=== PATIENT | male | born 1940 | race Caucasian/White ===

== ENCOUNTER 2017-01-20 13:04 | Inpatient (IN) | payer MEDICARE ==
[2017-01-20 13:07] VITALS: BMI 24.7
[2017-01-20] MEDS ORDERED: Albuterol-Ipratrop 3 mg / 0.5 (3 ml) UD IH STA (13:10)
--- NOTE | 2017-01-20 13:14 | ED PDOC ---
Arrival/HPI - General Chief Complaint: Shortness Of Breath Time Seen by Provider: 01/20/17 13:10 Historian: Patient, EMS EM Caveat: Respiratory Distress - Critical Care Critical Care Minutes: 30 minutes - History of Present Illness Time/Duration: Prior to Arrival Symptom Onset: Gradual Symptom Course: Worsening Severity Level: Severe Activities at Onset: Rest Associated Symptoms (Text): 01/20/17 13:12 History of severe COPD. Oxygen dependent on 2 L nasal cannula at home. Weak and fatigued for the last several days. Shortness of breath began in earnest today. No cough. No chest pain. No fever. Very poor historian secondary to respiratory distress. PMD is . Past Medical History - Cardiac Hx Hypertension: Yes - Pulmonary Hx Chronic Obstructive Pulmonary Disease (COPD): Yes Hx Emphysema: Yes (O2 dependent) - Psychiatric Hx Depression: No Hx Emotional Abuse: No Hx Physical Abuse: No Hx Substance Use: No - Surgical History Hx Inguinal Hernia Repair: Yes - Suicidal Assessment Feels Threatened In Home Enviroment: No Family/Social History - Physician Review Nursing Documentation Reviewed: Yes Family/Social History: Unknown Family HX Smoking Status: Former Smoker (Quit smoking 10 years ago) Hx Alcohol Use: No Hx Substance Use: No Allergies/Home Meds Allergies/Adverse Reactions: Allergies No Known Allergies Allergy (Verified 01/20/17 13:07) Home Medications: Home Meds Medication Instructions Recorded Confirmed Aspirin 81 mg PO DAILY 06/20/13 01/20/17 Tiotropium [Spiriva] 18 mcg IH DAILY 06/20/13 01/20/17 Albuterol HFA [Ventolin HFA 90 2 puff NEB Q4 PRN 01/20/17 01/20/17 mcg/actuation (8 g)] Ezetimibe/Simvastatin [Vytorin 1 tab PO DAILY 01/20/17 01/20/17 10-10 mg Tablet] Valsartan [Diovan] 40 mg PO DAILY 01/20/17 01/20/17 Review of Systems - Review of Systems Systems not reviewed;Unavailable: Respiratory Distress Physical Exam Vital Signs Temp Pulse Resp BP Pulse Ox 01/20/17 13:05 98.9 F 98 H 16 145/94 H 75 L Temperature: Afebrile Blood Pressure: Normal Pulse: Regular Respiratory Rate: Tachypneic Appearance: Positive for: Well-Appearing, Non-Toxic, Uncomfortable Pain Distress: None Mental Status: Positive for: other (Awake and alert) - Systems Exam Head: Present: Atraumatic, Normocephalic Pupils: Present: PERRL Extroacular Muscles: Present: EOMI Conjunctiva: Present: Normal Mouth: Present: Moist Mucous Membranes Neck: Present: Normal Range of Motion Respiratory/Chest: Present: Respiratory Distress, Accessory Muscle Use, Wheezes , Decreased Breath Sounds, Retracting, Rhonchi, Tachypneic. No: Rales, Tender to Palpation Cardiovascular: Present: Regular Rate and Rhythm, Normal S1, S2. No: Murmurs Abdomen: Present: Normal Bowel Sounds. No: Tenderness, Distention, Peritoneal Signs, Rebound, Guarding Upper Extremity: Present: Normal Inspection. No: Cyanosis, Edema Lower Extremity: Present: Normal Inspection, Edema (Trace bilateral lower extremity edema) Neurological: Present: GCS=15, CN II-XII Intact, Speech Normal Skin: Present: Warm, Dry, Normal Color. No: Rashes Medical Decision Making ED Course and Treatment: 01/20/17 14:08 EKG shows sinus tachycardia rate approximately 1:[address] or T-wave changes 01/20/17 14:09 ABG shows significant hypercarbia. Patient was begun on BiPAP. I had a long discussion with the patient's son over the telephone about the patient's CODE STATUS. This is the patient's only son. He reports that the patient does have a living will and he will be made a DNR. 01/20/17 14:38 Discussed in detail with , Kandi Mckeon Boghossian. - Lab Interpretations Lab Results: 01/20/17 13:24 01/20/17 13:24 Lab Results 01/20/17 13:47: Urine Color Dark yellow, Urine Appearance Slight-cloudy, Urine pH 5.5, Ur Specific [place] >= 1.030, Urine Protein 100 H, Urine Glucose (UA) Negative, Urine Ketones Negative, Urine Blood Trace-intact H, Urine Nitrate Negative, Urine Bilirubin Small H, Urine Urobilinogen 0.2, Ur Leukocyte Esterase Negative, Urine RBC Pending, Urine WBC Pending 01/20/17 13:24: Sodium 137, Potassium 4.1, Chloride 89 L, Carbon Dioxide 40 H, Anion Gap 12, BUN 25 H, Creatinine 1.3, Est GFR ( Amer) > 60, Est GFR ( Non-Af Amer) 54, Random Glucose 144 H, Calcium 8.6, Total Bilirubin 0.9, AST 27 , ALT 28, Alkaline Phosphatase 63, Lactate Dehydrogenase 483, Total Creatine Kinase 41, Troponin I 0.13 H*, NT-Pro-B Natriuret Pep 4260 H, Total Protein 7.3 , Albumin 4.3, Globulin 3.0, Albumin/Globulin Ratio 1.4 01/20/17 13:24: PT 12.3 H, INR 1.14 H, APTT 30.6 01/20/17 13:24: WBC 7.7, RBC 5.74, Hgb 17.1, Hct 55.2 H*, MCV 96.2, MCH 29.8, MCHC 31.0, RDW 13.1, Plt Count 214, MPV 10.8, Gran % 82.4 H, Lymph % (Auto) 11.4 L, [place] % (Auto) 6.1 H, Eos % (Auto) 0.0 L, Baso % (Auto) 0.1, Gran # 6.31 , Lymph # 0.9 L, [place] # 0.5, Eos # 0.0, Baso # 0.01 - RAD Interpretation Radiology Orders: 01/20/17 13:10 CHEST PORTABLE [RAD] Stat Chest one view shows a positive infiltrate Cage Loader: ED Physician - Medication Orders Current Medication Orders: Azithromycin (Zithromax 500mg In Ns) 500 mg in 250 mls @ 167 mls/hr IVPB STAT STA PRN Reason: Protocol Stop: 01/20/17 15:36 Discontinued Medications Albuterol/Ipratropium (Duoneb 3 Mg/0.5 Mg (3 Ml) Ud) 3 ml IH STAT STA Stop: 01/20/17 13:11 Last Admin: 01/20/17 13:41 Dose: 3 ml Ceftriaxone Sodium (Rocephin 1 Gram Ivpb) 1 gm in 100 mls @ 200 mls/hr IVPB STAT STA PRN Reason: Protocol Stop: 01/20/17 14:36 Last Admin: 01/20/17 14:49 Dose: 200 mls/hr Methylprednisolone (Solu-Medrol) 125 mg IVP STAT STA Stop: 01/20/17 13:11 Last Admin: 01/20/17 13:41 Dose: 125 mg Disposition/Present on Arrival - Present on Arrival Any Indicators Present on Arrival: No History of DVT/PE: No History of Uncontrolled Diabetes: No Urinary Catheter: No History of Decub. Ulcer: No History Surgical Site Infection Following: None - Disposition Have Diagnosis and Disposition been Completed?: Yes Diagnosis: Respiratory failure, Elevated troponin, Pneumonia, Hypercarbia Disposition: HOSPITALIZED Disposition Time: 14:37 Patient Plan: Admission, ICU Patient Problems: Current Active Problems Problem Status Onset Elevated troponin Acute Hypercarbia Acute Pneumonia Acute Respiratory failure Acute Condition: CRITICAL
[2017-01-20 13:28] LABS: BASO # 0.01 K/mm3 (0.0-2.0); BASO % 0.1 % (0.0-3.0); GRAN # 6.31 (1.4-6.5); GRAN % 82.4 % (50.0-68.0); HEMOGLOBIN 17.1 gm/dL (14.0-18.0); LYMPH # 0.9 (1.2-3.4); LYMPH % 11.4 % (22.0-35.0); MEAN CELL VOLUME 96.2 fL (80.0-105.0); MEAN CORPUSCULAR HEMOGLOBIN 29.8 pg (25.0-35.0); MEAN PLATELET VOLUME 10.8 fl (7.0-11.0); MONO # 0.5 (0.1-0.6); MONO % 6.1 % (1.0-6.0); PLATELET COUNT 214 10^3/uL (120.0-450.0); RBC 5.74 10^6/uL (3.5-6.1); RED CELL DISTRIBUTION WIDTH 13.1 % (11.5-14.5); WHITE BLOOD COUNT 7.7 10^3/ul (4.5-11.0)
[2017-01-20 13:37] LABS: ALB/GLOB RATIO 1.4 (1.1-1.8); ALBUMIN 4.3 g/dL (3.0-4.8); ALT/SGPT 28 U/L (7-56); AST/SGOT 27 U/L (15-59); BLOOD UREA NITROGEN 25 mg/dL (7-21); CALCIUM 8.6 mg/dL (8.4-10.5); GFR AFRICAN-AMERICAN > 60; GFR NON-AFRICAN AMERICAN 54
[2017-01-20 13:46] LABS: INR 1.14 (0.93-1.08); PARTIAL THROMBOPLASTIN TIME 30.6 Seconds (23.7-30.8); PROTHROMBIN TIME 12.3 Seconds (9.9-11.8)
[2017-01-20 13:49] LABS: B-TYPE NATRIURETIC PEPTIDE 4260 pg/mL (0-450)
[2017-01-20] MEDS ORDERED: Azithromycin 500MG/NS 250ml 500 MG/250 ML BAG IVPB STA (14:07)
[2017-01-20] MEDS ORDERED: cefTRIAXone 1 gm 1 GM/100 ML BAG IVPB STA (14:07)
[2017-01-20 14:27] LABS: TROPONIN I 0.13 ng/mL
[2017-01-20 14:29] LABS: PH,URINE 5.5 (4.7-8.0); URINE BILIRUBIN SMALL (NEGATIVE); URINE BLOOD TRACE-INTACT (NEGATIVE); URINE GLUCOSE (UA) NEGATIVE (NEGATIVE); URINE LEUKOCYTE ESTERASE NEGATIVE Leu/uL (NEGATIVE); URINE NITRATE NEGATIVE (NEGATIVE); URINE PROTEIN 100 mg/dL (<30 mg/dL); URINE UROBILINOGEN 0.2 E.U./dL (<1 E.U./dL)
[2017-01-20 14:34] LABS: URINE APPEARANCE SLIGHT-CLOUDY (CLEAR); URINE COLOR DARK YELLOW (YELLOW)
--- NOTE | 2017-01-20 14:40 | RAD ---
HISTORY: Shortness of breath. Portable study 13:41. COMPARISON: 03/05/2016. FINDINGS: LUNGS: No active pulmonary disease. PLEURA: No significant pleural effusion identified, no pneumothorax apparent. CARDIOVASCULAR: No radiographic findings to suggest acute or significant cardiovascular disease. OSSEOUS STRUCTURES: No significant abnormalities. VISUALIZED UPPER ABDOMEN: Normal. OTHER FINDINGS: None. IMPRESSION: No active disease. No significant interval change compared to the prior examination(s).
[2017-01-20 14:56] LABS: URINE AMORPHOUS SEDIMENT MODERATE; URINE BACTERIA FEW (NEG); URINE EPITHELIAL CELLS 0 - 2 /hpf (0-5); URINE WBC 0 - 2 /hpf (0-6)
[2017-01-20 15:10] LABS: ARTERIAL BLOOD GAS HEMOGLOBIN 16.6 g/dL (11.7-17.4)
[2017-01-20 15:11] LABS: ARTERIAL BLOOD GAS TCO2 46.8 mmol.L (22-28)
[2017-01-20 15:12] LABS: ARTERIAL BLOOD GAS FIO2 28 %
[2017-01-20 15:13] LABS: ARTERIAL BLOOD GAS HCO3 43.4 mmol/L (21-28); ARTERIAL BLOOD GAS PCO2 111 mm/Hg (35-45)
[2017-01-20] MEDS ORDERED: Albuterol-Ipratrop 3 mg / 0.5 (3 ml) UD IH PRN (15:16)
[2017-01-20] MEDS ORDERED: MethylPREDNISolone 40 mg Vial IVP SCH (15:30)
--- NOTE | 2017-01-20 15:36 | CP.PCM.CON ---
<Danay Cha - Last Filed: 01/20/17 16:30> History of Present Illness - History of Present Illness History of Present Illness: ICU Consult Note Reason for consult: Respiratory failure This is a 76Y M with PMH COPD, HTN who came to ED for SOB x 2 days. Patient was brought in by ambulance. As per ED physician, he has been SOB x 2 days with cough and colored mucus. Patient was lethargic upon interview. History and ROS difficult to obtain. Patient is arousable and denies having any pain. Of note, he has severe COPD and is on home O2 of 2 L. PMH: HTN, COPD PSH: Hernia repair Home meds: ASA, Spiriva, Ventolin, Valsartan, Vytorin All: NKDA SH: Former smoker FH: non-obtainable Review of Systems - Review of Systems Systems not reviewed;Unavailable: Respiratory Distress, Other (lethargic ) Past Patient History - Past Social History Smoking Status: Former Smoker (Quit smoking 10 years ago) Home Situation {Lives}: With Family - CARDIAC Hx Hypertension: Yes - PULMONARY Hx Chronic Obstructive Pulmonary Disease (COPD): Yes Hx Emphysema: Yes (O2 dependent) - PSYCHIATRIC Hx Depression: No Hx Emotional Abuse: No Hx Physical Abuse: No Hx Substance Use: No Meds Allergies/Adverse Reactions: Allergies Allergy/AdvReac Type Severity Reaction Status Date / Time No Known Allergies Allergy Verified 01/20/17 13:07 - Medications Medications: Current Medications Albuterol/Ipratropium (Duoneb 3 Mg/0.5 Mg (3 Ml) Ud) 3 ml IH [id number] RICH Albuterol/Ipratropium (Duoneb 3 Mg/0.5 Mg (3 Ml) Ud) 3 ml IH Q2H PRN PRN Reason: Shortness of Breath Aspirin (Aspirin Supp) 300 mg RC DAILY RICH Azithromycin (Zithromax 500mg In Ns) 500 mg in 250 mls @ 167 mls/hr IVPB STAT STA PRN Reason: Protocol Stop: 01/20/17 15:36 Last Admin: 01/20/17 15:27 Dose: 167 mls/hr Levofloxacin/Dextrose (Levaquin 750mg) 750 mg in 150 mls @ 100 mls/hr IVPB DAILY RICH Sodium Chloride (Sodium Chloride 0.9%) 1,000 mls @ 100 mls/hr IV .Q10H RICH Piperacillin Sod/Tazobactam Sod (Zosyn 3.375 In Ns 100ml) 100 mls @ 200 mls/hr IVPB Q6 RICH PRN Reason: Protocol Stop: 01/21/17 00:29 Linezolid (Zyvox 600mg/300ml D5w) 600 mg in 300 mls @ 200 mls/hr IVPB Q12 RICH PRN Reason: Protocol Stop: 01/20/17 23:29 Metoprolol Tartrate (Lopressor) 5 mg IVP Q6H RICH Pantoprazole Sodium (Protonix Inj) 40 mg IVP DAILY [facility] Physical Exam - Constitutional Additional comments: Lethargic - Head Exam Head Exam: ATRAUMATIC, NORMAL INSPECTION, NORMOCEPHALIC - Eye Exam Eye Exam: Normal appearance, PERRL Pupil Exam: NORMAL ACCOMODATION, PERRL - ENT Exam ENT Exam: Mucous Membranes Moist - Respiratory Exam Respiratory Exam: Decreased Breath Sounds, Respiratory Distress. absent: Rales , Rhonchi, Wheezes - Cardiovascular Exam Cardiovascular Exam: Tachycardia, REGULAR RHYTHM, +S1, +S2. absent: Gallop, Rubs, Systolic Murmur - GI/Abdominal Exam GI & Abdominal Exam: Normal Bowel Sounds, Soft. absent: Firm, Guarding, Rebound , Tenderness - Extremities Exam Extremities exam: Positive for: normal inspection. Negative for: calf tenderness, pedal edema - Neurological Exam Neurological exam: CN II-XII Intact - Skin Skin Exam: Dry, Intact, Normal Color, Warm Results - Vital Signs Recent Vital Signs: Last Vital Signs Temp 98.9 F 01/20/17 13:05 Pulse 98 H 01/20/17 13:05 Resp 16 01/20/17 13:05 BP 145/94 H 01/20/17 13:05 Pulse Ox 75 L 01/20/17 13:05 - Labs Result Diagrams: 01/20/17 13:24 01/20/17 13:24 Assessment & Plan - Assessment and Plan (Free Text) Assessment: This is a 76Y M with PMH HTN, severe COPD on home O2 admitted for severe community acquired pneumonia, respiratory failure and elevated troponin. Plan: Neuro: Lethargic- AMS can be secondary to pneumonia Neuro check Aspiration precaution CV: Troponin elevated- will trend EKG did not show tachycardia with ST-T wave changes Cardio consulted- spoke with Dr. Hastings who [facility] who reports no cath plan for this time- continue to monitor and SC Heparin ASA, Beta-felicity BNP elevated. Echo ordered Maintain MAP >65 Resp: On Bipap- Pt DNI Hypercapneic respiratory failure Maintain spO2>90% Severe CAP on CXR Will obtain chest CT Serial ABG Duoneb Solumedrol 40q8h GI: NPO at this time Nephro: Will monitor electrolytes and will replace as needed Monitor I&O Maintain euvolemia Heme: Hgb stable- no overt signs Will continue to monitor ID: Severe CAP afebrile, no leukocytosis Lactate 0.9, PCT pending Septic work up pending, including urine legionella and streptococcus ID consulted On Zosyn, Zyvox, and Levaquin Maintain normothermia Endo: Maintain euglycemia GI ppx: Protonix DVT ppx: Heparin SC Case seen, discussed and reviewed with attending Sina Cha PGY2 - Date & Time Date: 01/20/17 Time: 17:12 <Antwon Mckeon - Last Filed: 01/21/17 08:00> Meds - Medications Medications: Current Medications Albuterol/Ipratropium (Duoneb 3 Mg/0.5 Mg (3 Ml) Ud) 3 ml IH [id number] [facility] Last Admin: 01/21/17 07:18 Dose: 3 ml Albuterol/Ipratropium (Duoneb 3 Mg/0.5 Mg (3 Ml) Ud) 3 ml IH Q2H PRN PRN Reason: Shortness of Breath Aspirin (Aspirin Supp) 300 mg RC DAILY [facility] Levofloxacin/Dextrose (Levaquin 750mg) 750 mg in 150 mls @ 100 mls/hr IVPB DAILY [facility] Last Admin: 01/20/17 18:12 Dose: 100 mls/hr Sodium Chloride (Sodium Chloride 0.9%) 1,000 mls @ 100 mls/hr IV .Q10H [facility] Last Admin: 01/21/17 01:30 Dose: 100 mls/hr Methylprednisolone (Solu-Medrol) 40 mg IVP Q8H [facility] Last Admin: 01/21/17 05:50 Dose: 40 mg Metoprolol Tartrate (Lopressor) 5 mg IVP Q6H [facility] Last Admin: 01/21/17 03:48 Dose: 5 mg Pantoprazole Sodium (Protonix Inj) 40 mg IVP DAILY RICH Results - Vital Signs Recent Vital Signs: Last Vital Signs Temp 98.2 F 01/21/17 04:00 Pulse 83 01/21/17 06:00 Resp 18 01/21/17 06:00 BP 124/74 01/21/17 06:00 Pulse Ox 87 L 01/21/17 06:00 - Labs Result Diagrams: 01/21/17 07:00 01/21/17 07:00 Labs: Laboratory Results - last 24 hr 01/20/17 01/21/17 01/21/17 16:15 02:05 05:30 WBC RBC Hgb Hct MCV MCH MCHC RDW Plt Count MPV Gran % Lymph % (Auto) [place] % (Auto) Eos % (Auto) Baso % (Auto) Gran # Lymph # [place] # Eos # Baso # pCO2 116 H* 96 H* pO2 102.0 H 135.0 H HCO3 41.3 H* 38.4 H ABG pH 7.16 L* 7.21 L ABG Total CO2 44.9 H 41.3 H ABG O2 Saturation 98.1 H 99.4 H ABG O2 Content ABG Base Excess 6.8 H 6.8 H ABG Hemoglobin ABG Carboxyhemoglobin POC ABG HHb (Measured) ABG Methemoglobin ABG O2 Capacity ABG Potassium 4.1 3.7 Hgb O2 Saturation Sodium 138.0 137.0 Chloride 94.0 L 99.0 Glucose 178 H 135 H Lactate 0.9 1.3 FiO2 50.0 28.0 Inspiratory BiPAP 14 Potassium Carbon Dioxide Anion Gap BUN Creatinine Est GFR ( Amer) Est GFR (Non-Af Amer) Random Glucose Calcium Total Bilirubin AST ALT Alkaline Phosphatase Troponin I 0.11 Total Protein Albumin Globulin Albumin/Globulin Ratio Arterial Blood Potassium 4.1 3.7 01/21/17 01/21/17 01/21/17 06:29 07:00 07:00 WBC 5.8 D RBC 5.40 Hgb 15.9 Hct 51.8 MCV 95.9 MCH 29.4 MCHC 30.7 L RDW 12.9 Plt Count 163 MPV 10.4 Gran % 89.6 H Lymph % (Auto) 6.9 L [place] % (Auto) 3.5 Eos % (Auto) 0.0 L Baso % (Auto) 0.0 Gran # 5.17 Lymph # 0.4 L [place] # 0.2 Eos # 0.0 Baso # 0.00 pCO2 78 H* pO2 60.0 L HCO3 35.8 H ABG pH 7.27 L ABG Total CO2 38.2 H ABG O2 Saturation 92.5 L ABG O2 Content 19.4 ABG Base Excess 5.6 H ABG Hemoglobin 15.5 ABG Carboxyhemoglobin 2.9 H POC ABG HHb (Measured) 7.2 H ABG Methemoglobin 0.9 ABG O2 Capacity 21.0 ABG Potassium Hgb O2 Saturation 89.0 L Sodium 137 Chloride 95 L Glucose Lactate FiO2 28.0 Inspiratory BiPAP Potassium 3.9 Carbon Dioxide 33 Anion Gap 13 BUN 21 Creatinine 1.1 Est GFR ( Amer) > 60 Est GFR (Non-Af Amer) > 60 Random Glucose 140 H Calcium 7.8 L Total Bilirubin 0.6 AST 22 ALT 27 Alkaline Phosphatase 48 Troponin I Total Protein 6.2 Albumin 3.6 Globulin 2.6 Albumin/Globulin Ratio 1.4 Arterial Blood Potassium Attending/Attestation - Attestation I have personally seen and examined this patient.: Yes I have fully participated in the care of the patient.: Yes I have reviewed all pertinent clinical information: Yes Notes (Text): 01/21/17 07:56 76 yo male with CAP and COPD exacerbation now in hypoxemic and hypercapnic respiratory failure, sepsis, NIKKI septic cardiomyopathy. DNR/DNI Plan: 1. BPAP 2. Abx, blood, urine sputum culture, urine for strep and leg ags, pct 3. echo, trend troponin, cardio consult, aspirin, bb 4. icu overnight 5. dvt/gi prophylaxis ccm time 40 min
[2017-01-20 16:26] LABS: ARTERIAL BLOOD GAS HCO3 41.3 mmol/L (21-28); ARTERIAL BLOOD GAS O2 SAT 98.1 % (95-98); ARTERIAL BLOOD GAS PCO2 116 mm/Hg (35-45); ARTERIAL BLOOD GAS TCO2 44.9 mmol.L (22-28)
[2017-01-20 16:27] LABS: ARTERIAL BLOOD GAS PH 7.16 (7.35-7.45)
[2017-01-20] MEDS: Sodium Chloride 0.9% 1,000 ML IV SCH (16:35)
[2017-01-20] MEDS: Metoprolol 1 mg/ml Inj IVP SCH ×2 (16:36→21:34)
--- NOTE | 2017-01-20 17:28 | CT ---
PROCEDURE: CT Chest without contrast HISTORY: pneumonia discordance with CXR COMPARISON: January 20, 2017. Single-view chest TECHNIQUE: Contiguous axial images were obtained through the chest without intravenous contrast enhancement. Sagittal and coronal reconstructions were performed. Radiation dose (DLP): 425.22 mGy-cm. This CT exam was performed using one or more of the following dose reduction techniques: Automated exposure control, adjustment of the mA and/or kV according to patient size, and/or use of iterative reconstruction technique. FINDINGS: LUNGS: Small infiltrate or atelectasis basilar segment right lower lobe. No additional pulmonary infiltrates, nodules or suspicious masses. MEDIASTINUM: Unremarkable thoracic aorta. No aneurysm. No radiographic findings to suggest acute or significant cardiovascular disease. Dilated main pulmonary artery 3.7 cm consistent with pulmonary arterial hypertension. No lymphadenopathy. PLEURA: No pleural fluid. No pneumothorax. BONES: No acute fractures. Multiple healed posterior lateral right rib fractures. UPPER ABDOMEN: Nonspecific enlargement left adrenal gland. Irregular contour to the liver may represent cirrhosis, hepatocellular disease. The liver is incompletely visualized. OTHER FINDINGS: None. IMPRESSION: Subsegmental atelectasis/ infiltrates basilar segment right lower lobe. Otherwise no active pulmonary disease. Additional benign and/or incidental findings described above. Dense
[2017-01-20] MEDS: levoFLOXacin 750 mg in D5W 750 MG/150 ML BAG IVPB SCH (18:12)
[2017-01-20] MEDS: Piperacillin/Tazobact 3.375 gm 100 ML IVPB SCH (18:13)
[2017-01-20] MEDS: Albuterol-Ipratrop 3 mg / 0.5 (3 ml) UD IH SCH (20:00)
--- NOTE | 2017-01-20 20:17 | CARD ---
APPROVED REPORT EKG Measurement Heart [id number] <Conclusion> Poor data quality, interpretation may be adversely affected Sinus tachycardia with occasional premature ventricular complexes Possible Left atrial enlargement RSR' or QR pattern in V1 suggests right ventricular conduction delay Nonspecific T wave abnormality Abnormal ECG
[2017-01-20] MEDS ORDERED: Linezolid 600 mg in D5W 300 ml 600 MG/300 ML BAG IVPB SCH (22:00)
[2017-01-21] MEDS: Piperacillin/Tazobact 3.375 gm 100 ML IVPB SCH
[2017-01-21] MEDS: Albuterol-Ipratrop 3 mg / 0.5 (3 ml) UD IH SCH ×4 (01:12→19:34)
[2017-01-21] MEDS: Sodium Chloride 0.9% 1,000 ML IV SCH ×2 (01:30→12:27)
[2017-01-21] MEDS: Metoprolol 1 mg/ml Inj IVP SCH (03:48)
[2017-01-21 05:44] LABS: ARTERIAL BLOOD GAS HCO3 38.4 mmol/L (21-28); ARTERIAL BLOOD GAS O2 SAT 99.4 % (95-98); ARTERIAL BLOOD GAS PH 7.21 (7.35-7.45); ARTERIAL BLOOD GAS TCO2 41.3 mmol.L (22-28)
[2017-01-21] MEDS: MethylPREDNISolone 40 mg Vial IVP SCH ×3 (05:50→21:16)
[2017-01-21 06:33] LABS: ARTERIAL BLOOD GAS HCO3 35.8 mmol/L (21-28); ARTERIAL BLOOD GAS HEMOGLOBIN 15.5 g/dL (11.7-17.4); ARTERIAL BLOOD GAS O2 CONTENT 19.4 ML/dl (15-23); ARTERIAL BLOOD GAS O2 SAT 92.5 % (95-98); ARTERIAL BLOOD GAS PH 7.27 (7.35-7.45); ARTERIAL BLOOD GAS TCO2 38.2 mmol.L (22-28)
[2017-01-21 07:14] LABS: GRAN # 5.17 (1.4-6.5); GRAN % 89.6 % (50.0-68.0); HEMOGLOBIN 15.9 gm/dL (14.0-18.0); LYMPH # 0.4 (1.2-3.4); LYMPH % 6.9 % (22.0-35.0); MEAN CELL VOLUME 95.9 fL (80.0-105.0); MEAN CORPUSCULAR HEMOGLOBIN 29.4 pg (25.0-35.0); MEAN CORPUSCULAR HGB CONC 30.7 g/dl (31.0-37.0); MEAN PLATELET VOLUME 10.4 fl (7.0-11.0); MONO # 0.2 (0.1-0.6); MONO % 3.5 % (1.0-6.0); PLATELET COUNT 163 10^3/uL (120.0-450.0); RED CELL DISTRIBUTION WIDTH 12.9 % (11.5-14.5); WHITE BLOOD COUNT 5.8 10^3/ul (4.5-11.0)
[2017-01-21 07:30] LABS: ALB/GLOB RATIO 1.4 (1.1-1.8); ALBUMIN 3.6 g/dL (3.0-4.8); ALT/SGPT 27 U/L (7-56); AST/SGOT 22 U/L (15-59); BLOOD UREA NITROGEN 21 mg/dL (7-21); CALCIUM 7.8 mg/dL (8.4-10.5); GFR AFRICAN-AMERICAN > 60; GFR NON-AFRICAN AMERICAN > 60
[2017-01-21 07:46] LABS: ARTERIAL BLOOD GAS PCO2 96 mm/Hg (35-45)
[2017-01-21 07:48] LABS: ARTERIAL BLOOD GAS PCO2 78 mm/Hg (35-45)
[2017-01-21] MEDS: levoFLOXacin 750 mg in D5W 750 MG/150 ML BAG IVPB SCH (09:21)
--- NOTE | 2017-01-21 09:40 | CP.PCM.CON ---
History of Present Illness - History of Present Illness History of Present Illness: SOB NOW RESOLVED AWAKE ALERT DOING BETTER COMFORTABLE Review of Systems - Constitutional Constitutional: Weakness - Respiratory Respiratory: Dyspnea Past Patient History - Past Medical History & Family History Past Medical History?: Yes - Past Social History Smoking Status: Former Smoker (Quit smoking 10 years ago) Home Situation {Lives}: With Family - CARDIAC Hx Hypertension: Yes - PULMONARY Hx Chronic Obstructive Pulmonary Disease (COPD): Yes Hx Emphysema: Yes (O2 dependent) - MUSCULOSKELETAL/RHEUMATOLOGICAL Hx Falls: No - PSYCHIATRIC Hx Depression: No Hx Emotional Abuse: No Hx Physical Abuse: No Hx Substance Use: No Meds Allergies/Adverse Reactions: Allergies Allergy/AdvReac Type Severity Reaction Status Date / Time No Known Allergies Allergy Verified 01/20/17 13:07 - Medications Medications: Current Medications Albuterol/Ipratropium (Duoneb 3 Mg/0.5 Mg (3 Ml) Ud) 3 ml IH [id number] [facility] Last Admin: 01/21/17 07:18 Dose: 3 ml Albuterol/Ipratropium (Duoneb 3 Mg/0.5 Mg (3 Ml) Ud) 3 ml IH Q2H PRN PRN Reason: Shortness of Breath Aspirin (Aspirin Supp) 300 mg RC DAILY [facility] Doxycycline Hyclate (Doryx) 100 mg PO Q12 RICH PRN Reason: Protocol Stop: 01/30/17 10:01 Levofloxacin/Dextrose (Levaquin 750mg) 750 mg in 150 mls @ 100 mls/hr IVPB DAILY [facility] Last Admin: 01/20/17 18:12 Dose: 100 mls/hr Sodium Chloride (Sodium Chloride 0.9%) 1,000 mls @ 100 mls/hr IV .Q10H [facility] Last Admin: 01/21/17 01:30 Dose: 100 mls/hr Methylprednisolone (Solu-Medrol) 40 mg IVP Q8H [facility] Last Admin: 01/21/17 05:50 Dose: 40 mg Metoprolol Tartrate (Lopressor) 5 mg IVP Q6H [facility] Last Admin: 01/21/17 03:48 Dose: 5 mg Pantoprazole Sodium (Protonix Inj) 40 mg IVP DAILY [facility] Physical Exam - Constitutional Appears: Well - Head Exam Head Exam: ATRAUMATIC, NORMAL INSPECTION, NORMOCEPHALIC - Eye Exam Eye Exam: EOMI, Normal appearance, PERRL Pupil Exam: NORMAL ACCOMODATION, PERRL - ENT Exam ENT Exam: Mucous Membranes Moist, Normal Exam - Neck Exam Neck exam: Positive for: Normal Inspection - Respiratory Exam Respiratory Exam: Clear to Auscultation Bilateral, NORMAL BREATHING PATTERN - Cardiovascular Exam Cardiovascular Exam: REGULAR RHYTHM - GI/Abdominal Exam GI & Abdominal Exam: Normal Bowel Sounds, Soft. absent: Tenderness - Rectal Exam Rectal Exam: NORMAL INSPECTION - Exam Exam: Circumcision, NORMAL INSPECTION External exam: NORMAL EXTERNAL EXAM Speculum exam: NORMAL SPECULUM EXAM Bimanual exam: NORMAL BIMANUAL EXAM - Extremities Exam Extremities exam: Positive for: normal inspection - Back Exam Back exam: NORMAL INSPECTION - Neurological Exam Neurological exam: Alert, CN II-XII Intact, Normal Gait, Oriented x3, Reflexes Normal - Psychiatric Exam Psychiatric exam: Normal Affect, Normal Mood - Skin Skin Exam: Dry, Intact, Normal Color, Warm Results - Vital Signs Recent Vital Signs: Last Vital Signs Temp 97.2 F L 01/21/17 08:00 Pulse 88 01/21/17 08:20 Resp 43 H 01/21/17 08:10 BP 133/96 H 01/21/17 08:01 Pulse Ox 94 L 01/21/17 08:20 - Labs Result Diagrams: 01/21/17 07:00 01/21/17 07:00 Labs: Laboratory Results - last 24 hr 01/20/17 01/21/17 01/21/17 16:15 02:05 05:30 WBC RBC Hgb Hct MCV MCH MCHC RDW Plt Count MPV Gran % Lymph % (Auto) [place] % (Auto) Eos % (Auto) Baso % (Auto) Gran # Lymph # [place] # Eos # Baso # pCO2 116 H* 96 H* pO2 102.0 H 135.0 H HCO3 41.3 H* 38.4 H ABG pH 7.16 L* 7.21 L ABG Total CO2 44.9 H 41.3 H ABG O2 Saturation 98.1 H 99.4 H ABG O2 Content ABG Base Excess 6.8 H 6.8 H ABG Hemoglobin ABG Carboxyhemoglobin POC ABG HHb (Measured) ABG Methemoglobin ABG O2 Capacity ABG Potassium 4.1 3.7 Hgb O2 Saturation Sodium 138.0 137.0 Chloride 94.0 L 99.0 Glucose 178 H 135 H Lactate 0.9 1.3 FiO2 50.0 28.0 Inspiratory BiPAP 14 Potassium Carbon Dioxide Anion Gap BUN Creatinine Est GFR ( Amer) Est GFR (Non-Af Amer) Random Glucose Calcium Total Bilirubin AST ALT Alkaline Phosphatase Troponin I 0.11 Total Protein Albumin Globulin Albumin/Globulin Ratio Arterial Blood Potassium 4.1 3.7 01/21/17 01/21/17 01/21/17 06:29 07:00 07:00 WBC 5.8 D RBC 5.40 Hgb 15.9 Hct 51.8 MCV 95.9 MCH 29.4 MCHC 30.7 L RDW 12.9 Plt Count 163 MPV 10.4 Gran % 89.6 H Lymph % (Auto) 6.9 L [place] % (Auto) 3.5 Eos % (Auto) 0.0 L Baso % (Auto) 0.0 Gran # 5.17 Lymph # 0.4 L [place] # 0.2 Eos # 0.0 Baso # 0.00 pCO2 78 H* pO2 60.0 L HCO3 35.8 H ABG pH 7.27 L ABG Total CO2 38.2 H ABG O2 Saturation 92.5 L ABG O2 Content 19.4 ABG Base Excess 5.6 H ABG Hemoglobin 15.5 ABG Carboxyhemoglobin 2.9 H POC ABG HHb (Measured) 7.2 H ABG Methemoglobin 0.9 ABG O2 Capacity 21.0 ABG Potassium Hgb O2 Saturation 89.0 L Sodium 137 Chloride 95 L Glucose Lactate FiO2 28.0 Inspiratory BiPAP Potassium 3.9 Carbon Dioxide 33 Anion Gap 13 BUN 21 Creatinine 1.1 Est GFR ( Amer) > 60 Est GFR (Non-Af Amer) > 60 Random Glucose 140 H Calcium 7.8 L Total Bilirubin 0.6 AST 22 ALT 27 Alkaline Phosphatase 48 Troponin I Total Protein 6.2 Albumin 3.6 Globulin 2.6 Albumin/Globulin Ratio 1.4 Arterial Blood Potassium Assessment & Plan (1) Congestive heart failure (CHF) Status: Acute (2) Elevated troponin Status: Acute (3) Hypercarbia Status: Acute (4) Elevated brain natriuretic peptide (BNP) level Status: Acute - Assessment and Plan (Free Text) Plan: ROCE /DOX CH BERGMAN CULTURS NORMAL PROCAL CK ECHO - Date & Time Date: 01/21/17 Time: 08:00
--- NOTE | 2017-01-21 11:20 | CP.PCM.PN ---
Subjective - Date & Time of Evaluation Date of Evaluation: 01/21/17 Time of Evaluation: 11:16 - Subjective Subjective: Pt with no CP/SOB/N/V. Eating ok. Wants to go home. Objective - Vital Signs/Intake and Output Vital Signs (last 24 hours): Temp Pulse Resp BP Pulse Ox 97.2 F L 88 43 H 133/96 H 94 L 01/21/17 08:00 01/21/17 08:20 01/21/17 08:10 01/21/17 08:01 01/21/17 08:20 Intake and Output: 01/21/17 01/21/17 06:59 18:59 Intake Total 1600 Output Total 400 Balance 1200 - Medications Medications: Current Medications Albuterol/Ipratropium (Duoneb 3 Mg/0.5 Mg (3 Ml) Ud) 3 ml IH [id number] [facility] Last Admin: 01/21/17 07:18 Dose: 3 ml Albuterol/Ipratropium (Duoneb 3 Mg/0.5 Mg (3 Ml) Ud) 3 ml IH Q2H PRN PRN Reason: Shortness of Breath Aspirin (Aspirin Chewable) 81 mg PO DAILY [facility] Last Admin: 01/21/17 11:09 Dose: 81 mg Doxycycline Hyclate (Doryx) 100 mg PO Q12 [facility] PRN Reason: Protocol Stop: 01/30/17 10:01 Last Admin: 01/21/17 10:30 Dose: 100 mg Levofloxacin/Dextrose (Levaquin 750mg) 750 mg in 150 mls @ 100 mls/hr IVPB DAILY [facility] Last Admin: 01/21/17 09:21 Dose: 100 mls/hr Sodium Chloride (Sodium Chloride 0.9%) 1,000 mls @ 100 mls/hr IV .Q10H [facility] Last Admin: 01/21/17 01:30 Dose: 100 mls/hr Methylprednisolone (Solu-Medrol) 40 mg IVP Q8H [facility] Last Admin: 01/21/17 05:50 Dose: 40 mg Metoprolol Tartrate (Lopressor) 5 mg IVP Q6H [facility] Last Admin: 01/21/17 03:48 Dose: 5 mg Pantoprazole Sodium (Protonix Inj) 40 mg IVP DAILY [facility] Last Admin: 01/21/17 09:21 Dose: 40 mg - Labs Labs: 01/21/17 07:00 01/21/17 07:00 PT 12.3 Seconds (9.9-11.8) H 01/20/17 13:24 INR 1.14 (0.93-1.08) H 01/20/17 13:24 APTT 30.6 Seconds (23.7-30.8) 01/20/17 13:24 - Eye Exam Eye Exam: EOMI, Normal appearance, PERRL Pupil Exam: NORMAL ACCOMODATION, PERRL - ENT Exam ENT Exam: Mucous Membranes Moist, Normal Exam - Cardiovascular Exam Cardiovascular Exam: REGULAR RHYTHM, RRR, +S1, +S2. absent: Murmur - Extremities Exam Extremities Exam: Full ROM - Neurological Exam Neurological Exam: Alert, Awake, CN II-XII Intact, Oriented x3 - Psychiatric Exam Psychiatric exam: Normal Affect, Normal Mood - Skin Skin Exam: Intact, Normal Color Assessment and Plan - Assessment and Plan (Free Text) Assessment: Community Acquired Pneumonia COPD HTN Plan: ICU. Improving PCO2. Spoke to Dr Ortega. Duo Rx. IV Steroids. On IV Abx. Will transfer. Not ready to go home. Eating well no pain.
--- NOTE | 2017-01-21 14:01 | CP.PCM.CON ---
History of Present Illness - History of Present Illness History of Present Illness: 76 y/o [place] male h/o COPD on nasal home O2 presented with respiratory distress No prior Cardiac history of NC Review of Systems - Review of Systems Systems not reviewed;Unavailable: Acuity of Condition - EENT Eyes: absent: As Per HPI, Blind Spots, Blurred Vision, Change in Vision, Decreased Night Vision, Diplopia, Discharge, Dry Eye, Exophthalmos, Floaters, Irritation, Itchy Eyes, Loss of Peripheral Vision, Pain, Photophobia, Requires Corrective Lenses, Sees Flashes, Spots in Vision, Tunnel Vision, Other Visual Disturbances, Loss of Vision, Other Nose/Mouth/Throat: absent: As Per HPI, Epistaxis, Nasal Congestion, Nasal Discharge, Nasal Obstruction, Nasal Trauma, Nose Pain, Post Nasal Drip, Sinus Pain, Sinus Pressure, Bleeding Gums, Change in Voice, Dental Pain, Dry Mouth, Dysphagia, Halitosis, Hoarsness, Lip Swelling, Mouth Lesions, Mouth Pain, Odynophagia, Sore Throat, Throat Swelling, Tongue Swelling, Facial Pain, Neck Pain, Neck Mass, Other - Cardiovascular Cardiovascular: Dyspnea on Exertion - Respiratory Respiratory: Wheezing - Gastrointestinal Gastrointestinal: absent: As Per HPI, Abdominal Pain, Belching, Bloating, Change in Bowel Habits, Change in Stool Character, Coffee Ground Emesis, Constipation, Cramping, Diarrhea, Dyspepsia, Dysphagia, Early Satiety, Excessive Flatus, Fecal Incontinence, Heartburn, Hematemesis, Hematochezia, Loose Stools, Melena, Nausea, Odynophagia, Temesmus, Vomiting, Other Past Patient History - Past Medical History & Family History Past Medical History?: Yes - Past Social History Smoking Status: Former Smoker (Quit smoking 10 years ago) Home Situation {Lives}: With Family - CARDIAC Hx Hypertension: Yes - PULMONARY Hx Chronic Obstructive Pulmonary Disease (COPD): Yes Hx Emphysema: Yes (O2 dependent) - MUSCULOSKELETAL/RHEUMATOLOGICAL Hx Falls: No - PSYCHIATRIC Hx Depression: No Hx Emotional Abuse: No Hx Physical Abuse: No Hx Substance Use: No Meds Allergies/Adverse Reactions: Allergies Allergy/AdvReac Type Severity Reaction Status Date / Time No Known Allergies Allergy Verified 01/20/17 13:07 - Medications Medications: Current Medications Albuterol/Ipratropium (Duoneb 3 Mg/0.5 Mg (3 Ml) Ud) 3 ml IH [id number] [facility] Last Admin: 01/21/17 13:51 Dose: 3 ml Albuterol/Ipratropium (Duoneb 3 Mg/0.5 Mg (3 Ml) Ud) 3 ml IH Q2H PRN PRN Reason: Shortness of Breath Aspirin (Aspirin Chewable) 81 mg PO DAILY [facility] Last Admin: 01/21/17 11:09 Dose: 81 mg Doxycycline Hyclate (Doryx) 100 mg PO Q12 [facility] PRN Reason: Protocol Stop: 01/30/17 10:01 Last Admin: 01/21/17 10:30 Dose: 100 mg Levofloxacin/Dextrose (Levaquin 750mg) 750 mg in 150 mls @ 100 mls/hr IVPB DAILY [facility] Last Admin: 01/21/17 09:21 Dose: 100 mls/hr Sodium Chloride (Sodium Chloride 0.9%) 1,000 mls @ 100 mls/hr IV .Q10H [facility] Last Admin: 01/21/17 12:27 Dose: 100 mls/hr Methylprednisolone (Solu-Medrol) 40 mg IVP Q8H [facility] Last Admin: 01/21/17 05:50 Dose: 40 mg Metoprolol Tartrate (Lopressor) 25 mg PO BID [facility] Last Admin: 01/21/17 11:39 Dose: 25 mg Pantoprazole Sodium (Protonix Inj) 40 mg IVP DAILY [facility] Last Admin: 01/21/17 09:21 Dose: 40 mg Physical Exam - Head Exam Head Exam: ATRAUMATIC, NORMAL INSPECTION, NORMOCEPHALIC - Eye Exam Eye Exam: Normal appearance - Neck Exam Neck exam: Positive for: Normal Inspection - Respiratory Exam Respiratory Exam: Rhonchi, Wheezes - Cardiovascular Exam Cardiovascular Exam: REGULAR RHYTHM - Rectal Exam Rectal Exam: NORMAL INSPECTION - Extremities Exam Extremities exam: Positive for: pedal edema Results - Vital Signs Recent Vital Signs: Last Vital Signs Temp 97.4 F L 01/21/17 12:00 Pulse 74 01/21/17 13:50 Resp 24 01/21/17 13:50 BP 128/75 01/21/17 13:00 Pulse Ox 97 01/21/17 13:50 - Labs Result Diagrams: 01/21/17 07:00 01/21/17 07:00 Labs: Laboratory Results - last 24 hr 01/20/17 01/21/17 01/21/17 16:15 02:05 05:30 WBC RBC Hgb Hct MCV MCH MCHC RDW Plt Count MPV Gran % Lymph % (Auto) [place] % (Auto) Eos % (Auto) Baso % (Auto) Gran # Lymph # [place] # Eos # Baso # pCO2 116 H* 96 H* pO2 102.0 H 135.0 H HCO3 41.3 H* 38.4 H ABG pH 7.16 L* 7.21 L ABG Total CO2 44.9 H 41.3 H ABG O2 Saturation 98.1 H 99.4 H ABG O2 Content ABG Base Excess 6.8 H 6.8 H ABG Hemoglobin ABG Carboxyhemoglobin POC ABG HHb (Measured) ABG Methemoglobin ABG O2 Capacity ABG Potassium 4.1 3.7 Hgb O2 Saturation Sodium 138.0 137.0 Chloride 94.0 L 99.0 Glucose 178 H 135 H Lactate 0.9 1.3 FiO2 50.0 28.0 Inspiratory BiPAP 14 Potassium Carbon Dioxide Anion Gap BUN Creatinine Est GFR ( Amer) Est GFR (Non-Af Amer) Random Glucose Calcium Total Bilirubin AST ALT Alkaline Phosphatase Troponin I 0.11 Total Protein Albumin Globulin Albumin/Globulin Ratio Arterial Blood Potassium 4.1 3.7 01/21/17 01/21/17 01/21/17 06:29 07:00 07:00 WBC 5.8 D RBC 5.40 Hgb 15.9 Hct 51.8 MCV 95.9 MCH 29.4 MCHC 30.7 L RDW 12.9 Plt Count 163 MPV 10.4 Gran % 89.6 H Lymph % (Auto) 6.9 L [place] % (Auto) 3.5 Eos % (Auto) 0.0 L Baso % (Auto) 0.0 Gran # 5.17 Lymph # 0.4 L [place] # 0.2 Eos # 0.0 Baso # 0.00 pCO2 78 H* pO2 60.0 L HCO3 35.8 H ABG pH 7.27 L ABG Total CO2 38.2 H ABG O2 Saturation 92.5 L ABG O2 Content 19.4 ABG Base Excess 5.6 H ABG Hemoglobin 15.5 ABG Carboxyhemoglobin 2.9 H POC ABG HHb (Measured) 7.2 H ABG Methemoglobin 0.9 ABG O2 Capacity 21.0 ABG Potassium Hgb O2 Saturation 89.0 L Sodium 137 Chloride 95 L Glucose Lactate FiO2 28.0 Inspiratory BiPAP Potassium 3.9 Carbon Dioxide 33 Anion Gap 13 BUN 21 Creatinine 1.1 Est GFR ( Amer) > 60 Est GFR (Non-Af Amer) > 60 Random Glucose 140 H Calcium 7.8 L Total Bilirubin 0.6 AST 22 ALT 27 Alkaline Phosphatase 48 Troponin I Total Protein 6.2 Albumin 3.6 Globulin 2.6 Albumin/Globulin Ratio 1.4 Arterial Blood Potassium - EKG Data EKG comments: sinus tachy 114 BPM Assessment & Plan - Assessment and Plan (Free Text) Assessment: Exacerbation of COPD Borderline troponin elevation HTN Plan: Cont. Albuterol/Ipratropium (Duoneb 3 Mg/0.5 Mg (3 Ml) Ud) 3 ml IH [id number] [facility] Last Admin: 01/21/17 13:51 Dose: 3 ml Albuterol/Ipratropium (Duoneb 3 Mg/0.5 Mg (3 Ml) Ud) 3 ml IH Q2H PRN PRN Reason: Shortness of Breath Aspirin (Aspirin Chewable) 81 mg PO DAILY [facility] Last Admin: 01/21/17 11:09 Dose: 81 mg Doxycycline Hyclate (Doryx) 100 mg PO Q12 [facility] PRN Reason: Protocol Stop: 01/30/17 10:01 Last Admin: 01/21/17 10:30 Dose: 100 mg Levofloxacin/Dextrose (Levaquin 750mg) 750 mg in 150 mls @ 100 mls/hr IVPB DAILY [facility] Last Admin: 01/21/17 09:21 Dose: 100 mls/hr Sodium Chloride (Sodium Chloride 0.9%) 1,000 mls @ 100 mls/hr IV .Q10H [facility] Last Admin: 01/21/17 12:27 Dose: 100 mls/hr Methylprednisolone (Solu-Medrol) 40 mg IVP Q8H [facility] Last Admin: 01/21/17 05:50 Dose: 40 mg Metoprolol Tartrate (Lopressor) 25 mg PO BID [facility] Last Admin: 01/21/17 11:39 Dose: 25 mg Pantoprazole Sodium (Protonix Inj) 40 mg IVP DAILY [facility] Last Admin: 01/21/17 09:21 Dose: 40 mg OK with tele transfer Cath is not justified I will review ECho
--- NOTE | 2017-01-21 14:58 | CP.PCM.PN ---
<OMAIRA CLEMENTEJA - Last Filed: 01/21/17 15:32> Subjective - Date & Time of Evaluation Date of Evaluation: 01/21/17 Time of Evaluation: 14:55 - Subjective Subjective: PGY1 ICU Progress Note: Patient seen and examined at bedside. Pt refused bipap at night, and was switched to 2L NC, tolerating well. Denies SOB, cough, fever, chills, n/v, chest pain, diarrhea. Objective - Vital Signs/Intake and Output Vital Signs (last 24 hours): Temp Pulse Resp BP Pulse Ox 97.4 F L 74 27 H 113/68 98 01/21/17 12:00 01/21/17 14:10 01/21/17 14:10 01/21/17 14:00 01/21/17 14:10 Intake and Output: 01/21/17 01/21/17 06:59 18:59 Intake Total 1600 Output Total 400 Balance 1200 - Medications Medications: Current Medications Albuterol/Ipratropium (Duoneb 3 Mg/0.5 Mg (3 Ml) Ud) 3 ml IH [id number] [facility] Last Admin: 01/21/17 13:51 Dose: 3 ml Albuterol/Ipratropium (Duoneb 3 Mg/0.5 Mg (3 Ml) Ud) 3 ml IH Q2H PRN PRN Reason: Shortness of Breath Aspirin (Aspirin Chewable) 81 mg PO DAILY [facility] Last Admin: 01/21/17 11:09 Dose: 81 mg Doxycycline Hyclate (Doryx) 100 mg PO Q12 [facility] PRN Reason: Protocol Stop: 01/30/17 10:01 Last Admin: 01/21/17 10:30 Dose: 100 mg Levofloxacin/Dextrose (Levaquin 750mg) 750 mg in 150 mls @ 100 mls/hr IVPB DAILY [facility] Last Admin: 01/21/17 09:21 Dose: 100 mls/hr Sodium Chloride (Sodium Chloride 0.9%) 1,000 mls @ 100 mls/hr IV .Q10H [facility] Last Admin: 01/21/17 12:27 Dose: 100 mls/hr Methylprednisolone (Solu-Medrol) 40 mg IVP Q8H [facility] Last Admin: 01/21/17 14:04 Dose: 40 mg Metoprolol Tartrate (Lopressor) 25 mg PO BID [facility] Last Admin: 01/21/17 11:39 Dose: 25 mg Pantoprazole Sodium (Protonix Inj) 40 mg IVP DAILY [facility] Last Admin: 01/21/17 09:21 Dose: 40 mg - Labs Labs: 01/21/17 07:00 01/21/17 07:00 PT 12.3 Seconds (9.9-11.8) H 01/20/17 13:24 INR 1.14 (0.93-1.08) H 01/20/17 13:24 APTT 30.6 Seconds (23.7-30.8) 01/20/17 13:24 - Constitutional Appears: Well - Head Exam Head Exam: ATRAUMATIC, NORMOCEPHALIC - Eye Exam Eye Exam: EOMI, Normal appearance, PERRL - ENT Exam ENT Exam: Mucous Membranes Moist, Normal Exam - Neck Exam Neck Exam: absent: Lymphadenopathy - Respiratory Exam Additional comments: Few crackles ausculatated on RLQ - Cardiovascular Exam Cardiovascular Exam: REGULAR RHYTHM, +S1, +S2. absent: Gallop, Rubs, Murmur - GI/Abdominal Exam GI & Abdominal Exam: Soft, Normal Bowel Sounds. absent: Tenderness, Rebound - Extremities Exam Extremities Exam: absent: Calf Tenderness, Pedal Edema - Neurological Exam Neurological Exam: Alert, Awake, Oriented x3 - Psychiatric Exam Psychiatric exam: Normal Mood - Skin Skin Exam: Dry, Intact, Normal Color, Warm Assessment and Plan - Assessment and Plan (Free Text) Assessment: 76 yo M with PMH severe COPD (on home O2), admitted for severe CAP and hypoxemic and hypercapneic respiratory failure. Troponins mildly elevated (0.13 , 0.11), will not perform cath as per Cardio. Will continue abx regimen Doxycycline and Levaquin, and Solumedrol. Plan: Neuro: A&Ox3 today Initially, Lethargic on admission. Neuro check Aspiration precaution CV: Troponins mildly elevated 0.13, 0.11 Pt seen by Cardiology. Do not recommend cath currently, will f/u echo. Previous EKG did not show tachycardia with ST-T wave changes ASA, Beta-felicity switched to PO BNP elevated. Echo ordered. Will follow. Maintain MAP >65 Resp: on 2L NC, bipap at night prn Hypercapneic respiratory failure Maintain spO2>90% Severe CAP on CXR Chest CT shows RLL basilar infiltrate, no abscesses seen. Tellyb Solumedrol 40q8h GI: Advanced to heart healthy diet today Nephro: Will monitor electrolytes and will replace as needed Monitor I&O Maintain euvolemia Heme: Hgb stable- no overt signs Will continue to monitor ID: Severe CAP afebrile, no leukocytosis Lactate 0.9, PCT <0.05 UA neg, Blood cultures (2/) neg x24h, urine legionella Ag neg ID consulted C/w Levaquin and Doxycycline Maintain normothermia Endo: Maintain euglycemia GI ppx: Protonix DVT ppx: SCDs Case seen, discussed and reviewed with attending Jb Clemente PGY1 <Antwon Mckeon - Last Filed: 01/21/17 17:15> Objective - Vital Signs/Intake and Output Vital Signs (last 24 hours): Temp Pulse Resp BP Pulse Ox 97.7 F 76 20 129/77 92 L 01/21/17 16:00 01/21/17 16:00 01/21/17 16:00 01/21/17 16:00 01/21/17 16:00 Intake and Output: 01/21/17 01/21/17 06:59 18:59 Intake Total 1600 Output Total 400 Balance 1200 - Medications Medications: Current Medications Albuterol/Ipratropium (Duoneb 3 Mg/0.5 Mg (3 Ml) Ud) 3 ml IH [id number] [facility] Last Admin: 01/21/17 13:51 Dose: 3 ml Albuterol/Ipratropium (Duoneb 3 Mg/0.5 Mg (3 Ml) Ud) 3 ml IH Q2H PRN PRN Reason: Shortness of Breath Aspirin (Aspirin Chewable) 81 mg PO DAILY [facility] Last Admin: 01/21/17 11:09 Dose: 81 mg Doxycycline Hyclate (Doryx) 100 mg PO Q12 [facility] PRN Reason: Protocol Stop: 01/30/17 10:01 Last Admin: 01/21/17 10:30 Dose: 100 mg Levofloxacin/Dextrose (Levaquin 750mg) 750 mg in 150 mls @ 100 mls/hr IVPB DAILY [facility] Last Admin: 01/21/17 09:21 Dose: 100 mls/hr Sodium Chloride (Sodium Chloride 0.9%) 1,000 mls @ 100 mls/hr IV .Q10H [facility] Last Admin: 01/21/17 12:27 Dose: 100 mls/hr Methylprednisolone (Solu-Medrol) 40 mg IVP Q8H [facility] Last Admin: 01/21/17 14:04 Dose: 40 mg Metoprolol Tartrate (Lopressor) 25 mg PO BID [facility] Last Admin: 01/21/17 11:39 Dose: 25 mg Pantoprazole Sodium (Protonix Inj) 40 mg IVP DAILY [facility] Last Admin: 01/21/17 09:21 Dose: 40 mg - Labs Labs: 01/21/17 07:00 01/21/17 07:00 PT 12.3 Seconds (9.9-11.8) H 01/20/17 13:24 INR 1.14 (0.93-1.08) H 01/20/17 13:24 APTT 30.6 Seconds (23.7-30.8) 01/20/17 13:24 Attending/Attestation - Attestation I have personally seen and examined this patient.: Yes I have fully participated in the care of the patient.: Yes I have reviewed all pertinent clinical information, including history, physical exam and plan: Yes Notes (Text): 01/21/17 17:13 76 yo male admitted with CAP and copd exacerbation resulted in hypercapnic respiratory failure, now resolved. Off of BPAP, cont abx, steroids taper and bronchodilators. dvt/gi prophylaxis ccm time 40 min
[2017-01-21 16:19] VITALS: RESP 20
--- NOTE | 2017-01-21 16:32 | CARD ---
APPROVED REPORT EXAM: Two-dimensional and M-mode echocardiogram with Doppler and color Doppler. INDICATION ELEVATED TROPONIN 2D DIMENSIONS Left Atrium (2D)3.3 (1.6-4.0cm)IVSd1.1 (0.7-1.1cm) LVDd3.5 (3.9-5.9cm)PWd1.2 (0.7-1.1cm) LVDs2.5 (2.5-4.0cm)FS (%) 28.7 % LVEF (%)56.2 (>50%) M-Mode DIMENSIONS Aortic Root3.30 (2.2-3.7cm)Aortic Cusp Exc.2.00 (1.5-2.0cm) Aortic Valve AoV Peak Xvcwrgor775.0cm/Ru Peak GR.6mmHg Mitral Valve MV E Aaruqckw12.7cm/sMV A Sclahsmk129.0cm/sE/A ratio0.6 TDI Lateral E' Peak V9.85cm/sMedial E' Peak V5.65cm/sE/Lateral E'6.3 E/Medial E'10.9 Pulmonary Valve PV Peak Xzmpjuxg35.8cm/sPV Peak Grad.1mmHg Tricuspid Valve TR Peak Fanqlqpd661yr/sRAP [id number] Peak Gr.48mmHg [id number] LEFT VENTRICLE The left ventricle is normal size. There is borderline to mild concentric left ventricular hypertrophy. The left ventricular function is normal. The left ventricular ejection fraction is within the normal range. There is a flattened septum Transmitral Doppler flow pattern is Grade I-abnormal relaxation pattern. RIGHT VENTRICLE The right ventricle is mildly dilated. There is normal right ventricular wall thickness. RV Systolic function is mildly reduced. ATRIA The left atrium size is normal. The right atrium size is normal. AORTIC VALVE The aortic valve is mildly thickened. No aortic regurgitation is present. MITRAL VALVE The mitral valve is mildly thickened. TRICUSPID VALVE There is moderate to severe pulmonary hypertension. GREAT VESSELS The aortic root is normal in size. The IVC is normal in size and collapses >50% with inspiration. PERICARDIAL EFFUSION There is a small loculated anterior pericardial effusion. <Conclusion> The left ventricle is normal size. There is borderline to mild concentric left ventricular hypertrophy. The left ventricular function is normal. The left ventricular ejection fraction is within the normal range. There is a flattened septum Transmitral Doppler flow pattern is Grade I-abnormal relaxation pattern. The right ventricle is mildly dilated. RV Systolic function is mildly reduced. There is moderate to severe pulmonary hypertension.
[2017-01-22] MEDS: Albuterol-Ipratrop 3 mg / 0.5 (3 ml) UD IH SCH ×4 (01:00→20:01)
[2017-01-22] MEDS: MethylPREDNISolone 40 mg Vial IVP SCH ×3 (05:21→21:15)
[2017-01-22 09:57] LABS: HEMOGLOBIN 16.1 gm/dL (14.0-18.0); MEAN CELL VOLUME 96.3 fL (80.0-105.0); MEAN CORPUSCULAR HEMOGLOBIN 29.5 pg (25.0-35.0); MEAN CORPUSCULAR HGB CONC 30.7 g/dl (31.0-37.0); MEAN PLATELET VOLUME 11.1 fl (7.0-11.0); PLATELET COUNT 164 10^3/uL (120.0-450.0); RBC 5.45 10^6/uL (3.5-6.1); RED CELL DISTRIBUTION WIDTH 13.1 % (11.5-14.5); WHITE BLOOD COUNT 10.8 10^3/ul (4.5-11.0)
[2017-01-22] MEDS: levoFLOXacin 750 mg in D5W 750 MG/150 ML BAG IVPB SCH (10:05)
[2017-01-22 10:57] LABS: LYMPHOCYTE 3 % (22.0-35.0); MONOCYTE 2 % (1.0-6.0); NEUTROPHIL 95 % (50.0-70.0)
[2017-01-22 11:07] LABS: ALB/GLOB RATIO 1.5 (1.1-1.8); ALT/SGPT 24 U/L (7-56); AST/SGOT 27 U/L (15-59); BLOOD UREA NITROGEN 21 mg/dL (7-21); CALCIUM 8.1 mg/dL (8.4-10.5); GFR AFRICAN-AMERICAN > 60; GFR NON-AFRICAN AMERICAN > 60
--- NOTE | 2017-01-22 11:19 | RAD ---
HISTORY: follow up COMPARISON: 01/20/2017 FINDINGS: LUNGS: No active pulmonary disease. PLEURA: Small right pleural effusion. No left pleural effusion. No pneumothorax. CARDIOVASCULAR: Normal. OSSEOUS STRUCTURES: No significant abnormalities. VISUALIZED UPPER ABDOMEN: Normal. OTHER FINDINGS: None. IMPRESSION: Small right pleural effusion. No acute infiltrate.
--- NOTE | 2017-01-22 11:49 | CP.PCM.PN ---
Subjective - Date & Time of Evaluation Date of Evaluation: 01/22/17 Time of Evaluation: 09:00 - Subjective Subjective: DOING WELL Objective - Vital Signs/Intake and Output Vital Signs (last 24 hours): Temp Pulse Resp BP Pulse Ox 98.3 F 85 20 115/62 94 L 01/22/17 08:20 01/22/17 10:04 01/22/17 08:20 01/22/17 10:04 01/22/17 08:20 Intake and Output: 01/22/17 01/22/17 06:59 18:59 Intake Total 840 180 Output Total 200 Balance 840 -20 - Medications Medications: Current Medications Albuterol/Ipratropium (Duoneb 3 Mg/0.5 Mg (3 Ml) Ud) 3 ml IH [id number] [facility] Last Admin: 01/22/17 07:23 Dose: 3 ml Albuterol/Ipratropium (Duoneb 3 Mg/0.5 Mg (3 Ml) Ud) 3 ml IH Q2H PRN PRN Reason: Shortness of Breath Aspirin (Aspirin Chewable) 81 mg PO DAILY [facility] Last Admin: 01/22/17 10:03 Dose: 81 mg Methylprednisolone (Solu-Medrol) 40 mg IVP Q12 [facility] Last Admin: 01/22/17 10:04 Dose: 40 mg Metoprolol Tartrate (Lopressor) 25 mg PO BID [facility] Last Admin: 01/22/17 10:04 Dose: 25 mg Pantoprazole Sodium (Protonix Inj) 40 mg IVP DAILY [facility] Last Admin: 01/22/17 10:04 Dose: 40 mg - Labs Labs: 01/22/17 09:54 01/22/17 09:54 PT 12.3 Seconds (9.9-11.8) H 01/20/17 13:24 INR 1.14 (0.93-1.08) H 01/20/17 13:24 APTT 30.6 Seconds (23.7-30.8) 01/20/17 13:24 - Constitutional Appears: Well - Head Exam Head Exam: ATRAUMATIC, NORMAL INSPECTION, NORMOCEPHALIC - Eye Exam Eye Exam: EOMI, Normal appearance, PERRL Pupil Exam: NORMAL ACCOMODATION, PERRL - ENT Exam ENT Exam: Mucous Membranes Moist, Normal Exam - Neck Exam Neck Exam: Full ROM, Normal Inspection. absent: Lymphadenopathy - Respiratory Exam Respiratory Exam: Clear to Ausculation Bilateral, NORMAL BREATHING PATTERN - Cardiovascular Exam Cardiovascular Exam: REGULAR RHYTHM, +S1, +S2. absent: Murmur - GI/Abdominal Exam GI & Abdominal Exam: Soft, Normal Bowel Sounds. absent: Tenderness - Rectal Exam Rectal Exam: NORMAL INSPECTION - Exam Exam: Circumcision, NORMAL INSPECTION External exam: NORMAL EXTERNAL EXAM Speculum exam: NORMAL SPECULUM EXAM Bimanual exam: NORMAL BIMANUAL EXAM - Extremities Exam Extremities Exam: Full ROM, Normal Capillary Refill, Normal Inspection. absent : Joint Swelling, Pedal Edema - Back Exam Back Exam: NORMAL INSPECTION - Neurological Exam Neurological Exam: Alert, Awake, CN II-XII Intact, Normal Gait, Oriented x3 - Psychiatric Exam Psychiatric exam: Normal Affect, Normal Mood - Skin Skin Exam: Dry, Intact, Normal Color, Warm Assessment and Plan (1) Congestive heart failure (CHF) Status: Acute (2) Elevated troponin Status: Acute (3) Hypercarbia Status: Acute (4) Elevated brain natriuretic peptide (BNP) level Status: Acute - Assessment and Plan (Free Text) Plan: D/C ABX NO EVIDENCE OF PNA
--- NOTE | 2017-01-22 13:00 | CP.PCM.PN ---
Subjective - Date & Time of Evaluation Date of Evaluation: 01/22/17 Time of Evaluation: 12:53 - Subjective Subjective: sob improved no c/p Echo. normal EF Moderate to sever Pulmonary HTN Objective - Vital Signs/Intake and Output Vital Signs (last 24 hours): Temp Pulse Resp BP Pulse Ox 98.3 F 85 20 115/62 94 L 01/22/17 08:20 01/22/17 10:04 01/22/17 08:20 01/22/17 10:04 01/22/17 08:20 Intake and Output: 01/22/17 01/22/17 06:59 18:59 Intake Total 840 180 Output Total 200 Balance 840 -20 - Medications Medications: Current Medications Albuterol/Ipratropium (Duoneb 3 Mg/0.5 Mg (3 Ml) Ud) 3 ml IH [id number] [facility] Last Admin: 01/22/17 07:23 Dose: 3 ml Albuterol/Ipratropium (Duoneb 3 Mg/0.5 Mg (3 Ml) Ud) 3 ml IH Q2H PRN PRN Reason: Shortness of Breath Aspirin (Aspirin Chewable) 81 mg PO DAILY [facility] Last Admin: 01/22/17 10:03 Dose: 81 mg Methylprednisolone (Solu-Medrol) 40 mg IVP Q12 [facility] Last Admin: 01/22/17 10:04 Dose: 40 mg Metoprolol Tartrate (Lopressor) 25 mg PO BID [facility] Last Admin: 01/22/17 10:04 Dose: 25 mg Pantoprazole Sodium (Protonix Inj) 40 mg IVP DAILY [facility] Last Admin: 01/22/17 10:04 Dose: 40 mg - Labs Labs: 01/22/17 09:54 01/22/17 09:54 PT 12.3 Seconds (9.9-11.8) H 01/20/17 13:24 INR 1.14 (0.93-1.08) H 01/20/17 13:24 APTT 30.6 Seconds (23.7-30.8) 01/20/17 13:24 - Constitutional Appears: Non-toxic - Head Exam Head Exam: NORMAL INSPECTION - Eye Exam Eye Exam: Normal appearance - Neck Exam Neck Exam: Normal Inspection - Respiratory Exam Respiratory Exam: Rhonchi - Cardiovascular Exam Cardiovascular Exam: REGULAR RHYTHM - Extremities Exam Extremities Exam: Normal Inspection Assessment and Plan - Assessment and Plan (Free Text) Assessment: COPD Pulmonary HTN Borderline troponin Plan: cont. Albuterol/Ipratropium (Duoneb 3 Mg/0.5 Mg (3 Ml) Ud) 3 ml IH [id number] [facility] Last Admin: 01/22/17 07:23 Dose: 3 ml Albuterol/Ipratropium (Duoneb 3 Mg/0.5 Mg (3 Ml) Ud) 3 ml IH Q2H PRN PRN Reason: Shortness of Breath Aspirin (Aspirin Chewable) 81 mg PO DAILY [facility] Last Admin: 01/22/17 10:03 Dose: 81 mg Methylprednisolone (Solu-Medrol) 40 mg IVP Q12 [facility] Last Admin: 01/22/17 10:04 Dose: 40 mg Metoprolol Tartrate (Lopressor) 25 mg PO BID [facility] Last Admin: 01/22/17 10:04 Dose: 25 mg Pantoprazole Sodium (Protonix Inj) 40 mg IVP DAILY [facility] Last Admin: 01/22/17 10:04 Dose: 40 mg not a candidate for beta blockers
[2017-01-23] MEDS: Albuterol-Ipratrop 3 mg / 0.5 (3 ml) UD IH SCH ×3 (01:00→13:37)
[2017-01-23] MEDS ORDERED: Pantoprazole 40 mg EC Tab PO SCH (06:45)
[2017-01-23 07:49] VITALS: BP 122/68; TEMP 98
[2017-01-23] MEDS ORDERED: Budesonide 0.5 mg/2 ml Inhal Susp UD IH SCH (08:00)
[2017-01-23 08:50] LABS: GRAN # 10.06 (1.4-6.5); GRAN % 94.4 % (50.0-68.0); HEMOGLOBIN 15.3 gm/dL (14.0-18.0); LYMPH # 0.3 (1.2-3.4); LYMPH % 2.6 % (22.0-35.0); MEAN CELL VOLUME 95.2 fL (80.0-105.0); MEAN CORPUSCULAR HEMOGLOBIN 29.1 pg (25.0-35.0); MEAN CORPUSCULAR HGB CONC 30.5 g/dl (31.0-37.0); MEAN PLATELET VOLUME 10.8 fl (7.0-11.0); MONO # 0.3 (0.1-0.6); PLATELET COUNT 170 10^3/uL (120.0-450.0); RBC 5.26 10^6/uL (3.5-6.1); RED CELL DISTRIBUTION WIDTH 13.2 % (11.5-14.5); WHITE BLOOD COUNT 10.7 10^3/ul (4.5-11.0)
[2017-01-23 08:58] LABS: ALB/GLOB RATIO 1.4 (1.1-1.8); ALBUMIN 3.6 g/dL (3.0-4.8); ALT/SGPT 27 U/L (7-56); AST/SGOT 24 U/L (15-59); BLOOD UREA NITROGEN 19 mg/dL (7-21); CALCIUM 8.3 mg/dL (8.4-10.5); GFR AFRICAN-AMERICAN > 60; GFR NON-AFRICAN AMERICAN > 60
[2017-01-23] MEDS: MethylPREDNISolone 40 mg Vial IVP SCH (10:25)
[2017-01-23 10:27] VITALS: PULSE 88
--- NOTE | 2017-01-23 10:48 | PQF RESP ---
This form is a permanent part of the medical record Dr. Calvillo, Patient with hx severe COPD admitted with worsening SOB. CXR negative, CT chest with RLL infiltrate. Labs show no wbc, elevated BNP, no fever. [employer] notes pneumonia, ID notes CHF with no evidence of pneumonia, Cardiology notes COPD exacerbation. Please clarify, if possible, if any, all, none were responsible for admission or ruled out. Clarification of your documentation is requested to better reflect the severity of illness and intensity of treatment of your patient. Indicators present [] Use of Home Oxygen [x] Respiratory rate > 28 or <8/min (Labored respirations) [x] PCO2 > 50 mm Hg or (Hypercapnia) (somnolence) [x] PaO2 < 60 mm Hg or Hypoxemia (confusion) [] ABG blood gas pH < 7.35 [] SpO2 < 90% sat on Room Air [] Cyanosis [] Unable to Speak in Full Sentences [x] Use of Accessory Muscles / Tripoding [] Wheezing [] Other: [] Location in the medical record that reflects the above clinical findings: [] Treatment Provided: [] PHYSICIAN'S RESPONSE Based on your medical judgment of the clinical indicators outlined above, are you treating this patient for a known or suspected: [] Acute Respiratory Failure (hypoxia or hypercapnia) [] Chronic Respiratory Failure (hypoxia or hypercapnia) []x Acute on Chronic Respiratory Failure (hypoxia or hypercapnia) [] Hypoxemia please specify ACUTE, CHRONIC or ACUTE on CHRONIC [] Other []_ [] If unable to determine, please check the box, sign and date. Present On Admission (POA) Indicator: [x] Present at the time of admission [] Not present at the time of admission [] Clinically Undetermined In responding to this query, please exercise your independent professional judgment. The fact that a question is asked does not imply that any particular answer is desired or expected. Thank you for your clarification on this documentation. If you have any questions please call:[ ] * Thank you, [x ]Mary Flores [facility] #[id number] card tender Chronic Respiratory Failure Description: Respiratory failure is a syndrome in which the respiratory system fails in one or both of its gas exchange functions: oxygenation and carbon dioxide elimination. In theory, respiratory failure is defined as a Pa02 value of <60 mm/Hg or a PaC02 of >50 mm/Hg. However, these values may be affected by renal compensation. Respiratory failure may be acute or chronic. While acute respiratory failure is characterized by life-threatening derangement in arterial blood gases and acid-base balance, the manifestations of chronic respiratory failure are less dramatic and may not be as readily apparent. Classifications: Respiratory failure may be classified as hypoxemic (usually characterized by Pa02 of <60 mm/Hg) or hypercapnic (usually characterized by PaC02 >50 mm/Hg) and either may be acute or chronic. Chronic hypercapnic respiratory failure develops over time and allows for renal compensation and an increase in bicarbonate concentration; therefore the pH is usually only slightly decreased. The distinction between acute and chronic hypoxemic respiratory failure cannot readily be made on the basis of ABGs; the clinical markers of chronic hypoxemia, such as polythycemia or cor pulmonale suggest a long standing disorder (chronic hypoxemic respiratory failure). Clinical Indicators: dyspnea at rest or "chronic" dyspnea, concomitant conditions such as polycythemia or cor pulmonale, requirement for continuous oxygen support, forced expiratory volume in one second (FEV1) of 49 or less, pursed lip breathing, "barrel" chest, hyperinflation by CXR, muscle wasting, malnutrition/obesity, poor exercise capacity, peripheral edema, description as a "blue bloater" (usually associated with chronic, obstructive bronchitis) or "pink puffer" (usually associated with emphysema) Risks: Chronic Hypoxemic Respiratory Failure - COPD, pulmonary fibrosis, asthma , pulmonary arterial hypertension, granulomatous lung diseases, congenital heart disease, bronchiectasis, kyphoscoliosis, obesity; Chronic Hypercapnic Respiratory Failure - COPD, severe asthma, myasthenia gravis, polyneuropathy, polio, head and cervical spine injuries, obesity hypoventilation syndrome. Treatment: supplemental oxygen, bronchodilators, corticosteroids, adequate nutrition, lung transplant References: Am. J. Respir. Crit. Care Med. "Global Strategy for the Diagnosis, Management and Prevention of COPD: GOLD Exectuive Summary," Cresencio Bello Anzueto - 2007; Proceedings of the [place] [employer] "Mechanisms and Measurements of Dyspnea in COPD," Justin - 2006; WebMD; Respiratory Failure, Alek Pitts MD - 01/2006; Zeke's Principles of Internal Medicine, 17th edition. Acute Respiratory Failure Acute Respiratory Failure indicators include: ~Respirations >28 ~Air hunger ~Use of accessory muscles of respiration ~Inability to speak in full sentences Cyanosis ~Pulse ox <90% RA or <95% on O2 pH <7.35 or >7.45 ~pO2 < 60 mm Hg (or 10mm below COPD patient's baseline) ~pCO2 >50mm Hg (or 10mm above COPD patient's baseline) "Respiratory failure may be assigned as a principal diagnosis when it is the condition established after study to be chiefly responsible for occasioning admission to the hospital. The fact that the respiratory failure was managed without intubation and mechanical ventilation does not preclude its use." [facility], 3rd Qtr., 1988, p. 7 MTDD
--- NOTE | 2017-01-23 11:16 | CP.PCM.PN ---
Subjective - Date & Time of Evaluation Date of Evaluation: 01/23/17 Time of Evaluation: 10:25 - Subjective Subjective: Patient is feeling better, no fevers overnight, breathing better. Objective - Vital Signs/Intake and Output Vital Signs (last 24 hours): Temp Pulse Resp BP Pulse Ox 98 F 94 H 20 122/68 97 01/23/17 07:30 01/23/17 07:30 01/23/17 07:30 01/23/17 07:30 01/23/17 07:30 Intake and Output: 01/23/17 01/23/17 06:59 18:59 Intake Total 440 Output Total 500 Balance -60 - Medications Medications: Current Medications Albuterol/Ipratropium (Duoneb 3 Mg/0.5 Mg (3 Ml) Ud) 3 ml IH [id number] [facility] Last Admin: 01/23/17 08:03 Dose: 3 ml Albuterol/Ipratropium (Duoneb 3 Mg/0.5 Mg (3 Ml) Ud) 3 ml IH Q2H PRN PRN Reason: Shortness of Breath Aspirin (Aspirin Chewable) 81 mg PO DAILY [facility] Last Admin: 01/22/17 10:03 Dose: 81 mg Budesonide (Pulmicort Respules) 0.5 mg IH [id number] [facility] Last Admin: 01/23/17 08:03 Dose: 0.5 mg Doxycycline Hyclate (Doryx) 100 mg PO Q12 [facility] PRN Reason: Protocol Stop: 01/28/17 10:01 Methylprednisolone (Solu-Medrol) 40 mg IVP Q12 [facility] Last Admin: 01/22/17 21:15 Dose: 40 mg Metoprolol Tartrate (Lopressor) 25 mg PO BID [facility] Last Admin: 01/22/17 17:03 Dose: 25 mg Pantoprazole Sodium (Protonix Ec Tab) 40 mg PO 0600 [facility] Last Admin: 01/23/17 07:37 Dose: 40 mg - Labs Labs: 01/23/17 08:00 01/23/17 08:00 PT 12.3 Seconds (9.9-11.8) H 01/20/17 13:24 INR 1.14 (0.93-1.08) H 01/20/17 13:24 APTT 30.6 Seconds (23.7-30.8) 01/20/17 13:24 - Constitutional Appears: Non-toxic, No Acute Distress - Head Exam Head Exam: NORMAL INSPECTION - Neck Exam Neck Exam: absent: Lymphadenopathy, Meningismus - Respiratory Exam Respiratory Exam: Decreased Breath Sounds - Cardiovascular Exam Cardiovascular Exam: +S1, +S2 - GI/Abdominal Exam GI & Abdominal Exam: Soft. absent: Tenderness Assessment and Plan - Assessment and Plan (Free Text) Plan: Assessment probable right lower lobe atypical community-acquired pneumonia, clinically improving HTN COPD Plan cultures have been negative, PCT <0.05 - as discussed with Dr. Chau, will continue patient on Doxycycline to complete a 5 day course
[2017-01-23 11:59] VITALS: O2SAT 91
--- NOTE | 2017-01-23 16:46 | CP.PCM.CON ---
History of Present Illness - History of Present Illness History of Present Illness: Palliative services consulted by Dr Barbara Calvillo Reason: advance care planning 76 year old [place] male who presented with increasing shortness of breath and productive cough for past few days. Chest CT showed basilar infiltrates in RLL. Echocardiogram normal LV, EF within normal limits, right ventricle mildly dilated, RV function reduced, moderate to severe pulmonary hypertension. Troponins borderline. PMHx: COPD, O2 dependent, HTN, s/p hernia repair. Social History: Former smoker, denies alcohol or drug misuse. , lived s with his son. Family History: Non contributory. Advance Care Planning: The patient states that he has an Advance Directive at home.He is DNR/DNI. His son Buck Shepherd is his health care surrogate. Review of Systems: As per HPI, all other systems reviewed and are negative. Past Patient History - Past Medical History & Family History Past Medical History?: Yes - Past Social History Smoking Status: Former Smoker (Quit smoking 10 years ago) Home Situation {Lives}: With Family - CARDIAC Hx Hypertension: Yes - PULMONARY Hx Chronic Obstructive Pulmonary Disease (COPD): Yes - MUSCULOSKELETAL/RHEUMATOLOGICAL Hx Falls: No - PSYCHIATRIC Hx Depression: No Hx Emotional Abuse: No Hx Physical Abuse: No Hx Substance Use: No Meds Home Medications: Home Medication List Medication Instructions Recorded Confirmed Type Albuterol/Ipratropium [Duoneb 3 3 ml IH Q2H PRN 01/23/17 Rx mg/0.5 mg (3 ml) UD] Albuterol/Ipratropium [Duoneb 3 3 ml IH [id number] 01/23/17 Rx mg/0.5 mg (3 ml) UD] Aspirin [Aspirin Chewable] 81 mg PO DAILY 01/23/17 Rx Budesonide [Pulmicort Respules] 0.5 mg IH [id number] 01/23/17 Rx Doxycycline Hyclate [Doryx] 100 mg PO Q12 cap 01/23/17 Rx Metoprolol Tartrate [Lopressor] 25 mg PO BID tab 01/23/17 Rx Pantoprazole [Protonix EC Tab] 40 mg PO 0600 ect 01/23/17 Rx methylPREDNISolone [Solu-Medrol] 40 mg IVP Q12 #4 ml 01/23/17 Rx Allergies/Adverse Reactions: Allergies Allergy/AdvReac Type Severity Reaction Status Date / Time No Known Allergies Allergy Verified 01/20/17 13:07 Physical Exam - Constitutional Appears: No Acute Distress, Chronically Ill - Head Exam Head Exam: NORMOCEPHALIC - Eye Exam Eye Exam: Normal appearance, PERRL - ENT Exam ENT Exam: Mucous Membranes Moist, Normal Oropharynx - Neck Exam Neck exam: Positive for: Normal Inspection - Respiratory Exam Respiratory Exam: Decreased Breath Sounds, NORMAL BREATHING PATTERN Additional comments: dyspnea on exertion - Cardiovascular Exam Cardiovascular Exam: REGULAR RHYTHM, +S1 - GI/Abdominal Exam GI & Abdominal Exam: Normal Bowel Sounds, Soft Additional comments: no tenderness or guarding - Extremities Exam Extremities exam: Positive for: full ROM, pedal pulses present - Back Exam Back exam: NORMAL INSPECTION - Neurological Exam Neurological exam: Alert, Oriented x3 - Skin Skin Exam: Dry - Additional Findings Additional findings: Palliative performance scale rating 50% Results - Vital Signs Recent Vital Signs: Last Vital Signs Temp 98 F 01/23/17 07:30 Pulse 88 01/23/17 10:24 Resp 20 01/23/17 07:30 BP 122/68 01/23/17 10:24 Pulse Ox 91 L 01/23/17 11:59 - Labs Result Diagrams: 01/23/17 08:00 01/23/17 08:00 Labs: Laboratory Results - last 24 hr 01/23/17 01/23/17 08:00 08:00 WBC 10.7 RBC 5.26 Hgb 15.3 Hct 50.1 MCV 95.2 MCH 29.1 MCHC 30.5 L RDW 13.2 Plt Count 170 MPV 10.8 Gran % 94.4 H Lymph % (Auto) 2.6 L [place] % (Auto) 3.0 Eos % (Auto) 0.0 L Baso % (Auto) 0.0 Gran # 10.06 H Lymph # 0.3 L [place] # 0.3 Eos # 0.0 Baso # 0.00 Sodium 137 Potassium 4.3 Chloride 94 L Carbon Dioxide 35 H Anion Gap 12 BUN 19 Creatinine 1.0 Est GFR ( Amer) > 60 Est GFR (Non-Af Amer) > 60 Random Glucose 172 H Calcium 8.3 L Total Bilirubin 0.4 AST 24 ALT 27 Alkaline Phosphatase 43 Total Protein 6.1 Albumin 3.6 Globulin 2.6 Albumin/Globulin Ratio 1.4 Assessment & Plan - Assessment and Plan (Free Text) Assessment: 76 year old male admitted with community acquired pneumonia, dyspnea on exertion , elevated troponin, normal EF, moderate/severe pulmonary hypertension The patient is alert and oriented. He states that he sees Dr Anguiano regularly for f/u of COPD. He was fairly independent and needed no assistance with ADL's until this admission. He is anxious to go home. The patient affirms that he is DNR/DNI. He states that he has an Advanced Directive at home and that his son knows his wishes. Explained the purpose of POLST. Questions answered. Patient states he will discuss POLST with his son. Time spent in goals of care discussion and advance care planning, 20 minutes Plan: Will assist with advance care planning
[2017-01-25 02:36] LABS: SOURCE SERUM
== END 2017-01-23 16:26 | DRG 190 ==
LOC: ED 13:04 → ERH 14:50 → CCU 17:44 → 5RNO 01-21 14:42
PROVIDERS: ADMIT Internal Medicine; ATTEND Internal Medicine
DX: J44.1 Chronic obstructive pulmonary disease with (acute) exacerbation (principal); J18.8 Other pneumonia, unspecified organism; J80 Acute respiratory distress syndrome; I50.9 Heart failure, unspecified; I10 Essential (primary) hypertension

== ENCOUNTER 2017-01-23 16:31 | Inpatient (IN) | payer OTHER, MEDICARE ==
[2017-01-23] MEDS ORDERED: Albuterol-Ipratrop 3 mg / 0.5 (3 ml) UD IH PRN (16:47)
[2017-01-23] MEDS: MethylPREDNISolone 40 mg Vial IVP SCH (18:41)
[2017-01-23] MEDS: Albuterol-Ipratrop 3 mg / 0.5 (3 ml) UD IH SCH (21:12)
[2017-01-23] MEDS: Budesonide 0.5 mg/2 ml Inhal Susp UD IH SCH (21:12)
[2017-01-23 23:23] VITALS: BMI 27.6
[2017-01-24] MEDS: Albuterol-Ipratrop 3 mg / 0.5 (3 ml) UD IH SCH ×4 (01:20→19:58)
[2017-01-24] MEDS: Pantoprazole 40 mg EC Tab PO SCH (05:28)
[2017-01-24] MEDS: MethylPREDNISolone 40 mg Vial IVP SCH ×2 (05:29→21:09)
[2017-01-24 07:15] LABS: GRAN # 6.86 (1.4-6.5); GRAN % 90.2 % (50.0-68.0); HEMOGLOBIN 14.8 gm/dL (14.0-18.0); LYMPH # 0.2 (1.2-3.4); MEAN CELL VOLUME 94.3 fL (80.0-105.0); MEAN CORPUSCULAR HEMOGLOBIN 28.8 pg (25.0-35.0); MEAN CORPUSCULAR HGB CONC 30.6 g/dl (31.0-37.0); MEAN PLATELET VOLUME 10.1 fl (7.0-11.0); MONO # 0.5 (0.1-0.6); MONO % 6.8 % (1.0-6.0); PLATELET COUNT 145 10^3/uL (120.0-450.0); RBC 5.13 10^6/uL (3.5-6.1); RED CELL DISTRIBUTION WIDTH 13.2 % (11.5-14.5); WHITE BLOOD COUNT 7.6 10^3/ul (4.5-11.0)
[2017-01-24] MEDS: Budesonide 0.5 mg/2 ml Inhal Susp UD IH SCH ×2 (07:17→19:58)
[2017-01-24 08:22] LABS: ALB/GLOB RATIO 1.5 (1.1-1.8); ALBUMIN 3.7 g/dL (3.0-4.8); ALT/SGPT 34 U/L (7-56); AST/SGOT 23 U/L (15-59); BLOOD UREA NITROGEN 24 mg/dL (7-21); CALCIUM 8.7 mg/dL (8.4-10.5); GFR AFRICAN-AMERICAN > 60; GFR NON-AFRICAN AMERICAN > 60
--- NOTE | 2017-01-24 10:44 | CP.PCM.CON ---
History of Present Illness - History of Present Illness History of Present Illness: 76 year old male with PMH of COPD, HTN was initially admitted in [facility] [place] because of shortness of breath and cough. He was found to have probable right lower lobe pneumonia and COPD excerbation and has since been improving on treatment. He is now transferred to [facility] for continued medical therapy and physical rehabilitation. Infectious Diseases consult is requested to continue his antibiotic therapy. Currently the patient is anxious to go home. He denies fever or chills, no nausea or vomiting, no chest pain, no SOB at rest, improved cough, no abdominal pain, no diarrhea, no dysuria, no sore throat, no dysphagia. Review of Systems - Review of Systems All systems: reviewed and no additional remarkable complaints except (as per HPI ) Past Patient History - Past Medical History & Family History Past Medical History?: Yes - Past Social History Smoking Status: Former Smoker (Quit smoking 10 years ago) - CARDIAC Hx Hypertension: Yes - PULMONARY Hx Chronic Obstructive Pulmonary Disease (COPD): Yes - MUSCULOSKELETAL/RHEUMATOLOGICAL Hx Falls: No - PSYCHIATRIC Hx Depression: No Hx Emotional Abuse: No Hx Physical Abuse: No Hx Substance Use: No Meds Allergies/Adverse Reactions: Allergies Allergy/AdvReac Type Severity Reaction Status Date / Time No Known Allergies Allergy Verified 01/20/17 13:07 - Medications Medications: Current Medications Albuterol/Ipratropium (Duoneb 3 Mg/0.5 Mg (3 Ml) Ud) 3 ml IH Q2H PRN; Protocol PRN Reason: Shortness of Breath Albuterol/Ipratropium (Duoneb 3 Mg/0.5 Mg (3 Ml) Ud) 3 ml IH [id number] [facility] PRN Reason: Protocol Aspirin (Aspirin Chewable) 81 mg PO 0800 [facility] PRN Reason: Protocol Budesonide (Pulmicort Respules) 0.5 mg IH [id number] [facility] PRN Reason: Protocol Doxycycline Hyclate (Doryx) 100 mg PO Q12 [facility] PRN Reason: Protocol Methylprednisolone (Solu-Medrol) 40 mg IVP 0600,1800 [facility] PRN Reason: Protocol Metoprolol Tartrate (Lopressor) 25 mg PO 0800,1800 [facility] PRN Reason: Protocol Pantoprazole Sodium (Protonix Ec Tab) 40 mg PO 0600 [facility] Physical Exam - Constitutional Appears: Non-toxic, No Acute Distress - Head Exam Head Exam: NORMAL INSPECTION - ENT Exam ENT Exam: Mucous Membranes Moist - Neck Exam Neck exam: Negative for: Lymphadenopathy, Meningismus - Respiratory Exam Respiratory Exam: Decreased Breath Sounds - Cardiovascular Exam Cardiovascular Exam: +S1, +S2 - GI/Abdominal Exam GI & Abdominal Exam: Soft. absent: Tenderness Results - Labs Result Diagrams: 01/24/17 06:20 01/24/17 08:00 Assessment & Plan - Assessment and Plan (Free Text) Plan: Assessment probable right lower lobe atypical community-acquired pneumonia, clinically improving HTN COPD Plan cultures have been negative, PCT <0.05 - as discussed with Dr. Chau, will continue patient on Doxycycline to complete a 5 day course (day 2 today) will continue to monitor clinically while the patient is in the hospital
[2017-01-25] MEDS: Albuterol-Ipratrop 3 mg / 0.5 (3 ml) UD IH SCH ×4 (01:46→19:59)
[2017-01-25] MEDS: MethylPREDNISolone 40 mg Vial IVP SCH ×3 (05:42→21:35)
[2017-01-25] MEDS: Pantoprazole 40 mg EC Tab PO SCH (05:42)
[2017-01-25] MEDS: Budesonide 0.5 mg/2 ml Inhal Susp UD IH SCH ×2 (07:21→19:59)
[2017-01-26] MEDS: Albuterol-Ipratrop 3 mg / 0.5 (3 ml) UD IH SCH ×3 (01:09→13:28)
[2017-01-26] MEDS: Pantoprazole 40 mg EC Tab PO SCH (05:36)
[2017-01-26] MEDS: Budesonide 0.5 mg/2 ml Inhal Susp UD IH SCH (07:20)
[2017-01-26] MEDS: MethylPREDNISolone 40 mg Vial IVP SCH ×2 (09:59→21:31)
--- NOTE | 2017-01-26 10:51 | CP.PCM.PN ---
Subjective - Date & Time of Evaluation Date of Evaluation: 01/26/17 Time of Evaluation: 10:35 - Subjective Subjective: Comfortable, afebrile, no fevers. Objective - Vital Signs/Intake and Output Vital Signs (last 24 hours): Temp Pulse Resp BP Pulse Ox 97.1 F L 98 H 20 97/47 L 96 01/24/17 16:00 01/24/17 22:07 01/24/17 16:00 01/24/17 17:13 01/24/17 10:00 - Medications Medications: Current Medications Albuterol/Ipratropium (Duoneb 3 Mg/0.5 Mg (3 Ml) Ud) 3 ml IH Q2H PRN; Protocol PRN Reason: Shortness of Breath Albuterol/Ipratropium (Duoneb 3 Mg/0.5 Mg (3 Ml) Ud) 3 ml IH [id number] [facility] PRN Reason: Protocol Last Admin: 01/25/17 07:21 Dose: 3 ml Aspirin (Aspirin Chewable) 81 mg PO 0800 [facility] PRN Reason: Protocol Last Admin: 01/24/17 08:15 Dose: 81 mg Budesonide (Pulmicort Respules) 0.5 mg IH [id number] [facility] PRN Reason: Protocol Last Admin: 01/25/17 07:21 Dose: 0.5 mg Doxycycline Hyclate (Doryx) 100 mg PO Q12 [facility] PRN Reason: Protocol Last Admin: 01/24/17 21:09 Dose: 100 mg Methylprednisolone (Solu-Medrol) 40 mg IVP 0600,1800 [facility] PRN Reason: Protocol Last Admin: 01/25/17 05:42 Dose: 40 mg Metoprolol Tartrate (Lopressor) 25 mg PO 0800,1800 [facility] PRN Reason: Protocol Last Admin: 01/24/17 17:13 Dose: Not Given Pantoprazole Sodium (Protonix Ec Tab) 40 mg PO 0600 [facility] Last Admin: 01/25/17 05:42 Dose: 40 mg - Labs Labs: 01/24/17 06:20 01/24/17 08:00 - Constitutional Appears: Non-toxic, No Acute Distress - Head Exam Head Exam: NORMAL INSPECTION - Neck Exam Neck Exam: absent: Meningismus - Respiratory Exam Respiratory Exam: Decreased Breath Sounds - Cardiovascular Exam Cardiovascular Exam: +S1, +S2 - GI/Abdominal Exam GI & Abdominal Exam: Soft. absent: Tenderness Assessment and Plan - Assessment and Plan (Free Text) Plan: Assessment probable right lower lobe atypical community-acquired pneumonia, clinically improving HTN COPD Plan cultures have been negative, PCT <0.05 - as discussed with Dr. Chau, will continue patient on Doxycycline to complete a 5 day course (day 4 today) will continue to monitor clinically while the patient is in the hospital
--- NOTE | 2017-01-26 12:50 | CP.PCM.CON ---
History of Present Illness - History of Present Illness History of Present Illness: 76 y/o [place] male h/o COPD on nasal home O2, recently admitted for SOB, pneumonia and borderline Trop. elevation Conservative cardiac approach was followed as per patient request , transferred to TCU Echo revealed normal EF Moderate to sever Pulmonary HTN with mildly depressed RV systolic Function Past Patient History - Past Medical History & Family History Past Medical History?: Yes - Past Social History Smoking Status: Former Smoker (Quit smoking 10 years ago) - CARDIAC Hx Hypertension: Yes - PULMONARY Hx Chronic Obstructive Pulmonary Disease (COPD): Yes - MUSCULOSKELETAL/RHEUMATOLOGICAL Hx Falls: No - GENITOURINARY/GYNECOLOGICAL Hx Reproductive Disorders: No - PSYCHIATRIC Hx Depression: No Hx Emotional Abuse: No Hx Physical Abuse: No Hx Substance Use: No Meds Allergies/Adverse Reactions: Allergies Allergy/AdvReac Type Severity Reaction Status Date / Time No Known Allergies Allergy Verified 01/20/17 13:07 - Medications Medications: Current Medications Albuterol/Ipratropium (Duoneb 3 Mg/0.5 Mg (3 Ml) Ud) 3 ml IH Q2H PRN; Protocol PRN Reason: Shortness of Breath Last Admin: 01/25/17 23:28 Dose: 3 ml Albuterol/Ipratropium (Duoneb 3 Mg/0.5 Mg (3 Ml) Ud) 3 ml IH [id number] [facility] PRN Reason: Protocol Last Admin: 01/26/17 07:20 Dose: 3 ml Aspirin (Aspirin Chewable) 81 mg PO 0800 [facility] PRN Reason: Protocol Last Admin: 01/26/17 08:05 Dose: 81 mg Budesonide (Pulmicort Respules) 0.5 mg IH [id number] [facility] PRN Reason: Protocol Last Admin: 01/26/17 07:20 Dose: 0.5 mg Doxycycline Hyclate (Doryx) 100 mg PO Q12 [facility] PRN Reason: Protocol Last Admin: 01/26/17 09:59 Dose: 100 mg Losartan Potassium (Cozaar) 100 mg PO DAILY [facility] Last Admin: 01/26/17 09:58 Dose: 100 mg Methylprednisolone (Solu-Medrol) 30 mg IVP Q12 [facility] Last Admin: 01/26/17 09:59 Dose: 30 mg Metoprolol Tartrate (Lopressor) 25 mg PO 0800,1800 [facility] PRN Reason: Protocol Last Admin: 01/26/17 08:05 Dose: 25 mg Pantoprazole Sodium (Protonix Ec Tab) 40 mg PO 0600 [facility] Last Admin: 01/26/17 05:36 Dose: 40 mg Physical Exam - Head Exam Head Exam: NORMOCEPHALIC - Eye Exam Eye Exam: Normal appearance - ENT Exam ENT Exam: Normal Exam - Neck Exam Neck exam: Positive for: Normal Inspection - Respiratory Exam Respiratory Exam: Prolonged Expiratory Phase - Cardiovascular Exam Cardiovascular Exam: REGULAR RHYTHM - Extremities Exam Extremities exam: Positive for: pedal edema Results - Vital Signs Recent Vital Signs: Last Vital Signs Temp 97.9 F 01/26/17 06:00 Pulse 91 H 01/26/17 08:05 Resp 20 01/26/17 06:00 BP 138/76 01/26/17 08:05 Pulse Ox 97 01/26/17 06:00 - Labs Result Diagrams: 01/24/17 06:20 01/24/17 08:00 Assessment & Plan - Assessment and Plan (Free Text) Assessment: COPD on nasal home O2, pneumonia Recent borderline Trop. elevation Moderate to sever Pulmonary HTN with mildly depressed RV systolic Function Systemic HTN Plan: Cont Albuterol/Ipratropium (Duoneb 3 Mg/0.5 Mg (3 Ml) Ud) 3 ml IH Q2H PRN; Protocol PRN Reason: Shortness of Breath Last Admin: 01/25/17 23:28 Dose: 3 ml Albuterol/Ipratropium (Duoneb 3 Mg/0.5 Mg (3 Ml) Ud) 3 ml IH [id number] [facility] PRN Reason: Protocol Last Admin: 01/26/17 07:20 Dose: 3 ml Aspirin (Aspirin Chewable) 81 mg PO 0800 [facility] PRN Reason: Protocol Last Admin: 01/26/17 08:05 Dose: 81 mg Budesonide (Pulmicort Respules) 0.5 mg IH [id number] [facility] PRN Reason: Protocol Last Admin: 01/26/17 07:20 Dose: 0.5 mg Doxycycline Hyclate (Doryx) 100 mg PO Q12 [facility] PRN Reason: Protocol Last Admin: 01/26/17 09:59 Dose: 100 mg Losartan Potassium (Cozaar) 100 mg PO DAILY [facility] Last Admin: 01/26/17 09:58 Dose: 100 mg Methylprednisolone (Solu-Medrol) 30 mg IVP Q12 [facility] Last Admin: 01/26/17 09:59 Dose: 30 mg Metoprolol Tartrate (Lopressor) 25 mg PO 0800,1800 [facility] PRN Reason: Protocol Last Admin: 01/26/17 08:05 Dose: 25 mg Pantoprazole Sodium (Protonix Ec Tab) 40 mg PO 0600 [facility] Last Admin: 01/26/17 05:36 Dose: 40 mg start Lasix 40 mg PO daily
[2017-01-26] MEDS: Furosemide 40 mg/5 mL Oral Soln UD PO SCH (14:38)
[2017-01-27] MEDS: Albuterol-Ipratrop 3 mg / 0.5 (3 ml) UD IH SCH ×5 (02:34→20:51)
[2017-01-27] MEDS: Pantoprazole 40 mg EC Tab PO SCH (05:37)
[2017-01-27] MEDS: Budesonide 0.5 mg/2 ml Inhal Susp UD IH SCH ×3 (07:31→20:51)
[2017-01-27] MEDS: Furosemide 40 mg/5 mL Oral Soln UD PO SCH (10:10)
[2017-01-27] MEDS: MethylPREDNISolone 40 mg Vial IVP SCH ×2 (10:11→21:12)
--- NOTE | 2017-01-27 13:49 | CP.PCM.PN ---
Subjective - Date & Time of Evaluation Date of Evaluation: 01/27/17 Time of Evaluation: 13:46 - Subjective Subjective: Mild SOB ,no C/P Objective - Vital Signs/Intake and Output Vital Signs (last 24 hours): Temp Pulse Resp BP Pulse Ox 98.3 F 95 H 16 146/79 91 L 01/27/17 06:00 01/27/17 08:01 01/27/17 06:00 01/27/17 10:10 01/27/17 06:00 Intake and Output: 01/27/17 01/27/17 06:59 18:59 Intake Total 520 Balance 520 - Medications Medications: Current Medications Albuterol/Ipratropium (Duoneb 3 Mg/0.5 Mg (3 Ml) Ud) 3 ml IH Q2H PRN; Protocol PRN Reason: Shortness of Breath Last Admin: 01/25/17 23:28 Dose: 3 ml Albuterol/Ipratropium (Duoneb 3 Mg/0.5 Mg (3 Ml) Ud) 3 ml IH [id number] RICH PRN Reason: Protocol Last Admin: 01/27/17 13:37 Dose: 3 ml Aspirin (Aspirin Chewable) 81 mg PO 0800 RICH PRN Reason: Protocol Last Admin: 01/27/17 08:01 Dose: 81 mg Budesonide (Pulmicort Respules) 0.5 mg IH [id number] RICH PRN Reason: Protocol Last Admin: 01/27/17 07:31 Dose: 0.5 mg Doxycycline Hyclate (Doryx) 100 mg PO Q12 RICH PRN Reason: Protocol Last Admin: 01/27/17 10:10 Dose: 100 mg Furosemide (Lasix) 40 mg PO DAILY RICH Last Admin: 01/27/17 10:10 Dose: 40 mg Losartan Potassium (Cozaar) 100 mg PO DAILY RICH Last Admin: 01/27/17 10:10 Dose: 100 mg Methylprednisolone (Solu-Medrol) 30 mg IVP Q12 RICH Last Admin: 01/27/17 10:11 Dose: 30 mg Metoprolol Tartrate (Lopressor) 25 mg PO 0800,1800 RICH PRN Reason: Protocol Last Admin: 01/27/17 08:01 Dose: 25 mg Pantoprazole Sodium (Protonix Ec Tab) 40 mg PO 0600 RICH Last Admin: 01/27/17 05:37 Dose: 40 mg - Labs Labs: 01/24/17 06:20 01/24/17 08:00 - Head Exam Head Exam: NORMAL INSPECTION - Eye Exam Eye Exam: Normal appearance - Neck Exam Neck Exam: Normal Inspection - Respiratory Exam Respiratory Exam: Rhonchi - Cardiovascular Exam Cardiovascular Exam: REGULAR RHYTHM - GI/Abdominal Exam GI & Abdominal Exam: Soft - Extremities Exam Extremities Exam: Pedal Edema Assessment and Plan - Assessment and Plan (Free Text) Assessment: Rt. Sided hear Failure COPD on nasal home O2, pneumonia Recent borderline Trop. elevation Moderate to sever Pulmonary HTN with mildly depressed RV systolic Function Systemic HTN Plan: Cont Albuterol/Ipratropium Aspirin (Aspirin Chewable) 81 mg PO 0800 RICH Budesonide (Pulmicort Respules) 0.5 mg IH [id number] RICH PRN Reason: Protocol Last Admin: 01/27/17 07:31 Dose: 0.5 mg Doxycycline Hyclate (Doryx) 100 mg PO Q12 RICH Furosemide (Lasix) 40 mg PO DAILY RICH Losartan Potassium (Cozaar) 100 mg PO DAILY R[facility] Methylprednisolone (Solu-Medrol) 30 mg IVP Q12 RICH Metoprolol Tartrate (Lopressor) 25 mg PO 0800,1800 RICH
[2017-01-28] MEDS: Albuterol-Ipratrop 3 mg / 0.5 (3 ml) UD IH SCH ×4 (01:45→20:40)
[2017-01-28] MEDS: Pantoprazole 40 mg EC Tab PO SCH (05:45)
[2017-01-28] MEDS: Budesonide 0.5 mg/2 ml Inhal Susp UD IH SCH ×2 (07:52→20:40)
[2017-01-28] MEDS: MethylPREDNISolone 40 mg Vial IVP SCH ×2 (10:15→21:48)
[2017-01-28] MEDS: Furosemide 40 mg/5 mL Oral Soln UD PO SCH (10:18)
[2017-01-28 11:14] LABS: ARTERIAL BLOOD GAS HEMOGLOBIN 16.2 g/dL (11.7-17.4); ARTERIAL BLOOD GAS O2 CONTENT 21.2 ML/dl (15-23); ARTERIAL BLOOD GAS O2 SAT 96.4 % (95-98); ARTERIAL BLOOD GAS TCO2 49.4 mmol.L (22-28)
[2017-01-28 11:17] LABS: ARTERIAL BLOOD GAS HCO3 47.1 mmol/L (21-28); ARTERIAL BLOOD GAS PCO2 76 mm/Hg (35-45)
--- NOTE | 2017-01-28 14:02 | CP.PCM.PN ---
Subjective - Date & Time of Evaluation Date of Evaluation: 01/28/17 Time of Evaluation: 14:00 - Subjective Subjective: no C/P Objective - Vital Signs/Intake and Output Vital Signs (last 24 hours): Temp Pulse Resp BP Pulse Ox 98.2 F 83 18 137/75 98 01/28/17 05:28 01/28/17 08:29 01/28/17 05:28 01/28/17 10:18 01/28/17 05:28 Intake and Output: 01/28/17 01/28/17 06:59 18:59 Intake Total 520 Balance 520 - Medications Medications: Current Medications Albuterol/Ipratropium (Duoneb 3 Mg/0.5 Mg (3 Ml) Ud) 3 ml IH Q2H PRN; Protocol PRN Reason: Shortness of Breath Last Admin: 01/25/17 23:28 Dose: 3 ml Albuterol/Ipratropium (Duoneb 3 Mg/0.5 Mg (3 Ml) Ud) 3 ml IH [id number] RICH PRN Reason: Protocol Last Admin: 01/28/17 13:27 Dose: 3 ml Aspirin (Aspirin Chewable) 81 mg PO 0800 RICH PRN Reason: Protocol Last Admin: 01/28/17 08:29 Dose: 81 mg Budesonide (Pulmicort Respules) 0.5 mg IH [id number] RICH PRN Reason: Protocol Last Admin: 01/28/17 07:52 Dose: 0.5 mg Furosemide (Lasix) 40 mg PO DAILY [facility] Last Admin: 01/28/17 10:18 Dose: 40 mg Losartan Potassium (Cozaar) 100 mg PO DAILY RICH Last Admin: 01/28/17 10:13 Dose: 100 mg Methylprednisolone (Solu-Medrol) 30 mg IVP Q12 RICH Last Admin: 01/28/17 10:15 Dose: 30 mg Metoprolol Tartrate (Lopressor) 25 mg PO 0800,1800 RICH PRN Reason: Protocol Last Admin: 01/28/17 08:29 Dose: 25 mg Pantoprazole Sodium (Protonix Ec Tab) 40 mg PO 0600 RICH Last Admin: 01/28/17 05:45 Dose: 40 mg - Labs Labs: 01/24/17 06:20 01/24/17 08:00 - Constitutional Appears: Well - Head Exam Head Exam: NORMAL INSPECTION - Eye Exam Eye Exam: Normal appearance - Respiratory Exam Respiratory Exam: Rhonchi - Cardiovascular Exam Cardiovascular Exam: REGULAR RHYTHM - Extremities Exam Extremities Exam: Pedal Edema Assessment and Plan - Assessment and Plan (Free Text) Assessment: Rt. Sided hear Failure COPD on nasal home O2, pneumonia Recent borderline Trop. elevation Moderate to sever Pulmonary HTN with mildly depressed RV systolic Function Systemic HTN Plan: Cont Albuterol/Ipratropium Aspirin (Aspirin Chewable) 81 mg PO 0800 RICH Budesonide 0.5 mg IH [id number] RICH Doxycycline 100 mg PO Q12 RICH Furosemide (Lasix) 40 mg PO DAILY RICH Losartan Potassium (Cozaar) 100 mg PO DAILY RICH Methylprednisolone (Solu-Medrol) 30 mg IVP Q12 RICH Metoprolol Tartrate (Lopressor) 25 mg PO 0800,1800 RICH
[2017-01-29] MEDS: Albuterol-Ipratrop 3 mg / 0.5 (3 ml) UD IH SCH ×4 (03:05→19:18)
[2017-01-29] MEDS: Budesonide 0.5 mg/2 ml Inhal Susp UD IH SCH ×2 (07:26→19:19)
[2017-01-29] MEDS: Pantoprazole 40 mg EC Tab PO SCH (07:37)
[2017-01-29] MEDS ORDERED: MethylPREDNISolone 40 mg Vial IVP SCH (10:00)
[2017-01-29] MEDS: Furosemide 40 mg/5 mL Oral Soln UD PO SCH (10:50)
--- NOTE | 2017-01-29 13:57 | CP.PCM.PN ---
Subjective - Date & Time of Evaluation Date of Evaluation: 01/29/17 Time of Evaluation: 10:00 - Subjective Subjective: SOB improved Left leg swelling Objective - Vital Signs/Intake and Output Vital Signs (last 24 hours): Temp Pulse Resp BP Pulse Ox 97.9 F 88 12 110/69 97 01/29/17 10:00 01/29/17 10:00 01/29/17 10:00 01/29/17 10:50 01/29/17 10:00 Intake and Output: 01/29/17 01/29/17 06:59 18:59 Intake Total 520 Balance 520 - Medications Medications: Current Medications Albuterol/Ipratropium (Duoneb 3 Mg/0.5 Mg (3 Ml) Ud) 3 ml IH Q2H PRN; Protocol PRN Reason: Shortness of Breath Last Admin: 01/25/17 23:28 Dose: 3 ml Albuterol/Ipratropium (Duoneb 3 Mg/0.5 Mg (3 Ml) Ud) 3 ml IH [id number] RICH PRN Reason: Protocol Last Admin: 01/29/17 13:04 Dose: 3 ml Aspirin (Aspirin Chewable) 81 mg PO 0800 RICH PRN Reason: Protocol Last Admin: 01/29/17 07:50 Dose: 81 mg Budesonide (Pulmicort Respules) 0.5 mg IH [id number] RICH PRN Reason: Protocol Last Admin: 01/29/17 07:26 Dose: 0.5 mg Furosemide (Lasix) 40 mg PO DAILY RICH Last Admin: 01/29/17 10:50 Dose: 40 mg Losartan Potassium (Cozaar) 100 mg PO DAILY RICH Last Admin: 01/29/17 10:42 Dose: 100 mg Methylprednisolone (Solu-Medrol) 20 mg IVP Q12 RICH Last Admin: 01/29/17 10:44 Dose: 20 mg Metoprolol Tartrate (Lopressor) 25 mg PO 0800,1800 RICH PRN Reason: Protocol Last Admin: 01/29/17 07:50 Dose: 25 mg Pantoprazole Sodium (Protonix Ec Tab) 40 mg PO 0600 RICH Last Admin: 01/29/17 07:37 Dose: 40 mg - Labs Labs: 01/24/17 06:20 01/24/17 08:00 - Head Exam Head Exam: NORMOCEPHALIC - Eye Exam Eye Exam: Normal appearance - Neck Exam Neck Exam: Normal Inspection - Respiratory Exam Respiratory Exam: Rhonchi - Cardiovascular Exam Cardiovascular Exam: REGULAR RHYTHM - Extremities Exam Extremities Exam: Pedal Edema Assessment and Plan - Assessment and Plan (Free Text) Assessment: Rt. Sided hear Failure COPD on nasal home O2, pneumonia Recent borderline Trop. elevation Moderate to sever Pulmonary HTN with mildly depressed RV systolic Function Systemic HTN Plan: Cont Albuterol/Ipratropium Aspirin (Aspirin Chewable) 81 mg PO 0800 RICH Budesonide 0.5 mg IH [id number] RICH Doxycycline 100 mg PO Q12 RICH Furosemide (Lasix) 40 mg PO DAILY RICH Losartan Potassium (Cozaar) 100 mg PO DAILY RICH Methylprednisolone (Solu-Medrol) 30 mg IVP Q12 RICH Metoprolol Tartrate (Lopressor) 25 mg PO 0800,1800 RICH venous Doppler of lT. LE
[2017-01-29] MEDS: MethylPREDNISolone 40 mg Vial IVP SCH (17:23)
--- NOTE | 2017-01-29 19:18 | US ---
PROCEDURE: Left lower extremity venous US HISTORY: Leg pain and swelling. Evaluate for DVT. PHYSICIAN(S): Ryan Almaguer MD. TECHNIQUE: Duplex sonography and color-flow Doppler with graded compression were used to evaluate the deep venous system of the left lower extremity. FINDINGS: The visualized deep venous system of the left lower extremity is sonographically normal and compressible. Normal wave forms and augmentation are seen. There is no sonographic evidence for deep venous thrombosis in the visualized segments of the left lower extremity. IMPRESSION: 1. No sonographic evidence for deep venous thrombosis in the visualized segments of the left lower extremity.
[2017-01-29 22:34] LABS: ARTERIAL BLOOD GAS HCO3 49.6 mmol/L (21-28); ARTERIAL BLOOD GAS HEMOGLOBIN 15.3 g/dL (11.7-17.4); ARTERIAL BLOOD GAS O2 CAPACITY 20.8 mL/dl (16-24); ARTERIAL BLOOD GAS O2 CONTENT 20.4 ML/dl (15-23); ARTERIAL BLOOD GAS O2 SAT 98.2 % (95-98); ARTERIAL BLOOD GAS TCO2 52.1 mmol.L (22-28)
[2017-01-29 22:42] LABS: ARTERIAL BLOOD GAS PCO2 80 mm/Hg (35-45)
[2017-01-30] MEDS: Albuterol-Ipratrop 3 mg / 0.5 (3 ml) UD IH SCH ×4 (01:27→20:13)
[2017-01-30] MEDS: Pantoprazole 40 mg EC Tab PO SCH (05:33)
[2017-01-30] MEDS: MethylPREDNISolone 40 mg Vial IVP SCH ×2 (05:34→17:27)
[2017-01-30] MEDS: Budesonide 0.5 mg/2 ml Inhal Susp UD IH SCH ×2 (07:21→20:14)
[2017-01-30] MEDS: Furosemide 40 mg/5 mL Oral Soln UD PO SCH (09:42)
[2017-01-30] MEDS ORDERED: Magnesium Hydroxide Susp 30 ml UD PO ONE (11:29)
--- NOTE | 2017-01-30 11:29 | CP.PCM.PN ---
Subjective - Date & Time of Evaluation Date of Evaluation: 01/30/17 Time of Evaluation: 11:25 - Subjective Subjective: Comfortable on nasal O2 C/o constipation Objective - Vital Signs/Intake and Output Vital Signs (last 24 hours): Temp Pulse Resp BP Pulse Ox 97.1 F L 71 15 132/79 98 01/29/17 16:43 01/30/17 07:49 01/29/17 16:43 01/30/17 09:42 01/29/17 16:43 - Medications Medications: Current Medications Albuterol/Ipratropium (Duoneb 3 Mg/0.5 Mg (3 Ml) Ud) 3 ml IH Q2H PRN; Protocol PRN Reason: Shortness of Breath Last Admin: 01/25/17 23:28 Dose: 3 ml Albuterol/Ipratropium (Duoneb 3 Mg/0.5 Mg (3 Ml) Ud) 3 ml IH [id number] RICH PRN Reason: Protocol Last Admin: 01/30/17 07:21 Dose: 3 ml Aspirin (Aspirin Chewable) 81 mg PO 0800 RICH PRN Reason: Protocol Last Admin: 01/30/17 07:49 Dose: 81 mg Budesonide (Pulmicort Respules) 0.5 mg IH [id number] RICH PRN Reason: Protocol Last Admin: 01/30/17 07:21 Dose: 0.5 mg Furosemide (Lasix) 40 mg PO DAILY [facility] Last Admin: 01/30/17 09:42 Dose: 40 mg Losartan Potassium (Cozaar) 100 mg PO DAILY RICH Last Admin: 01/30/17 09:42 Dose: 100 mg Methylprednisolone (Solu-Medrol) 20 mg IVP 0600,1800 RICH PRN Reason: Protocol Last Admin: 01/30/17 05:34 Dose: 20 mg Metoprolol Tartrate (Lopressor) 25 mg PO 0800,1800 RICH PRN Reason: Protocol Last Admin: 01/30/17 07:49 Dose: 25 mg Pantoprazole Sodium (Protonix Ec Tab) 40 mg PO 0600 [facility] Last Admin: 01/30/17 05:33 Dose: 40 mg - Labs Labs: 01/24/17 06:20 01/24/17 08:00 - Constitutional Appears: Well - Head Exam Head Exam: NORMAL INSPECTION - Eye Exam Eye Exam: Normal appearance - Neck Exam Neck Exam: Normal Inspection - Respiratory Exam Respiratory Exam: Rhonchi - Cardiovascular Exam Cardiovascular Exam: REGULAR RHYTHM - Extremities Exam Extremities Exam: Pedal Edema Assessment and Plan - Assessment and Plan (Free Text) Assessment: COPD Borderline Troponin elevation Rt. Heart Failure Constipation Plan: Cont Albuterol/Ipratropium Aspirin (Aspirin Chewable) 81 mg PO 0800 RICH Budesonide 0.5 mg IH [id number] RICH Doxycycline 100 mg PO Q12 [facility] Furosemide (Lasix) 40 mg PO DAILY [facility] Losartan Potassium (Cozaar) 100 mg PO DAILY [facility] Methylprednisolone (Solu-Medrol) 30 mg IVP Q12 [facility] Metoprolol Tartrate (Lopressor) 25 mg PO 0800,1800 [facility] venous Doppler revealed no DVT MOM 30 cc po now
[2017-01-30 16:15] VITALS: RESP 70; TEMP 97.7; O2SAT 95
[2017-01-31] MEDS: Albuterol-Ipratrop 3 mg / 0.5 (3 ml) UD IH SCH ×3 (01:08→13:22)
[2017-01-31] MEDS: Pantoprazole 40 mg EC Tab PO SCH (05:31)
[2017-01-31] MEDS: MethylPREDNISolone 40 mg Vial IVP SCH (05:32)
[2017-01-31] MEDS: Budesonide 0.5 mg/2 ml Inhal Susp UD IH SCH (07:18)
[2017-01-31 08:11] VITALS: BP 113/60; PULSE 65
[2017-01-31] MEDS: Furosemide 40 mg/5 mL Oral Soln UD PO SCH (09:47)
--- NOTE | 2017-01-31 13:47 | CP.PCM.PN ---
Subjective - Date & Time of Evaluation Date of Evaluation: 01/31/17 Time of Evaluation: 10:00 - Subjective Subjective: SOB improved as well as leg Edema Objective - Vital Signs/Intake and Output Vital Signs (last 24 hours): Temp Pulse Resp BP Pulse Ox 97.7 F 65 70 H 113/60 95 01/30/17 16:00 01/31/17 08:09 01/30/17 16:00 01/31/17 09:47 01/30/17 16:00 Intake and Output: 01/31/17 01/31/17 06:59 18:59 Intake Total 680 Balance 680 - Medications Medications: Current Medications Albuterol/Ipratropium (Duoneb 3 Mg/0.5 Mg (3 Ml) Ud) 3 ml IH Q2H PRN; Protocol PRN Reason: Shortness of Breath Last Admin: 01/25/17 23:28 Dose: 3 ml Albuterol/Ipratropium (Duoneb 3 Mg/0.5 Mg (3 Ml) Ud) 3 ml IH [id number] RICH PRN Reason: Protocol Last Admin: 01/31/17 13:22 Dose: 3 ml Aspirin (Aspirin Chewable) 81 mg PO 0800 RICH PRN Reason: Protocol Last Admin: 01/31/17 08:09 Dose: 81 mg Budesonide (Pulmicort Respules) 0.5 mg IH [id number] RICH PRN Reason: Protocol Last Admin: 01/31/17 07:18 Dose: 0.5 mg Furosemide (Lasix) 40 mg PO DAILY [facility] Last Admin: 01/31/17 09:47 Dose: 40 mg Losartan Potassium (Cozaar) 100 mg PO DAILY [facility] Last Admin: 01/31/17 09:43 Dose: 100 mg Methylprednisolone (Solu-Medrol) 20 mg IVP 0600,1800 RICH PRN Reason: Protocol Last Admin: 01/31/17 05:32 Dose: 20 mg Metoprolol Tartrate (Lopressor) 25 mg PO 0800,1800 RICH PRN Reason: Protocol Last Admin: 01/31/17 08:09 Dose: 25 mg Pantoprazole Sodium (Protonix Ec Tab) 40 mg PO 0600 [facility] Last Admin: 01/31/17 05:31 Dose: 40 mg - Labs Labs: 01/24/17 06:20 01/24/17 08:00 - Head Exam Head Exam: NORMOCEPHALIC - Eye Exam Eye Exam: Normal appearance - ENT Exam ENT Exam: Normal Exam - Neck Exam Neck Exam: Normal Inspection - Respiratory Exam Respiratory Exam: Rhonchi - Cardiovascular Exam Cardiovascular Exam: REGULAR RHYTHM - Extremities Exam Extremities Exam: Normal Inspection - Back Exam Back Exam: NORMAL INSPECTION Assessment and Plan - Assessment and Plan (Free Text) Assessment: COPD Borderline Troponin elevation Rt. Heart Failure Constipation, improved Plan: OK with discharge on Albuterol/Ipratropium Aspirin (Aspirin Chewable) 81 mg PO 0800 RICH Budesonide 0.5 mg IH [id number] RICH Doxycycline 100 mg PO Q12 RICH Furosemide (Lasix) 40 mg PO DAILY [facility] Losartan Potassium (Cozaar) 100 mg PO DAILY [facility] Methylprednisolone (Solu-Medrol) 30 mg IVP Q12 RICH Metoprolol Tartrate (Lopressor) 25 mg PO 0800,1800 RICH
--- NOTE | 2017-02-01 09:15 | PN ---
DATE: 01/31/2017 SUBJECTIVE: Patient was seen earlier in room #319. No fevers and chills. PHYSICAL EXAMINATION: VITAL SIGNS: Temperature is 98, blood pressure is 113/60, respiratory rate of 18. HEENT: Unremarkable. NECK: Supple. CARDIOPULMONARY: Normal S1, S2. LUNGS: Decreased breath sounds. ABDOMEN: Soft, nontender. LABORATORY DATA: Reveals the patient's white count is 7.6 and hemoglobin of 14. Chemistries are noted and patient had an ultrasound of the extremities on 01/29/2017 *------* noted. ASSESSMENT AND PLAN: A 76-year-old male with *------* right lower lobe atypical community-acquired pneumonia, hypertensive chronic obstructive pulmonary disease and day #5 of doxycycline and patient is much improved. Review of the orders reveals the patient is off of antibiotics. No evidence of any antibiotics on orders and on Solu-Medrol. We will follow with you. Patient is at risk for developing of nosocomial infection. Teo Rodriguez MD
--- NOTE | 2017-02-01 14:13 | PN ---
The patient is preparing for discharge today. He will continue on his medications as an outpatient for severe COPD including inhaled bronchodilator, inhaled corticosteroid and anticholinergic medication. He should be discharged on oral Medrol at the appropriate dose to be tapered as an outpatient. Please note that the patient was admitted through the hospital with severe hypoxemia and hypercapnia. He was treated vigorously with medications. He is still having some difficulty with his breathing, but it has been deemed by his primary medical doctor that he be discharged today from the TCU. It has not been decided to send him to custodial care. He will be discharged to home with little in the way of medical management, but home care will be obtained for him. The patient has a history of severe COPD but never had CO2 retention and hypoxemia to the level that he has now. He also once had witnessed apnea consistent with a diagnosis of obstructive sleep apnea. This has not yet been proven because polysomnography cannot be done during hospitalization stays. We are left in a quandary of what to do care for his apneic periods. He cannot have CPAP and it has been suggested by social work and [facility] that the patient be started on a Trilogy respirator at home for a combination of severe respiratory insufficiency, status post respiratory failure and observed apneic episodes consistent with obstructive sleep apnea. At first the patient did not want to use home ventilator machine, but now agrees to do so. I am not certain that this is the adjunct faculty for medical terminology cure for his problem. I think he will suffice on BiPAP at home. Unfortunately, Medicare will not pay for BiPAP at this time without having a polysomnogram. At this period of time at the point of discharge, we will order Trilogy ventilator for him for a short period of time until he is able to have a polysomnogram. Once the polysomnogram is completed and sleep apnea is documented, we will attempt to change from the Trilogy back to BiPAP for the patient's safety and treatment. I have discussed these problems with the patient, nursing medical team, social insurance analyst and rehab and they have directed the [facility] to provide equipment to the patient as required. He would require treatment with low dose supplemental oxygen as well. PHYSICAL EXAMINATION: GENERAL: The patient is comfortable today, in no acute distress. He remains somewhat tachypneic, but this may be due to anxiety. He does feel comfortable and is anxious to be discharged. VITAL SIGNS: Stable. HEENT: Within not normal limits NECK: Supple. CARDIAC: S1, S2. No murmur, no gallops, no rubs. CHEST: Decreased breath sounds throughout. Global hyperaeration. No rales, wheezes or rhonchi noted at this time. GI: Soft. Bowel sounds normoactive. : Within normal limits. EXTREMITIES: Reveal no clubbing, cyanosis or edema. NEUROLOGIC: Reveals no focal findings. CLINICAL IMPRESSION: 1. Status post respiratory failure. 2. Severe emphysema. 3. Severe bronchial asthma. 4. Obstructive sleep apnea with witnessed apnea. PLAN: 1. Continue all medications as described above. 2. We will order Trilogy ventilator as a temporizing method. 3. We will obtain a polysomnogram [facility] as an outpatient. 4. Our hope is to change to BiPAP following and intensify his medical therapy for COPD. Please note that the patient's status is severe. He is on the precipitous of major deterioration. The custodial prognosis is poor. This guarded condition is known to the patient, but needs to be discussed with the family who is not available at this time. I have asked the patient to have his son call so that I can discuss the severe status of his case and we will be happy to continue to follow him closely as an outpatient. Thank you for your help in this matter. SONG
--- NOTE | 2017-02-01 20:02 | DS ---
HISTORY: The patient is 76-year-old seen and examined anxious to go home, still has shortness of breath, especially when he ambulates. No fever, no chills, no nausea, vomiting, eating and tolerating. PHYSICAL EXAMINATION: VITAL SIGNS: He is afebrile. Pulse 65, respirations 20, blood pressure 113/60. LUNGS: Bilateral diffusely decreased breath sounds. CARDIOVASCULAR: Heart S1 and S2 audible. ABDOMEN: Soft, nontender, no rebound, *------* no hepatosplenomegaly. NEUROLOGICAL: The patient is awake, alert and intractable. LABORATORY DATA: There is no other lab available today. ASSESSMENT AND PLAN: 1. Chronic obstructive pulmonary disease exacerbation. 2. Community acquired pneumonia 3. Terminal chronic obstructive pulmonary disease. 4. Asthmatic bronchitis. 5. Hypertension. PLAN: The patient is being discharged home with doxycycline 100 mg twice a day for 5 more days, *------* steroids. We will resume his medications including valsartan, Spiriva, Protonix, metoprolol, Vytorin, and we will follow up with Dr. Brown who will make arrangements for sleep study and get his CPAP approved to be used as outpatient.
== END 2017-01-31 15:26 | disposition home or self-care (01) | DRG 190 ==
LOC: TRCU 16:31
PROVIDERS: ADMIT Internal Medicine; ATTEND Internal Medicine
PROC: F07Z9FZ Gait Training/Functional Ambulation Treatment using Assistive, Adaptive, Supportive or Protective Equipment (ICD-10-PCS; principal; 2017-01-24)
PROC: F07M6ZZ Therapeutic Exercise Treatment of Musculoskeletal System - Whole Body (ICD-10-PCS; 2017-01-24)
PROC: F08Z2ZZ Grooming/Personal Hygiene Treatment (ICD-10-PCS; 2017-01-26)
PROC: F08Z1ZZ Dressing Techniques Treatment (ICD-10-PCS; 2017-01-26)
DX: J44.1 Chronic obstructive pulmonary disease with (acute) exacerbation (principal); J18.9 Pneumonia, unspecified organism; J96.90 Respiratory failure, unspecified, unspecified whether with hypoxia or hypercapnia; I11.0 Hypertensive heart disease with heart failure; I27.2 Other secondary pulmonary hypertension; I50.9 Heart failure, unspecified; Z99.81 Dependence on supplemental oxygen; J98.11 Atelectasis; J98.01 Acute bronchospasm; J44.0 Chronic obstructive pulmonary disease with (acute) lower respiratory infection; K59.00 Constipation, unspecified; Z87.891 Personal history of nicotine dependence; R53.81 Other malaise

== ENCOUNTER 2018-05-16 14:52 | Inpatient (IN) | payer MEDICARE ==
[2018-05-16] MEDS ORDERED: Magnesium Sulfate 2 GM in Sodium Chloride 0.9% 100 ML IVPB ONE (14:57)
--- NOTE | 2018-05-16 15:01 | ED PDOC ---
Arrival/HPI - General Time Seen by Provider: 05/16/18 14:53 Historian: Patient - Critical Care Critical Care Minutes: 60 minutes - History of Present Illness Narrative History of Present Illness (Text): 05/16/18 14:54 A 77 year old male, whose past medical history includes COPD, is brought into the emergency department in respiratory distress. Patient was seen immediately upon arrival. History obtained by EMS and patient's son. Patient's son states that patient was not feeling well since yesterday. He notes that he found the patient at home today short of breath. As per EMS, they found the patient blue, with agonal breathing. They placed the patient on oxygen in the field and the patient's skin color improved. Oxy sat in the field at 70-75% on oxygen. Patient was placed on BiPap on arrival to the emergency department. HPI/ROS limited due to respiratory distress. PMD: Dr. Calvillo Time/Duration: Prior to Arrival Symptom Onset: Sudden Symptom Course: Unchanged Activities at Onset: Rest, Light Context: Home Past Medical History - Provider Review Nursing Documentation Reviewed: Yes - Cardiac Hx Hypertension: Yes - Pulmonary Hx Chronic Obstructive Pulmonary Disease (COPD): Yes - Musculoskeletal/Rheumatological Hx Falls: No - Genitourinary/Gynecological Hx Reproductive Disorders: No - Psychiatric Hx Depression: No Hx Emotional Abuse: No Hx Physical Abuse: No Hx Substance Use: No - Surgical History Hx Inguinal Hernia Repair: Yes - Suicidal Assessment Feels Threatened In Home Enviroment: No Family/Social History - Physician Review Nursing Documentation Reviewed: Yes Family/Social History: No Known Family HX Smoking Status: Former Smoker (Quit smoking 10 years ago) Hx Alcohol Use: No Hx Substance Use: No Allergies/Home Meds Allergies/Adverse Reactions: Allergies No Known Allergies Allergy (Verified 05/16/18 14:59) Home Medications: Home Meds Medication Instructions Recorded Confirmed Tiotropium [Spiriva] 18 mcg IH DAILY 06/20/13 05/16/18 Albuterol HFA [Ventolin HFA 90 2 puff NEB Q4 PRN 01/20/17 05/16/18 mcg/actuation (8 g)] Ezetimibe/Simvastatin [Vytorin 1 tab PO DAILY 01/20/17 05/16/18 10-10 mg Tablet] Valsartan [Diovan] 40 mg PO DAILY 01/20/17 05/16/18 Review of Systems - Physician Review All systems were reviewed & negative as marked: Yes - Review of Systems Systems not reviewed;Unavailable: Respiratory Distress Respiratory: SOB Physical Exam Vital Signs Reviewed: Yes Temperature: Hypothermic Blood Pressure: Hypertensive Pulse: Tachycardic Respiratory Rate: Normal Appearance: Positive for: Well-Appearing, Non-Toxic, Comfortable Pain Distress: None Mental Status: Positive for: Alert and Oriented X 3 (Alert awake to person) - Systems Exam Head: Present: Atraumatic, Normocephalic Pupils: Present: PERRL Extroacular Muscles: Present: EOMI Conjunctiva: Present: Normal Mouth: Present: Moist Mucous Membranes Neck: Present: Normal Range of Motion Respiratory/Chest: Present: Respiratory Distress, Accessory Muscle Use, Decreased Breath Sounds, Retracting, Rhonchi (Bilaterally.) Cardiovascular: Present: Regular Rate and Rhythm, Normal S1, S2. No: Murmurs Abdomen: No: Tenderness, Distention, Peritoneal Signs Back: Present: Normal Inspection Upper Extremity: Present: Normal Inspection. No: Cyanosis, Edema Lower Extremity: Present: Normal Inspection. No: Edema (Negative lower extre mity edema.) Neurological: Present: GCS=15, CN II-XII Intact, Speech Normal Skin: Present: Warm, Dry, Normal Color. No: Rashes Psychiatric: Present: Alert, Oriented x 3 (Oriented to person), Normal Insight, Normal Concentration Medical Decision Making ED Course and Treatment: 05/16/18 15:02 Impression: A 77 year old male is brought into the emergency department for respiratory distress due to COPD r/o PNA r/o Influenza Plan: -- EKG -- Chest X-ray -- Labs -- Blood/ Urine Culture -- Urinalysis -- Duoneb, SOLU- Medrol, and Magnesium Sulfate IV -- Reassess and disposition Prior Visits: Notes and results from previous visits were reviewed. Progress Notes: 05/16/18 15:26:Code sepsis called due to suspicion of infection, hypothermia, increased hr and rr and elevated LA. EKG: Ordered, reviewed, and independently interpreted the EKG. Rate : 111 BPM Rhythm : Sinus Tachycardia Interpretation : Incomplete RBBB. ST depression in the lateral leads. Chest X-ray Dictator : Ryan Mcdonnell MD Report Date : 05/16/2018 15:33:25 IMPRESSION: No active disease. 05/16/18 16:28 ABG reviewed. Patient's FIO2 increased 50% and respiratory rate increased to 16. Cased discussed with Dr. Bradley who accepted case to the ICU. He agreed since patient is tolerating BiPAP well and improving that we will leave him on BiPAP now and reevaluate his gas. Case was also discussed with Dr. Calvillo who is aware patient is in the emergency room and will admit patient to her service. She states patient is a severe COPD. - Critical Care Critical Care Minutes: 60 minutes - Lab Interpretations I have reviewed the lab results: Yes - EKG Interpretation Interpreted by ED Physician: Yes Type: 12 lead EKG - Scribe Statement The provider has reviewed the documentation as recorded by the Scribe Kassandra Cade Provider Scribe Attestation: All medical record entries made by the Scribe were at my direction and personally dictated by me. I have reviewed the chart and agree that the record accurately reflects my personal performance of the history, physical exam, medi dagoberto decision making, and the department course for this patient. I have also personally directed, reviewed, and agree with the discharge instructions and disposition. Disposition/Present on Arrival - Present on Arrival Any Indicators Present on Arrival: No History of DVT/PE: No History of Uncontrolled Diabetes: No Urinary Catheter: No History Surgical Site Infection Following: None - Disposition Have Diagnosis and Disposition been Completed?: Yes Diagnosis: Respiratory failure, Hypercapnic respiratory failure, COPD exacerbation, Sepsis Disposition: HOSPITALIZED Disposition Time: 16:20 Patient Plan: Admission Patient Problems: Current Active Problems Problem Status Onset COPD exacerbation Acute Hypercapnic respiratory failure Acute Respiratory failure Acute Sepsis Acute Condition: CRITICAL Discharge Instructions (ExitCare): Sepsis (ED)
[2018-05-16 15:17] LABS: VENOUS BLOOD GAS BASE EXCESS 2.9 mmol/L (0.0-2.0); VENOUS BLOOD GAS PO2 73 mm/Hg (30-55)
[2018-05-16 15:21] LABS: VENOUS BLOOD PH 7.04 (7.32-7.43)
[2018-05-16 15:22] LABS: BASO # 0.02 K/mm3 (0.0-2.0); BASO % 0.1 % (0.0-3.0); GRAN # 13.85 (1.4-6.5); GRAN % 84.3 % (50.0-68.0); HEMOGLOBIN 17.4 g/dL (14.0-18.0); LYMPH # 0.9 (1.2-3.4); LYMPH % 5.2 % (22.0-35.0); MEAN CELL VOLUME 104.5 fl (80.0-105.0); MEAN CORPUSCULAR HEMOGLOBIN 31.4 pg (25.0-35.0); MEAN CORPUSCULAR HGB CONC 30.1 g/dl (31.0-37.0); MEAN PLATELET VOLUME 10.9 fl (7.0-11.0); MONO # 1.7 (0.1-0.6); MONO % 10.4 % (1.0-6.0); RBC 5.54 10^6/uL (3.5-6.1); RED CELL DISTRIBUTION WIDTH 13.9 % (11.5-14.5); WHITE BLOOD COUNT 16.4 10^3/uL (4.5-11.0)
[2018-05-16] MEDS ORDERED: Piperacill/Tazo 4.5gm in NS 4.5 GM/100 ML BAG IVPB STA (15:24)
[2018-05-16 15:32] LABS: INR 0.85; PARTIAL THROMBOPLASTIN TIME 36.4 Seconds (25.1-36.5)
[2018-05-16 15:33] LABS: PROTHROMBIN TIME 9.7 SECONDS (9.4-12.5)
[2018-05-16 15:34] LABS: BLOOD UREA NITROGEN 24 mg/dL (7-21); GFR NON-AFRICAN AMERICAN > 60
--- NOTE | 2018-05-16 15:36 | RAD ---
Date of service: 05/16/2018 HISTORY: sob / copd COMPARISON: 05/24/2017 FINDINGS: LUNGS: No active pulmonary disease. PLEURA: No significant pleural effusion identified, no pneumothorax apparent. CARDIOVASCULAR: No aortic atherosclerotic calcification present. Normal cardiac size. No pulmonary vascular congestion. OSSEOUS STRUCTURES: Multiple old healed right rib fractures. VISUALIZED UPPER ABDOMEN: Normal. OTHER FINDINGS: None. IMPRESSION: No active disease.
[2018-05-16 15:38] LABS: URINE BILIRUBIN NEGATIVE (NEGATIVE); URINE BLOOD MODERATE (NEGATIVE); URINE GLUCOSE (UA) 100 mg/dL (NEGATIVE); URINE LEUKOCYTE ESTERASE NEGATIVE Leu/uL (NEGATIVE); URINE PROTEIN 100 mg/dL (<30 mg/dL); URINE UROBILINOGEN 0.2 E.U./dL (<1 E.U./dL)
[2018-05-16 15:39] LABS: URINE APPEARANCE CLEAR (CLEAR); URINE COLOR YELLOW (YELLOW)
[2018-05-16 15:42] LABS: B-TYPE NATRIURETIC PEPTIDE 6230 pg/mL (0-450)
[2018-05-16] MEDS: Albuterol-Ipratrop 3 mg / 0.5 (3 ml) UD IH SCH ×4 (15:44→20:17)
[2018-05-16 15:52] LABS: URINE AMORPHOUS SEDIMENT TRACE; URINE BACTERIA NEG (NEG); URINE WBC 0 - 2 /hpf (0-6)
[2018-05-16 15:58] LABS: ARTERIAL BLOOD GAS HCO3 38.8 mmol/L (21-28); ARTERIAL BLOOD GAS HEMOGLOBIN 16.1 g/dL (11.7-17.4); ARTERIAL BLOOD GAS O2 CAPACITY 21.8 mL/dl (16-24); ARTERIAL BLOOD GAS O2 CONTENT 20.2 ML/dl (15-23); ARTERIAL BLOOD GAS O2 SAT 92.5 % (95-98); ARTERIAL BLOOD GAS PCO2 125 mm/Hg (35-45); ARTERIAL BLOOD GAS TCO2 42.6 mmol.L (22-28)
[2018-05-16 16:08] LABS: CK MB% 2.8 % (2.5-3.0); CK-MB 17.8 ng/mL (0.0-3.6); TROPONIN I 0.21 ng/mL
[2018-05-16 18:51] LABS: VENOUS BLOOD GAS BASE EXCESS 8.7 mmol/L (0.0-2.0); VENOUS BLOOD GAS PO2 68 mm/Hg (30-55)
[2018-05-16 18:55] LABS: VENOUS BLOOD PH 7.14 (7.32-7.43)
--- NOTE | 2018-05-16 18:56 | CP.PCM.CON ---
Addendum entered and electronically signed by Cherry Faulkner DO 05/16/18 19:35: ADDENDUM TO RESIDENT NOTE GI On BiPAP IV protonix for GI ppx NIKKI complete fluid bolus monitor for signs/symptoms of bleedings Heme Elevated on heparin drip Leukocytosis on empiric antibiotics steroids for COPD exacerbation H/H stable coags/platelets stable ID influenza negative Chest xray: no obvious infiltrates Empiric rocephin/azithromycin DVT/GI: Hep/protonix Disposition: Pt is full code. Monitor in MICU Original Note: <Cherry Faulkner - Last Filed: 05/16/18 18:57> History of Present Illness - History of Present Illness History of Present Illness: CRITICAL CARE CONSULT NOTE FOR DR. FAROOQ Faulkner PGY-1 77 y/o M with PMHx of COPD on home O2, extensive smoking history presents to [facility] after being brought in by his son for being lethargic, confused and with a persistent dry cough. Pt had went to his PMD's office yesterday, Dr. Calvillo for a persistent cough. He was given antibiotics and cough medications. This morning, pt was increasingly lethargic and weak according to his son. He is normally independent and lives by himself at home. He has home O2 that he uses inconsistently. He was recently admitted at [facility] for similar symptoms of shortness of breath. He uses CPAP at home at bedtime. ROS was unattainable as pt was lethargic and confused on already on BiPAP. Son present at bedside provided majority of history PMHx: COPD All: NKDA PSH: Abdominal surgery 10 years ago SH: 2 pack/day x 10 yrs ago FH: Son: 5 vessel dz. Father: COPD Meds: Spiriva 2x/day, doesnt recall other nebulizer name PMD: Dr. Calvillo Review of Systems - Review of Systems Review of Systems: unable to attain Past Patient History - Infectious Disease Hx of Infectious Diseases: None - Past Medical History & Family History Past Medical History?: Yes - Past Social History Smoking Status: Former Smoker (Quit smoking 10 years ago) - CARDIAC Hx Hypertension: Yes - PULMONARY Hx Chronic Obstructive Pulmonary Disease (COPD): Yes - MUSCULOSKELETAL/RHEUMATOLOGICAL Hx Falls: No - GENITOURINARY/GYNECOLOGICAL Hx Reproductive Disorders: No - PSYCHIATRIC Hx Depression: No Hx Emotional Abuse: No Hx Physical Abuse: No Hx Substance Use: No - SURGICAL HISTORY Hx Surgeries: Yes Other/Comment: abd surgery 11 yrs ago - ANESTHESIA Hx Anesthesia: Yes Hx Anesthesia Reactions: No Hx Malignant Hyperthermia: No Meds Allergies/Adverse Reactions: Allergies Allergy/AdvReac Type Severity Reaction Status Date / Time No Known Allergies Allergy Verified 05/16/18 14:59 - Medications Medications: Current Medications Albuterol/Ipratropium (Duoneb 3 Mg/0.5 Mg (3 Ml) Ud) 3 ml IH [id number] RICH Ceftriaxone Sodium (Rocephin 1 Gram Ivpb) 1 gm in 100 mls @ 100 mls/hr IVPB DAILY RICH; Protocol Azithromycin 250 mg/ Sodium (Chloride) 250 mls @ 167 mls/hr IVPB DAILY RICH; Protocol Heparin Sodium/Sodium Chloride (Heparin 19857 Units/250ml 1/2 Normal Saline) 25,000 units in 250 mls @ 8.165 mls/hr IV .Q24H RICH; Protocol Methylprednisolone (Solu-Medrol) 40 mg IVP DAILY RICH Physical Exam - Constitutional Appears: Confused, Chronically Ill - Head Exam Head Exam: ATRAUMATIC, NORMOCEPHALIC - Eye Exam Eye Exam: Normal appearance, PERRL - ENT Exam ENT Exam: Normal Exam - Neck Exam Neck exam: Positive for: Normal Inspection. Negative for: Meningismus - Respiratory Exam Respiratory Exam: Decreased Breath Sounds Additional comments: On BiPAP 18/5/50%/16 - Cardiovascular Exam Cardiovascular Exam: Tachycardia, +S1, +S2 - GI/Abdominal Exam GI & Abdominal Exam: Soft. absent: Rigid, Tenderness - Extremities Exam Extremities exam: Positive for: normal inspection. Negative for: calf tenderness, joint swelling - Back Exam Back exam: NORMAL INSPECTION - Neurological Exam Additional comments: lethargic, arousable to sternal rub - Skin Skin Exam: Dry, Intact, Warm Results - Vital Signs Recent Vital Signs: Last Vital Signs Temp 98.2 F 05/16/18 17:52 Pulse 104 H 05/16/18 17:52 Resp 20 05/16/18 17:52 BP 140/73 05/16/18 17:52 Pulse Ox 100 05/16/18 17:52 - Labs Result Diagrams: 05/16/18 15:14 05/16/18 15:14 Labs: Laboratory Results - last 24 hr 05/16/18 05/16/18 05/16/18 14:55 15:13 15:14 WBC 16.4 H D RBC 5.54 Hgb 17.4 Hct 57.9 H* MCV 104.5 MCH 31.4 MCHC 30.1 L RDW 13.9 Plt Count 166 MPV 10.9 Gran % 84.3 H Lymph % (Auto) 5.2 L Perry % (Auto) 10.4 H Eos % (Auto) 0.0 L Baso % (Auto) 0.1 Gran # 13.85 H Lymph # (Auto) 0.9 L Perry # (Auto) 1.7 H Eos # (Auto) 0.0 Baso # (Auto) 0.02 PT INR APTT pCO2 pO2 73 H HCO3 ABG pH ABG Total CO2 ABG O2 Saturation ABG O2 Content ABG Base Excess ABG Hemoglobin ABG Carboxyhemoglobin POC ABG HHb (Measured) ABG Methemoglobin ABG O2 Capacity VBG pH 7.04 L* VBG pCO2 141.0 H* VBG HCO3 38.1 H VBG Total CO2 42.4 H VBG O2 Sat (Calc) 94.1 H VBG Base Excess 2.9 H VBG Potassium 4.5 Hgb O2 Saturation Sodium 143.0 Chloride 97.0 L Glucose 139 H Lactate 3.8 H FiO2 21.0 Potassium Carbon Dioxide Anion Gap BUN Creatinine Est GFR ( Amer) Est GFR (Non-Af Amer) Random Glucose Calcium Magnesium Lactate Dehydrogenase Total Creatine Kinase CK-MB (CK-2) CK-MB (CK-2) % Troponin I NT-Pro-B Natriuret Pep Venous Blood Potassium 4.5 Urine Color Yellow Urine Appearance Clear Urine pH 6.0 Ur Specific Melrose >= 1.030 Urine Protein 100 H Urine Glucose (UA) 100 H Urine Ketones Trace H Urine Blood Moderate H Urine Nitrate Negative Urine Bilirubin Negative Urine Urobilinogen 0.2 Ur Leukocyte Esterase Negative Urine RBC 1 - 3 Urine WBC 0 - 2 Ur Epithelial Cells None Amorphous Sediment Trace Urine Bacteria Neg Influenza Typ A,B (EIA) 05/16/18 05/16/18 05/16/18 15:14 15:14 15:50 WBC RBC Hgb Hct MCV MCH MCHC RDW Plt Count MPV Gran % Lymph % (Auto) Perry % (Auto) Eos % (Auto) Baso % (Auto) Gran # Lymph # (Auto) Perry # (Auto) Eos # (Auto) Baso # (Auto) PT 9.7 INR 0.85 APTT 36.4 pCO2 125 H* pO2 62.0 L HCO3 38.8 H ABG pH 7.10 L* ABG Total CO2 42.6 H ABG O2 Saturation 92.5 L ABG O2 Content 20.2 ABG Base Excess 3.7 H ABG Hemoglobin 16.1 ABG Carboxyhemoglobin 2.6 H POC ABG HHb (Measured) 7.2 H ABG Methemoglobin 0.8 ABG O2 Capacity 21.8 VBG pH VBG pCO2 VBG HCO3 VBG Total CO2 VBG O2 Sat (Calc) VBG Base Excess VBG Potassium Hgb O2 Saturation 89.4 L Sodium 143 Chloride 95 L Glucose Lactate FiO2 40.0 Potassium 4.5 Carbon Dioxide 37 H Anion Gap 15 BUN 24 H Creatinine 1.0 Est GFR ( Amer) > 60 Est GFR (Non-Af Amer) > 60 Random Glucose 144 H Calcium 9.0 Magnesium 2.3 H Lactate Dehydrogenase 749 H Total Creatine Kinase 627 H CK-MB (CK-2) 17.8 H CK-MB (CK-2) % 2.8 Troponin I 0.21 H* D NT-Pro-B Natriuret Pep 6230 H Venous Blood Potassium Urine Color Urine Appearance Urine pH Ur Specific Melrose Urine Protein Urine Glucose (UA) Urine Ketones Urine Blood Urine Nitrate Urine Bilirubin Urine Urobilinogen Ur Leukocyte Esterase Urine RBC Urine WBC Ur Epithelial Cells Amorphous Sediment Urine Bacteria Influenza Typ A,B (EIA) 05/16/18 05/16/18 16:20 18:47 WBC RBC Hgb Hct MCV MCH MCHC RDW Plt Count MPV Gran % Lymph % (Auto) Perry % (Auto) Eos % (Auto) Baso % (Auto) Gran # Lymph # (Auto) Perry # (Auto) Eos # (Auto) Baso # (Auto) PT INR APTT pCO2 pO2 68 H HCO3 ABG pH ABG Total CO2 ABG O2 Saturation ABG O2 Content ABG Base Excess ABG Hemoglobin ABG Carboxyhemoglobin POC ABG HHb (Measured) ABG Methemoglobin ABG O2 Capacity VBG pH 7.14 L* VBG pCO2 125.0 H* VBG HCO3 42.6 H VBG Total CO2 46.4 H VBG O2 Sat (Calc) 95.0 H VBG Base Excess 8.7 H VBG Potassium 4.7 Hgb O2 Saturation Sodium 142.0 Chloride 96.0 L Glucose 153 H Lactate 1.8 FiO2 21.0 Potassium Carbon Dioxide Anion Gap BUN Creatinine Est GFR ( Amer) Est GFR (Non-Af Amer) Random Glucose Calcium Magnesium Lactate Dehydrogenase Total Creatine Kinase CK-MB (CK-2) CK-MB (CK-2) % Troponin I NT-Pro-B Natriuret Pep Venous Blood Potassium 4.7 Urine Color Urine Appearance Urine pH Ur Specific Melrose Urine Protein Urine Glucose (UA) Urine Ketones Urine Blood Urine Nitrate Urine Bilirubin Urine Urobilinogen Ur Leukocyte Esterase Urine RBC Urine WBC Ur Epithelial Cells Amorphous Sediment Urine Bacteria Influenza Typ A,B (EIA) Negative for flu a/b Assessment & Plan - Assessment and Plan (Free Text) Assessment: 77 y/o M with PMHx of COPD on home O2, extensive smoking history presented to [facility] with his son who brought him in after he had noticed increased confusion, lethargy and cough. He had been suffering from a recent upper respiratory infection and had visited his PMD. This am, pt was increasingly lethargic and confused which prompted his son to bring him to the ER. In the ER, he was found to be in hypercapnic respiratory acidosis. He was started on BiPAP at 18/5/50%/16. Plan: Neuro: COPD exacerbation Lethargic, Confused Arousable with sternal rub Likely secondary to CO2 narcosis Monitor neuro status Cardiovascular: Tachycardic Hypertensive NSTEMI Elevated troponin Elevated BNP Start heparin drip Trend EKG Trend troponins Repeat Echo in am Pulmonary: COPD Exacerbation Currently on BiPAP 18/5/50%/16 Repeat ABG w/shock panel while on BiPAP Further management per ABG results Duoneb Q6H RICH Solu-medrol 40mg IVP daily Start empiric rocephin Start empiric azithromycin f/u procalcitonin f/u blood culture GI: <Kaylee Rousseau - Last Filed: 05/16/18 19:34> Meds - Medications Medications: Current Medications Albuterol/Ipratropium (Duoneb 3 Mg/0.5 Mg (3 Ml) Ud) 3 ml IH [id number] RICH Ceftriaxone Sodium (Rocephin 1 Gram Ivpb) 1 gm in 100 mls @ 100 mls/hr IVPB DAILY RICH; Protocol Azithromycin 250 mg/ Sodium (Chloride) 250 mls @ 167 mls/hr IVPB DAILY RICH; Protocol Heparin Sodium/Sodium Chloride (Heparin 85975 Units/250ml 1/2 Normal Saline) 25,000 units in 250 mls @ 8.165 mls/hr IV .Q24H RICH; Protocol Sodium Chloride (Sodium Chloride 0.9%) 1,000 mls @ 999 mls/hr IV .Q1H1M STA Stop: 05/16/18 20:25 Methylprednisolone (Solu-Medrol) 40 mg IVP DAILY RICH Pantoprazole Sodium (Protonix Inj) 40 mg IVP DAILY RICH Results - Vital Signs Recent Vital Signs: Last Vital Signs Temp 98.2 F 05/16/18 17:52 Pulse 104 H 05/16/18 17:52 Resp 20 05/16/18 17:52 BP 140/73 05/16/18 17:52 Pulse Ox 100 05/16/18 17:52 - Labs Result Diagrams: 05/16/18 15:14 05/16/18 15:14 Labs: Laboratory Results - last 24 hr 05/16/18 05/16/18 05/16/18 14:55 15:13 15:14 WBC 16.4 H D RBC 5.54 Hgb 17.4 Hct 57.9 H* MCV 104.5 MCH 31.4 MCHC 30.1 L RDW 13.9 Plt Count 166 MPV 10.9 Gran % 84.3 H Lymph % (Auto) 5.2 L Perry % (Auto) 10.4 H Eos % (Auto) 0.0 L Baso % (Auto) 0.1 Gran # 13.85 H Lymph # (Auto) 0.9 L Perry # (Auto) 1.7 H Eos # (Auto) 0.0 Baso # (Auto) 0.02 PT INR APTT pCO2 pO2 73 H HCO3 ABG pH ABG Total CO2 ABG O2 Saturation ABG O2 Content ABG Base Excess ABG Hemoglobin ABG Carboxyhemoglobin POC ABG HHb (Measured) ABG Methemoglobin ABG O2 Capacity VBG pH 7.04 L* VBG pCO2 141.0 H* VBG HCO3 38.1 H VBG Total CO2 42.4 H VBG O2 Sat (Calc) 94.1 H VBG Base Excess 2.9 H VBG Potassium 4.5 Hgb O2 Saturation Sodium 143.0 Chloride 97.0 L Glucose 139 H Lactate 3.8 H FiO2 21.0 Potassium Carbon Dioxide Anion Gap BUN Creatinine Est GFR ( Amer) Est GFR (Non-Af Amer) Random Glucose Calcium Magnesium Lactate Dehydrogenase Total Creatine Kinase CK-MB (CK-2) CK-MB (CK-2) % Troponin I NT-Pro-B Natriuret Pep Venous Blood Potassium 4.5 Urine Color Yellow Urine Appearance Clear Urine pH 6.0 Ur Specific Melrose >= 1.030 Urine Protein 100 H Urine Glucose (UA) 100 H Urine Ketones Trace H Urine Blood Moderate H Urine Nitrate Negative Urine Bilirubin Negative Urine Urobilinogen 0.2 Ur Leukocyte Esterase Negative Urine RBC 1 - 3 Urine WBC 0 - 2 Ur Epithelial Cells None Amorphous Sediment Trace Urine Bacteria Neg Influenza Typ A,B (EIA) 05/16/18 05/16/18 05/16/18 15:14 15:14 15:50 WBC RBC Hgb Hct MCV MCH MCHC RDW Plt Count MPV Gran % Lymph % (Auto) Perry % (Auto) Eos % (Auto) Baso % (Auto) Gran # Lymph # (Auto) Perry # (Auto) Eos # (Auto) Baso # (Auto) PT 9.7 INR 0.85 APTT 36.4 pCO2 125 H* pO2 62.0 L HCO3 38.8 H ABG pH 7.10 L* ABG Total CO2 42.6 H ABG O2 Saturation 92.5 L ABG O2 Content 20.2 ABG Base Excess 3.7 H ABG Hemoglobin 16.1 ABG Carboxyhemoglobin 2.6 H POC ABG HHb (Measured) 7.2 H ABG Methemoglobin 0.8 ABG O2 Capacity 21.8 VBG pH VBG pCO2 VBG HCO3 VBG Total CO2 VBG O2 Sat (Calc) VBG Base Excess VBG Potassium Hgb O2 Saturation 89.4 L Sodium 143 Chloride 95 L Glucose Lactate FiO2 40.0 Potassium 4.5 Carbon Dioxide 37 H Anion Gap 15 BUN 24 H Creatinine 1.0 Est GFR ( Amer) > 60 Est GFR (Non-Af Amer) > 60 Random Glucose 144 H Calcium 9.0 Magnesium 2.3 H Lactate Dehydrogenase 749 H Total Creatine Kinase 627 H CK-MB (CK-2) 17.8 H CK-MB (CK-2) % 2.8 Troponin I 0.21 H* D NT-Pro-B Natriuret Pep 6230 H Venous Blood Potassium Urine Color Urine Appearance Urine pH Ur Specific Melrose Urine Protein Urine Glucose (UA) Urine Ketones Urine Blood Urine Nitrate Urine Bilirubin Urine Urobilinogen Ur Leukocyte Esterase Urine RBC Urine WBC Ur Epithelial Cells Amorphous Sediment Urine Bacteria Influenza Typ A,B (EIA) 05/16/18 05/16/18 16:20 18:47 WBC RBC Hgb Hct MCV MCH MCHC RDW Plt Count MPV Gran % Lymph % (Auto) Perry % (Auto) Eos % (Auto) Baso % (Auto) Gran # Lymph # (Auto) Perry # (Auto) Eos # (Auto) Baso # (Auto) PT INR APTT pCO2 pO2 68 H HCO3 ABG pH ABG Total CO2 ABG O2 Saturation ABG O2 Content ABG Base Excess ABG Hemoglobin ABG Carboxyhemoglobin POC ABG HHb (Measured) ABG Methemoglobin ABG O2 Capacity VBG pH 7.14 L* VBG pCO2 125.0 H* VBG HCO3 42.6 H VBG Total CO2 46.4 H VBG O2 Sat (Calc) 95.0 H VBG Base Excess 8.7 H VBG Potassium 4.7 Hgb O2 Saturation Sodium 142.0 Chloride 96.0 L Glucose 153 H Lactate 1.8 FiO2 21.0 Potassium Carbon Dioxide Anion Gap BUN Creatinine Est GFR ( Amer) Est GFR (Non-Af Amer) Random Glucose Calcium Magnesium Lactate Dehydrogenase Total Creatine Kinase CK-MB (CK-2) CK-MB (CK-2) % Troponin I NT-Pro-B Natriuret Pep Venous Blood Potassium 4.7 Urine Color Urine Appearance Urine pH Ur Specific Melrose Urine Protein Urine Glucose (UA) Urine Ketones Urine Blood Urine Nitrate Urine Bilirubin Urine Urobilinogen Ur Leukocyte Esterase Urine RBC Urine WBC Ur Epithelial Cells Amorphous Sediment Urine Bacteria Influenza Typ A,B (EIA) Negative for flu a/b Addendum Addendum: 05/16/18 19:27 MICU attending addendum: Patient seen and examined in ED with resident; agree with note a/p above with the following add/exceptions 77M with extensive smoking hx, quit 11 years ago, COPD on home 02 admitted after having URI symptoms x 1 day and being lethargic. Found be in HCRF. I suspect his baseline PC02 is around 70-80 given his elevated HCO3 and previous ABGs After being placed on bipap, he is much more awake, arousable and alert Will tx with steroids, duonebs and bipap doubt PNA and influ A/B are neg CXR does not show PNA will empirically cover with roceph/azithro and wait for procal Prior EMR documents indicate he was DNR DNI in the past however his son is at bedside insisting that if patient's causes is reversible with vent then it is ok to intubate. This is reasonable as we would blow off his CO2 and help him ventiliate with a short-intubation however will cont Bipap for now as he is improving repeat ABG 8pm, night team will follow and adjust Bipap as needed Elevated TNI - no CP, no signs of ischemia, maybe from demand however will trend TNI and start heparin consult cardio 2D echo Hemodynamically stable, HR in high 90's and appears dry in case of sepsis will give 1L of fluid for now and re-assess Rest of care as above Kaylee Rousseau MD [employer] [facility] Time 30mins
[2018-05-16] MEDS ORDERED: Heparin25000 units/250ml 1/2NS 25,000 UNITS/250 ML BAG IV SCH (19:00)
[2018-05-16] MEDS ORDERED: Sodium Chloride 0.9% 1,000 ML IV STA (19:25)
--- NOTE | 2018-05-16 20:27 | PCM.SEPTIC ---
Sepsis Progress Note - Reassessment Type Reassessment Type: Non-invasive reassessment - Non Invasive Reassessment Were the most recent vital sign reviewed: Yes Vital Sign (Latest): Temp Pulse Resp BP Pulse Ox 98.2 F 100 H 18 140/73 100 05/16/18 18:40 05/16/18 18:40 05/16/18 18:40 05/16/18 17:52 05/16/18 18:40 Cardiovascular: Yes: Regular Rate, Rhythm, Tachycardia Respiratory: Yes: Normal Breath Sounds. No: Accessory Muscle Use, Respiratory Distress Capillary Refill: Normal (Less than 2 sec) Pulses: Normal Radial Skin: Normal Color, Warm
[2018-05-16 20:53] LABS: ARTERIAL BLOOD GAS PCO2 112 mm/Hg (35-45); ARTERIAL BLOOD GAS TCO2 42.4 mmol.L (22-28)
[2018-05-16 21:06] LABS: ARTERIAL BLOOD GAS PH 7.15 (7.35-7.45)
[2018-05-16] MEDS: cefTRIAXone 1 gm 1 GM/100 ML BAG IVPB SCH (21:40)
[2018-05-16] MEDS: Azithromycin 250 MG in Sodium Chloride 0.9% 250 ML IVPB SCH (21:41)
[2018-05-16] MEDS ORDERED: MethylPREDNISolone 40 mg Vial IV SCH (22:30)
[2018-05-16] MEDS ORDERED: Heparin 25,000units in 1/2NS 250 ML BAG IV SCH (22:45)
[2018-05-16] MEDS: MethylPREDNISolone 40 mg Vial IV SCH (22:49)
[2018-05-16 23:30] VITALS: BMI 21.6
[2018-05-16] MEDS ORDERED: Pneumococcal 23-Valent Vaccine IM ONE (23:30)
[2018-05-16] MEDS ORDERED: Influenza Vaccine 60 mcg/0.5 mL SYR (4YR UP) IM ONE (23:30)
[2018-05-17 01:11] LABS: ARTERIAL BLOOD GAS HCO3 38.6 mmol/L (21-28); ARTERIAL BLOOD GAS O2 SAT 98.6 % (95-98); ARTERIAL BLOOD GAS PCO2 116 mm/Hg (35-45); ARTERIAL BLOOD GAS TCO2 42.2 mmol.L (22-28)
[2018-05-17] MEDS: Albuterol-Ipratrop 3 mg / 0.5 (3 ml) UD IH SCH ×4 (01:47→22:14)
[2018-05-17 01:57] LABS: ARTERIAL BLOOD GAS PH 7.13 (7.35-7.45)
[2018-05-17 03:31] LABS: ARTERIAL BLOOD GAS HCO3 37.3 mmol/L (21-28); ARTERIAL BLOOD GAS O2 CAPACITY 20.3 mL/dl (16-24); ARTERIAL BLOOD GAS O2 CONTENT 19.5 ML/dl (15-23); ARTERIAL BLOOD GAS PCO2 100 mm/Hg (35-45); ARTERIAL BLOOD GAS TCO2 40.4 mmol.L (22-28)
[2018-05-17 04:31] LABS: ALB/GLOB RATIO 1.4 (1.1-1.8); ALBUMIN 3.8 g/dL (3.0-4.8); ALT/SGPT 42 U/L (7-56); AST/SGOT 50 U/L (17-59); BLOOD UREA NITROGEN 29 mg/dL (7-21); CALCIUM 8.5 mg/dL (8.4-10.5); GFR NON-AFRICAN AMERICAN > 60
[2018-05-17 04:57] LABS: BASO # 0.01 K/mm3 (0.0-2.0); BASO % 0.1 % (0.0-3.0); GRAN # 12.11 (1.4-6.5); GRAN % 95.8 % (50.0-68.0); HEMOGLOBIN 15.3 g/dL (14.0-18.0); LYMPH # 0.3 (1.2-3.4); LYMPH % 2.7 % (22.0-35.0); MEAN CELL VOLUME 104.4 fl (80.0-105.0); MEAN CORPUSCULAR HEMOGLOBIN 30.5 pg (25.0-35.0); MEAN CORPUSCULAR HGB CONC 29.2 g/dl (31.0-37.0); MEAN PLATELET VOLUME 10.5 fl (7.0-11.0); MONO # 0.2 (0.1-0.6); MONO % 1.4 % (1.0-6.0); PLATELET COUNT 127 10^3/uL (120.0-450.0); RBC 5.02 10^6/uL (3.5-6.1); WHITE BLOOD COUNT 12.6 10^3/uL (4.5-11.0)
[2018-05-17 05:05] LABS: TROPONIN I 0.13 ng/mL
[2018-05-17 05:06] LABS: ARTERIAL BLOOD GAS PH 7.18 (7.35-7.45)
[2018-05-17 06:44] LABS: ARTERIAL BLOOD GAS HCO3 38.1 mmol/L (21-28); ARTERIAL BLOOD GAS HEMOGLOBIN 14.5 g/dL (11.7-17.4); ARTERIAL BLOOD GAS O2 CAPACITY 19.8 mL/dl (16-24); ARTERIAL BLOOD GAS O2 CONTENT 19.6 ML/dl (15-23); ARTERIAL BLOOD GAS PCO2 89 mm/Hg (35-45); ARTERIAL BLOOD GAS PH 7.24 (7.35-7.45); ARTERIAL BLOOD GAS TCO2 40.8 mmol.L (22-28)
[2018-05-17 06:48] LABS: BAND 9 % (0-2); LYMPHOCYTE 4 % (22.0-35.0); MONOCYTE 0 % (1.0-6.0); NEUTROPHIL 87 % (50.0-70.0); PLATELET ESTIMATE NORMAL (NORMAL)
--- NOTE | 2018-05-17 08:09 | HP ---
DATE OF EXAM: 05/16/2018 HISTORY OF PRESENT ILLNESS: The patient is 77 years old, known to me from office practice. He was seen earlier this week with cough, congestion, and shortness of breath. He was given Ceftin 500 twice a day and he was given tapering dose of steroid and antitussives and he was advised to follow up in a week. According to family when they were calling, he did not respond so son went to check on him. He found him minimally responsive and short of breath and cyanotic, so he called ambulance and he was brought to emergency room and was placed on BiPAP. His mental status improved significantly and his color improved. There is no history of fever or chills; however, he was having upper respiratory system as outpatient. No history of nausea or vomiting. No hemoptysis. No hematemesis. According to ER notes when EMS arrival upon initial evaluation, his pulse ox was 70-75%. PAST MEDICAL HISTORY: Significant for: 1. Hypertension. 2. COPD. 3. Hyperlipidemia. ALLERGIES: HE IS NOT ALLERGIC TO ANY MEDICATIONS. MEDICATIONS AT HOME: He is on aspirin 81 daily. He is on nebulizer treatment. He is on prednisone 10 mg daily. He is on Pulmicort, Protonix, Vytorin, valsartan, Spiriva, Ambien, and Celebrex as needed. SOCIAL HISTORY: He is single. His almost ten years ago from gastric cancer. He used to be a heavy smoker, but quit since his first hospitalization in 2010. PHYSICAL EXAMINATION: GENERAL: He was found to be awake and alert, able to communicate. VITAL SIGNS: He is afebrile, pulse 100, respirations 20 and blood pressure 140/73. LUNGS: Bilateral decreased breath sounds. HEART: S1 and S2, audible. ABDOMEN: Soft, obese, and nontender. No rebound. No guarding. NEUROLOGICAL: The patient is awake and alert, able to communicate. LABORATORY EXAM: WBC 16.4, hemoglobin 17.4, hematocrit 57.9 and platelets 166. Chemistry: Sodium 143, potassium 4.5, chloride 95, CO2 of 37, BUN 24, creatinine 1.0, and blood sugar of 144. LFTs are within normal limits. LDH is 749. CPK 627. Troponin 0.21. Urine shows moderate blood. Flu test is negative. X-ray chest, no active disease. ASSESSMENT: 1. Respiratory insufficiency. 2. Advanced chronic obstructive pulmonary disease. 3. Hypertension. 4. Hyperlipidemia. PLAN: Currently, the patient is in ICU. He is on nebulizer treatment. He is on heparin and Protonix. He is being given Lasix and IV steroids. He was given dose of Rocephin and Zithromax. Dr. Schneider has been consulted. We will follow up patient in a.m. Peter Calvillo MD
[2018-05-17] MEDS: cefTRIAXone 1 gm 1 GM/100 ML BAG IVPB SCH (09:07)
[2018-05-17] MEDS: Azithromycin 250 MG in Sodium Chloride 0.9% 250 ML IVPB SCH (09:08)
[2018-05-17] MEDS: MethylPREDNISolone 40 mg Vial IV SCH ×2 (09:08→22:30)
[2018-05-17] MEDS ORDERED: MethylPREDNISolone 40 mg Vial IVP SCH (10:00)
--- NOTE | 2018-05-17 10:11 | RAD ---
Date of service: 05/17/2018 HISTORY: dyspnea COMPARISON: 05/16/2018 FINDINGS: LUNGS: The lungs are hyperinflated and there is peribronchial thickening with chronic changes in both lungs. No focal consolidation. PLEURA: No pleural effusions or pneumothorax. CARDIOVASCULAR: The heart is normal in size. No aortic atherosclerotic calcifications present. OSSEOUS STRUCTURES: Within normal limits for the patient's age. VISUALIZED UPPER ABDOMEN: Normal. OTHER FINDINGS: None. IMPRESSION: No active pulmonary disease. COPD.
--- NOTE | 2018-05-17 10:14 | CARD ---
APPROVED REPORT Date of service: 05/16/2018 EKG Measurement Heart [id number] SD 170P70 [id number] <Conclusion> Sinus tachycardia Biatrial enlargement Incomplete right bundle branch block Nonspecific ST abnormality No change
--- NOTE | 2018-05-17 10:33 | CARD ---
APPROVED REPORT Date of service: 05/16/2018 EKG Measurement Heart [id number] [place] 134P83 [id number] <Conclusion> Sinus tachycardia RSR' or QR pattern in V1 suggests right ventricular conduction delay NSSTW changes, new
--- NOTE | 2018-05-17 10:55 | CARD ---
APPROVED REPORT Date of service: 05/17/2018 EKG Measurement Heart [id number] [place] 128P85 [id number] <Conclusion> Normal sinus rhythm Bi phasic T waves V 1 - 4
[2018-05-17] MEDS: Enoxaparin 60 mg Syringe SC SCH (12:09)
--- NOTE | 2018-05-17 12:13 | PN ---
DATE: 05/17/2018 SUBJECTIVE: The patient is on BiPap. He is awake, but slightly confused secondary to hypercapnia, O2 saturation is stable, BiPap is 20/8 with respiratory rate of 20 and FIO2 of 40%. The patient has no complaints of pain or congestion. No coughing. Does have some wheezing. PHYSICAL EXAMINATION: VITAL SIGNS: Note that his temperature is 98.4, pulse is 103, respirations are 28 and his BP is 150/94. SKIN: Warm and dry. HEAD: Atraumatic, normocephalic. Eyes reactive to light. Ear, nose and throat seemed to be within normal limits. NECK: Supple. No JVD. No thyroid enlargement. No lymph nodes. HEART: Has regular rate and rhythm. Normal S1, S2, but tachycardic. LUNGS: Reveal mild wheeze and rhonchi bilaterally. ABDOMEN: Soft. Decreased bowel sounds. GENITALIA AND RECTAL: Deferred. MUSCULOSKELETAL: No joint deformities. EXTREMITIES: Reveal trace lower extremity edema. NEUROLOGIC: He seemed to be grossly intact. LABORATORY DATA: As far as his laboratories, his white count is 12.6, hemoglobin is 15.3, hematocrit 52.4 with platelets of 127,000. Arterial blood gas reveals a pH of 7.24, pCO2 of 89 and pO2 of 94. The patient's sodium is 143, potassium 4.6, chloride 100, CO2 of 36 with a BUN of 29, creatinine of 1.1 and glucose of 177. As far as chest x-ray reveals lungs that are hyperinflated. There are peribronchial thickening and chronic changes in both lungs. IMPRESSION: This patient has severe chronic obstructive pulmonary disease with exacerbation, hypercapnia, hypoxia and altered mental status. He has history of hypertension as well as hyperlipidemia. As far as our plan, we will continue with BiPap and monitor his O2 saturations closely. The patient is getting oxygen support as well. He is getting DuoNeb as bronchodilator. He is on Flomax and the patient is getting heparin. He is getting Protonix, Rocephin as well as Solu-Medrol and Zithromax. We will continue to treat aggressively along with the other consultants and the primary care doctor. Nathan Shay MD
--- NOTE | 2018-05-17 14:16 | CT ---
Date of service: 05/17/2018 PROCEDURE: CT HEAD WITHOUT CONTRAST. HISTORY: questionable fall at home COMPARISON: None available. TECHNIQUE: Axial computed tomography images were obtained through the head/brain without intravenous contrast. Radiation dose: Total exam DLP = 939.81 mGy-cm. This CT exam was performed using one or more of the following dose reduction techniques: Automated exposure control, adjustment of the mA and/or kV according to patient size, and/or use of iterative reconstruction technique. FINDINGS: HEMORRHAGE: No intracranial hemorrhage. BRAIN: Wills-white matter differentiation is preserved. There is no mass, mass effect or abnormal extra-axial fluid collection. There is no territorial infarction. The midline sagittal structures are normal. VENTRICLES: The ventricles are normal in size, shape and configuration. CALVARIUM: There is no calvarial fracture or extracranial soft tissue swelling. PARANASAL SINUSES: There is a retention cyst/polyp in the right maxillary sinus. The remaining included paranasal sinuses are clear MASTOID AIR CELLS: Predominantly clear. OTHER FINDINGS: None. IMPRESSION: No acute intracranial abnormality.
--- NOTE | 2018-05-17 15:34 | CON ---
DATE: 05/17/2018 HISTORY OF PRESENT ILLNESS: The patient is a 77-year-old male who presents with dyspnea and altered mental status. The patient was started on BiPap with improvement of his pulse oximetry and improvement of his mental status. PAST MEDICAL HISTORY: The patient's past medical history is notable for COPD with documented pulmonary hypertension. He has a long history of smoking, which was stopped 10 years ago. He denies previous cardiac history. His cardiac risk factors include a strong family history for CAD, history of hypertension. His echocardiogram shows documented pulmonary hypertension. At home, he is able to ambulate but is unable to climb a flight of stairs due to shortness of breath. He denies angina now. SOCIAL HISTORY: He is a former smoker. REVIEW OF SYSTEMS: A 14-point review of systems was reviewed in detail. No additional symptoms as above. PHYSICAL EXAMINATION: VITAL SIGNS: Blood pressure is 123/70; the heart rate is 110, sinus tachycardia. NECK: Negative JVD. LUNGS: Decreased breath sounds bilaterally. HEART: Reveals S1, S2. EXTREMITIES: Without edema. NEUROLOGICAL: The patient is awake. He is able to answer questions and there is no confusion. Some of his answers are confused due to misinterpretation of the language. DIAGNOSTICS AND LABORATORIES: Include an EKG that shows normal sinus rhythm with no acute changes. BUN and creatinine are unremarkable. His troponins peaked at 0.21 and is down to 0.13. The glucose is 177. His hemoglobin is 15 with a white count of 12.6. IMPRESSION: 1. Exacerbation of chronic obstructive pulmonary disease. 2. Jkrhurcl-xh-pofabe pulmonary hypertension. 3. Altered mental status secondary to hypoxemia. 4. Flq-LQ-ufgaxkdsd myocardial infarction. 5. High probability for coronary artery disease. 6. Hypertension. 7. No evidence for sepsis. Given these findings, we will start the patient on aspirin, Plavix, subcutaneous Lovenox. I have discussed with the patient as well as his son. The patient is scheduled for cardiac catheterization on Saturday. Ryan Schneider MD
--- NOTE | 2018-05-17 16:02 | PN ---
DATE: 05/17/2018 SUBJECTIVE: The patient is 77 years old, seen and examined. He has BiPAP on. He is saturating well on that. As soon as it is taken off, he starts desaturating. He is awake and alert, somewhat confused and agitated. I will give order of 0.5 of Ativan to calm him down. PHYSICAL EXAMINATION: VITAL SIGNS: Otherwise, on vital signs, he is afebrile, pulse 119, respirations 23, blood pressure 145/81. LUNGS: Bilateral fair airflow. No rhonchi or crackle. HEART: S1 and S2 audible. ABDOMEN: Soft. Nontender. No rebound. No guarding. NEUROLOGICAL: He is awake and alert, able to communicate. LABORATORY EXAM: WBC 12.6, hemoglobin 15, hematocrit 52, platelet of 127. PT T is 74.5. Chemistry: Sodium 143, potassium 4.6, chloride 100, CO2 of 36, BUN 29, creatinine 1.1, blood sugar of 177. His first troponin was 0.21. It came down to 0.19 and this morning is 0.13. Urinalysis is unremarkable. Flu test is negative. ASSESSMENT: 1. Chronic obstructive pulmonary exacerbation. 2. Demand ischemia with dgm-WB-ovodzpiri myocardial infarction. 3. Hypertension. 4. History of chronic obstructive pulmonary disease. 5. History of heavy smoking in the remote past. PLAN: The patient is currently on IV steroid. He is on aspirin. Continue nebulizer treatment. He is on Flomax. He is on Lovenox 60 mg every 12. He will be given Plavix 300 mg loading dose and then 75 daily. He is currently on Rocephin, IV steroids and Zithromax. Cath probably is scheduled for Saturday once his respiratory status is stable over the weekend. Peter Calvillo MD
[2018-05-17] MEDS ORDERED: Dexmedetomidine 400mcg/100mL 400 MCG/100 ML BOTTLE IV PRN (16:36)
[2018-05-17] MEDS: Dexmedetomidine 400mcg/100mL 400 MCG/100 ML BOTTLE IV PRN (16:52)
[2018-05-18] MEDS: Enoxaparin 60 mg Syringe SC SCH ×2 (01:00→13:20)
[2018-05-18] MEDS: Albuterol-Ipratrop 3 mg / 0.5 (3 ml) UD IH SCH ×4 (02:46→19:43)
[2018-05-18] MEDS: Dexmedetomidine 400mcg/100mL 400 MCG/100 ML BOTTLE IV PRN ×2 (04:04→14:00)
[2018-05-18 06:44] LABS: BASO # 0.01 K/mm3 (0.0-2.0); BASO % 0.1 % (0.0-3.0); GRAN # 11.02 (1.4-6.5); GRAN % 93.9 % (50.0-68.0); HEMOGLOBIN 14.2 g/dL (14.0-18.0); LYMPH # 0.3 (1.2-3.4); LYMPH % 2.9 % (22.0-35.0); MEAN CELL VOLUME 100.6 fl (80.0-105.0); MEAN CORPUSCULAR HEMOGLOBIN 29.8 pg (25.0-35.0); MEAN CORPUSCULAR HGB CONC 29.6 g/dl (31.0-37.0); MEAN PLATELET VOLUME 10.8 fl (7.0-11.0); MONO # 0.4 (0.1-0.6); MONO % 3.1 % (1.0-6.0); RBC 4.76 10^6/uL (3.5-6.1); RED CELL DISTRIBUTION WIDTH 13.8 % (11.5-14.5); WHITE BLOOD COUNT 11.7 10^3/uL (4.5-11.0)
[2018-05-18 06:59] LABS: ALB/GLOB RATIO 1.4 (1.1-1.8); ALBUMIN 3.4 g/dL (3.0-4.8); ALT/SGPT 46 U/L (7-56); AST/SGOT 35 U/L (17-59); BLOOD UREA NITROGEN 42 mg/dL (7-21); CALCIUM 8.8 mg/dL (8.4-10.5); GFR NON-AFRICAN AMERICAN 59
[2018-05-18] MEDS: MethylPREDNISolone 40 mg Vial IV SCH ×2 (10:56→22:30)
[2018-05-18] MEDS: Azithromycin 250 MG in Sodium Chloride 0.9% 250 ML IVPB SCH (10:57)
[2018-05-18] MEDS: cefTRIAXone 1 gm 1 GM/100 ML BAG IVPB SCH (10:57)
--- NOTE | 2018-05-18 11:03 | PN ---
DATE: 05/18/2018 SUBJECTIVE: The patient has no complaints of any chest pain. No shortness of breath. No headaches or dizziness. PHYSICAL EXAMINATION: VITAL SIGNS: Temperature is 97.5, pulse of 60, blood pressure is 139/66, respiration is 14. GENERAL: The patient is lying in bed, flat, comfortable. HEENT: No oral lesion. Anicteric sclerae. Moist mucosa. NECK: No JVD, adenopathy, or thyromegaly. CARDIOVASCULAR: S1 and S2, regular. No murmurs, rubs, or gallops. LUNGS: Clear to auscultation bilaterally. No wheeze, rales, or rhonchi. ABDOMEN: Bowel sounds are positive, soft, nontender and nondistended. EXTREMITIES: No cyanosis, clubbing or edema. LABORATORY DATA: White count of 11.7, hemoglobin 14.2, creatinine is 1.2. ASSESSMENT: 1. Acute chronic obstructive pulmonary disease. 2. Vru-FL-jaogapoqt myocardial infarction. 3. Hypertension. 4. Smoking. 5. Respiratory failure secondary to chronic obstructive pulmonary disease. PLAN: The patient is currently intubated. The patient is on nebulizer treatment. He is on Flomax for BPH. He is on Lovenox for anticoagulation. The patient is on Plavix. He is going to be on steroids for his COPD. The patient is on Rocephin for antibiotics. He is on azithromycin. The patient does have pulmonary hypertension. The patient being followed by Pulmonary and Cardiology. Cj Muoñz MD
--- NOTE | 2018-05-18 11:20 | CARD ---
APPROVED REPORT Date of service: 05/17/2018 EXAM: Two-dimensional and M-mode echocardiogram with Doppler and color Doppler. INDICATION NSTEMI 2D DIMENSIONS Left Atrium (2D)2.8 (1.6-4.0cm)IVSd1.1 (0.7-1.1cm) LVDd3.8 (3.9-5.9cm)PWd1.2 (0.7-1.1cm) LVDs2.3 (2.5-4.0cm)FS (%) 38.4 % LVEF (%)69.5 (>50%) M-Mode DIMENSIONS Aortic Root3.50 (2.2-3.7cm)Aortic Cusp Exc.3.00 (1.5-2.0cm) Aortic Valve AoV Peak Aulpxjkz445.0cm/Ru Peak GR.6mmHg Mitral Valve MV E Oxqsgsxg86.2cm/sMV A Brulxgtg828.0cm/sE/A ratio0.5 TDI Lateral E' Peak V7.70cm/sMedial E' Peak V5.17cm/sE/Lateral E'7.7 E/Medial E'11.5 Tricuspid Valve TR Peak Dvzayltg740ph/sRAP BMQNQCEX92neKxRA Peak Gr.15mmHg FIJI28xvPg LEFT VENTRICLE The left ventricular function is normal. The left ventricular ejection fraction is within the normal range. RIGHT VENTRICLE The right ventricle apex is not well visualized. ATRIA The left atrium size is normal. The right atrium size is normal. AORTIC VALVE The aortic valve is thickened but opens well. MITRAL VALVE The mitral valve is thickened but opens well. TRICUSPID VALVE The tricuspid valve leaflets are thickened , but open well. There is trace to mild tricuspid regurgitation. There is no pulmonary hypertension. PULMONIC VALVE The pulmonic valve is not well visualized. PERICARDIAL EFFUSION There is no pericardial effusion. <Conclusion> Limited study due to pt habitus Good LV function Mild TR No pulmonary hypertension
--- NOTE | 2018-05-18 11:59 | PN ---
DATE: 05/18/2018 CARDIOLOGY FOLLOWUP SUBJECTIVE: The patient's pulse oximetry is stable while the patient is on BiPAP. PHYSICAL EXAMINATION: VITAL SIGNS: Blood pressure is 139/66, the heart rate is in the 70s. NECK: Negative JVD. LUNGS: Without rales. HEART: Reveals S1, S2. EXTREMITIES: Without edema. LABORATORY DATA: Hemoglobin is 14.2. Chemistries: BUN and creatinine are 42 and 1.2. The troponin is decreasing to 0.13. IMPRESSION: 1. Exacerbation of chronic obstructive pulmonary disease. 2. Bum-PS-dqbihcqbk myocardial infarction. 3. Altered mental status secondary to hypoxemia. 4. Good left ventricular function overall. PLAN: Given these findings, we will discontinue his Lovenox today. The patient is on aspirin and Plavix. The patient is scheduled for clinical laboratory science professor in the morning. Ryan Schneider MD
[2018-05-19] MEDS: Dexmedetomidine 400mcg/100mL 400 MCG/100 ML BOTTLE IV PRN ×2 (00:20→06:37)
[2018-05-19] MEDS: Enoxaparin 60 mg Syringe SC SCH (00:22)
[2018-05-19] MEDS: Albuterol-Ipratrop 3 mg / 0.5 (3 ml) UD IH SCH ×4 (02:38→23:03)
[2018-05-19 07:19] LABS: GRAN # 11.21 (1.4-6.5); GRAN % 94.8 % (50.0-68.0); HEMOGLOBIN 13.8 g/dL (14.0-18.0); LYMPH # 0.5 (1.2-3.4); LYMPH % 4.1 % (22.0-35.0); MEAN CELL VOLUME 98.3 fl (80.0-105.0); MEAN CORPUSCULAR HEMOGLOBIN 29.6 pg (25.0-35.0); MEAN CORPUSCULAR HGB CONC 30.1 g/dl (31.0-37.0); MEAN PLATELET VOLUME 11.1 fl (7.0-11.0); MONO # 0.1 (0.1-0.6); MONO % 1.1 % (1.0-6.0); RBC 4.66 10^6/uL (3.5-6.1); RED CELL DISTRIBUTION WIDTH 13.7 % (11.5-14.5); WHITE BLOOD COUNT 11.8 10^3/uL (4.5-11.0)
[2018-05-19 08:10] LABS: ARTERIAL BLOOD GAS HEMOGLOBIN 12.9 g/dL (11.7-17.4); ARTERIAL BLOOD GAS O2 CAPACITY 17.8 mL/dl (16-24); ARTERIAL BLOOD GAS O2 CONTENT 17.5 ML/dl (15-23); ARTERIAL BLOOD GAS O2 SAT 98.5 % (95-98); ARTERIAL BLOOD GAS PCO2 69 mm/Hg (35-45); ARTERIAL BLOOD GAS PH 7.39 (7.35-7.45); ARTERIAL BLOOD GAS TCO2 43.9 mmol.L (22-28)
--- NOTE | 2018-05-19 08:11 | PN ---
DATE: 05/18/2018 HEEL BUFFER NOTE SUBJECTIVE: The patient is on the BiPAP, resting comfortably, tolerating well. O2 saturations are stable. The patient has no significant cough or congestion. No fever, chills. No nausea or vomiting and no diarrhea. PHYSICAL EXAMINATION: VITAL SIGNS: Physical exam note that his temperature is 97.5, pulse is 60, respirations are 22 and BP is 139/66. HEENT: Head is atraumatic, normocephalic. Eyes: Reactive to light. Ears, nose and throat seemed to be within normal limits. NECK: Supple. No JVD. No thyroid enlargement. No lymph nodes. HEART: Has regular rate and rhythm. Normal S1, S2. LUNGS: Reveal mild rhonchi bilaterally with decreased breath sounds at the bases. ABDOMEN: Soft. Decreased bowel sounds. GENITALIA AND RECTAL: Deferred. MUSCULOSKELETAL: No joint deformities. EXTREMITIES: Reveal positive lower extremity edema. NEUROLOGICAL: He seemed to be grossly intact. LABORATORY DATA: As far as his laboratories are concerned, his white count is 11.7, hemoglobin is 14.2, hematocrit 47.9 with platelets of 120,000. The patient's sodium is 143, potassium 4.1, chloride 95, CO2 of 40 with a BUN of 42, creatinine of 1.2 and a glucose of 165. IMPRESSION: As far as my impression, this patient has severe chronic obstructive pulmonary disease with exacerbation, as hypercapnia, hypoxia and altered mental status. The patient has history of hypertension, hyperlipidemia. PLAN: As far as our plan, we will continue with BiPAP and O2 and monitoring closely. The patient is on DuoNeb for bronchodilatation, Flomax as well as subcu heparin. He is on Protonix, Rocephin, Solu-Medrol and Zithromax. We will continue to treat aggressively along with the other consultants and the primary care doctor. Nathan Shay MD
[2018-05-19 08:27] LABS: BLOOD UREA NITROGEN 42 mg/dL (7-21); CALCIUM 8.7 mg/dL (8.4-10.5); GFR NON-AFRICAN AMERICAN > 60
[2018-05-19 08:28] LABS: ALB/GLOB RATIO 1.2 (1.1-1.8); ALBUMIN 3.2 g/dL (3.0-4.8); ALT/SGPT 35 U/L (7-56); AST/SGOT 38 U/L (17-59)
[2018-05-19 08:59] LABS: ARTERIAL BLOOD GAS HCO3 41.8 mmol/L (21-28)
[2018-05-19] MEDS: MethylPREDNISolone 40 mg Vial IV SCH ×2 (09:44→21:36)
[2018-05-19] MEDS: cefTRIAXone 1 gm 1 GM/100 ML BAG IVPB SCH (09:45)
[2018-05-19] MEDS: Azithromycin 250 MG in Sodium Chloride 0.9% 250 ML IVPB SCH (10:18)
--- NOTE | 2018-05-19 10:33 | CP.CCUPN ---
<Cherry Faulkner - Last Filed: 05/19/18 11:15> CCU Subjective - Physician Review Subjective (Free Text): CRITICAL CARE PROGRESS NOTE FOR DR. LAKISHA Falukner PGY-1 Pt seen and examined at bedside this am. Pts mental status has improved. He has a bruise/hematoma over his R clavicle that he reports appeared when he fell while playing at home a few days. He has no acute complaints this am. He was switched off of BiPAP to 4L NC. His 12 point ROS is negative. CCU Objective - Vital Signs / Intake & Output Vital Signs (Last 4 hours): Vital Signs Pulse Resp BP Pulse Ox 05/19/18 09:52 95 H 05/19/18 09:44 114 H 124/69 05/19/18 09:40 114 H 25 H 91 L 05/19/18 09:30 127 H 28 H 89 L 05/19/18 09:20 113 H 25 H 96 05/19/18 09:10 107 H 20 99 05/19/18 09:00 100 H 17 124/69 100 05/19/18 08:50 119 H 29 H 92 L 05/19/18 08:40 112 H 24 98 05/19/18 08:30 115 H 28 H 95 05/19/18 08:20 119 H 27 H 94 L 05/19/18 08:18 123 H 28 H 161/99 H 89 L 05/19/18 08:10 105 H 19 95 05/19/18 08:00 107 H 27 H 137/110 H 95 05/19/18 07:50 111 H 29 H 99 05/19/18 07:40 93 H 24 99 05/19/18 07:30 93 H 27 H 96 05/19/18 07:20 88 21 96 05/19/18 07:10 93 H 28 H 95 05/19/18 07:00 98 H 23 188/97 H 95 05/19/18 06:50 78 22 96 05/19/18 06:40 96 H 29 H 96 Intake and Output (Last 8hrs): Intake & Output 05/18/18 05/19/18 05/19/18 22:59 06:59 14:59 Intake Total 10 190 Balance 10 190 Intake: IV 10 190 - Physical Exam Head: Positive for: Atraumatic, Normocephalic Pupils: Positive for: PERRL Extroacular Muscles: Positive for: EOMI Conjunctiva: Positive for: Normal Mouth: Positive for: Moist Mucous Membranes Neck: Positive for: Normal Range of Motion Respiratory/Chest: Positive for: Respiratory Distress, Accessory Muscle Use, Decreased Breath Sounds, Retracting, Rhonchi (Bilaterally.), Other (12cm x 12cm ecchymoses & hematoma noted over R clavicle. No tenderness to palpation) Cardiovascular: Positive for: Regular Rate and Rhythm, Normal S1, S2. Negative for: Murmurs Abdomen: Negative for: Tenderness, Distention, Peritoneal Signs Back: Positive for: Normal Inspection Upper Extremity: Positive for: Normal Inspection. Negative for: Cyanosis, Edema Lower Extremity: Positive for: Normal Inspection. Negative for: Edema (Negative lower extremity edema.) Neurological: Positive for: GCS=15, CN II-XII Intact, Speech Normal Skin: Positive for: Warm, Dry, Normal Color. Negative for: Rashes Psychiatric: Positive for: Alert, Oriented x 3 (Oriented to person), Normal Insight, Normal Concentration - Medications Active Medications: Active Medications Generic Name Dose Route Start Last Admin Trade Name Freq PRN Reason Stop Dose Admin Albuterol/Ipratropium 3 ml 05/16/18 20:00 05/19/18 07:32 Duoneb 3 Mg/0.5 Mg (3 Ml) Ud IH 3 ml [id number] RICH Administration Aspirin 81 mg 05/18/18 10:00 05/19/18 09:44 Aspirin Chewable PO 81 mg DAILY RICH Administration Clopidogrel Bisulfate 75 mg 05/18/18 10:00 05/19/18 09:44 Plavix PO 75 mg DAILY RICH Administration Ceftriaxone Sodium 1 gm in 100 mls @ 100 mls/hr 05/16/18 19:00 05/19/18 09:45 Rocephin 1 Gram Ivpb IVPB 100 mls/hr DAILY RICH Administration Protocol Azithromycin 250 mg/ Sodium 250 mls @ 167 mls/hr 05/16/18 19:00 05/19/18 10:18 Chloride IVPB 167 mls/hr DAILY RICH Administration Protocol Methylprednisolone 20 mg 05/19/18 10:12 Solu-Medrol IV Q12 RICH Metoprolol Tartrate 25 mg 05/19/18 10:00 05/19/18 09:44 Lopressor PO 25 mg BID RICH Administration Tamsulosin HCl 0.4 mg 05/17/18 11:00 05/19/18 09:44 Flomax PO 0.4 mg DAILY RICH Administration - Patient Studies Lab Studies: Microbiology Studies 05/16/18 14:55 Blood Culture - Preliminary Blood-Venous NO GROWTH AFTER 48 HOURS 05/16/18 14:55 Blood Culture - Preliminary Blood-Venous NO GROWTH AFTER 48 HOURS 05/16/18 20:55 MRSA Culture (Admit) - Final Nose MRSA NOT DETECTED Lab Studies 05/19/18 05/19/18 05/19/18 Range/Units 08:05 05:40 05:40 WBC 11.8 H (4.5-11.0) 10^3/uL RBC 4.66 (3.5-6.1) 10^6/uL Hgb 13.8 L (14.0-18.0) g/dL Hct 45.8 (42.0-52.0) % MCV 98.3 (80.0-105.0) fl MCH 29.6 (25.0-35.0) pg MCHC 30.1 L (31.0-37.0) g/dl RDW 13.7 (11.5-14.5) % Plt Count 131 (120.0-450.0) 10^3/uL MPV 11.1 H (7.0-11.0) fl Gran % 94.8 H (50.0-68.0) % Lymph % (Auto) 4.1 L (22.0-35.0) % Moore % (Auto) 1.1 (1.0-6.0) % Eos % (Auto) 0.0 L (1.5-5.0) % Baso % (Auto) 0.0 (0.0-3.0) % Gran # 11.21 H (1.4-6.5) Lymph # (Auto) 0.5 L (1.2-3.4) Moore # (Auto) 0.1 (0.1-0.6) Eos # (Auto) 0.0 (0.0-0.7) Baso # (Auto) 0.00 (0.0-2.0) K/mm3 pCO2 69 H (35-45) mm/Hg pO2 92.0 (80-100) mm/Hg HCO3 41.8 H* (21-28) mmol/L ABG pH 7.39 (7.35-7.45) ABG Total CO2 43.9 H (22-28) mmol.L ABG O2 Saturation 98.5 H (95-98) % ABG O2 Content 17.5 (15-23) ML/dl ABG Base Excess 13.7 H (-2.0-3.0) mmol/L ABG Hemoglobin 12.9 (11.7-17.4) g/dL ABG Carboxyhemoglobin 1.6 H (0.5-1.5) % POC ABG HHb (Measured) 1.5 (0-5) % ABG Methemoglobin 1.0 (0.0-3.0) % ABG O2 Capacity 17.8 (16-24) mL/dl Hgb O2 Saturation 95.9 (95.0-98.0) % FiO2 40.0 % Sodium 142 (132-148) mmol/L Potassium 4.0 (3.6-5.0) mmol/L Chloride 95 L (98-107) mmol/L Carbon Dioxide 41 H (21-33) mmol/L Anion Gap 10 (10-20) BUN 42 H (7-21) mg/dL Creatinine 0.9 (0.8-1.5) mg/dl Est GFR ( Amer) > 60 Est GFR (Non-Af Amer) > 60 Random Glucose 143 H (70-110) mg/dL Calcium 8.7 (8.4-10.5) mg/dL Phosphorus 2.5 (2.5-4.5) mg/dL Magnesium 2.4 H (1.7-2.2) mg/dL Total Bilirubin 0.4 (0.2-1.3) mg/dL AST 38 (17-59) U/L ALT 35 (7-56) U/L Alkaline Phosphatase 54 (38-126) U/L Total Protein 5.8 (5.8-8.3) g/dL Albumin 3.2 (3.0-4.8) g/dL Globulin 2.6 gm/dL Albumin/Globulin Ratio 1.2 (1.1-1.8) Laboratory Results - last 24 hr 05/19/18 05/19/18 05/19/18 05:40 05:40 08:05 WBC 11.8 H RBC 4.66 Hgb 13.8 L Hct 45.8 MCV 98.3 MCH 29.6 MCHC 30.1 L RDW 13.7 Plt Count 131 MPV 11.1 H Gran % 94.8 H Lymph % (Auto) 4.1 L Moore % (Auto) 1.1 Eos % (Auto) 0.0 L Baso % (Auto) 0.0 Gran # 11.21 H Lymph # (Auto) 0.5 L Moore # (Auto) 0.1 Eos # (Auto) 0.0 Baso # (Auto) 0.00 pCO2 69 H pO2 92.0 HCO3 41.8 H* ABG pH 7.39 ABG Total CO2 43.9 H ABG O2 Saturation 98.5 H ABG O2 Content 17.5 ABG Base Excess 13.7 H ABG Hemoglobin 12.9 ABG Carboxyhemoglobin 1.6 H POC ABG HHb (Measured) 1.5 ABG Methemoglobin 1.0 ABG O2 Capacity 17.8 Hgb O2 Saturation 95.9 FiO2 40.0 Sodium 142 Potassium 4.0 Chloride 95 L Carbon Dioxide 41 H Anion Gap 10 BUN 42 H Creatinine 0.9 Est GFR ( Amer) > 60 Est GFR (Non-Af Amer) > 60 Random Glucose 143 H Calcium 8.7 Phosphorus 2.5 Magnesium 2.4 H Total Bilirubin 0.4 AST 38 ALT 35 Alkaline Phosphatase 54 Total Protein 5.8 Albumin 3.2 Globulin 2.6 Albumin/Globulin Ratio 1.2 Review of Systems - Review of Systems Review of Systems: per HPI Assessment/Plan - Assessment and Plan (Free Text) Assessment: 77 y/o M with PMHx of COPD and extensive smoking history [place] [facility] [place] with lethargy and AMS. He was found in the ED to be in hypercapnic respiratory failure. He was started on BiPAP and admitted to ICU. He was being treated for COPD exacerbation. He was also found to have elevated troponins and procalcitonin. He was started on heparin drip, as well as empiric antibiotics. He has shown improvement in mental status and respiratory status after completing BiPAP. He is currently on 4L NC, saturating well, with no SOB or discomfort. Pt was evaluated by cardiology, and is scheduled for cardiac cath this am. Plan: Neuro: AxOx3 No FND Prevous AMS significantly improved from admission, likely secondary to CO2 narcosis ABG shows improvement of chronic respiratory acidosis Monitor neuro status Cardiovascular: Tachycardic Hypertensive Continue metoprolol 25 po bid Elevated troponin Pt to undergo cardiac cath today NPO D/c heparin drip Continue ASA, plavix, eliquis Elevated BNP 6230 Echo: LVEF wnl Pulmonary: COPD Exacerbation Currently off of BiPAP, on 4L NC Mental status improved after BiPAP ABG shows improvement in pH & CO2: 7.39/69/92 Duoneb Q6H RICH Taper down solu-medrol to 20mg q12 IVP Elevated procalcitonin Continue empiric rocephin Continue empiric azithromycin GI: NPO for cardiac cath today : NIKKI Continue flomax monitor for signs/symptoms of bleedings Heme: Elevated troponin asa/plavix Leukocytosis on empiric antibiotics steroids for COPD exacerbation H/H stable Ptt elevated, was previously on hep drip Platelets stable ID: influenza negative Chest xray: no obvious infiltrates Leukocytosis. Elevated procalcitonin Empiric rocephin/azithromycin DVT/GI: plavix Disposition: Pt is full code. Monitor in MICU <Nixon Alcaraz - Last Filed: 05/19/18 11:53> CCU Objective - Vital Signs / Intake & Output Vital Signs (Last 4 hours): Vital Signs Pulse Resp BP Pulse Ox 05/19/18 09:52 95 H 05/19/18 09:44 114 H 124/69 05/19/18 09:40 114 H 25 H 91 L 05/19/18 09:30 127 H 28 H 89 L 05/19/18 09:20 113 H 25 H 96 05/19/18 09:10 107 H 20 99 05/19/18 09:00 100 H 17 124/69 100 05/19/18 08:50 119 H 29 H 92 L 05/19/18 08:40 112 H 24 98 05/19/18 08:30 115 H 28 H 95 05/19/18 08:20 119 H 27 H 94 L 05/19/18 08:18 123 H 28 H 161/99 H 89 L 05/19/18 08:10 105 H 19 95 05/19/18 08:00 107 H 27 H 137/110 H 95 05/19/18 07:50 111 H 29 H 99 Intake and Output (Last 8hrs): Intake & Output 05/18/18 05/19/18 05/19/18 22:59 06:59 14:59 Intake Total 10 190 Balance 10 190 Intake: IV 10 190 - Medications Active Medications: Active Medications Generic Name Dose Route Start Last Admin Trade Name Liane PRN Reason Stop Dose Admin Albuterol/Ipratropium 3 ml 05/16/18 20:00 05/19/18 07:32 Duoneb 3 Mg/0.5 Mg (3 Ml) Ud IH 3 ml [id number] RICH Administration Aspirin 81 mg 05/18/18 10:00 05/19/18 09:44 Aspirin Chewable PO 81 mg DAILY RICH Administration Clopidogrel Bisulfate 75 mg 05/18/18 10:00 05/19/18 09:44 Plavix PO 75 mg DAILY RICH Administration Ceftriaxone Sodium 1 gm in 100 mls @ 100 mls/hr 05/16/18 19:00 05/19/18 09:45 Rocephin 1 Gram Ivpb IVPB 100 mls/hr DAILY RICH Administration Protocol Azithromycin 250 mg/ Sodium 250 mls @ 167 mls/hr 05/16/18 19:00 05/19/18 10:18 Chloride IVPB 167 mls/hr DAILY RICH Administration Protocol Methylprednisolone 20 mg 05/19/18 10:12 Solu-Medrol IV Q12 RICH Metoprolol Tartrate 25 mg 05/19/18 10:00 05/19/18 09:44 Lopressor PO 25 mg BID RICH Administration Tamsulosin HCl 0.4 mg 05/17/18 11:00 05/19/18 09:44 Flomax PO 0.4 mg DAILY RICH Administration - Patient Studies Lab Studies: Microbiology Studies 05/16/18 14:55 Blood Culture - Preliminary Blood-Venous NO GROWTH AFTER 48 HOURS 05/16/18 14:55 Blood Culture - Preliminary Blood-Venous NO GROWTH AFTER 48 HOURS 05/16/18 20:55 MRSA Culture (Admit) - Final Nose MRSA NOT DETECTED Lab Studies 05/19/18 05/19/18 05/19/18 Range/Units 08:05 05:40 05:40 WBC 11.8 H (4.5-11.0) 10^3/uL RBC 4.66 (3.5-6.1) 10^6/uL Hgb 13.8 L (14.0-18.0) g/dL Hct 45.8 (42.0-52.0) % MCV 98.3 (80.0-105.0) fl MCH 29.6 (25.0-35.0) pg MCHC 30.1 L (31.0-37.0) g/dl RDW 13.7 (11.5-14.5) % Plt Count 131 (120.0-450.0) 10^3/uL MPV 11.1 H (7.0-11.0) fl Gran % 94.8 H (50.0-68.0) % Lymph % (Auto) 4.1 L (22.0-35.0) % Moore % (Auto) 1.1 (1.0-6.0) % Eos % (Auto) 0.0 L (1.5-5.0) % Baso % (Auto) 0.0 (0.0-3.0) % Gran # 11.21 H (1.4-6.5) Lymph # (Auto) 0.5 L (1.2-3.4) Moore # (Auto) 0.1 (0.1-0.6) Eos # (Auto) 0.0 (0.0-0.7) Baso # (Auto) 0.00 (0.0-2.0) K/mm3 pCO2 69 H (35-45) mm/Hg pO2 92.0 (80-100) mm/Hg HCO3 41.8 H* (21-28) mmol/L ABG pH 7.39 (7.35-7.45) ABG Total CO2 43.9 H (22-28) mmol.L ABG O2 Saturation 98.5 H (95-98) % ABG O2 Content 17.5 (15-23) ML/dl ABG Base Excess 13.7 H (-2.0-3.0) mmol/L ABG Hemoglobin 12.9 (11.7-17.4) g/dL ABG Carboxyhemoglobin 1.6 H (0.5-1.5) % POC ABG HHb (Measured) 1.5 (0-5) % ABG Methemoglobin 1.0 (0.0-3.0) % ABG O2 Capacity 17.8 (16-24) mL/dl Hgb O2 Saturation 95.9 (95.0-98.0) % FiO2 40.0 % Sodium 142 (132-148) mmol/L Potassium 4.0 (3.6-5.0) mmol/L Chloride 95 L (98-107) mmol/L Carbon Dioxide 41 H (21-33) mmol/L Anion Gap 10 (10-20) BUN 42 H (7-21) mg/dL Creatinine 0.9 (0.8-1.5) mg/dl Est GFR ( Amer) > 60 Est GFR (Non-Af Amer) > 60 Random Glucose 143 H (70-110) mg/dL Calcium 8.7 (8.4-10.5) mg/dL Phosphorus 2.5 (2.5-4.5) mg/dL Magnesium 2.4 H (1.7-2.2) mg/dL Total Bilirubin 0.4 (0.2-1.3) mg/dL AST 38 (17-59) U/L ALT 35 (7-56) U/L Alkaline Phosphatase 54 (38-126) U/L Total Protein 5.8 (5.8-8.3) g/dL Albumin 3.2 (3.0-4.8) g/dL Globulin 2.6 gm/dL Albumin/Globulin Ratio 1.2 (1.1-1.8) Laboratory Results - last 24 hr 05/19/18 05/19/18 05/19/18 05:40 05:40 08:05 WBC 11.8 H RBC 4.66 Hgb 13.8 L Hct 45.8 MCV 98.3 MCH 29.6 MCHC 30.1 L RDW 13.7 Plt Count 131 MPV 11.1 H Gran % 94.8 H Lymph % (Auto) 4.1 L Moore % (Auto) 1.1 Eos % (Auto) 0.0 L Baso % (Auto) 0.0 Gran # 11.21 H Lymph # (Auto) 0.5 L Moore # (Auto) 0.1 Eos # (Auto) 0.0 Baso # (Auto) 0.00 pCO2 69 H pO2 92.0 HCO3 41.8 H* ABG pH 7.39 ABG Total CO2 43.9 H ABG O2 Saturation 98.5 H ABG O2 Content 17.5 ABG Base Excess 13.7 H ABG Hemoglobin 12.9 ABG Carboxyhemoglobin 1.6 H POC ABG HHb (Measured) 1.5 ABG Methemoglobin 1.0 ABG O2 Capacity 17.8 Hgb O2 Saturation 95.9 FiO2 40.0 Sodium 142 Potassium 4.0 Chloride 95 L Carbon Dioxide 41 H Anion Gap 10 BUN 42 H Creatinine 0.9 Est GFR ( Amer) > 60 Est GFR (Non-Af Amer) > 60 Random Glucose 143 H Calcium 8.7 Phosphorus 2.5 Magnesium 2.4 H Total Bilirubin 0.4 AST 38 ALT 35 Alkaline Phosphatase 54 Total Protein 5.8 Albumin 3.2 Globulin 2.6 Albumin/Globulin Ratio 1.2 Assessment/Plan - Assessment and Plan (Free Text) Plan: Patient seen and examined on rounds with resident, agree with note with following additions/exceptions: Patient is 77yo male with PMHx smoking, COPD, CAD, presented with hypercapnic respiratory failure, requiring BIPAP, and CAP. Patient taken off BIPAP this morning, ABG with chronic resp acidosis/metabolic alkalosis, with normalization of pH. Currently afebrile, BP stable, comfortable in NAD, doing well, awake, alert, awaiting cardiac cath CAD CAP Hypercapnic resp failure COPD exacerbation Recommend: - supp o2 as needed, goal sat 90%, duonebs PRN, IS, Solumedrol 20mg IV BID - Rocephin, Azithro - follow up cultures, Urine Legionella, Strep, Procal - BP control - ASA, Plavix, Statin - resume home dose of BB, Lopressor 25mg BID - Follow up cardiac cath - GI ppx - DVT ppx - FS control - NPO for cath - Monitor in MICU Critical care time 35 minutes
--- NOTE | 2018-05-19 11:34 | RAD ---
Date of service: 05/19/2018 PROCEDURE: Radiographs of the right clavicle. HISTORY: r/o clavicular fracture COMPARISON: None. FINDINGS: RIGHT CLAVICLE: No fracture or focal lesion. JOINTS: Right acromioclavicular and glenohumeral joints are grossly unremarkable. SOFT TISSUES: Grossly unremarkable. OTHER FINDINGS: None. IMPRESSION: Normal radiographs of the right clavicle.
[2018-05-19 11:52] LABS: INR 0.91; PARTIAL THROMBOPLASTIN TIME 36.2 Seconds (25.1-36.5); PROTHROMBIN TIME 10.4 SECONDS (9.4-12.5)
[2018-05-19] MEDS ORDERED: Lidocaine 2% Inj (20ml) ONE (12:53)
[2018-05-19] MEDS ORDERED: Iodixanol 320 mg/ml 150 ml Bottle IV ONE (12:59)
[2018-05-19] MEDS ORDERED: Midazolam 2 MG/2 ML VIAL ONE (13:25)
[2018-05-19] MEDS ORDERED: Naloxone 0.4 mg/ml Inj (Adult) ONE (13:34)
--- NOTE | 2018-05-19 20:00 | CARDCATH ---
PROCEDURE DATE: 05/19/2018 HISTORY The patient is a 77-year-old male who came in with respiratory failure with elevated troponins consistent with a non-STEMI. Because of this, cardiac catheterization was recommended. PROCEDURES: Left heart catheterization with coronary angiography and left ventriculogram with supra-aortic valvular injection. The right femoral artery was cannulated with 6-Nepali sheath. There were no complications. I performed moderate sedation, which included the presence of an independent trained observer that assisted in monitoring the patient's consciousness and physiologic status. After fentanyl and Versed, my intraservice time was 15 minutes. Findings on catheterization reveals a left ventricle that contracted normally. Estimated ejection fraction is 70%. His coronary anatomy revealed a right dominant circulation. The RCA revealed diffuse intimal irregularities without critical lesions. The left main artery was unremarkable. The LAD and diagonal vessels revealed intimal irregularities without critical lesions. The circumflex artery and obtuse marginal branches revealed intimal irregularities without critical lesions. Supraaortic valvular injection revealed no aortic insufficiency. Angio-Seal was used to close the femoral artery site. The patient tolerated the procedure well. In summary, the procedure revealed diffuse coronary atherosclerosis without critical lesions. Normal LV function. Given these findings, his coronary anatomy does not explain his elevated troponins. We will need to rule out pulmonary embolism, which we will obtain with the CT scan in the morning. Given these findings, we will discontinue his Plavix as well as beta-blockers. The patient will continue IV hydration. In the morning, we will obtain a CT scan of the chest to rule out a PE. Ryan Schneider MD
--- NOTE | 2018-05-19 21:51 | PN ---
DATE: 05/19/2018 SUBJECTIVE: Patient is 77 years old, seen and examined, lying in bed, has mild shortness of breath, but lot much better than before. PHYSICAL EXAMINATION: VITAL SIGNS: He is afebrile, pulse 98, respirations 24, blood pressure 137/75. LUNGS: Bilateral fair airflow. Few soft crackles posteriorly. HEART: S1, S2 audible. ABDOMEN: Soft, nontender. No rebound. No guarding. NEUROLOGIC: He is awake, alert, oriented, communicative. LABORATORY DATA: WBC 11.8, hemoglobin 13.8, hematocrit 45.8, platelets of 131, PT 10.4, INR 0.91. Chemistry: Sodium 142, potassium 4, chloride 95, CO2 of 41, BUN 42, creatinine 0.9, blood sugar of 143. ASSESSMENT: 1. Chronic obstructive pulmonary disease exacerbation. 2. Non-ST elevation myocardial infarction. 3. Hypertension. 4. Status post cardiac catheterization, result is not available. PLAN: We will continue patient on IV steroid, nebulizer treatment. Continue him on Flomax. We will taper down his steroid. Currently, he is on Zithromax. Followup x-ray seems to be unremarkable, done on 05/17/2018. Patient remains stable. He will be transferred to telemetry in a.m. Peter Calvillo MD
[2018-05-19] MEDS ORDERED: Enoxaparin 60 mg Syringe SC ONE (22:00)
[2018-05-20] MEDS: Albuterol-Ipratrop 3 mg / 0.5 (3 ml) UD IH SCH ×4 (01:21→20:13)
[2018-05-20 06:51] LABS: GRAN # 11.35 (1.4-6.5); GRAN % 92.6 % (50.0-68.0); HEMOGLOBIN 13.1 g/dL (14.0-18.0); LYMPH # 0.7 (1.2-3.4); LYMPH % 5.9 % (22.0-35.0); MEAN CELL VOLUME 98.2 fl (80.0-105.0); MEAN CORPUSCULAR HGB CONC 30.6 g/dl (31.0-37.0); MEAN PLATELET VOLUME 10.8 fl (7.0-11.0); MONO # 0.2 (0.1-0.6); MONO % 1.5 % (1.0-6.0); PLATELET COUNT 148 10^3/uL (120.0-450.0); RBC 4.36 10^6/uL (3.5-6.1); RED CELL DISTRIBUTION WIDTH 13.9 % (11.5-14.5); WHITE BLOOD COUNT 12.3 10^3/uL (4.5-11.0)
[2018-05-20 07:06] LABS: ALBUMIN 3.4 g/dL (3.0-4.8); BLOOD UREA NITROGEN 33 mg/dL (7-21); CALCIUM 8.7 mg/dL (8.4-10.5); GFR NON-AFRICAN AMERICAN > 60
[2018-05-20 07:07] LABS: ALB/GLOB RATIO 1.3 (1.1-1.8); ALT/SGPT 35 U/L (7-56); AST/SGOT 35 U/L (17-59)
[2018-05-20 08:06] LABS: LYMPHOCYTE 5 % (22.0-35.0); MONOCYTE 2 % (1.0-6.0); MYELOCYTE 2 %; NEUTROPHIL 91 % (50.0-70.0)
[2018-05-20 08:07] LABS: ANISOCYTOSIS SLIGHT; PLATELET ESTIMATE NORMAL (NORMAL)
--- NOTE | 2018-05-20 08:08 | PN ---
DATE: 05/20/2018 CARDIOLOGY FOLLOWUP SUBJECTIVE: The patient is without chest pain, without shortness of breath. The patient is on nasal O2. PHYSICAL EXAMINATION: VITAL SIGNS: Blood pressure is 159/88, heart rate is sinus tachycardia at 100-110. NECK: Negative JVD. LUNGS: Decreased breath sounds with bilateral rhonchi. HEART: Reveals S1 and S2. EXTREMITIES: Without edema. The right groin site is stable. LABORATORY DATA: Hemoglobin is 13.1. Chemistries: BUN and creatinine are 33 and 0.8. IMPRESSION: 1. Status post respiratory failure. 2. [id number] myocardial infarction. 3. Nonobstructive coronary artery disease. 4. Normal left ventricular function. 5. Dyspnea, which is better. 6. Exacerbation of chronic obstructive pulmonary disease. PLAN: Given these findings, we will obtain a CT scan to rule out a pulmonary embolism as the cause of his elevated troponins. It is likely his troponins were due to marked hypoxemia secondary to his lung disease. However, given his elevated troponins, we will obtain a CT scan. Ryan Schneider MD
[2018-05-20] MEDS ORDERED: Iohexol 350 MG/100 ML VIAL ONE (09:07)
[2018-05-20] MEDS: MethylPREDNISolone 40 mg Vial IV SCH ×2 (09:13→22:42)
[2018-05-20] MEDS: Azithromycin 250 MG in Sodium Chloride 0.9% 250 ML IVPB SCH (09:41)
[2018-05-20] MEDS: cefTRIAXone 1 gm 1 GM/100 ML BAG IVPB SCH (09:41)
--- NOTE | 2018-05-20 11:12 | CT ---
Date of service: 05/20/2018 PROCEDURE: CT Chest with contrast (Pulmonary Angiogram) HISTORY: r/o PE COMPARISON: CT 01/20/2017 TECHNIQUE: Axial computed tomography images were obtained of the chest in the pulmonary arterial phase of enhancement. Coronal and sagittal reformatted images were created and reviewed. Intravenous contrast dose: 100 cc of Omni 350 Radiation dose: Total exam DLP = 291.11 mGy-cm. This CT exam was performed using one or more of the following dose reduction techniques: Automated exposure control, adjustment of the mA and/or kV according to patient size, and/or use of iterative reconstruction technique. FINDINGS: PULMONARY ARTERIES: Unremarkable. No pulmonary embolism. AORTA: No acute findings. No thoracic aortic aneurysm. Aortic calcification. LUNGS: Small infiltrate at the right lung base posteriorly. This is similar in appearance to the previous study. Emphysematous changes in the upper lobes PLEURAL SPACES: Unremarkable. No effusion or pneumothorax. HEART: Unremarkable. No cardiomegaly. No significant pericardial effusion. LYMPH NODES: No lymphadenopathy. BONES, CHEST WALL: Unremarkable. No fracture or destructive lesion OTHER FINDINGS: Unremarkable. IMPRESSION: No evidence of pulmonary embolus.
--- NOTE | 2018-05-21 00:10 | PN ---
DATE: 05/20/2018 SUBJECTIVE: The patient is 77 years old, seen and examined, sitting in chair, has shortness of breath even at rest. PHYSICAL EXAMINATION: VITAL SIGNS: He is afebrile, pulse 134, respirations 22, blood pressure 129/58. LUNGS: Bilateral fair airflow. No rhonchi or crackle. Few expiratory rhonchi; however, overall diffuse breath sound secondary to COPD. HEART: S1 and S2 audible. Tachycardic. ABDOMEN: Soft. Nontender. No rebound. No guarding. NEUROLOGICAL: The patient is awake, alert, oriented, able to communicate. EXTREMITIES: Bilateral leg, no edema. LABORATORY EXAM: WBC is 12.3, hemoglobin 13, hematocrit 42, platelet 148. Chemistry: Sodium 144, potassium 3.9, chloride 97, CO2 of 41, BUN 33, creatinine 0.8, blood sugar of 148. Blood culture, urine cultures were negative. Had cardiac cath done that is unremarkable. CT scan of the chest was done with no evidence of pulmonary embolism. ASSESSMENT: 1. Chronic obstructive pulmonary disease exacerbation. 2. Probably demand ischemia. 3. Hypertension. 4. Hyperlipidemia. 5. Terminal chronic obstructive pulmonary disease. PLAN: So at this point, we will keep the patient on Zithromax, steroid, Rocephin. He is on metoprolol. I will request for TCU evaluation for taper down his steroid exertion since he is short of breath at rest and is tachycardic. Need to watch out closely prior to discharge, so he is a best candidate to go to TCU. Once he is accepted, we will transfer him to TCU in the a.m. Peter Calvillo MD
[2018-05-21] MEDS: Albuterol-Ipratrop 3 mg / 0.5 (3 ml) UD IH SCH ×2 (02:31→07:46)
[2018-05-21 07:13] LABS: GRAN # 9.37 (1.4-6.5); GRAN % 91.2 % (50.0-68.0); LYMPH # 0.5 (1.2-3.4); LYMPH % 5.1 % (22.0-35.0); MEAN CELL VOLUME 99.2 fl (80.0-105.0); MEAN CORPUSCULAR HEMOGLOBIN 29.8 pg (25.0-35.0); MEAN PLATELET VOLUME 10.5 fl (7.0-11.0); MONO # 0.4 (0.1-0.6); MONO % 3.7 % (1.0-6.0); RBC 3.63 10^6/uL (3.5-6.1); WHITE BLOOD COUNT 10.3 10^3/uL (4.5-11.0)
[2018-05-21 07:18] LABS: HEMOGLOBIN 10.8 g/dL (14.0-18.0)
[2018-05-21 07:30] LABS: ALB/GLOB RATIO 1.3 (1.1-1.8); ALT/SGPT 35 U/L (7-56); AST/SGOT 29 U/L (17-59); BLOOD UREA NITROGEN 29 mg/dL (7-21); CALCIUM 8.6 mg/dL (8.4-10.5); GFR NON-AFRICAN AMERICAN > 60
[2018-05-21] MEDS: Cefpodoxime (Vantin) 200 mg Tab PO SCH ×2 (09:51→21:18)
[2018-05-21] MEDS: Azithromycin 250 MG in Sodium Chloride 0.9% 250 ML IVPB SCH (09:52)
[2018-05-21] MEDS: MethylPREDNISolone 40 mg Vial IV SCH ×2 (09:52→21:18)
[2018-05-21] MEDS: diltiaZEM 120 mg/24 Hours CD Cap PO SCH (13:12)
[2018-05-21] MEDS: Levalbuterol 0.63 MG/3 ML Inhal Soln UD IH SCH ×2 (14:10→19:29)
--- NOTE | 2018-05-21 15:28 | PN ---
DATE: 05/21/2018 CARDIOLOGY FOLLOWUP SUBJECTIVE: The patient is in a chair. His pulse oximetry on nasal O2 is 100%. PHYSICAL EXAMINATION: VITAL SIGNS: Blood pressure 112/71, heart rates in the 90s. NECK: Negative JVD. LUNGS: Without rales. HEART: S1 and S2. EXTREMITIES: Without edema. LABORATORY DATA: Hemoglobin is 10.8. Chemistries: BUN and creatinine is 29 and 0.9. IMPRESSION: 1. Respiratory failure. 2. Altered mental status secondary to respiratory failure. 3. Elevated troponins without critical coronary artery disease, which can be explained by his periods of hypoxemia at home. 4. No evidence for pulmonary embolism on CT scan. PLAN: Given these findings, the patient is doing well. We will give him a trial on room air. Measure his pulse oximetry. Ryan Schneider MD
--- NOTE | 2018-05-21 18:52 | PN ---
DATE: 05/21/2018 SUBJECTIVE: The patient is 77 years old male seen and examined sitting in chair. He is still tachycardic, short of breath even at rest. Desaturates on walking. PHYSICAL EXAMINATION VITAL SIGNS: He is afebrile, pulse 116, respirations 20, and blood pressure 142/73. LUNGS: Bilateral diffuse decreased breath sounds. HEART: S1 and S2 audible. Regular rate and rhythm. Tachycardic. ABDOMEN: Soft. Nontender. No rebound. No guarding. NEUROLOGICAL: He is awake, alert, oriented, and communicative. LABORATORY EXAMINATION: WBC 10.3, hemoglobin 10.8, hematocrit 36, and platelet of 137. Chemistry: Sodium 142, potassium 4.8, chloride 96, CO2 of 44, BUN 29, creatinine 0.9, and blood sugar of 139. ASSESSMENT AND PLAN: 1. Status post chronic obstructive pulmonary disease exacerbation. 2. Demand ischemia. 3. Sinus tachycardia. 4. Hypertension. PLAN: We will continue him on losartan. I will discontinue beta felicity and start him on Cardizem. Awaiting to be transferred to remote telemetry and will be ambulated and he is a good candidate for TCU. We will also discontinue DuoNeb and he has been started on Xopenex. Peter Calvillo MD
[2018-05-22] MEDS: Levalbuterol 0.63 MG/3 ML Inhal Soln UD IH SCH ×3 (02:30→21:01)
[2018-05-22] MEDS: diltiaZEM 120 mg/24 Hours CD Cap PO SCH (09:34)
[2018-05-22] MEDS: Cefpodoxime (Vantin) 200 mg Tab PO SCH (09:34)
[2018-05-22] MEDS: MethylPREDNISolone 40 mg Vial IV SCH ×2 (09:35→21:19)
[2018-05-22] MEDS: Azithromycin 250 MG in Sodium Chloride 0.9% 250 ML IVPB SCH (09:57)
--- NOTE | 2018-05-22 11:05 | PN ---
DATE: 05/22/2018 CARDIOLOGY FOLLOWUP SUBJECTIVE: The patient is awake, alert without dyspnea. PHYSICAL EXAMINATION: VITAL SIGNS: Blood pressure is 100 systolic, heart rates in the 90s. NECK: Negative JVD. LUNGS: Without rales. HEART: Reveals S1, S2. EXTREMITIES: Without edema. LABORATORY DATA: Hemoglobin is 10.8. Chemistries, BUN and creatinine are 29 and 0.9. IMPRESSION: 1. Improvement of his chronic obstructive pulmonary disease. 2. Resolution of hypoxemia with a normal pulse oximetry on room air. 3. Chronic obstructive pulmonary disease. 4. Nonobstructive coronary artery disease. Given these findings, we will discontinue his nasal O2 and increase physical therapy. The patient would benefit from going to the TCU. Ryan Schneider MD
--- NOTE | 2018-05-22 23:06 | PN ---
DATE: 05/22/2018 SUBJECTIVE: The patient is a 77-year-old male, seen and examined, doing well. Still has shortness of breath. He was just sleepy this morning because of Ambien. PHYSICAL EXAMINATION: VITAL SIGNS: He is afebrile, pulse 79, respirations 20, and blood pressure 114/59. LUNGS: Bilateral fair airflow. No rhonchi or crackle. HEART: S1 and S2 audible. ABDOMEN: Soft and nontender. No rebound. No guarding. NEUROLOGIC: He is sleepy, but arousable. ASSESSMENT: 1. Status post chronic obstructive pulmonary disease exacerbation. 2. Exertional dyspnea. 3. Demand ischemia with positive troponin, but negative cardiac catheterization. 4. Exertional desaturation with advanced chronic obstructive pulmonary disease. 5. Hypertension. PLAN: I will cut down his zolpidem. I will continue him on aspirin. I will continue him on Cardizem CD. He is on losartan, Flomax, and cut down his steroids. If he remains stable overnight, he will be transferred to [facility] tomorrow. Peter Calvillo MD
--- NOTE | 2018-05-23 02:29 | PCM.RRT ---
<HoffmanNate - Last Filed: 05/23/18 02:25> TIGHT BARREL INSPECTOR Nurse Assessment - Situation Date: 05/23/18 Time TIGHT BARREL INSPECTOR was called: 01:39 TIGHT BARREL INSPECTOR Responder Arrival Time: 01:40 TIGHT BARREL INSPECTOR Location:: [address] [place] [address] Room Number: 571-01 TIGHT BARREL INSPECTOR Reason for Call: Bradycardia, Respiratory Distress, O2 Saturation below 90%, Not Responding to Urgent Treatment, Change in Mental Status, Looks Sicker TIGHT BARREL INSPECTOR Called By: Other Disciplines - IV IV Inserted during TIGHT BARREL INSPECTOR?: No - Respiratory Oxygen Delivery Method: BiPAP @%, Intubated Received Nebulizer Treatments:: No Was the Patient Ventilated with Bag/Mask 100% O2?: Yes Secretions Suctioned?: Yes Was the Patient Intubated?: Yes (size #8/ lip #22) - Ventilator Settings Ventilator Respiratory Rate Settin Ventilator Tidal Volume Settin Fraction of Inspired Oxygen (FIO2): 40 - Diagnostic Test Ordered EKG: No Chest X-Ray: No CT Scan: No - Stat Labs Ordered TIGHT BARREL INSPECTOR Stat Labs Ordered: CBC, BMP, TROPONIN, ABG CPR started during TIGHT BARREL INSPECTOR?: No - Vital Signs Vital Sign: Rapid Response Vital Sign Blood Pressure 110/89 Pulse Rate 121 Respiratory Rate 10 Oxygen Saturation 20 - Finger Stick Blood Glucose Finger Stick Blood Glucose: 218 - Time TIGHT BARREL INSPECTOR Ended Time TIGHT BARREL INSPECTOR Ended: 02:12 - Vital Signs at end of TIGHT BARREL INSPECTOR Vital Signs at end of TIGHT BARREL INSPECTOR: Rapid Response End Vital Sign O2 Sat by Pulse Oximetry 100 - Recommendations 5) TIGHT BARREL INSPECTOR Level of Care Recommendations: Transfer to ICU Notifications: Attending Physician - Neurological Status (Select all that apply): Responsive, Follows Commands, Lethargic - Respiratory Oxygen Delivery Method: BiPAP @%, Intubated - Constitutional Appears: In Acute Distress, Other (Lethargic/ Resp Distress) - Head Head Exam: ATRAUMATIC, NORMAL INSPECTION, NORMOCEPHALIC - Respiratory Exam Respiratory Exam: Clear to Ausculation Bilateral, Respiratory Distress. absent: Rhonchi, Wheezes - Cardiovascular Exam Cardiovascular Exam: RRR, +S1, +S2 - GI/Abdominal Exam GI & Abdominal Exam: Soft, Normal Bowel Sounds. absent: Tenderness - Extremities Exam Additional comments: 2+ DP/TP BL Plan - Assessment of Findings&Treatment Plan TIGHT BARREL INSPECTOR was called for patient having respiratory distress Earlier in the night patient showed signs of mild respiratory distress however he was compensated well w/ bipap and no other issues were reported until code. Earlier in night patient received Ambien PO At time of TIGHT BARREL INSPECTOR, patient was found to be satting mid/low 50s; Having respiratory distress; lethargic/somnolent Cords visualized and patient was intubated w/ #8 ET tube; no sedation utilized. 22 at the lower lip Breath sounds auscultated; CO2 capnography changes seen NG tube placed ICU Night Doctor notified; Assessed by ICU team. Patient transferred to ICU for respiratory failure ICU Team will call family. Pending Labs: CXR ABG CMP Troponin <Juliana Wooten - Last Filed: 05/23/18 04:38> TIGHT BARREL INSPECTOR Nurse Assessment - Vital Signs Vital Sign: Rapid Response Vital Sign Blood Pressure 110/89 Pulse Rate 121 Respiratory Rate 10 Oxygen Saturation 20 - Vital Signs at end of TIGHT BARREL INSPECTOR Vital Signs at end of TIGHT BARREL INSPECTOR: Rapid Response End Vital Sign O2 Sat by Pulse Oximetry 100 Attending/Attestation - Attestation I have personally seen and examined this patient.: Yes I have fully participated in the care of the patient.: Yes I have reviewed all pertinent clinical information, including history, physical exam and plan: Yes Notes (Text): 05/23/18 04:35 CCT spent 30 minutes. ETT inserted.Position checked with direct visualization,Co2 detector,auscultation,CXR. ABG was drawn from left femoral artery. A 18 G angiocath was inserted in left external jugular vein.
[2018-05-23] MEDS: Propofol 10 mg/ml 1,000 MG/100 ML VIAL IV PRN (02:30)
[2018-05-23] MEDS: Albuterol-Ipratrop 3 mg / 0.5 (3 ml) UD IH SCH ×5 (02:33→20:11)
[2018-05-23 02:55] LABS: GRAN # 9.16 (1.4-6.5); GRAN % 96.8 % (50.0-68.0); HEMOGLOBIN 9.9 g/dL (14.0-18.0); LYMPH # 0.2 (1.2-3.4); LYMPH % 2.1 % (22.0-35.0); MEAN CELL VOLUME 102.1 fl (80.0-105.0); MEAN CORPUSCULAR HEMOGLOBIN 30.4 pg (25.0-35.0); MEAN CORPUSCULAR HGB CONC 29.7 g/dl (31.0-37.0); MEAN PLATELET VOLUME 10.7 fl (7.0-11.0); MONO # 0.1 (0.1-0.6); MONO % 1.1 % (1.0-6.0); RBC 3.26 10^6/uL (3.5-6.1); RED CELL DISTRIBUTION WIDTH 13.5 % (11.5-14.5); WHITE BLOOD COUNT 9.5 10^3/uL (4.5-11.0)
[2018-05-23 03:14] LABS: TROPONIN I 0.02 ng/mL
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
[2018-05-23] MEDS ORDERED: Sod Polystyrene Sulf 15 gm/60 ml Susp PR ONE (03:28)
[2018-05-23] MEDS ORDERED: Dextrose 50% SYRINGE Inj (50 ml) IVP STA (03:28)
[2018-05-23 03:29] LABS: ALB/GLOB RATIO 1.3 (1.1-1.8); ALT/SGPT 59 U/L (7-56); AST/SGOT 72 U/L (17-59); BLOOD UREA NITROGEN 34 mg/dL (7-21); CALCIUM 8.2 mg/dL (8.4-10.5); GFR NON-AFRICAN AMERICAN > 60
[2018-05-23] MEDS ORDERED: Insulin Regular 1 UNITS/0.01 ML ML SC ONE (03:30)
[2018-05-23 03:37] LABS: ARTERIAL BLOOD GAS HCO3 45.5 mmol/L (21-28); ARTERIAL BLOOD GAS HEMOGLOBIN 9.6 g/dL (11.7-17.4); ARTERIAL BLOOD GAS O2 CAPACITY 13.2 mL/dl (16-24); ARTERIAL BLOOD GAS O2 CONTENT 13.1 ML/dl (15-23); ARTERIAL BLOOD GAS O2 SAT 99.3 % (95-98); ARTERIAL BLOOD GAS PCO2 67 mm/Hg (35-45); ARTERIAL BLOOD GAS PH 7.44 (7.35-7.45); ARTERIAL BLOOD GAS TCO2 47.6 mmol.L (22-28)
[2018-05-23] MEDS: Levalbuterol 0.63 MG/3 ML Inhal Soln UD IH SCH ×2 (05:22→07:27)
[2018-05-23] MEDS ORDERED: Sodium Chloride 0.9% 1,000 ML IV STA (06:54)
[2018-05-23 07:35] LABS: GRAN # 13.32 (1.4-6.5); GRAN % 90.3 % (50.0-68.0); LYMPH # 1.3 (1.2-3.4); LYMPH % 8.5 % (22.0-35.0); MEAN CELL VOLUME 101.5 fl (80.0-105.0); MEAN CORPUSCULAR HEMOGLOBIN 29.9 pg (25.0-35.0); MEAN CORPUSCULAR HGB CONC 29.4 g/dl (31.0-37.0); MEAN PLATELET VOLUME 10.6 fl (7.0-11.0); MONO # 0.2 (0.1-0.6); MONO % 1.2 % (1.0-6.0); PLATELET COUNT 172 10^3/uL (120.0-450.0); RBC 3.35 10^6/uL (3.5-6.1); RED CELL DISTRIBUTION WIDTH 13.5 % (11.5-14.5); WHITE BLOOD COUNT 14.8 10^3/uL (4.5-11.0)
[2018-05-23 08:08] LABS: BLOOD UREA NITROGEN 42 mg/dL (7-21); CALCIUM 9.2 mg/dL (8.4-10.5); GFR NON-AFRICAN AMERICAN 59
[2018-05-23 08:33] LABS: MONOCYTE 6 % (1.0-6.0); NEUTROPHIL 94 % (50.0-70.0)
[2018-05-23 08:34] LABS: PLATELET ESTIMATE NORMAL (NORMAL)
[2018-05-23 08:35] LABS: ARTERIAL BLOOD GAS HCO3 42.8 mmol/L (21-28); ARTERIAL BLOOD GAS HEMOGLOBIN 8.7 g/dL (11.7-17.4); ARTERIAL BLOOD GAS O2 CONTENT 11.9 ML/dl (15-23); ARTERIAL BLOOD GAS O2 SAT 98.8 % (95-98); ARTERIAL BLOOD GAS PCO2 50 mm/Hg (35-45); ARTERIAL BLOOD GAS PH 7.54 (7.35-7.45); ARTERIAL BLOOD GAS TCO2 44.3 mmol.L (22-28)
--- NOTE | 2018-05-23 09:07 | RAD ---
Date of service: 05/23/2018 HISTORY: decreased pulse ox COMPARISON: 05/17/2018 FINDINGS: LUNGS: No active pulmonary disease. PLEURA: No significant pleural effusion identified, no pneumothorax apparent. CARDIOVASCULAR: Minimal aortic calcification Normal cardiac size. No pulmonary vascular congestion. OSSEOUS STRUCTURES: No significant abnormalities. VISUALIZED UPPER ABDOMEN: Normal. OTHER FINDINGS: Endotracheal tube in satisfactory position IMPRESSION: The nasogastric tube is in sub optimal position in the distal esophagus. Endotracheal tube in satisfactory position
[2018-05-23] MEDS ORDERED: Sodium Chloride 0.9% 1,000 ML IV SCH (09:15)
[2018-05-23] MEDS: diltiaZEM 120 mg/24 Hours CD Cap PO SCH (10:40)
[2018-05-23] MEDS: MethylPREDNISolone 40 mg Vial IV SCH (10:41)
[2018-05-23] MEDS: MethylPREDNISolone 40 mg Vial IVP SCH ×2 (12:14→22:25)
--- NOTE | 2018-05-23 16:05 | PN ---
DATE: 05/23/[address] Ryan Schneider. SUBJECTIVE: The patient required intubation and mechanical ventilation yesterday. No reports of hypotension. PHYSICAL EXAMINATION: VITAL SIGNS: Blood pressure 104/62, heart rate 76, temperature 99.3, respirations 40. HEENT: Normocephalic. CHEST: Normal breath sounds. HEART: S1 and S2 regular. EXTREMITIES: No edema. LABORATORY DATA: Chest x-ray revealed over expanded lungs and vertical heart. Official report, endotracheal tube in satisfactory position, nasogastric tube is in suboptimal position in the distal esophagus. Chest CT angio performed 3 days ago and was negative for pulmonary embolism. ASSESSMENT: 1. Coronary artery disease with evidence of diffuse coronary atherosclerosis without critical lesion and normal ejection fraction. 2. Respiratory failure. 3. Rule out underlying sepsis. 4. Prerenal azotemia. 5. Chronic obstructive pulmonary disease. 6. Diffuse coronary atherosclerosis without significant lesions. RECOMMENDATIONS: Continue aspirin 81 mg once a day, normal saline infusion, Solu-Medrol 40 mg intravenously every 12 hours. Obtain repeat 2 sets of blood cultures as well as repeat urine culture. Jossue Hurd MD
--- NOTE | 2018-05-23 16:22 | CP.CCUPN ---
<Cherry Faulkner - Last Filed: 05/23/18 17:50> CCU Subjective - Physician Review Subjective (Free Text): CRITICAL CARE PROGRESS NOTE FOR DR. FAROOQ Faulkner PGY-1 Pt seen and examined at bedside this am. Pt is currently sedated and intubated on pressure support at 420/10/40%/5. Earlier, he was awake and arousable. ROS is unattainable due to sedation. CCU Objective - Vital Signs / Intake & Output Intake and Output (Last 8hrs): Intake & Output 05/23/18 05/23/18 05/23/18 06:59 14:59 22:59 Intake Total 151 Balance 151 Intake: IV 151 Left External Jugular 100 Right Antecubital 30 - Physical Exam Head: Positive for: Atraumatic, Normocephalic Pupils: Positive for: PERRL Extroacular Muscles: Positive for: EOMI Conjunctiva: Positive for: Normal Mouth: Positive for: Moist Mucous Membranes Neck: Positive for: Normal Range of Motion Respiratory/Chest: Positive for: Respiratory Distress, Accessory Muscle Use, Decreased Breath Sounds, Retracting, Rhonchi (Bilaterally.), Other (12cm x 12cm ecchymoses & hematoma noted over R clavicle. No tenderness to palpation) Cardiovascular: Positive for: Regular Rate and Rhythm, Normal S1, S2. Negative for: Murmurs Abdomen: Negative for: Tenderness, Distention, Peritoneal Signs Back: Positive for: Normal Inspection Upper Extremity: Positive for: Normal Inspection. Negative for: Cyanosis, Edema Lower Extremity: Positive for: Normal Inspection. Negative for: Edema (Negative lower extremity edema.) Neurological: Positive for: GCS=15, CN II-XII Intact, Speech Normal Skin: Positive for: Warm, Dry, Normal Color. Negative for: Rashes Psychiatric: Positive for: Alert, Oriented x 3 (Oriented to person), Normal Insight, Normal Concentration - Medications Active Medications: Active Medications Generic Name Dose Route Start Last Admin Trade Name Freq PRN Reason Stop Dose Admin Albuterol/Ipratropium 3 ml 05/23/18 14:00 05/23/18 13:26 Duoneb 3 Mg/0.5 Mg (3 Ml) Ud IH 3 ml [id number] RICH Administration Aspirin 81 mg 05/18/18 10:00 05/23/18 10:39 Aspirin Chewable PO 81 mg DAILY RICH Administration Diltiazem HCl 120 mg 05/21/18 12:45 05/23/18 10:40 Cardizem Cd PO Not Given DAILY RICH Propofol 1,000 mg in 100 mls @ 1.796 mls/hr 05/23/18 02:13 05/23/18 06:41 Diprivan IV 0 mcg/kg/min .Q24H PRN 0 mls/hr TITRATE PER MD ORDER Titration Protocol 5 MCG/KG/MIN Sodium Chloride 1,000 mls @ 100 mls/hr 05/23/18 09:15 05/23/18 09:15 Sodium Chloride 0.9% IV 100 mls/hr .Q10H RICH Administration Losartan Potassium 100 mg 05/20/18 13:15 05/23/18 10:40 Cozaar PO Not Given DAILY RICH Methylprednisolone 40 mg 05/23/18 11:30 05/23/18 12:14 Solu-Medrol IVP 40 mg Q12 RICH Administration Tamsulosin HCl 0.4 mg 05/17/18 11:00 05/23/18 10:40 Flomax PO 0.4 mg DAILY RICH Administration - Patient Studies Lab Studies: Microbiology Studies 05/23/18 07:52 Gram Stain - Final Sputum Induced Lab Studies 05/23/18 05/23/18 05/23/18 Range/Units 08:33 07:15 07:15 WBC 14.8 H D (4.5-11.0) 10^3/uL RBC 3.35 L (3.5-6.1) 10^6/uL Hgb 10.0 L (14.0-18.0) g/dL Hct 34.0 L (42.0-52.0) % MCV 101.5 (80.0-105.0) fl MCH 29.9 (25.0-35.0) pg MCHC 29.4 L (31.0-37.0) g/dl RDW 13.5 (11.5-14.5) % Plt Count 172 (120.0-450.0) 10^3/uL MPV 10.6 (7.0-11.0) fl Gran % 90.3 H (50.0-68.0) % Lymph % (Auto) 8.5 L (22.0-35.0) % [place] % (Auto) 1.2 (1.0-6.0) % Eos % (Auto) 0.0 L (1.5-5.0) % Baso % (Auto) 0.0 (0.0-3.0) % Gran # 13.32 H (1.4-6.5) Lymph # (Auto) 1.3 (1.2-3.4) [place] # (Auto) 0.2 (0.1-0.6) Eos # (Auto) 0.0 (0.0-0.7) Baso # (Auto) 0.00 (0.0-2.0) K/mm3 Neutrophils % (Manual) 94 H (50.0-70.0) % Lymphocytes % (Manual) TEST NOT PERFORMED Monocytes % (Manual) 6 (1.0-6.0) % Platelet Evaluation Normal (NORMAL) pCO2 50 H (35-45) mm/Hg pO2 82.0 (80-100) mm/Hg HCO3 42.8 H* (21-28) mmol/L ABG pH 7.54 H (7.35-7.45) ABG Total CO2 44.3 H (22-28) mmol.L ABG O2 Saturation 98.8 H (95-98) % ABG O2 Content 11.9 L (15-23) ML/dl ABG Base Excess 18.3 H (-2.0-3.0) mmol/L ABG Hemoglobin 8.7 L (11.7-17.4) g/dL ABG Carboxyhemoglobin 1.7 H (0.5-1.5) % POC ABG HHb (Measured) 1.2 (0-5) % ABG Methemoglobin 1.1 (0.0-3.0) % ABG O2 Capacity 12.0 L (16-24) mL/dl Hgb O2 Saturation 96.1 (95.0-98.0) % FiO2 40.0 % Sodium 141 (132-148) mmol/L Potassium 4.9 (3.6-5.0) mmol/L Chloride 93 L (98-107) mmol/L Carbon Dioxide 45 H (21-33) mmol/L Anion Gap 8 L (10-20) BUN 42 H (7-21) mg/dL Creatinine 1.2 (0.8-1.5) mg/dl Est GFR ( Amer) > 60 Est GFR (Non-Af Amer) 59 POC Glucose (mg/dL) (65-110) mg/dL Random Glucose 130 H (70-110) mg/dL Calcium 9.2 (8.4-10.5) mg/dL Phosphorus 2.2 L (2.5-4.5) mg/dL Magnesium 2.5 H (1.7-2.2) mg/dL Total Bilirubin (0.2-1.3) mg/dL AST (17-59) U/L ALT (7-56) U/L Alkaline Phosphatase (38-126) U/L Troponin I ng/mL Total Protein (5.8-8.3) g/dL Albumin (3.0-4.8) g/dL Globulin gm/dL Albumin/Globulin Ratio (1.1-1.8) 05/23/18 05/23/18 05/23/18 Range/Units 02:40 02:35 02:35 WBC 9.5 (4.5-11.0) 10^3/uL RBC 3.26 L (3.5-6.1) 10^6/uL Hgb 9.9 L (14.0-18.0) g/dL Hct 33.3 L (42.0-52.0) % MCV 102.1 (80.0-105.0) fl MCH 30.4 (25.0-35.0) pg MCHC 29.7 L (31.0-37.0) g/dl RDW 13.5 (11.5-14.5) % Plt Count 166 (120.0-450.0) 10^3/uL MPV 10.7 (7.0-11.0) fl Gran % 96.8 H (50.0-68.0) % Lymph % (Auto) 2.1 L (22.0-35.0) % [place] % (Auto) 1.1 (1.0-6.0) % Eos % (Auto) 0.0 L (1.5-5.0) % Baso % (Auto) 0.0 (0.0-3.0) % Gran # 9.16 H (1.4-6.5) Lymph # (Auto) 0.2 L (1.2-3.4) [place] # (Auto) 0.1 (0.1-0.6) Eos # (Auto) 0.0 (0.0-0.7) Baso # (Auto) 0.00 (0.0-2.0) K/mm3 Neutrophils % (Manual) (50.0-70.0) % Lymphocytes % (Manual) Monocytes % (Manual) (1.0-6.0) % Platelet Evaluation (NORMAL) pCO2 67 H (35-45) mm/Hg pO2 82.0 (80-100) mm/Hg HCO3 45.5 H* (21-28) mmol/L ABG pH 7.44 (7.35-7.45) ABG Total CO2 47.6 H (22-28) mmol.L ABG O2 Saturation 99.3 H (95-98) % ABG O2 Content 13.1 L (15-23) ML/dl ABG Base Excess 18.7 H (-2.0-3.0) mmol/L ABG Hemoglobin 9.6 L (11.7-17.4) g/dL ABG Carboxyhemoglobin 2.2 H (0.5-1.5) % POC ABG HHb (Measured) 0.7 (0-5) % ABG Methemoglobin 0.6 (0.0-3.0) % ABG O2 Capacity 13.2 L (16-24) mL/dl Hgb O2 Saturation 96.5 (95.0-98.0) % FiO2 40.0 % Sodium 139 (132-148) mmol/L Potassium 5.8 H* D (3.6-5.0) mmol/L Chloride 94 L (98-107) mmol/L Carbon Dioxide 44 H (21-33) mmol/L Anion Gap 7 L (10-20) BUN 34 H (7-21) mg/dL Creatinine 1.0 (0.8-1.5) mg/dl Est GFR ( Amer) > 60 Est GFR (Non-Af Amer) > 60 POC Glucose (mg/dL) (65-110) mg/dL Random Glucose 205 H (70-110) mg/dL Calcium 8.2 L (8.4-10.5) mg/dL Phosphorus (2.5-4.5) mg/dL Magnesium 2.4 H (1.7-2.2) mg/dL Total Bilirubin 0.6 (0.2-1.3) mg/dL AST 72 H D (17-59) U/L ALT 59 H (7-56) U/L Alkaline Phosphatase 47 (38-126) U/L Troponin I 0.02 D ng/mL Total Protein 5.3 L (5.8-8.3) g/dL Albumin 3.0 (3.0-4.8) g/dL Globulin 2.2 gm/dL Albumin/Globulin Ratio 1.3 (1.1-1.8) 05/22/18 Range/Units 22:50 WBC (4.5-11.0) 10^3/uL RBC (3.5-6.1) 10^6/uL Hgb (14.0-18.0) g/dL Hct (42.0-52.0) % MCV (80.0-105.0) fl MCH (25.0-35.0) pg MCHC (31.0-37.0) g/dl RDW (11.5-14.5) % Plt Count (120.0-450.0) 10^3/uL MPV (7.0-11.0) fl Gran % (50.0-68.0) % Lymph % (Auto) (22.0-35.0) % [place] % (Auto) (1.0-6.0) % Eos % (Auto) (1.5-5.0) % Baso % (Auto) (0.0-3.0) % Gran # (1.4-6.5) Lymph # (Auto) (1.2-3.4) [place] # (Auto) (0.1-0.6) Eos # (Auto) (0.0-0.7) Baso # (Auto) (0.0-2.0) K/mm3 Neutrophils % (Manual) (50.0-70.0) % Lymphocytes % (Manual) Monocytes % (Manual) (1.0-6.0) % Platelet Evaluation (NORMAL) pCO2 (35-45) mm/Hg pO2 (80-100) mm/Hg HCO3 (21-28) mmol/L ABG pH (7.35-7.45) ABG Total CO2 (22-28) mmol.L ABG O2 Saturation (95-98) % ABG O2 Content (15-23) ML/dl ABG Base Excess (-2.0-3.0) mmol/L ABG Hemoglobin (11.7-17.4) g/dL ABG Carboxyhemoglobin (0.5-1.5) % POC ABG HHb (Measured) (0-5) % ABG Methemoglobin (0.0-3.0) % ABG O2 Capacity (16-24) mL/dl Hgb O2 Saturation (95.0-98.0) % FiO2 % Sodium (132-148) mmol/L Potassium (3.6-5.0) mmol/L Chloride (98-107) mmol/L Carbon Dioxide (21-33) mmol/L Anion Gap (10-20) BUN (7-21) mg/dL Creatinine (0.8-1.5) mg/dl Est GFR ( Amer) Est GFR (Non-Af Amer) POC Glucose (mg/dL) 155 H (65-110) mg/dL Random Glucose (70-110) mg/dL Calcium (8.4-10.5) mg/dL Phosphorus (2.5-4.5) mg/dL Magnesium (1.7-2.2) mg/dL Total Bilirubin (0.2-1.3) mg/dL AST (17-59) U/L ALT (7-56) U/L Alkaline Phosphatase (38-126) U/L Troponin I ng/mL Total Protein (5.8-8.3) g/dL Albumin (3.0-4.8) g/dL Globulin gm/dL Albumin/Globulin Ratio (1.1-1.8) Laboratory Results - last 24 hr 05/22/18 05/23/18 05/23/18 22:50 02:35 02:35 WBC 9.5 RBC 3.26 L Hgb 9.9 L Hct 33.3 L MCV 102.1 MCH 30.4 MCHC 29.7 L RDW 13.5 Plt Count 166 MPV 10.7 Gran % 96.8 H Lymph % (Auto) 2.[address] [place] % (Auto) 1.1 Eos % (Auto) 0.0 L Baso % (Auto) 0.0 Gran # 9.16 H Lymph # (Auto) 0.[address] [place] # (Auto) 0.1 Eos # (Auto) 0.0 Baso # (Auto) 0.00 Neutrophils % (Manual) Lymphocytes % (Manual) Monocytes % (Manual) Platelet Evaluation pCO2 pO2 HCO3 ABG pH ABG Total CO2 ABG O2 Saturation ABG O2 Content ABG Base Excess ABG Hemoglobin ABG Carboxyhemoglobin POC ABG HHb (Measured) ABG Methemoglobin ABG O2 Capacity Hgb O2 Saturation FiO2 Sodium 139 Potassium 5.8 H* D Chloride 94 L Carbon Dioxide 44 H Anion Gap 7 L BUN 34 H Creatinine 1.0 Est GFR ( Amer) > 60 Est GFR (Non-Af Amer) > 60 POC Glucose (mg/dL) 155 H Random Glucose 205 H Calcium 8.2 L Phosphorus Magnesium 2.4 H Total Bilirubin 0.6 AST 72 H D ALT 59 H Alkaline Phosphatase 47 Troponin I 0.02 D Total Protein 5.3 L Albumin 3.0 Globulin 2.2 Albumin/Globulin Ratio 1.3 05/23/18 05/23/18 05/23/18 02:40 07:15 07:15 WBC 14.8 H D RBC 3.35 L Hgb 10.0 L Hct 34.0 L MCV 101.5 MCH 29.9 MCHC 29.4 L RDW 13.5 Plt Count 172 MPV 10.6 Gran % 90.3 H Lymph % (Auto) 8.[address] [place] % (Auto) 1.2 Eos % (Auto) 0.0 L Baso % (Auto) 0.0 Gran # 13.32 H Lymph # (Auto) 1.3 [place] # (Auto) 0.2 Eos # (Auto) 0.0 Baso # (Auto) 0.00 Neutrophils % (Manual) 94 H Lymphocytes % (Manual) TEST NOT PERFORMED Monocytes % (Manual) 6 Platelet Evaluation Normal pCO2 67 H pO2 82.0 HCO3 45.5 H* ABG pH 7.44 ABG Total CO2 47.6 H ABG O2 Saturation 99.3 H ABG O2 Content 13.1 L ABG Base Excess 18.7 H ABG Hemoglobin 9.6 L ABG Carboxyhemoglobin 2.2 H POC ABG HHb (Measured) 0.7 ABG Methemoglobin 0.6 ABG O2 Capacity 13.2 L Hgb O2 Saturation 96.5 FiO2 40.0 Sodium 141 Potassium 4.9 Chloride 93 L Carbon Dioxide 45 H Anion Gap 8 L BUN 42 H Creatinine 1.2 Est GFR ( Amer) > 60 Est GFR (Non-Af Amer) 59 POC Glucose (mg/dL) Random Glucose 130 H Calcium 9.2 Phosphorus 2.2 L Magnesium 2.5 H Total Bilirubin AST ALT Alkaline Phosphatase Troponin I Total Protein Albumin Globulin Albumin/Globulin Ratio 05/23/18 08:33 WBC RBC Hgb Hct MCV MCH MCHC RDW Plt Count MPV Gran % Lymph % (Auto) [place] % (Auto) Eos % (Auto) Baso % (Auto) Gran # Lymph # (Auto) [place] # (Auto) Eos # (Auto) Baso # (Auto) Neutrophils % (Manual) Lymphocytes % (Manual) Monocytes % (Manual) Platelet Evaluation pCO2 50 H pO2 82.0 HCO3 42.8 H* ABG pH 7.54 H ABG Total CO2 44.3 H ABG O2 Saturation 98.8 H ABG O2 Content 11.9 L ABG Base Excess 18.3 H ABG Hemoglobin 8.7 L ABG Carboxyhemoglobin 1.7 H POC ABG HHb (Measured) 1.2 ABG Methemoglobin 1.1 ABG O2 Capacity 12.0 L Hgb O2 Saturation 96.1 FiO2 40.0 Sodium Potassium Chloride Carbon Dioxide Anion Gap BUN Creatinine Est GFR ( Amer) Est GFR (Non-Af Amer) POC Glucose (mg/dL) Random Glucose Calcium Phosphorus Magnesium Total Bilirubin AST ALT Alkaline Phosphatase Troponin I Total Protein Albumin Globulin Albumin/Globulin Ratio EKG/Cardiology Studies: Cardiology / EKG Studies 05/23/18 02:05 ELECTROCARDIOGRAM Stat Comment: Reason For Exam: non responsive Review of Systems - Review of Systems Review of Systems: per HPI Assessment/Plan - Assessment and Plan (Free Text) Assessment: 77 y/o M with PMHx of COPD, extensive smoking history brought down to ICU from floors for hypercapnic respiratory failure 2/2 lethargy and inability to protect his airway Plan: Neuro: Sedated on propofol drip Awakens to tactile stimulation Opens eyes spontaneous, and obeys motor commands Cardiovascular: Normotensive RRR Maintain MAP >65 aspirin diltiazem losartan Pulm: Currently sedated on PRVC 420/10/40%/5 Failed weaning protocol today Will attempt weaning protocol tomorrow SaO2> 905 Duonebs prn /Renal: Maintain euvolemia Replete electrolytes prn Hyperkalemia resolved avoid nephrotoxic agents ABG reveals hypercapnic respiratory failure with metabolic compensation Heme: Monitor H/H GI/DVT: Protonix IVP/Hep SC Case seen, examined and discussed with attending physician Dr. Rousseau <Kaylee Rousseau - Last Filed: 05/23/18 18:16> CCU Objective - Vital Signs / Intake & Output Vital Signs (Last 4 hours): Vital Signs Temp Pulse Resp BP Pulse Ox 05/23/18 18:00 67 118/73 100 05/23/18 17:30 69 122/67 100 05/23/18 17:00 101 H 144/80 95 05/23/18 16:30 78 121/74 100 05/23/18 16:00 98.2 F 75 12 153/114 H 100 05/23/18 15:59 98 H 05/23/18 15:30 99 H 131/84 87 L 05/23/18 15:00 84 114/64 100 05/23/18 14:30 78 98/60 L 100 Intake and Output (Last 8hrs): Intake & Output 05/23/18 05/23/18 05/23/18 06:59 14:59 22:59 Intake Total 151 652 Output Total 200 Balance 151 452 Intake: IV 151 612 IVF 600 Left External Jugular 100 Propofol 11 Right Antecubital 30 Oral 40 Output: Urine 200 Urine, Voided 200 Other: # Bowel Movements 1 - Medications Active Medications: Active Medications Generic Name Dose Route Start Last Admin Trade Name Freq PRN Reason Stop Dose Admin Albuterol/Ipratropium 3 ml 05/23/18 14:00 05/23/18 13:26 Duoneb 3 Mg/0.5 Mg (3 Ml) Ud IH 3 ml [id number] RICH Administration Aspirin 81 mg 05/18/18 10:00 05/23/18 10:39 Aspirin Chewable PO 81 mg DAILY RICH Administration Diltiazem HCl 120 mg 05/21/18 12:45 05/23/18 10:40 Cardizem Cd PO Not Given DAILY RICH Heparin Sodium (Porcine) 5,000 units 05/23/18 22:00 Heparin SC Q12 RICH Protocol Propofol 1,000 mg in 100 mls @ 1.796 mls/hr 05/23/18 02:13 05/23/18 16:10 Diprivan IV 10 mcg/kg/min .Q24H PRN 3.592 mls/hr TITRATE PER MD ORDER Titration Protocol 5 MCG/KG/MIN Sodium Chloride 1,000 mls @ 100 mls/hr 05/23/18 09:15 05/23/18 09:15 Sodium Chloride 0.9% IV 100 mls/hr .Q10H RICH Administration Losartan Potassium 100 mg 05/20/18 13:15 05/23/18 10:40 Cozaar PO Not Given DAILY RICH Methylprednisolone 40 mg 05/23/18 11:30 05/23/18 12:14 Solu-Medrol IVP 40 mg Q12 RICH Administration Pantoprazole Sodium 40 mg 05/23/18 18:00 Protonix Inj IVP DAILY RICH Tamsulosin HCl 0.4 mg 05/17/18 11:00 05/23/18 10:40 Flomax PO 0.4 mg DAILY RICH Administration - Patient Studies Lab Studies: Microbiology Studies 05/23/18 07:52 Gram Stain - Final Sputum Induced Lab Studies 05/23/18 05/23/18 05/23/18 Range/Units 08:33 07:15 07:15 WBC 14.8 H D (4.5-11.0) 10^3/uL RBC 3.35 L (3.5-6.1) 10^6/uL Hgb 10.0 L (14.0-18.0) g/dL Hct 34.0 L (42.0-52.0) % MCV 101.5 (80.0-105.0) fl MCH 29.9 (25.0-35.0) pg MCHC 29.4 L (31.0-37.0) g/dl RDW 13.5 (11.5-14.5) % Plt Count 172 (120.0-450.0) 10^3/uL MPV 10.6 (7.0-11.0) fl Gran % 90.3 H (50.0-68.0) % Lymph % (Auto) 8.5 L (22.0-35.0) % [place] % (Auto) 1.2 (1.0-6.0) % Eos % (Auto) 0.0 L (1.5-5.0) % Baso % (Auto) 0.0 (0.0-3.0) % Gran # 13.32 H (1.4-6.5) Lymph # (Auto) 1.3 (1.2-3.4) [place] # (Auto) 0.2 (0.1-0.6) Eos # (Auto) 0.0 (0.0-0.7) Baso # (Auto) 0.00 (0.0-2.0) K/mm3 Neutrophils % (Manual) 94 H (50.0-70.0) % Lymphocytes % (Manual) TEST NOT PERFORMED Monocytes % (Manual) 6 (1.0-6.0) % Platelet Evaluation Normal (NORMAL) pCO2 50 H (35-45) mm/Hg pO2 82.0 (80-100) mm/Hg HCO3 42.8 H* (21-28) mmol/L ABG pH 7.54 H (7.35-7.45) ABG Total CO2 44.3 H (22-28) mmol.L ABG O2 Saturation 98.8 H (95-98) % ABG O2 Content 11.9 L (15-23) ML/dl ABG Base Excess 18.3 H (-2.0-3.0) mmol/L ABG Hemoglobin 8.7 L (11.7-17.4) g/dL ABG Carboxyhemoglobin 1.7 H (0.5-1.5) % POC ABG HHb (Measured) 1.2 (0-5) % ABG Methemoglobin 1.1 (0.0-3.0) % ABG O2 Capacity 12.0 L (16-24) mL/dl Hgb O2 Saturation 96.1 (95.0-98.0) % FiO2 40.0 % Sodium 141 (132-148) mmol/L Potassium 4.9 (3.6-5.0) mmol/L Chloride 93 L (98-107) mmol/L Carbon Dioxide 45 H (21-33) mmol/L Anion Gap 8 L (10-20) BUN 42 H (7-21) mg/dL Creatinine 1.2 (0.8-1.5) mg/dl Est GFR ( Amer) > 60 Est GFR (Non-Af Amer) 59 POC Glucose (mg/dL) (65-110) mg/dL Random Glucose 130 H (70-110) mg/dL Calcium 9.2 (8.4-10.5) mg/dL Phosphorus 2.2 L (2.5-4.5) mg/dL Magnesium 2.5 H (1.7-2.2) mg/dL Total Bilirubin (0.2-1.3) mg/dL AST (17-59) U/L ALT (7-56) U/L Alkaline Phosphatase (38-126) U/L Troponin I ng/mL Total Protein (5.8-8.3) g/dL Albumin (3.0-4.8) g/dL Globulin gm/dL Albumin/Globulin Ratio (1.1-1.8) 05/23/18 05/23/18 05/23/18 Range/Units 02:40 02:35 02:35 WBC 9.5 (4.5-11.0) 10^3/uL RBC 3.26 L (3.5-6.1) 10^6/uL Hgb 9.9 L (14.0-18.0) g/dL Hct 33.3 L (42.0-52.0) % MCV 102.1 (80.0-105.0) fl MCH 30.4 (25.0-35.0) pg MCHC 29.7 L (31.0-37.0) g/dl RDW 13.5 (11.5-14.5) % Plt Count 166 (120.0-450.0) 10^3/uL MPV 10.7 (7.0-11.0) fl Gran % 96.8 H (50.0-68.0) % Lymph % (Auto) 2.1 L (22.0-35.0) % [place] % (Auto) 1.1 (1.0-6.0) % Eos % (Auto) 0.0 L (1.5-5.0) % Baso % (Auto) 0.0 (0.0-3.0) % Gran # 9.16 H (1.4-6.5) Lymph # (Auto) 0.2 L (1.2-3.4) [place] # (Auto) 0.1 (0.1-0.6) Eos # (Auto) 0.0 (0.0-0.7) Baso # (Auto) 0.00 (0.0-2.0) K/mm3 Neutrophils % (Manual) (50.0-70.0) % Lymphocytes % (Manual) Monocytes % (Manual) (1.0-6.0) % Platelet Evaluation (NORMAL) pCO2 67 H (35-45) mm/Hg pO2 82.0 (80-100) mm/Hg HCO3 45.5 H* (21-28) mmol/L ABG pH 7.44 (7.35-7.45) ABG Total CO2 47.6 H (22-28) mmol.L ABG O2 Saturation 99.3 H (95-98) % ABG O2 Content 13.1 L (15-23) ML/dl ABG Base Excess 18.7 H (-2.0-3.0) mmol/L ABG Hemoglobin 9.6 L (11.7-17.4) g/dL ABG Carboxyhemoglobin 2.2 H (0.5-1.5) % POC ABG HHb (Measured) 0.7 (0-5) % ABG Methemoglobin 0.6 (0.0-3.0) % ABG O2 Capacity 13.2 L (16-24) mL/dl Hgb O2 Saturation 96.5 (95.0-98.0) % FiO2 40.0 % Sodium 139 (132-148) mmol/L Potassium 5.8 H* D (3.6-5.0) mmol/L Chloride 94 L (98-107) mmol/L Carbon Dioxide 44 H (21-33) mmol/L Anion Gap 7 L (10-20) BUN 34 H (7-21) mg/dL Creatinine 1.0 (0.8-1.5) mg/dl Est GFR ( Amer) > 60 Est GFR (Non-Af Amer) > 60 POC Glucose (mg/dL) (65-110) mg/dL Random Glucose 205 H (70-110) mg/dL Calcium 8.2 L (8.4-10.5) mg/dL Phosphorus (2.5-4.5) mg/dL Magnesium 2.4 H (1.7-2.2) mg/dL Total Bilirubin 0.6 (0.2-1.3) mg/dL AST 72 H D (17-59) U/L ALT 59 H (7-56) U/L Alkaline Phosphatase 47 (38-126) U/L Troponin I 0.02 D ng/mL Total Protein 5.3 L (5.8-8.3) g/dL Albumin 3.0 (3.0-4.8) g/dL Globulin 2.2 gm/dL Albumin/Globulin Ratio 1.3 (1.1-1.8) 05/22/18 Range/Units 22:50 WBC (4.5-11.0) 10^3/uL RBC (3.5-6.1) 10^6/uL Hgb (14.0-18.0) g/dL Hct (42.0-52.0) % MCV (80.0-105.0) fl MCH (25.0-35.0) pg MCHC (31.0-37.0) g/dl RDW (11.5-14.5) % Plt Count (120.0-450.0) 10^3/uL MPV (7.0-11.0) fl Gran % (50.0-68.0) % Lymph % (Auto) (22.0-35.0) % [place] % (Auto) (1.0-6.0) % Eos % (Auto) (1.5-5.0) % Baso % (Auto) (0.0-3.0) % Gran # (1.4-6.5) Lymph # (Auto) (1.2-3.4) [place] # (Auto) (0.1-0.6) Eos # (Auto) (0.0-0.7) Baso # (Auto) (0.0-2.0) K/mm3 Neutrophils % (Manual) (50.0-70.0) % Lymphocytes % (Manual) Monocytes % (Manual) (1.0-6.0) % Platelet Evaluation (NORMAL) pCO2 (35-45) mm/Hg pO2 (80-100) mm/Hg HCO3 (21-28) mmol/L ABG pH (7.35-7.45) ABG Total CO2 (22-28) mmol.L ABG O2 Saturation (95-98) % ABG O2 Content (15-23) ML/dl ABG Base Excess (-2.0-3.0) mmol/L ABG Hemoglobin (11.7-17.4) g/dL ABG Carboxyhemoglobin (0.5-1.5) % POC ABG HHb (Measured) (0-5) % ABG Methemoglobin (0.0-3.0) % ABG O2 Capacity (16-24) mL/dl Hgb O2 Saturation (95.0-98.0) % FiO2 % Sodium (132-148) mmol/L Potassium (3.6-5.0) mmol/L Chloride (98-107) mmol/L Carbon Dioxide (21-33) mmol/L Anion Gap (10-20) BUN (7-21) mg/dL Creatinine (0.8-1.5) mg/dl Est GFR ( Amer) Est GFR (Non-Af Amer) POC Glucose (mg/dL) 155 H (65-110) mg/dL Random Glucose (70-110) mg/dL Calcium (8.4-10.5) mg/dL Phosphorus (2.5-4.5) mg/dL Magnesium (1.7-2.2) mg/dL Total Bilirubin (0.2-1.3) mg/dL AST (17-59) U/L ALT (7-56) U/L Alkaline Phosphatase (38-126) U/L Troponin I ng/mL Total Protein (5.8-8.3) g/dL Albumin (3.0-4.8) g/dL Globulin gm/dL Albumin/Globulin Ratio (1.1-1.8) Laboratory Results - last 24 hr 05/22/18 05/23/18 05/23/18 22:50 02:35 02:35 WBC 9.5 RBC 3.26 L Hgb 9.9 L Hct 33.3 L MCV 102.1 MCH 30.4 MCHC 29.7 L RDW 13.5 Plt Count 166 MPV 10.7 Gran % 96.8 H Lymph % (Auto) 2.[address] [place] % (Auto) 1.1 Eos % (Auto) 0.0 L Baso % (Auto) 0.0 Gran # 9.16 H Lymph # (Auto) 0.[address] [place] # (Auto) 0.1 Eos # (Auto) 0.0 Baso # (Auto) 0.00 Neutrophils % (Manual) Lymphocytes % (Manual) Monocytes % (Manual) Platelet Evaluation pCO2 pO2 HCO3 ABG pH ABG Total CO2 ABG O2 Saturation ABG O2 Content ABG Base Excess ABG Hemoglobin ABG Carboxyhemoglobin POC ABG HHb (Measured) ABG Methemoglobin ABG O2 Capacity Hgb O2 Saturation FiO2 Sodium 139 Potassium 5.8 H* D Chloride 94 L Carbon Dioxide 44 H Anion Gap 7 L BUN 34 H Creatinine 1.0 Est GFR ( Amer) > 60 Est GFR (Non-Af Amer) > 60 POC Glucose (mg/dL) 155 H Random Glucose 205 H Calcium 8.2 L Phosphorus Magnesium 2.4 H Total Bilirubin 0.6 AST 72 H D ALT 59 H Alkaline Phosphatase 47 Troponin I 0.02 D Total Protein 5.3 L Albumin 3.0 Globulin 2.2 Albumin/Globulin Ratio 1.3 05/23/18 05/23/18 05/23/18 02:40 07:15 07:15 WBC 14.8 H D RBC 3.35 L Hgb 10.0 L Hct 34.0 L MCV 101.5 MCH 29.9 MCHC 29.4 L RDW 13.5 Plt Count 172 MPV 10.6 Gran % 90.3 H Lymph % (Auto) 8.[address] [place] % (Auto) 1.2 Eos % (Auto) 0.0 L Baso % (Auto) 0.0 Gran # 13.32 H Lymph # (Auto) 1.3 [place] # (Auto) 0.2 Eos # (Auto) 0.0 Baso # (Auto) 0.00 Neutrophils % (Manual) 94 H Lymphocytes % (Manual) TEST NOT PERFORMED Monocytes % (Manual) 6 Platelet Evaluation Normal pCO2 67 H pO2 82.0 HCO3 45.5 H* ABG pH 7.44 ABG Total CO2 47.6 H ABG O2 Saturation 99.3 H ABG O2 Content 13.1 L ABG Base Excess 18.7 H ABG Hemoglobin 9.6 L ABG Carboxyhemoglobin 2.2 H POC ABG HHb (Measured) 0.7 ABG Methemoglobin 0.6 ABG O2 Capacity 13.2 L Hgb O2 Saturation 96.5 FiO2 40.0 Sodium 141 Potassium 4.9 Chloride 93 L Carbon Dioxide 45 H Anion Gap 8 L BUN 42 H Creatinine 1.2 Est GFR ( Amer) > 60 Est GFR (Non-Af Amer) 59 POC Glucose (mg/dL) Random Glucose 130 H Calcium 9.2 Phosphorus 2.2 L Magnesium 2.5 H Total Bilirubin AST ALT Alkaline Phosphatase Troponin I Total Protein Albumin Globulin Albumin/Globulin Ratio 05/23/18 08:33 WBC RBC Hgb Hct MCV MCH MCHC RDW Plt Count MPV Gran % Lymph % (Auto) [place] % (Auto) Eos % (Auto) Baso % (Auto) Gran # Lymph # (Auto) [place] # (Auto) Eos # (Auto) Baso # (Auto) Neutrophils % (Manual) Lymphocytes % (Manual) Monocytes % (Manual) Platelet Evaluation pCO2 50 H pO2 82.0 HCO3 42.8 H* ABG pH 7.54 H ABG Total CO2 44.3 H ABG O2 Saturation 98.8 H ABG O2 Content 11.9 L ABG Base Excess 18.3 H ABG Hemoglobin 8.7 L ABG Carboxyhemoglobin 1.7 H POC ABG HHb (Measured) 1.2 ABG Methemoglobin 1.1 ABG O2 Capacity 12.0 L Hgb O2 Saturation 96.1 FiO2 40.0 Sodium Potassium Chloride Carbon Dioxide Anion Gap BUN Creatinine Est GFR ( Amer) Est GFR (Non-Af Amer) POC Glucose (mg/dL) Random Glucose Calcium Phosphorus Magnesium Total Bilirubin AST ALT Alkaline Phosphatase Troponin I Total Protein Albumin Globulin Albumin/Globulin Ratio EKG/Cardiology Studies: Cardiology / EKG Studies 05/23/18 02:05 ELECTROCARDIOGRAM Stat Comment: Reason For Exam: non responsive Addendum Addendum: 05/23/18 18:16 ICU Attending Addendum Patient seen and examined. Case reviewed on round with housestaff. Agree with resident note above with the following additions/exceptions: 77 M hx of COPD on home oxygen recently admitted to ICU for HCRF tx with Bipap transferred to the floors returned overnight unresponsive likely medication induced. As per EMR, last night 1:40am patient was unresponsive, a rapid response was called, he was intubated. Of note, he was given ambien prior to episode where he was at his baseline mentations. From a pulm standpoint, he remain intubated and resp alkolotic now becuse he is being over-ventilated. Will drop his RR to 10 and wean off sedation. Trial today is he wakes up, if not SBT in AM. Minimize sedation, if needed use propofol. duonebs Higher dose steroids since he is on home steroids [id number] solumedrol d/c zolpidem, he should not be on this medicatoin cont home bp meds if MAP > 65 hyperK resolved Tmax 99.3 and although he has some leukocytosis, CXR does not show PNA. Doubt infection. hold off on abx for now. If he develops fevers or signs of sepsis then begin HCAP abx. Rest of care as above Kaylee Rousseau MD Pulmonary, Critical Care and Sleep Medicine Critical Care TIme 41 mins
--- NOTE | 2018-05-23 18:08 | PN ---
DATE: 05/23/2018 SUBJECTIVE: The patient is 77 years old. Last night's events noted. According to nurse, he started to get short of breath and he became unresponsive, so he was intubated on the [facility] floor and at that point he was bradycardic with oxygen saturation 90% and was unresponsive. He was intubated and transferred to ICU. PHYSICAL EXAMINATION: GENERAL: He is sedated, on vent. VITAL SIGNS: He is afebrile, pulse 78, respirations 12, blood pressure 121/74. LUNGS: Bilateral fair airflow. Few expiratory rhonchi. HEART: S1 and S2 audible. ABDOMEN: Soft. Nontender. No rebound. No guarding. NEUROLOGICAL: He is sedated, on vent. LABORATORY EXAM: WBC is 14.8, hemoglobin 10, hematocrit 34, platelet 172. Chemistry: Sodium 141, potassium 4.9, chloride 93, CO2 of 45, BUN 42, creatinine 1.2, blood sugar of 130. ASSESSMENT: 1. Respiratory failure, status post intubation. 2. Terminal chronic obstructive pulmonary disease. 3. Hypertension. 4. Hyperlipidemia. PLAN: Currently, the patient is on vent support. The patient had probably demand ischemia. Had cardiac cath done, was negative. We will continue the patient on diltiazem, losartan and hold if blood pressure is below 100. Continue nebulizer treatment. We will continue him on Solu-Medrol 40 mg every 12. We will discuss with the patient's son. Currently, he is full code. We will monitor him closely and might consider DNR of condition get worse. Peter Calvillo MD
--- NOTE | 2018-05-23 20:34 | CON ---
DATE: 05/23/2018 PULMONARY CONSULTATION REASON FOR PULMONARY CONSULTATION: Respiratory failure. REFERRING PHYSICIAN: Peter Calvillo MD HISTORY OF PRESENT ILLNESS: History is obtained via extensive discussion with the pan devulcanizer (Dr. Rousseau). I have also discussed the case with the nurse at length. I have also reviewed the chart at length. The patient is currently intubated and sedated. The patient is a chronically ill 77-year-old male, with past medical history significant for advanced chronic obstructive pulmonary disease, on home oxygen, hypertension, hyperlipidemia, who presented to [facility] - originally on 05/16/2018 - with main complaints of increasing shortness of breath, cough and congestion. The patient was also noted to be lethargic by the family. In the emergency room, the patient was noted to be in acute respiratory failure. He was then placed on BiPAP and transferred to the medical ICU. Again, I did discuss the case with the pan devulcanizer and nurse at length. Apparently, the patient did well and was transferred to the floor. However, last night, he was found to be very lethargic. In addition, the patient was noted to have oxygen desaturation. The patient was then intubated for airway protection and transferred back down to the ICU. As above, the patient did present with shortness of breath at rest, dyspnea on exertion, cough and congestion. There is also notation of scant sputum production. There is no history of chest pain, coughing up of blood, or chest pain - made worse with deep respirations. There is no history of temperatures, chills or infectious exposure. There is no history of night sweats, weight loss or appetite change prior to the above events. No history of leg or calf pains. No history of syncope or diaphoresis. No history of recent travel or trauma. REVIEW OF SYSTEMS: No history of nausea, vomiting or diarrhea. No acute urinary symptoms. Rest of the review of systems is negative. ALLERGIES: NO KNOWN ALLERGIES. SOCIAL HISTORY: Positive for extensive tobacco usage. No alcohol. FAMILY HISTORY: No inheritable diseases. HOME MEDICATIONS: Include promethazine, Celebrex, aspirin, DuoNebs, prednisone, Pulmicort, Protonix, Lopressor, Vytorin, Diovan, Spiriva and Ambien. PHYSICAL EXAMINATION GENERAL: The patient is currently intubated and sedated. VITAL SIGNS: Temperature is 98.4, pulse 74, respirations 17/10, blood pressure 89/56. HEENT: Normocephalic, atraumatic. No JVD. CARDIOVASCULAR: Systolic ejection murmur at the lower left sternal border. No S3 gallop. LUNGS: Decreased breath sounds at the bases. Mild bilateral rhonchi and wheezing are appreciated. EXTREMITIES: No clubbing, cyanosis or edema. GI: Abdomen is soft, nondistended. Bowel sounds are positive. SKIN: No acute rash. NEUROLOGIC: Exam limited at the present time. PERTINENT LABORATORY DATA: Chest x-ray was done this morning and reviewed. There is no active disease noted. CT scan of the chest was also done on 05/20/2018. There is extensive emphysema noted - especially in the upper lobes. There is a small consolidation seen at the right base posteriorly - seen on the previous CAT scan of 01/20/2017. There is no pulmonary embolism noted. Arterial blood gas was also done on PRVC 16, tidal volume 400, FiO2 of 40%. Results are: PH 7.54, pCO2 of 50, pO2 of 82. CBC: White count 14.8K, hemoglobin 10.0, hematocrit 34.0, platelets of 172,000. Complete metabolic profile: Chloride 93, carbon dioxide 45, BUN 42, glucose 130, phosphorus 2.2, magnesium 2.5. Rest of the metabolic profile is within normal limits. Repeat troponin during the admission - 0.21. IMPRESSION: 1. Respiratory failure. 2. Advanced chronic obstructive pulmonary disease. 3. Nonobstructive coronary artery disease. 4. Mild anemia. PLAN: Again, I did discuss the case with the nurse and pan devulcanizer at length. I have also reviewed the chart at length. The patient is currently intubated and sedated. The patient did present to [facility] originally on 05/16/2018 with increasing shortness of breath, cough and congestion. In addition, as above, the patient was also noted to be lethargic by the family. In the emergency room, the patient was found to be in respiratory failure. He was then placed on BiPAP and transferred to the medical ICU. The patient did well over the subsequent next few days and was transferred to the floor. However, last night, the patient was noted to be lethargic with oxygen desaturation. He was thus intubated and transferred to the medical ICU for additional management. I did review the chest x-ray as above. There are no significant abnormalities seen. I have also reviewed the CAT scan of the chest done on 05/20/2018. There is no pulmonary embolism noted. There are no significant acute findings noted. On physical exam, the patient is in [id number] bronchospasm. I will change the nebulizer treatments to DuoNebs. I will also increase the intravenous Solu-Medrol. These changes were discussed with Dr. Rousseau. Dr. Bradley has also decreased the minute ventilation- given the above arterial blood gas. The patient is critically ill at this point in time, with very guarded prognosis. Again, I did discuss the above with the ICU team earlier this morning. I will discuss the above with the attending physician later this morning. Thank you very much for this pulmonary consultation. Cedric Chau MD MTDLeidy
[2018-05-24] MEDS: Albuterol-Ipratrop 3 mg / 0.5 (3 ml) UD IH SCH ×4 (01:31→19:25)
[2018-05-24 05:42] LABS: GRAN # 8.76 (1.4-6.5); GRAN % 92.7 % (50.0-68.0); HEMOGLOBIN 8.7 g/dL (14.0-18.0); LYMPH # 0.5 (1.2-3.4); LYMPH % 4.8 % (22.0-35.0); MEAN CELL VOLUME 95.5 fl (80.0-105.0); MEAN CORPUSCULAR HGB CONC 31.4 g/dl (31.0-37.0); MEAN PLATELET VOLUME 10.4 fl (7.0-11.0); MONO # 0.2 (0.1-0.6); MONO % 2.5 % (1.0-6.0); RBC 2.9 10^6/uL (3.5-6.1); RED CELL DISTRIBUTION WIDTH 13.8 % (11.5-14.5); WHITE BLOOD COUNT 9.5 10^3/uL (4.5-11.0)
[2018-05-24] MEDS: Propofol 10 mg/ml 1,000 MG/100 ML VIAL IV PRN (06:07)
--- NOTE | 2018-05-24 08:29 | RAD ---
Date of service: 05/24/2018 HISTORY: f/u COMPARISON: No prior. FINDINGS: LUNGS: No active pulmonary disease. PLEURA: No significant pleural effusion identified, no pneumothorax apparent. CARDIOVASCULAR: Aortic calcification Normal cardiac size. No pulmonary vascular congestion. OSSEOUS STRUCTURES: No significant abnormalities. VISUALIZED UPPER ABDOMEN: Normal. OTHER FINDINGS: Endotracheal tube in satisfactory position. Nasogastric tube in suboptimal position in the distal esophagus IMPRESSION: No active disease.
[2018-05-24] MEDS: diltiaZEM 120 mg/24 Hours CD Cap PO SCH ×2 (08:36→10:06)
[2018-05-24] MEDS: MethylPREDNISolone 40 mg Vial IVP SCH ×3 (09:02→21:19)
--- NOTE | 2018-05-24 10:10 | CP.CCUPN ---
<Cherry Fauklner - Last Filed: 05/24/18 10:13> CCU Subjective - Physician Review Subjective (Free Text): CRITICAL CARE PROGRESS NOTE FOR DR. FAROOQ Faulkner PGY-1 Pt seen and examined at bedside this am. Pt tolerated extubation this am. Saturating 95% on 3L NC. He is awake and alert, not on sedation. He reports thirst, but denies other 12 point ROS. CCU Objective - Vital Signs / Intake & Output Vital Signs (Last 4 hours): Vital Signs Temp Pulse Resp BP Pulse Ox 05/24/18 08:36 105 H 171/86 H 05/24/18 08:00 98.5 F 108 H 20 171/86 H 99 05/24/18 07:10 80 05/24/18 07:00 96 H 113/64 96 05/24/18 06:30 99 H 105/54 L 96 Intake and Output (Last 8hrs): Intake & Output 05/23/18 05/24/18 05/24/18 22:59 06:59 14:59 Intake Total 652 78 4 Output Total 200 Balance 452 78 4 Intake: IV 612 78 4 IVF 600 Propofol 11 Oral 40 Output: Urine 200 Urine, Voided 200 Other: # Bowel Movements 1 - Physical Exam Head: Positive for: Atraumatic, Normocephalic Pupils: Positive for: PERRL Extroacular Muscles: Positive for: EOMI Conjunctiva: Positive for: Normal Mouth: Positive for: Dry Neck: Positive for: Normal Range of Motion Respiratory/Chest: Positive for: Respiratory Distress, Decreased Breath Sounds, Rhonchi (Bilaterally.), Other (12cm x 12cm ecchymoses & hematoma noted over R clavicle. No tenderness to palpation) Cardiovascular: Positive for: Regular Rate and Rhythm, Normal S1, S2. Negative for: Murmurs Abdomen: Negative for: Tenderness, Distention, Peritoneal Signs Back: Positive for: Normal Inspection Upper Extremity: Positive for: Normal Inspection. Negative for: Cyanosis, Edema Lower Extremity: Positive for: Normal Inspection. Negative for: Edema (Negative lower extremity edema.) Neurological: Positive for: GCS=15, CN II-XII Intact, Speech Normal Skin: Positive for: Warm, Dry, Normal Color. Negative for: Rashes Psychiatric: Positive for: Alert, Oriented x 3, Normal Insight, Normal Concentration - Medications Active Medications: Active Medications Generic Name Dose Route Start Last Admin Trade Name Freq PRN Reason Stop Dose Admin Albuterol/Ipratropium 3 ml 05/23/18 14:00 05/24/18 08:06 Duoneb 3 Mg/0.5 Mg (3 Ml) Ud IH 3 ml [id number] RICH Administration Aspirin 81 mg 05/18/18 10:00 05/24/18 10:05 Aspirin Chewable PO Not Given DAILY RICH Diltiazem HCl 120 mg 05/21/18 12:45 05/24/18 10:06 Cardizem Cd PO Not Given DAILY RICH Heparin Sodium (Porcine) 5,000 units 05/23/18 22:00 05/24/18 09:10 Heparin SC 5,000 units Q12 RICH Administration Protocol Propofol 1,000 mg in 100 mls @ 1.796 mls/hr 05/23/18 02:13 05/24/18 07:30 Diprivan IV 0 mcg/kg/min .Q24H PRN 0 mls/hr TITRATE PER MD ORDER Titration Protocol 5 MCG/KG/MIN Sodium Chloride 1,000 mls @ 100 mls/hr 05/23/18 09:15 05/23/18 09:15 Sodium Chloride 0.9% IV 100 mls/hr .Q10H RICH Administration Losartan Potassium 100 mg 05/20/18 13:15 05/24/18 10:06 Cozaar PO Not Given DAILY RICH Methylprednisolone 20 mg 05/24/18 09:50 Solu-Medrol IVP Q12 RICH Pantoprazole Sodium 40 mg 05/23/18 18:00 05/24/18 09:03 Protonix Inj IVP 40 mg DAILY RICH Administration Tamsulosin HCl 0.4 mg 05/17/18 11:00 05/24/18 10:06 Flomax PO Not Given DAILY RICH - Patient Studies Lab Studies: Microbiology Studies 05/23/18 07:52 Gram Stain - Final Sputum Induced Sputum Culture - Preliminary Yeast Species Lab Studies 05/24/18 05/24/18 05/23/18 Range/Units 06:30 05:00 19:02 WBC 9.5 D (4.5-11.0) 10^3/uL RBC 2.90 L (3.5-6.1) 10^6/uL Hgb 8.7 L (14.0-18.0) g/dL Hct 27.7 L (42.0-52.0) % MCV 95.5 D (80.0-105.0) fl MCH 30.0 (25.0-35.0) pg MCHC 31.4 (31.0-37.0) g/dl RDW 13.8 (11.5-14.5) % Plt Count 201 (120.0-450.0) 10^3/uL MPV 10.4 (7.0-11.0) fl Gran % 92.7 H (50.0-68.0) % Lymph % (Auto) 4.8 L (22.0-35.0) % Granite % (Auto) 2.5 (1.0-6.0) % Eos % (Auto) 0.0 L (1.5-5.0) % Baso % (Auto) 0.0 (0.0-3.0) % Gran # 8.76 H (1.4-6.5) Lymph # (Auto) 0.5 L (1.2-3.4) Granite # (Auto) 0.2 (0.1-0.6) Eos # (Auto) 0.0 (0.0-0.7) Baso # (Auto) 0.00 (0.0-2.0) K/mm3 APTT 26.0 (25.1-36.5) Seconds pCO2 49 H (35-45) mm/Hg pO2 76.0 L (80-100) mm/Hg HCO3 36.5 H (21-28) mmol/L ABG pH 7.48 H (7.35-7.45) ABG Total CO2 38.0 H (22-28) mmol.L ABG O2 Saturation 97.8 (95-98) % ABG O2 Content 12.1 L (15-23) ML/dl ABG Base Excess 11.7 H (-2.0-3.0) mmol/L ABG Hemoglobin 9.0 L (11.7-17.4) g/dL ABG Carboxyhemoglobin 1.9 H (0.5-1.5) % POC ABG HHb (Measured) 2.1 (0-5) % ABG Methemoglobin 1.3 (0.0-3.0) % ABG O2 Capacity 12.4 L (16-24) mL/dl Hgb O2 Saturation 94.7 L (95.0-98.0) % FiO2 50.0 % Laboratory Results - last 24 hr 05/23/18 05/24/18 05/24/18 19:02 05:00 06:30 WBC 9.5 D RBC 2.90 L Hgb 8.7 L Hct 27.7 L MCV 95.5 D MCH 30.0 MCHC 31.4 RDW 13.8 Plt Count 201 MPV 10.4 Gran % 92.7 H Lymph % (Auto) 4.8 L Granite % (Auto) 2.5 Eos % (Auto) 0.0 L Baso % (Auto) 0.0 Gran # 8.76 H Lymph # (Auto) 0.5 L Granite # (Auto) 0.2 Eos # (Auto) 0.0 Baso # (Auto) 0.00 APTT 26.0 pCO2 49 H pO2 76.0 L HCO3 36.5 H ABG pH 7.48 H ABG Total CO2 38.0 H ABG O2 Saturation 97.8 ABG O2 Content 12.1 L ABG Base Excess 11.7 H ABG Hemoglobin 9.0 L ABG Carboxyhemoglobin 1.9 H POC ABG HHb (Measured) 2.1 ABG Methemoglobin 1.3 ABG O2 Capacity 12.4 L Hgb O2 Saturation 94.7 L FiO2 50.0 Review of Systems - Review of Systems Review of Systems: per HPI Assessment/Plan - Assessment and Plan (Free Text) Assessment: 77 y/o M with PMHx of COPD, extensive smoking history brought down to ICU from floors for hypercapnic respiratory failure 2/2 lethargy and inability to protect his airway. Intubated overnight, this am was extubated to 3L NC. Tolerating well. Saturating well Plan: Neuro: Off of sedatoin AxO x 3 No FND Cardiovascular: Normotensive RRR Maintain MAP >65 aspirin diltiazem losartan Pulm: Extubated this am on 3L NC Pulmonary toilet oral hygiene chest pt SaO2> 90% Duonebs prn taper down solu-medrol /Renal: Maintain euvolemia Replete electrolytes prn Hyperkalemia resolved avoid nephrotoxic agents ABG reveals improved hypercapnic respiratory failure with metabolic compensation Heme: Monitor H/H GI/DVT: Protonix IVP/Hep SC <Nixon Alcaraz - Last Filed: 05/24/18 11:26> CCU Objective - Vital Signs / Intake & Output Vital Signs (Last 4 hours): Vital Signs Temp Pulse Resp BP Pulse Ox 05/24/18 10:25 124 H 24 159/78 H 91 L 05/24/18 10:00 111 H 40 H 142/71 98 05/24/18 09:00 107 H 37 H 156/78 H 100 05/24/18 08:36 105 H 171/86 H 05/24/18 08:30 105 H 19 171/86 H 100 05/24/18 08:00 98.5 F 83 20 161/84 H 100 05/24/18 07:30 73 126/64 98 Intake and Output (Last 8hrs): Intake & Output 05/23/18 05/24/18 05/24/18 22:59 06:59 14:59 Intake Total 652 78 4 Output Total 200 Balance 452 78 4 Intake: IV 612 78 4 IVF 600 Propofol 11 Oral 40 Output: Urine 200 Urine, Voided 200 Other: # Bowel Movements 1 - Medications Active Medications: Active Medications Generic Name Dose Route Start Last Admin Trade Name Freq PRN Reason Stop Dose Admin Albuterol/Ipratropium 3 ml 05/23/18 14:00 05/24/18 08:06 Duoneb 3 Mg/0.5 Mg (3 Ml) Ud IH 3 ml [id number] RICH Administration Aspirin 81 mg 05/18/18 10:00 05/24/18 10:05 Aspirin Chewable PO Not Given DAILY RICH Diltiazem HCl 120 mg 05/21/18 12:45 05/24/18 10:06 Cardizem Cd PO Not Given DAILY RICH Heparin Sodium (Porcine) 5,000 units 05/23/18 22:00 05/24/18 09:10 Heparin SC 5,000 units Q12 RICH Administration Protocol Sodium Chloride 1,000 mls @ 100 mls/hr 05/23/18 09:15 05/23/18 09:15 Sodium Chloride 0.9% IV 100 mls/hr .Q10H RICH Administration Losartan Potassium 100 mg 05/20/18 13:15 05/24/18 10:06 Cozaar PO Not Given DAILY RICH Methylprednisolone 20 mg 05/24/18 09:50 05/24/18 10:30 Solu-Medrol IVP Not Given Q12 [facility] Pantoprazole Sodium 40 mg 05/23/18 18:00 05/24/18 09:03 Protonix Inj IVP 40 mg DAILY RICH Administration Tamsulosin HCl 0.4 mg 05/17/18 11:00 05/24/18 10:06 Flomax PO Not Given DAILY RICH - Patient Studies Lab Studies: Microbiology Studies 05/23/18 07:52 Gram Stain - Final Sputum Induced Sputum Culture - Preliminary Yeast Species Lab Studies 05/24/18 05/24/18 05/23/18 Range/Units 06:30 05:00 19:02 WBC 9.5 D (4.5-11.0) 10^3/uL RBC 2.90 L (3.5-6.1) 10^6/uL Hgb 8.7 L (14.0-18.0) g/dL Hct 27.7 L (42.0-52.0) % MCV 95.5 D (80.0-105.0) fl MCH 30.0 (25.0-35.0) pg MCHC 31.4 (31.0-37.0) g/dl RDW 13.8 (11.5-14.5) % Plt Count 201 (120.0-450.0) 10^3/uL MPV 10.4 (7.0-11.0) fl Gran % 92.7 H (50.0-68.0) % Lymph % (Auto) 4.8 L (22.0-35.0) % Granite % (Auto) 2.5 (1.0-6.0) % Eos % (Auto) 0.0 L (1.5-5.0) % Baso % (Auto) 0.0 (0.0-3.0) % Gran # 8.76 H (1.4-6.5) Lymph # (Auto) 0.5 L (1.2-3.4) Granite # (Auto) 0.2 (0.1-0.6) Eos # (Auto) 0.0 (0.0-0.7) Baso # (Auto) 0.00 (0.0-2.0) K/mm3 APTT 26.0 (25.1-36.5) Seconds pCO2 49 H (35-45) mm/Hg pO2 76.0 L (80-100) mm/Hg HCO3 36.5 H (21-28) mmol/L ABG pH 7.48 H (7.35-7.45) ABG Total CO2 38.0 H (22-28) mmol.L ABG O2 Saturation 97.8 (95-98) % ABG O2 Content 12.1 L (15-23) ML/dl ABG Base Excess 11.7 H (-2.0-3.0) mmol/L ABG Hemoglobin 9.0 L (11.7-17.4) g/dL ABG Carboxyhemoglobin 1.9 H (0.5-1.5) % POC ABG HHb (Measured) 2.1 (0-5) % ABG Methemoglobin 1.3 (0.0-3.0) % ABG O2 Capacity 12.4 L (16-24) mL/dl Hgb O2 Saturation 94.7 L (95.0-98.0) % FiO2 50.0 % Laboratory Results - last 24 hr 05/23/18 05/24/18 05/24/18 19:02 05:00 06:30 WBC 9.5 D RBC 2.90 L Hgb 8.7 L Hct 27.7 L MCV 95.5 D MCH 30.0 MCHC 31.4 RDW 13.8 Plt Count 201 MPV 10.4 Gran % 92.7 H Lymph % (Auto) 4.8 L Granite % (Auto) 2.5 Eos % (Auto) 0.0 L Baso % (Auto) 0.0 Gran # 8.76 H Lymph # (Auto) 0.5 L Granite # (Auto) 0.2 Eos # (Auto) 0.0 Baso # (Auto) 0.00 APTT 26.0 pCO2 49 H pO2 76.0 L HCO3 36.5 H ABG pH 7.48 H ABG Total CO2 38.0 H ABG O2 Saturation 97.8 ABG O2 Content 12.1 L ABG Base Excess 11.7 H ABG Hemoglobin 9.0 L ABG Carboxyhemoglobin 1.9 H POC ABG HHb (Measured) 2.1 ABG Methemoglobin 1.3 ABG O2 Capacity 12.4 L Hgb O2 Saturation 94.7 L FiO2 50.0 Assessment/Plan - Assessment and Plan (Free Text) Plan: Patient seen and examined on rounds with resident, agree with note with following additions/exceptions: Patient is 77yo male with PMHx smoking, COPD, CAD, presented with hypercapnic respiratory failure, requiring BIPAP. Patient was intubated for airway protection, and readmitted to MICU. This morning palced on CPAP trial for 45 minutes, tolerated it well, RSBI 50-60, awake, alert, following commands, subsequently extubated to 3LNC Currently afebrile, BP stable, comfortable in NAD, doing well, awake, alert CAD CAP Resp failure COPD exacerbation Recommend: - supp o2 as needed, goal sat 90%, duonebs PRN, IS, Solumedrol 20mg IV BID - Rocephin, Azithro - BP control - ASA, Plavix, Statin - Lopressor 25mg BID - GI ppx - DVT ppx - FS control - speech swallow eval, for PO feeds - Monitor in MICU Critical care time 30 minutes
--- NOTE | 2018-05-24 10:51 | PN ---
DATE: 05/24/2018 PULMONARY PROGRESS NOTE SUBJECTIVE: The patient was seen and examined in Intensive Care Unit on the ventilator. Case was discussed with ICU team. The patient remains intubated and sedated, however, the sedation is being weaned as in preparation for CPAP trials. PHYSICAL EXAMINATION: VITAL SIGNS: Temperature 98, pulse 105, he is on mechanical ventilation. His pulse oximetry is 99, blood pressure 170/80. HEAD: Normocephalic and atraumatic. NECK: Supple with no jugular vein distentions. CARDIOVASCULAR: S1, S2, no S3, regular. PULMONARY: Diminished breath sounds at both lung bases with few expiratory wheezes. No crackles. GI: Soft, nontender, no organomegaly. EXTREMITIES: No pedal edema. SKIN: Clear with no cyanosis and no skin rashes. NEUROLOGIC: Unable to evaluate due to sedation. LABORATORY DATA: This morning's arterial blood gas, pH of 7.48, pCO2 of 49 and pO2 of 76. WBC is 9.5, hemoglobin of 8.7. Chest x-ray was reviewed by me shows mild hyperinflation with no acute infiltrates and no signs of congestive heart failure. ASSESSMENT: 1. Acute respiratory failure. 2. Advanced chronic obstructive pulmonary disease. 3. Coronary artery disease. PLAN: The patient is currently being prepared for weaning. We will wean the sedation first and then trial of spontaneous breathing on CPAP. We will follow. He has a good chance of getting off the ventilator given current parameters and good oxygenation, however, his chronic obstructive pulmonary disease is quite severe since he was admitted with pCO2 levels, which were very high. We will continue with all interventions including inhalation therapy, steroids and antibiotics. We will follow closely. Denzel Hinojosa MD
--- NOTE | 2018-05-24 13:31 | PN ---
DATE: 05/24/2018 The patient was extubated. He is not requiring any pressors. He denies any chest pain. He is mildly short of breath. PHYSICAL EXAMINATION: VITAL SIGNS: Blood pressure 171/86, heart rate 105, temperature 98.5, respirations 20. HEENT: Pale conjunctivae. CHEST: Minimal rhonchi. HEART: S1 and S2 regular. EXTREMITIES: No edema. LABORATORY DATA: Hemoglobin and hematocrit 8.7 and 27.7. White count and platelet count are within normal limits. Today's chest x-ray report, no active disease. ASSESSMENT: 1. Status post respiratory failure. 2. Chronic obstructive lung disease. 3. Coronary artery disease with diffuse coronary atherosclerosis without critical lesions. 4. Prerenal azotemia. RECOMMENDATIONS: Continue albuterol inhaler, subcutaneous heparin 5000 units every 12 hours, Protonix 1 g intravenously daily. Jossue Hurd MD
[2018-05-24] MEDS ORDERED: COMBIGAN OPTH OU SCH (16:30)
[2018-05-24] MEDS: COMBIGAN OPTH OU SCH (17:39)
[2018-05-24] MEDS ORDERED: MethylPREDNISolone 40 mg Vial IVP STA (17:41)
--- NOTE | 2018-05-24 22:14 | PN ---
DATE: SUBJECTIVE: The patient is 77 years old, seen and examined. He was extubated this morning, sitting in bed, seems to be comfortable, still has mild shortness of breath even at rest. PHYSICAL EXAMINATION: VITAL SIGNS: He is afebrile, pulse 117, respirations 25, blood pressure . LUNGS: Bilateral diffuse decreased breath sounds. No active rhonchi or crackle. HEART: S1 and S2 audible. ABDOMEN: Soft. Obese. Nontender. No rebound. No guarding. NEUROLOGICAL: He is awake, alert, oriented, communicative. Answering appropriately. LABORATORY DATA: WBC 9.5, hemoglobin 8.7, hematocrit 27, platelet of 201. Chemistry: Pending. Flu test is negative. Sputum has yeast. ASSESSMENT: 1. Chronic obstructive pulmonary disease exacerbation, he was re-intubated and extubated successfully. 2. Terminal chronic obstructive pulmonary disease. 3. Hypertension. 4. Hyperlipidemia. 5. [id number] myocardial infarction, probably demand ischemia, cardiac catheterization negative. PLAN: Currently, the patient is on aspirin 81 daily, he is on Cardizem CD, he is on losartan, he is on Flomax, he is on DVT prophylaxis. He is on Protonix, we will continue that. He has been started on oral feeding. We will discontinue IV fluid. Encourage ambulation. Physical therapy evaluation will be . He will follow up in a.m. Peter Calvillo MD
[2018-05-25] MEDS: Albuterol-Ipratrop 3 mg / 0.5 (3 ml) UD IH SCH ×5 (01:15→19:59)
[2018-05-25 06:59] LABS: BASO # 0.01 K/mm3 (0.0-2.0); BASO % 0.1 % (0.0-3.0); GRAN # 13.81 (1.4-6.5); HEMOGLOBIN 9.9 g/dL (14.0-18.0); LYMPH # 0.6 (1.2-3.4); LYMPH % 4.1 % (22.0-35.0); MEAN CELL VOLUME 101.2 fl (80.0-105.0); MEAN CORPUSCULAR HEMOGLOBIN 29.6 pg (25.0-35.0); MEAN CORPUSCULAR HGB CONC 29.2 g/dl (31.0-37.0); MEAN PLATELET VOLUME 9.4 fl (7.0-11.0); MONO # 0.1 (0.1-0.6); MONO % 0.8 % (1.0-6.0); RBC 3.35 10^6/uL (3.5-6.1); RED CELL DISTRIBUTION WIDTH 13.8 % (11.5-14.5); WHITE BLOOD COUNT 14.5 10^3/uL (4.5-11.0)
[2018-05-25 07:30] LABS: ALB/GLOB RATIO 1.2 (1.1-1.8); ALBUMIN 3.2 g/dL (3.0-4.8); ALT/SGPT 47 U/L (7-56); AST/SGOT 30 U/L (17-59); BLOOD UREA NITROGEN 49 mg/dL (7-21); CALCIUM 8.3 mg/dL (8.4-10.5); GFR NON-AFRICAN AMERICAN > 60
--- NOTE | 2018-05-25 09:07 | RAD ---
Date of service: 05/24/2018 HISTORY: SOB COMPARISON: No prior. FINDINGS: LUNGS: No active pulmonary disease. PLEURA: No significant pleural effusion identified, no pneumothorax apparent. CARDIOVASCULAR: Aortic calcifications Normal cardiac size. No pulmonary vascular congestion. OSSEOUS STRUCTURES: No significant abnormalities. VISUALIZED UPPER ABDOMEN: Normal. OTHER FINDINGS: None. IMPRESSION: No active disease.
--- NOTE | 2018-05-25 09:07 | PN ---
DATE: 05/25/2018 PULMONARY PROGRESS NOTE SUBJECTIVE: The patient was seen and examined at bedside. He is extubated. He is on low-dose intravenous steroids and he is on DuoNeb inhalation therapy. PHYSICAL EXAMINATION: VITAL SIGNS: On today's physical examination, his temperature is 98, pulse 98, respirations 20, pulse oximetry is 90 on nasal cannula. Prior to that, he was on BiPAP at night. HEENT: Head, ears, nose and throat are within normal limits. NECK: Supple with no jugular vein distentions. CARDIOVASCULAR: S1, S2. No S3. Regular. PULMONARY: Diminished breath sounds bilaterally with few end expiratory wheezes. GASTROINTESTINAL: Soft, nontender. No organomegaly. EXTREMITIES: No pedal edema. SKIN: No acute skin rash. NEUROLOGIC: No focal deficits. LABORATORY DATA: Reviewed. His WBC is elevated at 14.5, hemoglobin reduced at 9.9. Chemistries are basically within normal range. ASSESSMENT: 1. Acute respiratory failure. 2. Exacerbation of chronic obstructive pulmonary disease. PLAN: We will continue supplemental oxygen. Continue nebulizer treatments with DuoNeb, low-dose intravenous steroids at 20 mg twice a day of Solu-Medrol. He is on double antibiotics with Rocephin and azithromycin. His WBC's are only mildly elevated. This is most likely due to steroids. Overall, he is improving. We will follow closely. I just reviewed the chest x-ray which was done. There is no report yet. The image is being decompressed as we speak. We will get chest x-ray image momentarily. Today's chest x-ray that was just done reveals hyperinflation, increased interstitial markings, but no infiltrations and no congestive failure. Denzel Hinojosa MD
[2018-05-25] MEDS: diltiaZEM 180 mg/24 Hours CD Cap PO SCH (09:08)
[2018-05-25] MEDS: MethylPREDNISolone 40 mg Vial IVP SCH (09:09)
[2018-05-25] MEDS: COMBIGAN OPTH OU SCH ×2 (09:13→19:39)
--- NOTE | 2018-05-25 09:18 | RAD ---
Date of service: 05/25/2018 HISTORY: f/u COMPARISON: 05/24/2018 FINDINGS: LUNGS: No active pulmonary disease. PLEURA: No significant pleural effusion identified, no pneumothorax apparent. CARDIOVASCULAR: Aortic calcification Normal cardiac size. No pulmonary vascular congestion. OSSEOUS STRUCTURES: No significant abnormalities. VISUALIZED UPPER ABDOMEN: Normal. OTHER FINDINGS: None. IMPRESSION: No active disease.
--- NOTE | 2018-05-25 11:01 | CP.CCUPN ---
<Dieudonne Beckman - Last Filed: 05/25/18 11:12> CCU Subjective - Physician Review Subjective (Free Text): 05/25/18 10:54 Patient seen and examined at bedside. Patient is communicating stating he is ready for breakfast. Has no complaints overnight. CCU Objective - Vital Signs / Intake & Output Vital Signs (Last 4 hours): Vital Signs Temp Pulse Resp BP Pulse Ox 05/25/18 10:33 80 31 H 135/71 100 05/25/18 10:00 98.4 F 91 H 40 H 141/77 100 05/25/18 09:08 89 141/77 05/25/18 09:01 88 27 H 160/84 H 100 05/25/18 07:08 97 H 21 91 L Intake and Output (Last 8hrs): Intake & Output 05/24/18 05/25/18 05/25/18 23:59 06:59 14:59 Intake Total Output Total Balance Weight Intake: Oral Output: Urine Urethral (Singh) Other: # Bowel Movements - Physical Exam Head: Positive for: Atraumatic, Normocephalic Pupils: Positive for: PERRL Extroacular Muscles: Positive for: EOMI Conjunctiva: Positive for: Normal Mouth: Positive for: Dry Neck: Positive for: Normal Range of Motion Respiratory/Chest: Positive for: Respiratory Distress, Decreased Breath Sounds, Rhonchi (Bilaterally.), Other (12cm x 12cm ecchymoses & hematoma noted over R clavicle. No tenderness to palpation) Cardiovascular: Positive for: Regular Rate and Rhythm, Normal S1, S2. Negative for: Murmurs Abdomen: Negative for: Tenderness, Distention, Peritoneal Signs Back: Positive for: Normal Inspection Upper Extremity: Positive for: Normal Inspection. Negative for: Cyanosis, Edema Lower Extremity: Positive for: Normal Inspection. Negative for: Edema (Negative lower extremity edema.) Neurological: Positive for: GCS=15, CN II-XII Intact, Speech Normal Skin: Positive for: Warm, Dry, Normal Color. Negative for: Rashes Psychiatric: Positive for: Alert, Oriented x 3, Normal Insight, Normal Concentration - Medications Active Medications: Active Medications Generic Name Dose Route Start Last Admin Trade Name Freq PRN Reason Stop Dose Admin Albuterol/Ipratropium 3 ml 05/23/18 14:00 05/25/18 07:18 Duoneb 3 Mg/0.5 Mg (3 Ml) Ud IH 3 ml [id number] RICH Administration Aspirin 81 mg 05/18/18 10:00 05/25/18 09:08 Aspirin Chewable PO 81 mg DAILY RICH Administration Diltiazem HCl 180 mg 05/24/18 17:03 05/25/18 09:08 Cardizem Cd PO 180 mg DAILY RICH Administration Heparin Sodium (Porcine) 5,000 units 05/23/18 22:00 05/25/18 09:09 Heparin SC 5,000 units Q12 RICH Administration Protocol Home Med 1 unit 05/24/18 16:34 05/25/18 09:13 Home Med OU 1 unit BID RICH Administration Losartan Potassium 100 mg 05/20/18 13:15 05/25/18 09:08 Cozaar PO 100 mg DAILY RICH Administration Pantoprazole Sodium 40 mg 05/23/18 18:00 05/25/18 09:09 Protonix Inj IVP 40 mg DAILY RICH Administration Prednisone 40 mg 05/26/18 10:00 Prednisone Tab PO DAILY RICH Tamsulosin HCl 0.4 mg 05/17/18 11:00 05/25/18 09:08 Flomax PO 0.4 mg DAILY RICH Administration - Patient Studies Lab Studies: Microbiology Studies 05/23/18 07:52 Gram Stain - Final Sputum Induced Sputum Culture - Final Yeast Species 05/23/18 21:58 Urine Culture - Final Urine,Singh No Growth (<1,000 CFU/ML) 05/23/18 02:51 MRSA Culture (Admit) - Final Naris MRSA NOT DETECTED Lab Studies 05/25/18 05/25/18 05/24/18 Range/Units 06:45 06:45 06:30 WBC 14.5 H D (4.5-11.0) 10^3/uL RBC 3.35 L (3.5-6.1) 10^6/uL Hgb 9.9 L (14.0-18.0) g/dL Hct 33.9 L (42.0-52.0) % MCV 101.2 D (80.0-105.0) fl MCH 29.6 (25.0-35.0) pg MCHC 29.2 L (31.0-37.0) g/dl RDW 13.8 (11.5-14.5) % Plt Count 238 (120.0-450.0) 10^3/uL MPV 9.4 (7.0-11.0) fl Gran % 95.0 H (50.0-68.0) % Lymph % (Auto) 4.1 L (22.0-35.0) % [place] % (Auto) 0.8 L (1.0-6.0) % Eos % (Auto) 0.0 L (1.5-5.0) % Baso % (Auto) 0.1 (0.0-3.0) % Gran # 13.81 H (1.4-6.5) Lymph # (Auto) 0.6 L (1.2-3.4) [place] # (Auto) 0.1 (0.1-0.6) Eos # (Auto) 0.0 (0.0-0.7) Baso # (Auto) 0.01 (0.0-2.0) K/mm3 pCO2 Cancelled pO2 Cancelled HCO3 Cancelled ABG pH Cancelled ABG Total CO2 Cancelled ABG O2 Saturation Cancelled ABG O2 Content Cancelled ABG Base Excess Cancelled ABG Hemoglobin Cancelled ABG Carboxyhemoglobin Cancelled POC ABG HHb (Measured) Cancelled ABG Methemoglobin Cancelled ABG O2 Capacity Cancelled Los Test Cancelled A-a O2 Difference Cancelled Hgb O2 Saturation Cancelled FiO2 Cancelled Blood Gas Comments Cancelled Crit Value Called To Cancelled Crit Value Read Back Cancelled Blood Gas Notified Time Cancelled Sodium 145 (132-148) mmol/L Potassium 4.3 (3.6-5.0) mmol/L Chloride 97 L (98-107) mmol/L Carbon Dioxide 46 H (21-33) mmol/L Anion Gap 6 L (10-20) BUN 49 H (7-21) mg/dL Creatinine 1.1 (0.8-1.5) mg/dl Est GFR ( Amer) > 60 Est GFR (Non-Af Amer) > 60 Random Glucose 141 H (70-110) mg/dL Calcium 8.3 L (8.4-10.5) mg/dL Phosphorus 5.8 H (2.5-4.5) mg/dL Magnesium 2.4 H (1.7-2.2) mg/dL Total Bilirubin 0.6 (0.2-1.3) mg/dL AST 30 (17-59) U/L ALT 47 (7-56) U/L Alkaline Phosphatase 45 (38-126) U/L Total Protein 5.8 (5.8-8.3) g/dL Albumin 3.2 (3.0-4.8) g/dL Globulin 2.7 gm/dL Albumin/Globulin Ratio 1.2 (1.1-1.8) Laboratory Results - last 24 hr 05/24/18 05/25/18 05/25/18 06:30 06:45 06:45 WBC 14.5 H D RBC 3.35 L Hgb 9.9 L Hct 33.9 L MCV 101.2 D MCH 29.6 MCHC 29.2 L RDW 13.8 Plt Count 238 MPV 9.4 Gran % 95.0 H Lymph % (Auto) 4.1 L [place] % (Auto) 0.8 L Eos % (Auto) 0.0 L Baso % (Auto) 0.1 Gran # 13.81 H Lymph # (Auto) 0.6 L [place] # (Auto) 0.1 Eos # (Auto) 0.0 Baso # (Auto) 0.01 pCO2 Cancelled pO2 Cancelled HCO3 Cancelled ABG pH Cancelled ABG Total CO2 Cancelled ABG O2 Saturation Cancelled ABG O2 Content Cancelled ABG Base Excess Cancelled ABG Hemoglobin Cancelled ABG Carboxyhemoglobin Cancelled POC ABG HHb (Measured) Cancelled ABG Methemoglobin Cancelled ABG O2 Capacity Cancelled Los Test Cancelled A-a O2 Difference Cancelled Hgb O2 Saturation Cancelled FiO2 Cancelled Blood Gas Comments Cancelled Crit Value Called To Cancelled Crit Value Read Back Cancelled Blood Gas Notified Time Cancelled Sodium 145 Potassium 4.3 Chloride 97 L Carbon Dioxide 46 H Anion Gap 6 L BUN 49 H Creatinine 1.1 Est GFR ( Amer) > 60 Est GFR (Non-Af Amer) > 60 Random Glucose 141 H Calcium 8.3 L Phosphorus 5.8 H Magnesium 2.4 H Total Bilirubin 0.6 AST 30 ALT 47 Alkaline Phosphatase 45 Total Protein 5.8 Albumin 3.2 Globulin 2.7 Albumin/Globulin Ratio 1.2 Review of Systems - Constitutional Constitutional: absent: Fever, Chills - EENT Eyes: absent: Change in Vision - Cardiovascular Cardiovascular: absent: Chest Pain - Respiratory Respiratory: absent: Dyspnea - Gastrointestinal Gastrointestinal: absent: Abdominal Pain, Diarrhea, Nausea, Vomiting - Neurological Neurological: absent: Dizziness - Endocrine Endocrine: absent: Fatigue Critical Care Progress Note - Nutrition Nutrition: Nutrition Category Date Time Status Regular Diet [DIET] Diets 05/24/18 Dinner Ordered Assessment/Plan - Assessment and Plan (Free Text) Assessment: 77 y/o M with PMHx of COPD, extensive smoking history brought down to ICU from floors for hypercapnic respiratory failure 2/2 lethargy and inability to protect his airway subsequently intubated, now s/p extubation to 3L NC. Tolerating w ell. Saturating well Plan: Neuro: AAO x 3 No FND Cardiovascular: Normotensive RRR Maintain MAP >65 aspirin diltiazem losartan Pulm: Continue 3L NC Pulmonary toilet oral hygiene chest pt SaO2> 90% Duonebs prn Prednisone starting tomorrow Renal: Maintain euvolemia Replete electrolytes prn avoid nephrotoxic agents Heme: Monitor H/H GI/DVT: Protonix IVP/Hep SC <Nixon Alcaraz - Last Filed: 05/25/18 11:49> CCU Objective - Vital Signs / Intake & Output Vital Signs (Last 4 hours): Vital Signs Temp Pulse Resp BP Pulse Ox 05/25/18 10:33 80 31 H 135/71 100 05/25/18 10:00 98.4 F 91 H 40 H 141/77 100 05/25/18 09:08 89 141/77 05/25/18 09:01 88 27 H 160/84 H 100 Intake and Output (Last 8hrs): Intake & Output 05/24/18 05/25/18 05/25/18 23:59 06:59 14:59 Intake Total Output Total Balance Weight Intake: Oral Output: Urine Urethral (Singh) Other: # Bowel Movements - Medications Active Medications: Active Medications Generic Name Dose Route Start Last Admin Trade Name Freq PRN Reason Stop Dose Admin Albuterol/Ipratropium 3 ml 05/23/18 14:00 05/25/18 07:18 Duoneb 3 Mg/0.5 Mg (3 Ml) Ud IH 3 ml [id number] RICH Administration Aspirin 81 mg 05/18/18 10:00 05/25/18 09:08 Aspirin Chewable PO 81 mg DAILY RICH Administration Diltiazem HCl 180 mg 05/24/18 17:03 05/25/18 09:08 Cardizem Cd PO 180 mg DAILY RICH Administration Heparin Sodium (Porcine) 5,000 units 05/23/18 22:00 05/25/18 09:09 Heparin SC 5,000 units Q12 RICH Administration Protocol Home Med 1 unit 05/24/18 16:34 05/25/18 09:13 Home Med OU 1 unit BID RICH Administration Losartan Potassium 100 mg 05/20/18 13:15 05/25/18 09:08 Cozaar PO 100 mg DAILY RICH Administration Pantoprazole Sodium 40 mg 05/23/18 18:00 05/25/18 09:09 Protonix Inj IVP 40 mg DAILY RICH Administration Prednisone 40 mg 05/26/18 10:00 Prednisone Tab PO DAILY RICH Tamsulosin HCl 0.4 mg 05/17/18 11:00 05/25/18 09:08 Flomax PO 0.4 mg DAILY RICH Administration - Patient Studies Lab Studies: Microbiology Studies 05/23/18 07:52 Gram Stain - Final Sputum Induced Sputum Culture - Final Yeast Species 05/23/18 21:58 Urine Culture - Final Urine,Singh No Growth (<1,000 CFU/ML) 05/23/18 02:51 MRSA Culture (Admit) - Final Naris MRSA NOT DETECTED Lab Studies 05/25/18 05/25/18 05/24/18 Range/Units 06:45 06:45 06:30 WBC 14.5 H D (4.5-11.0) 10^3/uL RBC 3.35 L (3.5-6.1) 10^6/uL Hgb 9.9 L (14.0-18.0) g/dL Hct 33.9 L (42.0-52.0) % MCV 101.2 D (80.0-105.0) fl MCH 29.6 (25.0-35.0) pg MCHC 29.2 L (31.0-37.0) g/dl RDW 13.8 (11.5-14.5) % Plt Count 238 (120.0-450.0) 10^3/uL MPV 9.4 (7.0-11.0) fl Gran % 95.0 H (50.0-68.0) % Lymph % (Auto) 4.1 L (22.0-35.0) % [place] % (Auto) 0.8 L (1.0-6.0) % Eos % (Auto) 0.0 L (1.5-5.0) % Baso % (Auto) 0.1 (0.0-3.0) % Gran # 13.81 H (1.4-6.5) Lymph # (Auto) 0.6 L (1.2-3.4) [place] # (Auto) 0.1 (0.1-0.6) Eos # (Auto) 0.0 (0.0-0.7) Baso # (Auto) 0.01 (0.0-2.0) K/mm3 pCO2 Cancelled pO2 Cancelled HCO3 Cancelled ABG pH Cancelled ABG Total CO2 Cancelled ABG O2 Saturation Cancelled ABG O2 Content Cancelled ABG Base Excess Cancelled ABG Hemoglobin Cancelled ABG Carboxyhemoglobin Cancelled POC ABG HHb (Measured) Cancelled ABG Methemoglobin Cancelled ABG O2 Capacity Cancelled [place] Test Cancelled A-a O2 Difference Cancelled Hgb O2 Saturation Cancelled FiO2 Cancelled Blood Gas Comments Cancelled Crit Value Called To Cancelled Crit Value Read Back Cancelled Blood Gas Notified Time Cancelled Sodium 145 (132-148) mmol/L Potassium 4.3 (3.6-5.0) mmol/L Chloride 97 L (98-107) mmol/L Carbon Dioxide 46 H (21-33) mmol/L Anion Gap 6 L (10-20) BUN 49 H (7-21) mg/dL Creatinine 1.1 (0.8-1.5) mg/dl Est GFR ( Amer) > 60 Est GFR (Non-Af Amer) > 60 Random Glucose 141 H (70-110) mg/dL Calcium 8.3 L (8.4-10.5) mg/dL Phosphorus 5.8 H (2.5-4.5) mg/dL Magnesium 2.4 H (1.7-2.2) mg/dL Total Bilirubin 0.6 (0.2-1.3) mg/dL AST 30 (17-59) U/L ALT 47 (7-56) U/L Alkaline Phosphatase 45 (38-126) U/L Total Protein 5.8 (5.8-8.3) g/dL Albumin 3.2 (3.0-4.8) g/dL Globulin 2.7 gm/dL Albumin/Globulin Ratio 1.2 (1.1-1.8) Laboratory Results - last 24 hr 05/24/18 05/25/18 05/25/18 06:30 06:45 06:45 WBC 14.5 H D RBC 3.35 L Hgb 9.9 L Hct 33.9 L MCV 101.2 D MCH 29.6 MCHC 29.2 L RDW 13.8 Plt Count 238 MPV 9.4 Gran % 95.0 H Lymph % (Auto) 4.1 L [place] % (Auto) 0.8 L Eos % (Auto) 0.0 L Baso % (Auto) 0.1 Gran # 13.81 H Lymph # (Auto) 0.6 L [place] # (Auto) 0.1 Eos # (Auto) 0.0 Baso # (Auto) 0.01 pCO2 Cancelled pO2 Cancelled HCO3 Cancelled ABG pH Cancelled ABG Total CO2 Cancelled ABG O2 Saturation Cancelled ABG O2 Content Cancelled ABG Base Excess Cancelled ABG Hemoglobin Cancelled ABG Carboxyhemoglobin Cancelled POC ABG HHb (Measured) Cancelled ABG Methemoglobin Cancelled ABG O2 Capacity Cancelled Los Test Cancelled A-a O2 Difference Cancelled Hgb O2 Saturation Cancelled FiO2 Cancelled Blood Gas Comments Cancelled Crit Value Called To Cancelled Crit Value Read Back Cancelled Blood Gas Notified Time Cancelled Sodium 145 Potassium 4.3 Chloride 97 L Carbon Dioxide 46 H Anion Gap 6 L BUN 49 H Creatinine 1.1 Est GFR ( Amer) > 60 Est GFR (Non-Af Amer) > 60 Random Glucose 141 H Calcium 8.3 L Phosphorus 5.8 H Magnesium 2.4 H Total Bilirubin 0.6 AST 30 ALT 47 Alkaline Phosphatase 45 Total Protein 5.8 Albumin 3.2 Globulin 2.7 Albumin/Globulin Ratio 1.2 Critical Care Progress Note - Nutrition Nutrition: Nutrition Category Date Time Status Regular Diet [DIET] Diets 05/24/18 Dinner Ordered Assessment/Plan - Assessment and Plan (Free Text) Assessment: Patient seen and examined on rounds with resident, agree with note with following additions/exceptions: Patient is 77yo male with PMHx smoking, COPD, CAD, presented with hypercapnic respiratory failure, requiring BIPAP. Patient was intubated for airway protection, and readmitted to MICU. This morning patient doing well on 3LNC, tolerated BIPAP over night. Currently afebrile, BP stable, comfortable in NAD, doing well, awake, alert, requesting breakfast CAD CAP Resp failure COPD exacerbation Recommend: - supp o2 as needed, goal sat 90%, duonebs PRN, IS, Solumedrol 20mg IV BID - Rocephin, Azithro - BP control - ASA, Plavix, Statin - Cardizem 180mg daily - GI ppx - DVT ppx - FS control - speech swallow eval, for PO feeds - transfer to telemetry
--- NOTE | 2018-05-25 13:28 | PN ---
DATE: 05/25/2018 REASON FOR DICTATION: Covering Dr. Hurd/Dr. Schneider. REASON FOR CONSULTATION: History of coronary artery disease, admitted with COPD, shortness of breath. SUBJECTIVE: The patient denies any chest pain, shortness of breath or any palpitation. Thirsty, wanted p.o. fluid. PHYSICAL EXAMINATION: VITAL SIGNS: Temperature afebrile, heart rate 89, blood pressure 111/71. HEENT: PERRLA. Extraocular muscles intact. NECK: Supple. No carotid bruit. No thyromegaly. CHEST: Clear to auscultation. HEART: S1 and S2 regular. ABDOMEN: Soft. EXTREMITIES: Clubbing and cyanosis negative. LABORATORY DATA: Blood workup as follows: WBC 14.5, hemoglobin 9.9, hematocrit 33.9, platelet count 238. Chemistry shows sodium 145, potassium 4.3, chloride 97, carbon dioxide 46, anion gap of , BUN 49, creatinine 1.1. IMPRESSION: A 77-year-old male with past medical history significant for chronic obstructive pulmonary disease, history of coronary artery disease, diffuse atherosclerosis, no focal stenosis. Status post respiratory failure secondary to chronic obstructive pulmonary disease exacerbation, now extubated. In prerenal azotemia; hyperkalemia, resolving; anemia. RECOMMENDATIONS: CVS status is stable. Status post cardiac catheterization on 05/19/2018 for the non-STEMI that revealed diffuse atherosclerosis without critical lesion. Normal LV function. Aggressive medical treatment. CT scan of the chest was negative for PE. Continue DVT prophylaxis. Continue Cardizem. Continue aspirin. Continue aggressive treatment for COPD. We will follow with you. We will transfer care tomorrow to Dr. Schneider/Dr. Hurd. Thank you, Dr. Calvillo, for providing us the opportunity in taking care of the patient, Dante Shepherd. Jenae Burris MD
--- NOTE | 2018-05-25 20:19 | PN ---
DATE: 05/25/2018 SUBJECTIVE: The patient is 77 years old, seen and examined, sitting in chair, seems to be comfortable, has mild shortness of breath, eating and tolerating. PHYSICAL EXAMINATION: VITAL SIGNS: He is afebrile, pulse 85, respirations 29, blood pressure 133/78. LUNGS: Bilateral diffusely decreased breath sounds. HEART: S1 and S2 audible. ABDOMEN: Soft. Obese. Nontender. No rebound. No guarding. NEUROLOGICAL: He is awake, alert, oriented, and communicative. LABORATORY DATA: WBC is 14.5, hemoglobin 9.9, hematocrit 33.9, platelet of 230. Chemistry; sodium 145, potassium 4.3, chloride 97, CO2 of 46, BUN 49, creatinine 1.1, and blood sugar of 141. Phosphorus is 5.8. ASSESSMENT AND PLAN: 1. Chronic obstructive pulmonary disease exacerbation. 2. Hypertension. 3. Hyperlipidemia. 4. Deconditioning and difficulty walking. 5. Resolving pneumonia. PLAN: The patient is being sent to remote telemetry. He was successfully extubated yesterday. Continue him on Cardizem. Continue on Losartan. He is on Flomax and DVT prophylaxis. He is on p.o. prednisone 40 mg. Once he ambulates on the floor, we will watch for 24 hours and then he will be transferred to TCU. Peter Calvillo MD
[2018-05-26] MEDS: Albuterol-Ipratrop 3 mg / 0.5 (3 ml) UD IH SCH ×4 (01:04→19:57)
[2018-05-26 05:32] LABS: ARTERIAL BLOOD GAS HCO3 48.4 mmol/L (21-28); ARTERIAL BLOOD GAS O2 CAPACITY 12.3 mL/dl (16-24); ARTERIAL BLOOD GAS O2 CONTENT 11.7 ML/dl (15-23); ARTERIAL BLOOD GAS O2 SAT 95.4 % (95-98); ARTERIAL BLOOD GAS PCO2 94 mm/Hg (35-45); ARTERIAL BLOOD GAS PH 7.32 (7.35-7.45); ARTERIAL BLOOD GAS TCO2 51.3 mmol.L (22-28)
[2018-05-26 07:04] LABS: GRAN # 9.54 (1.4-6.5); GRAN % 91.6 % (50.0-68.0); HEMOGLOBIN 9.7 g/dL (14.0-18.0); LYMPH # 0.6 (1.2-3.4); LYMPH % 5.6 % (22.0-35.0); MEAN CELL VOLUME 102.5 fl (80.0-105.0); MEAN CORPUSCULAR HEMOGLOBIN 29.8 pg (25.0-35.0); MEAN PLATELET VOLUME 10.2 fl (7.0-11.0); MONO # 0.3 (0.1-0.6); MONO % 2.8 % (1.0-6.0); RBC 3.26 10^6/uL (3.5-6.1); RED CELL DISTRIBUTION WIDTH 13.4 % (11.5-14.5); WHITE BLOOD COUNT 10.4 10^3/uL (4.5-11.0)
[2018-05-26] MEDS ORDERED: Albuterol-Ipratrop 3 mg / 0.5 (3 ml) UD IH PRN (07:29)
[2018-05-26 07:33] LABS: ALB/GLOB RATIO 1.2 (1.1-1.8); ALBUMIN 2.8 g/dL (3.0-4.8); ALT/SGPT 47 U/L (7-56); AST/SGOT 23 U/L (17-59); BLOOD UREA NITROGEN 43 mg/dL (7-21); CALCIUM 8.2 mg/dL (8.4-10.5); GFR NON-AFRICAN AMERICAN > 60
--- NOTE | 2018-05-26 07:38 | PN ---
DATE: 05/26/2018([id number]) PULMONARY NOTE SUBJECTIVE: The patient remains in the ICU. He is currently on nasal cannula. He is not short of breath at rest. PHYSICAL EXAMINATION: VITAL SIGNS: Temperature is 98, pulse is 75, respirations 19, blood pressure 156/71. Oxygen saturation on nasal cannula is 100%. HEENT: Normocephalic, atraumatic. No JVD. CARDIOVASCULAR: Systolic ejection murmur at the lower left sternal border. No S3 gallop. LUNGS: Decreased breath sounds at the bases. Mild rhonchi and wheezing persist. EXTREMITIES: No clubbing, cyanosis or edema. Calves are nontender to palpation. GI: Abdomen is soft, nontender and nondistended. Bowel sounds are positive. SKIN: No acute rash. NEUROLOGIC: Limited at the present time. PERTINENT LABORATORY DATA: Chest x-ray was done this morning and reviewed. On today's film, there is a new patchy infiltrate noted at the right base. There are minimal linear markings noted at the left base. Arterial blood gas was done on BiPAP. Results are: PH 7.32, pCO2 of 94, pO2 of 59. IMPRESSION: 1. Respiratory failure. 2. Advanced, end-stage chronic obstructive pulmonary disease. 3. Rule out pneumonia, right lower lobe. 4. Nonobstructive coronary artery disease. 5. Mild anemia. PLAN: The patient appears comfortable this morning. He is not short of breath at rest. He does state to feeling better overall. I did discuss the case with the night nurse at length. The night nurse stated that the patient had a pretty good night. I did review today's chest x-ray. There appears to be a new patchy infiltrate noted at the right lower lobe/base. I will consult Infectious Disease (Dr. Rodriguez) this morning for antibiotic usage. I have also reviewed the arterial blood gas. A significant rise in the pCO2 is noted. However, the pH is only slightly decreased. This arterial blood gas helps to illustrate just how advanced the patient's lung disease is. On physical exam, the patient remains in mild bronchospasm. I will continue with the current nebulizer treatments. The patient has been changed to oral prednisone. Inputs by Cardiology and Internal Medicine are also noted. Clinical status of the patient is significantly improved - compared to a few days ago. However, it appears that the future status/prognosis for this patient remains very guarded at best/poor. I will discuss the above with the entire ICU team in the next few moments. I will also discuss the above with the attending physician. Cedric Chau MD MTDLeidy
[2018-05-26] MEDS: Budesonide 0.5 mg/2 ml Inhal Susp UD IH SCH ×2 (07:43→19:58)
[2018-05-26] MEDS: Vancomycin 1gm in NS 250ml 1 GM/250 ML BAG IVPB SCH ×2 (08:40→23:50)
[2018-05-26] MEDS: diltiaZEM 180 mg/24 Hours CD Cap PO SCH (09:22)
[2018-05-26] MEDS: Cefepime IV 2 gm in NS 2 GM/100 ML BAG IVPB SCH ×2 (09:23→21:30)
[2018-05-26] MEDS: COMBIGAN OPTH OU SCH ×2 (09:24→18:28)
--- NOTE | 2018-05-26 11:09 | RAD ---
Date of service: 05/26/2018 HISTORY: f/u COMPARISON: 05/25/2018 FINDINGS: LUNGS: Patchy infiltrate right lower lobe PLEURA: No significant pleural effusion identified, no pneumothorax apparent. CARDIOVASCULAR: Aortic calcification Normal cardiac size. No pulmonary vascular congestion. OSSEOUS STRUCTURES: No significant abnormalities. VISUALIZED UPPER ABDOMEN: Normal. OTHER FINDINGS: None. IMPRESSION: Patchy infiltrate right lower lobe
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
[2018-05-26] MEDS: [UNRECOGNIZED DRUG - OTHER] OU SCH (21:44)
[2018-05-26] MEDS ORDERED: Latanoprost 2.5 ml Opht Soln OU SCH (22:00)
[2018-05-27] MEDS: Albuterol-Ipratrop 3 mg / 0.5 (3 ml) UD IH SCH ×4 (02:00→20:20)
[2018-05-27 07:07] LABS: BASO # 0.01 K/mm3 (0.0-2.0); BASO % 0.1 % (0.0-3.0); GRAN # 12.25 (1.4-6.5); GRAN % 91.5 % (50.0-68.0); HEMOGLOBIN 9.3 g/dL (14.0-18.0); LYMPH # 0.8 (1.2-3.4); MEAN CORPUSCULAR HEMOGLOBIN 29.5 pg (25.0-35.0); MEAN CORPUSCULAR HGB CONC 29.5 g/dl (31.0-37.0); MEAN PLATELET VOLUME 10.2 fl (7.0-11.0); MONO # 0.3 (0.1-0.6); MONO % 2.4 % (1.0-6.0); PLATELET COUNT 240 10^3/uL (120.0-450.0); RBC 3.15 10^6/uL (3.5-6.1); RED CELL DISTRIBUTION WIDTH 13.3 % (11.5-14.5); WHITE BLOOD COUNT 13.4 10^3/uL (4.5-11.0)
[2018-05-27 07:18] LABS: ALB/GLOB RATIO 1.2 (1.1-1.8); ALBUMIN 2.7 g/dL (3.0-4.8); ALT/SGPT 59 U/L (7-56); AST/SGOT 24 U/L (17-59); BLOOD UREA NITROGEN 34 mg/dL (7-21); CALCIUM 8.1 mg/dL (8.4-10.5); GFR NON-AFRICAN AMERICAN > 60
--- NOTE | 2018-05-27 07:23 | PN ---
DATE: 05/27/2018(630am-720am) PULMONARY NOTE SUBJECTIVE: The patient appears comfortable this morning. He is mildly short of breath, but in no acute distress. He is awake and alert. PHYSICAL EXAMINATION: VITAL SIGNS: Temperature is 98.3, pulse 69, respirations 20/22, blood pressure 127/68. Oxygen saturation on BiPAP is 97%. HEENT: Normocephalic, atraumatic. No JVD. CARDIOVASCULAR: Systolic ejection murmur at the lower left sternal border. No S3 gallop. LUNGS: Decreased breath sounds at the bases. Less rhonchi. Less wheezing. EXTREMITIES: No clubbing, cyanosis or edema. Calves are nontender to palpation. GI: Abdomen is soft, nontender and nondistended. Bowel sounds are positive. SKIN: No acute rash. NEUROLOGIC: Limited at the present time. PERTINENT LABORATORY DATA: Chest x-ray was done this morning and reviewed. There is a persistent right lower lobe infiltrate noted. Arterial blood gas was ordered for the morning - not done yet. IMPRESSION: 1. Respiratory failure. 2. Advanced, end-stage chronic obstructive pulmonary disease. 3. Right lower lobe pneumonia. 4. Nonobstructive coronary artery disease. 5. Mild anemia. PLAN: The patient appears comfortable this morning. He is mildly short of breath, but in no acute distress. He does state to feeling better overall. I did discuss the case with the night nurse at length. The night nurse stated that the patient had a pretty good night, but remains guarded. I did review the chest x-ray from today. There is a persistent right lower lobe infiltrate noted. Pancultures have been ordered and will be analyzed when feasible. The patient has been started on antibiotic therapy - as per Infectious Disease. Input by Dr. Antonio is noted. Repeat a.m. labs are pending. On physical exam, there is certainly less bronchospasm noted. I will continue with the current nebulizer treatments and low-dose oral steroids for now. Again, I am awaiting the morning arterial blood gas to be done. Clinical status of the patient is certainly improved - compared to the initial presentation. However, again, the future status/prognosis for this elderly patient - with very advanced lung disease - remains very guarded at best. I will discuss the above with the entire ICU team the next few moments. I will also discuss the above with the attending physician later this morning. Cedric Chau MD MTDLeidy
[2018-05-27 07:53] LABS: LYMPHOCYTE 6 % (22.0-35.0); MYELOCYTE 1 %; NEUTROPHIL 93 % (50.0-70.0)
[2018-05-27 07:54] LABS: PLATELET ESTIMATE NORMAL (NORMAL)
[2018-05-27] MEDS: Budesonide 0.5 mg/2 ml Inhal Susp UD IH SCH ×2 (07:56→20:20)
--- NOTE | 2018-05-27 08:45 | RAD ---
Date of service: 05/27/2018 HISTORY: follow up COMPARISON: 05/26/2018 FINDINGS: LUNGS: No change in right lower lobe infiltrate PLEURA: Small right effusion CARDIOVASCULAR: Minimal aortic calcification Mild cardiomegaly no pulmonary vascular congestion. OSSEOUS STRUCTURES: No significant abnormalities. VISUALIZED UPPER ABDOMEN: Normal. OTHER FINDINGS: None. IMPRESSION: No change in right lower lobe infiltrate and small effusion
[2018-05-27 08:49] LABS: ARTERIAL BLOOD GAS HEMOGLOBIN 10.4 g/dL (11.7-17.4); ARTERIAL BLOOD GAS O2 CAPACITY 14.2 mL/dl (16-24); ARTERIAL BLOOD GAS O2 CONTENT 11.5 ML/dl (15-23); ARTERIAL BLOOD GAS PH 7.38 (7.35-7.45); ARTERIAL BLOOD GAS TCO2 49.1 mmol.L (22-28)
[2018-05-27 08:53] LABS: ARTERIAL BLOOD GAS PCO2 79 mm/Hg (35-45)
[2018-05-27 08:54] LABS: ARTERIAL BLOOD GAS HCO3 46.7 mmol/L (21-28)
[2018-05-27] MEDS: diltiaZEM 180 mg/24 Hours CD Cap PO SCH (09:38)
[2018-05-27] MEDS: Cefepime IV 2 gm in NS 2 GM/100 ML BAG IVPB SCH ×2 (09:53→21:41)
[2018-05-27] MEDS: Vancomycin 1gm in NS 250ml 1 GM/250 ML BAG IVPB SCH ×2 (09:54→20:10)
[2018-05-27] MEDS: Pantoprazole 40 mg Susp UD PO SCH (09:59)
--- NOTE | 2018-05-27 10:02 | PN ---
DATE: 05/26/2018 SUBJECTIVE: The patient is a 77-year-old seen and examined, sitting in chair, talking to his son and grandson, mild shortness of breath, eating and tolerating. PHYSICAL EXAMINATION: VITAL SIGNS: He is afebrile, pulse 71, respirations 24, blood pressure 127/87. LUNGS: Bilateral diffusely decreased breath sounds. CARDIOVASCULAR: Heart is S1, S2 audible. ABDOMEN: Soft, obese, nontender. No rebound. No guarding. NEUROLOGIC: He is awake, alert, oriented, communicative. LABORATORY EXAMINATION: WBC is 10.4, hemoglobin 9.7, hematocrit 33.4, platelets 255. Chemistry: Sodium 142, potassium 4.4, chloride 95, CO2 of 49, BUN 43, creatinine 0.9, blood sugar 154. ASSESSMENT: 1. Status post chronic obstructive pulmonary disease exacerbation. 2. Status post respiratory failure was on vent, was successfully extubated yesterday. 3. Right lower lobe pneumonia. 4. Hypertension. 5. Terminal chronic obstructive pulmonary disease. 6. Electrolyte imbalance. PLAN: The patient is currently on steroids, continue nebulizer treatment. He is on Cardizem CD. His heart rate seems to be under control. Continue on losartan. She is on DVT prophylaxis. He is on IV vancomycin, we will continue that. We will taper down his steroids slowly, need to be in TCU and can be transferred to remote telemetry in a.m. Peter Calvillo MD
--- NOTE | 2018-05-27 11:27 | CP.PCM.PN ---
Subjective - Date & Time of Evaluation Date of Evaluation: 05/27/18 Time of Evaluation: 08:15 - Subjective Subjective: Patient still on BiPAP, has some shortness of breath at rest but not in distress, no fevers or chills, still with cough. Objective - Vital Signs/Intake and Output Vital Signs (last 24 hours): Temp Pulse Resp BP Pulse Ox 98 F 75 23 127/87 80 L 05/26/18 12:00 05/26/18 15:08 05/26/18 15:08 05/26/18 15:08 05/26/18 15:08 Intake and Output: 05/26/18 05/26/18 06:59 18:59 Intake Total 910 Output Total 400 300 Balance -400 610 - Medications Medications: Current Medications Albuterol/Ipratropium (Duoneb 3 Mg/0.5 Mg (3 Ml) Ud) 3 ml IH [id number] [facility] Last Admin: 05/26/18 13:08 Dose: 3 ml Albuterol/Ipratropium (Duoneb 3 Mg/0.5 Mg (3 Ml) Ud) 3 ml IH Q2H PRN PRN Reason: Shortness of Breath Aspirin (Aspirin Chewable) 81 mg PO DAILY [facility] Last Admin: 05/26/18 09:22 Dose: 81 mg Budesonide (Pulmicort Respules) 0.5 mg IH [id number] [facility] Last Admin: 05/26/18 07:43 Dose: 0.5 mg Diltiazem HCl (Cardizem Cd) 180 mg PO DAILY [facility] Last Admin: 05/26/18 09:22 Dose: 180 mg Heparin Sodium (Porcine) (Heparin) 5,000 units SC Q12 [facility]; Protocol Last Admin: 05/26/18 09:23 Dose: 5,000 units Home Med (Home Med) 1 unit OU BID [facility] Last Admin: 05/26/18 09:24 Dose: 1 unit Home Med (Home Med) 1 unit OU HS [facility] Cefepime HCl (Maxipime 2gm) 2 gm in 100 mls @ 100 mls/hr IVPB Q12 [facility]; Protocol Stop: 05/31/18 08:16 Last Admin: 05/26/18 09:23 Dose: 100 mls/hr Vancomycin HCl (Vancomycin 1gm) 1 gm in 250 mls @ 167 mls/hr IVPB Q12H [facility]; Protocol Last Admin: 05/26/18 08:40 Dose: 167 mls/hr Losartan Potassium (Cozaar) 100 mg PO DAILY [facility] Last Admin: 05/26/18 09:23 Dose: 100 mg Pantoprazole Sodium (Protonix Inj) 40 mg IVP DAILY [facility] Last Admin: 05/26/18 09:23 Dose: 40 mg Prednisone (Prednisone Tab) 40 mg PO DAILY [facility] Last Admin: 05/26/18 14:29 Dose: 40 mg Tamsulosin HCl (Flomax) 0.4 mg PO DAILY [facility] Last Admin: 05/26/18 09:23 Dose: 0.4 mg - Labs Labs: 05/26/18 05:45 05/26/18 05:45 PT 10.4 SECONDS (9.4-12.5) 05/19/18 11:35 INR 0.91 05/19/18 11:35 APTT 26.0 Seconds (25.1-36.5) 05/23/18 19:02 - Constitutional Appears: Chronically Ill - Head Exam Head Exam: NORMAL INSPECTION - ENT Exam ENT Exam: Mucous Membranes Moist - Neck Exam Neck Exam: absent: Meningismus - Respiratory Exam Respiratory Exam: Decreased Breath Sounds - Cardiovascular Exam Cardiovascular Exam: +S1, +S2 - GI/Abdominal Exam GI & Abdominal Exam: Soft. absent: Tenderness Assessment and Plan - Assessment and Plan (Free Text) Plan: Assessment consider sepsis due to right lower lobe healthcare-associated pneumonia hypercapneic respiratory failure due to COPD exacerbation, slowly improving history of right lower lobe atypical community-acquired pneumonia HTN COPD Plan continue Vancoymcin and Cefepime day 2 pending final sputum cx, blood cx results, PCT; reviewed CXR and Pulmonary evaluation will continue to monitor clinically
--- NOTE | 2018-05-27 13:40 | CP.PCM.PN ---
Subjective - Date & Time of Evaluation Date of Evaluation: 05/27/18 Time of Evaluation: 09:00 - Subjective Subjective: Patient seen and examined on rounds, remains on bipap with mild SOB. Objective - Vital Signs/Intake and Output Vital Signs (last 24 hours): Temp Pulse Resp BP Pulse Ox 98.3 F 91 H 23 134/80 97 05/27/18 04:00 05/27/18 13:33 05/27/18 06:00 05/27/18 09:38 05/27/18 06:00 - Medications Medications: Current Medications Albuterol/Ipratropium (Duoneb 3 Mg/0.5 Mg (3 Ml) Ud) 3 ml IH [id number] [facility] Last Admin: 05/27/18 13:29 Dose: 3 ml Albuterol/Ipratropium (Duoneb 3 Mg/0.5 Mg (3 Ml) Ud) 3 ml IH Q2H PRN PRN Reason: Shortness of Breath Aspirin (Aspirin Chewable) 81 mg PO DAILY [facility] Last Admin: 05/27/18 09:38 Dose: 81 mg Budesonide (Pulmicort Respules) 0.5 mg IH [id number] [facility] Last Admin: 05/27/18 07:56 Dose: 0.5 mg Diltiazem HCl (Cardizem Cd) 180 mg PO DAILY [facility] Last Admin: 05/27/18 09:38 Dose: 180 mg Heparin Sodium (Porcine) (Heparin) 5,000 units SC Q12 [facility]; Protocol Last Admin: 05/27/18 09:44 Dose: 5,000 units Home Med (Home Med) 1 unit OU BID [facility] Last Admin: 05/26/18 18:28 Dose: 1 unit Home Med (Home Med) 1 unit OU HS [facility] Last Admin: 05/26/18 21:44 Dose: 1 unit Cefepime HCl (Maxipime 2gm) 2 gm in 100 mls @ 100 mls/hr IVPB Q12 [facility]; Protocol Stop: 05/31/18 08:16 Last Admin: 05/27/18 09:53 Dose: 100 mls/hr Vancomycin HCl (Vancomycin 1gm) 1 gm in 250 mls @ 167 mls/hr IVPB Q12H [facility]; Protocol Last Admin: 05/27/18 09:54 Dose: 167 mls/hr Losartan Potassium (Cozaar) 100 mg PO DAILY [facility] Last Admin: 05/27/18 09:44 Dose: 100 mg Pantoprazole Sodium (Protonix Susp) 40 mg PO 0600 [facility] Last Admin: 05/27/18 09:59 Dose: 40 mg Prednisone (Prednisone Tab) 40 mg PO DAILY [facility] Last Admin: 05/27/18 09:53 Dose: 40 mg Tamsulosin HCl (Flomax) 0.4 mg PO DAILY [facility] Last Admin: 05/27/18 09:44 Dose: 0.4 mg - Labs Labs: 05/27/18 05:50 05/27/18 05:50 PT 10.4 SECONDS (9.4-12.5) 05/19/18 11:35 INR 0.91 05/19/18 11:35 APTT 26.0 Seconds (25.1-36.5) 05/23/18 19:02 - Constitutional Appears: No Acute Distress, Older Than Stated Age, Chronically Ill - Head Exam Head Exam: NORMAL INSPECTION - Eye Exam Eye Exam: Normal appearance - ENT Exam ENT Exam: Mucous Membranes Moist - Respiratory Exam Respiratory Exam: Decreased Breath Sounds, Prolonged Expiratory Phase, NORMAL BREATHING PATTERN - Cardiovascular Exam Cardiovascular Exam: REGULAR RHYTHM, +S1, +S2 - GI/Abdominal Exam GI & Abdominal Exam: Soft, Normal Bowel Sounds - Neurological Exam Neurological Exam: Alert, Awake, Oriented x3 Assessment and Plan - Assessment and Plan (Free Text) Assessment: Patient is 77yo male with PMHx smoking, COPD, CAD, presented with hypercapnic respiratory failure, requiring BIPAP. Patient was intubated for airway protection, and readmitted to MICU. This morning patient doing well on 3LNC, tolerated BIPAP over night. Currently afebrile, BP stable, comfortable in NAD, on BIPAP remains with mild SOB HYpoxia on ABG noted Placed on BIPAP with improvement in oxygenation Prognosis remains guarded CAD CAP Resp failure COPD exacerbation PNA Recommend: - supp o2 as needed, goal sat 90%, duonebs PRN, IS, Prednisone 40mg daily - Cefepime Vanco, - follow up ID - Follow up repeat procalcitonin, Cultures - BP control - ASA, Plavix, Statin - Cardizem 180mg daily - GI ppx - DVT ppx - FS control - monitor in MICU
--- NOTE | 2018-05-27 15:20 | PN ---
DATE: 05/27/2018 CARDIOLOGY FOLLOWUP SUBJECTIVE: The patient is well on his BiPAP. He is awake, alert, and happy without dyspnea. Off of it, his pulse oximetry becomes very low and the patient becomes confused. PHYSICAL EXAMINATION: GENERAL: Currently, the patient is awake. VITAL SIGNS: Blood pressure is 134/80, heart rates in the 90s. NECK: Negative JVD. LUNGS: Without rales. HEART: Reveals S1, S2. EXTREMITIES: Without edema. LABORATORY DATA: Hemoglobin is 9.3. Chemistries, BUN and creatinine are unremarkable. IMPRESSION: 1. Severe chronic obstructive pulmonary disease. 2. Elevated troponins consistent with a [id number] myocardial infarction, likely secondary to his severe hypoxemia episode. 3. Confusion related to his hypoxemia. 4. Diabetes mellitus. Given these findings, the patient's cardiac status is stable. It is likely he will need BiPAP and home oxygen at home. Ryan Schneider MD
[2018-05-27] MEDS: Potassium & Sodium Phosphate PO SCH (19:25)
[2018-05-27] MEDS: [UNRECOGNIZED DRUG - OTHER] OU SCH (21:37)
--- NOTE | 2018-05-28 01:55 | PN ---
DATE: 05/27/2018 SUBJECTIVE: The patient is 77 years old, seen and examined, seems to be short of breath even at rest, tachycardia seems to be improving. Family by the bedside. PHYSICAL EXAMINATION VITAL SIGNS: He is afebrile, pulse 88, respirations 23, blood pressure 134/80. LUNGS: Bilateral diffusely decreased breath sounds. HEART: S1 and S2 audible. ABDOMEN: Soft. Obese. Nontender. No rebound. No guarding. EXTREMITIES: Bilateral legs, no edema. NEUROLOGICAL: The patient is awake, alert, oriented, and communicative. LABORATORY DATA: WBC is 13.4, hemoglobin 9.3, hematocrit 31.5, platelets of 40. Chemistry: Sodium 139, potassium 4.5, chloride 95, CO2 53, BUN 34, creatinine 0.8, and blood sugar of 116. Phosphorus is 2.2. ASSESSMENT: 1. Chronic obstructive pulmonary disease exacerbation. 2. Hypertension. 3. Deconditioning and difficulty walking. 4. Demand ischemia, probably non-ST elevation myocardial infarction. Cardiac catheterization negative. PLAN: Currently, the patient is on aspirin and diltiazem. The patient states he feels much better when he is in proper position. I think he needs hospital bed upon discharge. Continue him on Cefepime. Currently, the patient is on vancomycin 250 every 12 hours. He is on 40 mg of prednisone, we will slowly taper it down. The patient is still not stable enough to be off of telemetry, we will reevaluate in a.m. If he has to go to TCU, he has to be on the bed close to the nursing station. Peter Calvillo MD
[2018-05-28] MEDS: Albuterol-Ipratrop 3 mg / 0.5 (3 ml) UD IH SCH ×4 (02:44→20:11)
[2018-05-28] MEDS: Pantoprazole 40 mg Susp UD PO SCH (06:35)
[2018-05-28 06:47] LABS: ARTERIAL BLOOD GAS HEMOGLOBIN 11.8 g/dL (11.7-17.4); ARTERIAL BLOOD GAS O2 CAPACITY 16.1 mL/dl (16-24); ARTERIAL BLOOD GAS O2 CONTENT 15.8 ML/dl (15-23); ARTERIAL BLOOD GAS PH 7.42 (7.35-7.45); ARTERIAL BLOOD GAS TCO2 48.9 mmol.L (22-28)
[2018-05-28 06:52] LABS: ARTERIAL BLOOD GAS HCO3 46.7 mmol/L (21-28); ARTERIAL BLOOD GAS PCO2 72 mm/Hg (35-45)
[2018-05-28 07:19] LABS: GRAN # 11.36 (1.4-6.5); GRAN % 90.3 % (50.0-68.0); HEMOGLOBIN 9.5 g/dL (14.0-18.0); LYMPH # 0.9 (1.2-3.4); LYMPH % 6.8 % (22.0-35.0); MEAN CELL VOLUME 98.1 fl (80.0-105.0); MEAN CORPUSCULAR HEMOGLOBIN 29.4 pg (25.0-35.0); MEAN PLATELET VOLUME 10.3 fl (7.0-11.0); MONO # 0.4 (0.1-0.6); MONO % 2.9 % (1.0-6.0); RBC 3.23 10^6/uL (3.5-6.1); RED CELL DISTRIBUTION WIDTH 13.1 % (11.5-14.5); WHITE BLOOD COUNT 12.6 10^3/uL (4.5-11.0)
--- NOTE | 2018-05-28 07:47 | PN ---
DATE: 05/28/2018(645am-735am) PULMONARY NOTE SUBJECTIVE: The patient appears comfortable this morning. He is a little more short of breath , but in no acute distress. He is awake and alert. PHYSICAL EXAMINATION: VITAL SIGNS: Temperature is 98.6, pulse 91, respirations 24/26, blood pressure 182/98. Oxygen saturation on BiPAP is 99%. HEENT: Normocephalic, atraumatic. No JVD. CARDIOVASCULAR: Systolic ejection murmur at the lower left sternal border. No S3 gallop. LUNGS: Decreased breath sounds at the bases. Mild bilateral rhonchi. Less wheezing. EXTREMITIES: No clubbing, cyanosis or edema. Calves are nontender to palpation. GI: Abdomen is soft, nontender and nondistended. Bowel sounds are positive. SKIN: No acute rash. NEUROLOGIC: Limited at the present time. PERTINENT LABORATORY DATA: Chest x-ray was done this morning and reviewed. The chest x-ray is improved-- with partial clearing of the right lower lobe infiltrate. Arterial blood gas was done on BiPAP. Results are: PH 7.42, pCO2 of 72, pO2 of 76. IMPRESSION: 1. Respiratory failure. 2. Advanced, end-stage chronic obstructive pulmonary disease. 3. Right lower lobe pneumonia. 4. Nonobstructive coronary artery disease. 5. Mild anemia. PLAN: The patient appears comfortable this morning. He is a little more short of breath compared to yesterday, but in no acute distress. I did discuss the case with the night nurse at length. The night nurse stated that the patient had a pretty good night. I did review the chest x-ray from today. The chest x-ray is slightly improved-- with partial clearing of the right lower lobe infiltrate. I have also reviewed the arterial blood gas. The arterial blood gas is also improved-- with resolution of the respiratory acidosis. On physical exam, there is less bronchospasm noted. The patient remains on nebulizer treatments and oral steroids. I would continue with the antibiotic coverage as per Infectious Disease. Input by Dr. Antonio is noted. The leukocytosis is resolving. Input by Cardiology is also noted. Clinical status of the patient is certainly improved - compared to the initial presentation. However, again, he remains very ,very guarded overall. I will discuss the above with entire ICU team in the next few moments. I will also discuss the above with the attending physician. Cedric Chau MD SONG
[2018-05-28 07:58] LABS: ALB/GLOB RATIO 1.1 (1.1-1.8); ALBUMIN 2.8 g/dL (3.0-4.8); ALT/SGPT 54 U/L (7-56); AST/SGOT 29 U/L (17-59); BLOOD UREA NITROGEN 27 mg/dL (7-21); CALCIUM 8.3 mg/dL (8.4-10.5); GFR NON-AFRICAN AMERICAN > 60
[2018-05-28] MEDS: Budesonide 0.5 mg/2 ml Inhal Susp UD IH SCH ×2 (08:05→20:11)
--- NOTE | 2018-05-28 09:03 | RAD ---
Date of service: 05/28/2018 HISTORY: f/u COMPARISON: 05/27/2018 FINDINGS: LUNGS: No significant change in right lower lobe infiltrate PLEURA: No significant pleural effusion identified, no pneumothorax apparent. CARDIOVASCULAR: Aortic calcifications Normal cardiac size. No pulmonary vascular congestion. OSSEOUS STRUCTURES: No significant abnormalities. VISUALIZED UPPER ABDOMEN: Normal. OTHER FINDINGS: None. IMPRESSION: No significant change in right lower lobe infiltrate
[2018-05-28] MEDS ORDERED: Potassium & Sodium Phosphate PO STA (09:50)
[2018-05-28] MEDS: diltiaZEM 180 mg/24 Hours CD Cap PO SCH (10:54)
[2018-05-28] MEDS: Potassium & Sodium Phosphate PO SCH ×3 (10:58→18:47)
[2018-05-28] MEDS: Cefepime IV 2 gm in NS 2 GM/100 ML BAG IVPB SCH (10:59)
[2018-05-28] MEDS: Vancomycin 1gm in NS 250ml 1 GM/250 ML BAG IVPB SCH (11:07)
[2018-05-28] MEDS: COMBIGAN OPTH OU SCH ×2 (11:10→18:47)
--- NOTE | 2018-05-28 11:18 | CP.PCM.PN ---
Subjective - Date & Time of Evaluation Date of Evaluation: 05/28/18 Time of Evaluation: 08:25 - Subjective Subjective: Still having cough but less short of breath at rest, no fevers, no nausea, no diarrhea. Objective - Vital Signs/Intake and Output Vital Signs (last 24 hours): Temp Pulse Resp BP Pulse Ox 98.3 F 86 23 134/80 97 05/27/18 04:00 05/27/18 09:38 05/27/18 06:00 05/27/18 09:38 05/27/18 06:00 - Medications Medications: Current Medications Albuterol/Ipratropium (Duoneb 3 Mg/0.5 Mg (3 Ml) Ud) 3 ml IH [id number] [facility] Last Admin: 05/27/18 07:56 Dose: 3 ml Albuterol/Ipratropium (Duoneb 3 Mg/0.5 Mg (3 Ml) Ud) 3 ml IH Q2H PRN PRN Reason: Shortness of Breath Aspirin (Aspirin Chewable) 81 mg PO DAILY [facility] Last Admin: 05/27/18 09:38 Dose: 81 mg Budesonide (Pulmicort Respules) 0.5 mg IH [id number] [facility] Last Admin: 05/27/18 07:56 Dose: 0.5 mg Diltiazem HCl (Cardizem Cd) 180 mg PO DAILY [facility] Last Admin: 05/27/18 09:38 Dose: 180 mg Heparin Sodium (Porcine) (Heparin) 5,000 units SC Q12 [facility]; Protocol Last Admin: 05/27/18 09:44 Dose: 5,000 units Home Med (Home Med) 1 unit OU BID [facility] Last Admin: 05/26/18 18:28 Dose: 1 unit Home Med (Home Med) 1 unit OU HS [facility] Last Admin: 05/26/18 21:44 Dose: 1 unit Cefepime HCl (Maxipime 2gm) 2 gm in 100 mls @ 100 mls/hr IVPB Q12 [facility]; Protocol Stop: 05/31/18 08:16 Last Admin: 05/27/18 09:53 Dose: 100 mls/hr Vancomycin HCl (Vancomycin 1gm) 1 gm in 250 mls @ 167 mls/hr IVPB Q12H [facility]; Protocol Last Admin: 05/27/18 09:54 Dose: 167 mls/hr Losartan Potassium (Cozaar) 100 mg PO DAILY [facility] Last Admin: 05/27/18 09:44 Dose: 100 mg Pantoprazole Sodium (Protonix Susp) 40 mg PO 0600 [facility] Last Admin: 05/27/18 09:59 Dose: 40 mg Prednisone (Prednisone Tab) 40 mg PO DAILY [facility] Last Admin: 05/27/18 09:53 Dose: 40 mg Tamsulosin HCl (Flomax) 0.4 mg PO DAILY [facility] Last Admin: 05/27/18 09:44 Dose: 0.4 mg - Labs Labs: 05/27/18 05:50 05/27/18 05:50 PT 10.4 SECONDS (9.4-12.5) 05/19/18 11:35 INR 0.91 05/19/18 11:35 APTT 26.0 Seconds (25.1-36.5) 05/23/18 19:02 - Constitutional Appears: Chronically Ill - Head Exam Head Exam: NORMAL INSPECTION - Neck Exam Neck Exam: absent: Meningismus - Respiratory Exam Respiratory Exam: Decreased Breath Sounds, Rales (scattered) - Cardiovascular Exam Cardiovascular Exam: +S1, +S2 - GI/Abdominal Exam GI & Abdominal Exam: Soft. absent: Tenderness Assessment and Plan - Assessment and Plan (Free Text) Plan: Assessment consider sepsis due to right lower lobe healthcare-associated pneumonia hypercapneic respiratory failure due to COPD exacerbation, slowly improving history of right lower lobe atypical community-acquired pneumonia HTN COPD Plan continue Vancoymcin and Cefepime day 3 and will add Doxycycline - aim for 4-7 da ys of antibiotics; pending final sputum cx, blood cx results (negative so far), PCT is <0.05; reviewed CXR and Pulmonary evaluation will continue to monitor clinically
--- NOTE | 2018-05-28 13:59 | CP.CCUPN ---
<Dieudonne Beckman - Last Filed: 05/28/18 14:55> CCU Subjective - Physician Review Subjective (Free Text): 05/28/18 13:53 Patient seen and examined at bedside in no acute distress. Patient states he had no issues overnight. Denies chest pain, abdominal pain, nausea, vomiting, fevers, chills. CCU Objective - Vital Signs / Intake & Output Vital Signs (Last 4 hours): Vital Signs Pulse BP 05/28/18 12:55 87 05/28/18 10:54 104 H 172/108 H Intake and Output (Last 8hrs): Intake & Output 05/27/18 05/28/18 05/28/18 22:59 06:59 14:59 Intake Total 750 410 Output Total 400 150 Balance 350 260 Weight 63.049 kg Intake: IV 350 IVPB 350 Oral 400 60 Other 350 Output: Urine 400 150 Urine, Voided 400 150 Other: # Bowel Movements 1 0 - Physical Exam Head: Positive for: Atraumatic, Normocephalic Pupils: Positive for: PERRL Extroacular Muscles: Positive for: EOMI Conjunctiva: Positive for: Normal Mouth: Positive for: Dry Neck: Positive for: Normal Range of Motion Respiratory/Chest: Positive for: Respiratory Distress, Decreased Breath Sounds, Other (12cm x 12cm ecchymoses & hematoma noted over R clavicle extending down to right hip. No tenderness to palpation) Cardiovascular: Positive for: Regular Rate and Rhythm, Normal S1, S2. Negative for: Murmurs Abdomen: Negative for: Tenderness, Distention, Peritoneal Signs Back: Positive for: Normal Inspection Upper Extremity: Positive for: Normal Inspection. Negative for: Cyanosis, Edema Lower Extremity: Positive for: Normal Inspection. Negative for: Edema (Negative lower extremity edema.) Neurological: Positive for: GCS=15, CN II-XII Intact, Speech Normal Skin: Positive for: Warm, Dry, Normal Color. Negative for: Rashes Psychiatric: Positive for: Alert, Oriented x 3, Normal Insight, Normal Concentration - Medications Active Medications: Active Medications Generic Name Dose Route Start Last Admin Trade Name Freq PRN Reason Stop Dose Admin Albuterol/Ipratropium 3 ml 05/23/18 14:00 05/28/18 13:24 Duoneb 3 Mg/0.5 Mg (3 Ml) Ud IH 3 ml [id number] RICH Administration Albuterol/Ipratropium 3 ml 05/26/18 07:29 Duoneb 3 Mg/0.5 Mg (3 Ml) Ud IH Q2H PRN Shortness of Breath Aspirin 81 mg 05/18/18 10:00 05/28/18 10:57 Aspirin Chewable PO 81 mg DAILY RICH Administration Budesonide 0.5 mg 05/26/18 08:00 05/28/18 08:05 Pulmicort Respules IH 0.5 mg [id number] RICH Administration Diltiazem HCl 180 mg 05/24/18 17:03 05/28/18 10:54 Cardizem Cd PO 180 mg DAILY RICH Administration Doxycycline Hyclate 100 mg 05/28/18 22:00 Doryx PO Q12 RICH Protocol Heparin Sodium (Porcine) 5,000 units 05/23/18 22:00 05/28/18 10:59 Heparin SC 5,000 units Q12 RICH Administration Protocol Home Med 1 unit 05/24/18 16:34 05/28/18 11:10 Home Med OU 1 unit BID RICH Administration Home Med 1 unit 05/26/18 22:00 05/27/18 21:37 Home Med OU 1 unit HS RICH Administration Cefepime HCl 2 gm in 100 mls @ 100 mls/hr 05/26/18 08:15 05/28/18 10:59 Maxipime 2gm IVPB 05/31/18 08:16 100 mls/hr Q12 RICH Administration Protocol Vancomycin HCl 1 gm in 250 mls @ 167 mls/hr 05/26/18 08:15 05/28/18 11:07 Vancomycin 1gm IVPB 167 mls/hr Q12H RICH Administration Protocol Losartan Potassium 100 mg 05/20/18 13:15 05/28/18 10:53 Cozaar PO 100 mg DAILY RICH Administration Pantoprazole Sodium 40 mg 05/27/18 06:00 05/28/18 06:35 Protonix Susp PO 40 mg 0600 RICH Administration Potassium Phos/Sodium Phos 1 pkt 05/28/18 14:00 Neutra-Phos PO TID RICH Prednisone 40 mg 05/28/18 08:15 05/28/18 10:55 Prednisone Tab PO 40 mg Q8H RICH Administration Tamsulosin HCl 0.4 mg 05/17/18 11:00 05/28/18 10:54 Flomax PO 0.4 mg DAILY RICH Administration - Patient Studies Lab Studies: Microbiology Studies 05/26/18 18:59 Blood Culture - Preliminary Blood-Venous NO GROWTH AFTER 24 HOURS 05/26/18 18:59 Blood Culture - Preliminary Blood-Venous NO GROWTH AFTER 24 HOURS Lab Studies 05/28/18 05/28/18 05/28/18 Range/Units 07:21 06:30 05:30 WBC (4.5-11.0) 10^3/uL RBC (3.5-6.1) 10^6/uL Hgb (14.0-18.0) g/dL Hct (42.0-52.0) % MCV (80.0-105.0) fl MCH (25.0-35.0) pg MCHC (31.0-37.0) g/dl RDW (11.5-14.5) % Plt Count (120.0-450.0) 10^3/uL MPV (7.0-11.0) fl Gran % (50.0-68.0) % Lymph % (Auto) (22.0-35.0) % [place] % (Auto) (1.0-6.0) % Eos % (Auto) (1.5-5.0) % Baso % (Auto) (0.0-3.0) % Gran # (1.4-6.5) Lymph # (Auto) (1.2-3.4) [place] # (Auto) (0.1-0.6) Eos # (Auto) (0.0-0.7) Baso # (Auto) (0.0-2.0) K/mm3 pCO2 72 H* (35-45) mm/Hg pO2 76.0 L (80-100) mm/Hg HCO3 46.7 H* (21-28) mmol/L ABG pH 7.42 (7.35-7.45) ABG Total CO2 48.9 H (22-28) mmol.L ABG O2 Saturation 98.0 (95-98) % ABG O2 Content 15.8 (15-23) ML/dl ABG Base Excess 18.7 H (-2.0-3.0) mmol/L ABG Hemoglobin 11.8 (11.7-17.4) g/dL ABG Carboxyhemoglobin 2.0 H (0.5-1.5) % POC ABG HHb (Measured) 1.9 (0-5) % ABG Methemoglobin 1.1 (0.0-3.0) % ABG O2 Capacity 16.1 (16-24) mL/dl Hgb O2 Saturation 95.0 (95.0-98.0) % FiO2 50.0 % Sodium 142 (132-148) mmol/L Potassium 3.8 (3.6-5.0) mmol/L Chloride 95 L (98-107) mmol/L Carbon Dioxide 46 H (21-33) mmol/L Anion Gap 5 L (10-20) BUN 27 H (7-21) mg/dL Creatinine 0.8 (0.8-1.5) mg/dl Est GFR ( Amer) > 60 Est GFR (Non-Af Amer) > 60 POC Glucose (mg/dL) 107 (65-110) mg/dL Random Glucose 102 (70-110) mg/dL Calcium 8.3 L (8.4-10.5) mg/dL Phosphorus 1.3 L* (2.5-4.5) mg/dL Magnesium 2.0 (1.7-2.2) mg/dL Total Bilirubin 0.8 (0.2-1.3) mg/dL AST 29 (17-59) U/L ALT 54 (7-56) U/L Alkaline Phosphatase 57 (38-126) U/L Total Protein 5.3 L (5.8-8.3) g/dL Albumin 2.8 L (3.0-4.8) g/dL Globulin 2.5 gm/dL Albumin/Globulin Ratio 1.1 (1.1-1.8) Procalcitonin (0.19-0.49) NG/ML 05/28/18 05/27/18 Range/Units 05:30 08:31 WBC 12.6 H (4.5-11.0) 10^3/uL RBC 3.23 L (3.5-6.1) 10^6/uL Hgb 9.5 L (14.0-18.0) g/dL Hct 31.7 L (42.0-52.0) % MCV 98.1 (80.0-105.0) fl MCH 29.4 (25.0-35.0) pg MCHC 30.0 L (31.0-37.0) g/dl RDW 13.1 (11.5-14.5) % Plt Count 291 (120.0-450.0) 10^3/uL MPV 10.3 (7.0-11.0) fl Gran % 90.3 H (50.0-68.0) % Lymph % (Auto) 6.8 L (22.0-35.0) % [place] % (Auto) 2.9 (1.0-6.0) % Eos % (Auto) 0.0 L (1.5-5.0) % Baso % (Auto) 0.0 (0.0-3.0) % Gran # 11.36 H (1.4-6.5) Lymph # (Auto) 0.9 L (1.2-3.4) [place] # (Auto) 0.4 (0.1-0.6) Eos # (Auto) 0.0 (0.0-0.7) Baso # (Auto) 0.00 (0.0-2.0) K/mm3 pCO2 (35-45) mm/Hg pO2 (80-100) mm/Hg HCO3 (21-28) mmol/L ABG pH (7.35-7.45) ABG Total CO2 (22-28) mmol.L ABG O2 Saturation (95-98) % ABG O2 Content (15-23) ML/dl ABG Base Excess (-2.0-3.0) mmol/L ABG Hemoglobin (11.7-17.4) g/dL ABG Carboxyhemoglobin (0.5-1.5) % POC ABG HHb (Measured) (0-5) % ABG Methemoglobin (0.0-3.0) % ABG O2 Capacity (16-24) mL/dl Hgb O2 Saturation (95.0-98.0) % FiO2 % Sodium (132-148) mmol/L Potassium (3.6-5.0) mmol/L Chloride (98-107) mmol/L Carbon Dioxide (21-33) mmol/L Anion Gap (10-20) BUN (7-21) mg/dL Creatinine (0.8-1.5) mg/dl Est GFR ( Amer) Est GFR (Non-Af Amer) POC Glucose (mg/dL) (65-110) mg/dL Random Glucose (70-110) mg/dL Calcium (8.4-10.5) mg/dL Phosphorus (2.5-4.5) mg/dL Magnesium (1.7-2.2) mg/dL Total Bilirubin (0.2-1.3) mg/dL AST (17-59) U/L ALT (7-56) U/L Alkaline Phosphatase (38-126) U/L Total Protein (5.8-8.3) g/dL Albumin (3.0-4.8) g/dL Globulin gm/dL Albumin/Globulin Ratio (1.1-1.8) Procalcitonin < 0.05 L (0.19-0.49) NG/ML Laboratory Results - last 24 hr 05/27/18 05/28/18 05/28/18 08:31 05:30 05:30 WBC 12.6 H RBC 3.23 L Hgb 9.5 L Hct 31.7 L MCV 98.1 MCH 29.4 MCHC 30.0 L RDW 13.1 Plt Count 291 MPV 10.3 Gran % 90.3 H Lymph % (Auto) 6.8 L [place] % (Auto) 2.9 Eos % (Auto) 0.0 L Baso % (Auto) 0.0 Gran # 11.36 H Lymph # (Auto) 0.9 L [place] # (Auto) 0.4 Eos # (Auto) 0.0 Baso # (Auto) 0.00 pCO2 pO2 HCO3 ABG pH ABG Total CO2 ABG O2 Saturation ABG O2 Content ABG Base Excess ABG Hemoglobin ABG Carboxyhemoglobin POC ABG HHb (Measured) ABG Methemoglobin ABG O2 Capacity Hgb O2 Saturation FiO2 Sodium 142 Potassium 3.8 Chloride 95 L Carbon Dioxide 46 H Anion Gap 5 L BUN 27 H Creatinine 0.8 Est GFR ( Amer) > 60 Est GFR (Non-Af Amer) > 60 POC Glucose (mg/dL) Random Glucose 102 Calcium 8.3 L Phosphorus 1.3 L* Magnesium 2.0 Total Bilirubin 0.8 AST 29 ALT 54 Alkaline Phosphatase 57 Total Protein 5.3 L Albumin 2.8 L Globulin 2.5 Albumin/Globulin Ratio 1.1 Procalcitonin < 0.05 L 05/28/18 05/28/18 06:30 07:21 WBC RBC Hgb Hct MCV MCH MCHC RDW Plt Count MPV Gran % Lymph % (Auto) [place] % (Auto) Eos % (Auto) Baso % (Auto) Gran # Lymph # (Auto) [place] # (Auto) Eos # (Auto) Baso # (Auto) pCO2 72 H* pO2 76.0 L HCO3 46.7 H* ABG pH 7.42 ABG Total CO2 48.9 H ABG O2 Saturation 98.0 ABG O2 Content 15.8 ABG Base Excess 18.7 H ABG Hemoglobin 11.8 ABG Carboxyhemoglobin 2.0 H POC ABG HHb (Measured) 1.9 ABG Methemoglobin 1.1 ABG O2 Capacity 16.1 Hgb O2 Saturation 95.0 FiO2 50.0 Sodium Potassium Chloride Carbon Dioxide Anion Gap BUN Creatinine Est GFR ( Amer) Est GFR (Non-Af Amer) POC Glucose (mg/dL) 107 Random Glucose Calcium Phosphorus Magnesium Total Bilirubin AST ALT Alkaline Phosphatase Total Protein Albumin Globulin Albumin/Globulin Ratio Procalcitonin Review of Systems - Constitutional Constitutional: absent: Fever, Chills - Cardiovascular Cardiovascular: absent: Chest Pain - Respiratory Respiratory: absent: Cough, Dyspnea - Gastrointestinal Gastrointestinal: absent: Abdominal Pain, Diarrhea, Nausea - Genitourinary Genitourinary: absent: Dysuria - Musculoskeletal Musculoskeletal: absent: Back Pain - Neurological Neurological: absent: Dizziness, Numbness - Psychiatric Psychiatric: absent: Anxiety Critical Care Progress Note - Nutrition Nutrition: Nutrition Category Date Time Status Dysphagia/Modified Consistency Diet [DIET] Diets 05/25/18 Lunch Ordered Assessment/Plan - Assessment and Plan (Free Text) Assessment: 77 y/o M with PMHx of COPD, extensive smoking history brought down to ICU from floors for hypercapnic respiratory failure 2/2 lethargy and inability to protect his airway subsequently intubated, now s/p extubation to 3L NC. Tolerating well. Saturating well Plan: Neuro: AAO x 3 No FND Cardiovascular: Normotensive RRR Maintain MAP >65 aspirin diltiazem losartan Pulm: Continue with BiPAP Pulmonary toilet oral hygiene chest pt SaO2> 90% Duonebs prn Solumedrol 40 q8 Renal: Maintain euvolemia Replete electrolytes prn avoid nephrotoxic agents Heme: Monitor H/H ID: Continue with Maxipime, Vanc Procal >0.05 GI/DVT: Protonix IVP/Hep SC <Rousseau,Bilal - Last Filed: 05/28/18 18:01> CCU Objective - Vital Signs / Intake & Output Vital Signs (Last 4 hours): Vital Signs Pulse Resp BP Pulse Ox 05/28/18 15:48 86 26 H 151/72 H 100 05/28/18 15:46 85 23 153/86 H 100 05/28/18 15:00 92 H 22 173/113 H 100 05/28/18 14:05 88 153/98 H 96 05/28/18 14:00 89 26 H 212/86 H 81 L Intake and Output (Last 8hrs): Intake & Output 05/28/18 05/28/18 05/28/18 06:59 14:59 22:59 Intake Total 410 Output Total 150 Balance 260 Weight 63.049 kg Intake: IV 350 IVPB 350 Oral 60 Output: Urine 150 Urine, Voided 150 Other: # Bowel Movements 0 - Medications Active Medications: Active Medications Generic Name Dose Route Start Last Admin Trade Name Freq PRN Reason Stop Dose Admin Albuterol/Ipratropium 3 ml 05/23/18 14:00 05/28/18 13:24 Duoneb 3 Mg/0.5 Mg (3 Ml) Ud IH 3 ml [id number] RICH Administration Albuterol/Ipratropium 3 ml 05/26/18 07:29 Duoneb 3 Mg/0.5 Mg (3 Ml) Ud IH Q2H PRN Shortness of Breath Aspirin 81 mg 05/18/18 10:00 05/28/18 10:57 Aspirin Chewable PO 81 mg DAILY RICH Administration Budesonide 0.5 mg 05/26/18 08:00 05/28/18 08:05 Pulmicort Respules IH 0.5 mg [id number] RICH Administration Clonidine HCl 0.1 mg 05/28/18 18:00 Catapres PO BID RICH Diltiazem HCl 180 mg 05/24/18 17:03 05/28/18 10:54 Cardizem Cd PO 180 mg DAILY RICH Administration Doxycycline Hyclate 100 mg 05/28/18 22:00 Doryx PO Q12 RICH Protocol Heparin Sodium (Porcine) 5,000 units 05/23/18 22:00 05/28/18 10:59 Heparin SC 5,000 units Q12 RICH Administration Protocol Home Med 1 unit 05/24/18 16:34 05/28/18 11:10 Home Med OU 1 unit BID RICH Administration Home Med 1 unit 05/26/18 22:00 05/27/18 21:37 Home Med OU 1 unit HS RICH Administration Cefepime HCl 2 gm in 100 mls @ 100 mls/hr 05/26/18 08:15 05/28/18 10:59 Maxipime 2gm IVPB 05/31/18 08:16 100 mls/hr Q12 RICH Administration Protocol Vancomycin HCl 1 gm in 250 mls @ 167 mls/hr 05/26/18 08:15 05/28/18 11:07 Vancomycin 1gm IVPB 167 mls/hr Q12H R[facility] Administration Protocol Losartan Potassium 100 mg 05/20/18 13:15 05/28/18 10:53 Cozaar PO 100 mg DAILY RICH Administration Methylprednisolone 40 mg 05/28/18 22:00 Solu-Medrol IVP Q8 RICH Pantoprazole Sodium 40 mg 05/27/18 06:00 05/28/18 06:35 Protonix Susp PO 40 mg 0600 RICH Administration Potassium Phos/Sodium Phos 1 pkt 05/28/18 14:00 05/28/18 15:17 Neutra-Phos PO Not Given TID RICH Tamsulosin HCl 0.4 mg 05/17/18 11:00 05/28/18 10:54 Flomax PO 0.4 mg DAILY RICH Administration - Patient Studies Lab Studies: Microbiology Studies 05/26/18 18:59 Blood Culture - Preliminary Blood-Venous NO GROWTH AFTER 24 HOURS 05/26/18 18:59 Blood Culture - Preliminary Blood-Venous NO GROWTH AFTER 24 HOURS Lab Studies 05/28/18 05/28/18 05/28/18 Range/Units 16:16 11:08 07:21 WBC (4.5-11.0) 10^3/uL RBC (3.5-6.1) 10^6/uL Hgb (14.0-18.0) g/dL Hct (42.0-52.0) % MCV (80.0-105.0) fl MCH (25.0-35.0) pg MCHC (31.0-37.0) g/dl RDW (11.5-14.5) % Plt Count (120.0-450.0) 10^3/uL MPV (7.0-11.0) fl Gran % (50.0-68.0) % Lymph % (Auto) (22.0-35.0) % [place] % (Auto) (1.0-6.0) % Eos % (Auto) (1.5-5.0) % Baso % (Auto) (0.0-3.0) % Gran # (1.4-6.5) Lymph # (Auto) (1.2-3.4) [place] # (Auto) (0.1-0.6) Eos # (Auto) (0.0-0.7) Baso # (Auto) (0.0-2.0) K/mm3 pCO2 (35-45) mm/Hg pO2 (80-100) mm/Hg HCO3 (21-28) mmol/L ABG pH (7.35-7.45) ABG Total CO2 (22-28) mmol.L ABG O2 Saturation (95-98) % ABG O2 Content (15-23) ML/dl ABG Base Excess (-2.0-3.0) mmol/L ABG Hemoglobin (11.7-17.4) g/dL ABG Carboxyhemoglobin (0.5-1.5) % POC ABG HHb (Measured) (0-5) % ABG Methemoglobin (0.0-3.0) % ABG O2 Capacity (16-24) mL/dl Hgb O2 Saturation (95.0-98.0) % FiO2 % Sodium (132-148) mmol/L Potassium (3.6-5.0) mmol/L Chloride (98-107) mmol/L Carbon Dioxide (21-33) mmol/L Anion Gap (10-20) BUN (7-21) mg/dL Creatinine (0.8-1.5) mg/dl Est GFR ( Amer) Est GFR (Non-Af Amer) POC Glucose (mg/dL) 199 H 120 H 107 (65-110) mg/dL Random Glucose (70-110) mg/dL Calcium (8.4-10.5) mg/dL Phosphorus (2.5-4.5) mg/dL Magnesium (1.7-2.2) mg/dL Total Bilirubin (0.2-1.3) mg/dL AST (17-59) U/L ALT (7-56) U/L Alkaline Phosphatase (38-126) U/L Total Protein (5.8-8.3) g/dL Albumin (3.0-4.8) g/dL Globulin gm/dL Albumin/Globulin Ratio (1.1-1.8) 05/28/18 05/28/18 05/28/18 Range/Units 06:30 05:30 05:30 WBC 12.6 H (4.5-11.0) 10^3/uL RBC 3.23 L (3.5-6.1) 10^6/uL Hgb 9.5 L (14.0-18.0) g/dL Hct 31.7 L (42.0-52.0) % MCV 98.1 (80.0-105.0) fl MCH 29.4 (25.0-35.0) pg MCHC 30.0 L (31.0-37.0) g/dl RDW 13.1 (11.5-14.5) % Plt Count 291 (120.0-450.0) 10^3/uL MPV 10.3 (7.0-11.0) fl Gran % 90.3 H (50.0-68.0) % Lymph % (Auto) 6.8 L (22.0-35.0) % [place] % (Auto) 2.9 (1.0-6.0) % Eos % (Auto) 0.0 L (1.5-5.0) % Baso % (Auto) 0.0 (0.0-3.0) % Gran # 11.36 H (1.4-6.5) Lymph # (Auto) 0.9 L (1.2-3.4) [place] # (Auto) 0.4 (0.1-0.6) Eos # (Auto) 0.0 (0.0-0.7) Baso # (Auto) 0.00 (0.0-2.0) K/mm3 pCO2 72 H* (35-45) mm/Hg pO2 76.0 L (80-100) mm/Hg HCO3 46.7 H* (21-28) mmol/L ABG pH 7.42 (7.35-7.45) ABG Total CO2 48.9 H (22-28) mmol.L ABG O2 Saturation 98.0 (95-98) % ABG O2 Content 15.8 (15-23) ML/dl ABG Base Excess 18.7 H (-2.0-3.0) mmol/L ABG Hemoglobin 11.8 (11.7-17.4) g/dL ABG Carboxyhemoglobin 2.0 H (0.5-1.5) % POC ABG HHb (Measured) 1.9 (0-5) % ABG Methemoglobin 1.1 (0.0-3.0) % ABG O2 Capacity 16.1 (16-24) mL/dl Hgb O2 Saturation 95.0 (95.0-98.0) % FiO2 50.0 % Sodium 142 (132-148) mmol/L Potassium 3.8 (3.6-5.0) mmol/L Chloride 95 L (98-107) mmol/L Carbon Dioxide 46 H (21-33) mmol/L Anion Gap 5 L (10-20) BUN 27 H (7-21) mg/dL Creatinine 0.8 (0.8-1.5) mg/dl Est GFR ( Amer) > 60 Est GFR (Non-Af Amer) > 60 POC Glucose (mg/dL) (65-110) mg/dL Random Glucose 102 (70-110) mg/dL Calcium 8.3 L (8.4-10.5) mg/dL Phosphorus 1.3 L* (2.5-4.5) mg/dL Magnesium 2.0 (1.7-2.2) mg/dL Total Bilirubin 0.8 (0.2-1.3) mg/dL AST 29 (17-59) U/L ALT 54 (7-56) U/L Alkaline Phosphatase 57 (38-126) U/L Total Protein 5.3 L (5.8-8.3) g/dL Albumin 2.8 L (3.0-4.8) g/dL Globulin 2.5 gm/dL Albumin/Globulin Ratio 1.1 (1.1-1.8) Laboratory Results - last 24 hr 05/28/18 05/28/18 05/28/18 05:30 05:30 06:30 WBC 12.6 H RBC 3.23 L Hgb 9.5 L Hct 31.7 L MCV 98.1 MCH 29.4 MCHC 30.0 L RDW 13.1 Plt Count 291 MPV 10.3 Gran % 90.3 H Lymph % (Auto) 6.8 L [place] % (Auto) 2.9 Eos % (Auto) 0.0 L Baso % (Auto) 0.0 Gran # 11.36 H Lymph # (Auto) 0.9 L [place] # (Auto) 0.4 Eos # (Auto) 0.0 Baso # (Auto) 0.00 pCO2 72 H* pO2 76.0 L HCO3 46.7 H* ABG pH 7.42 ABG Total CO2 48.9 H ABG O2 Saturation 98.0 ABG O2 Content 15.8 ABG Base Excess 18.7 H ABG Hemoglobin 11.8 ABG Carboxyhemoglobin 2.0 H POC ABG HHb (Measured) 1.9 ABG Methemoglobin 1.1 ABG O2 Capacity 16.1 Hgb O2 Saturation 95.0 FiO2 50.0 Sodium 142 Potassium 3.8 Chloride 95 L Carbon Dioxide 46 H Anion Gap 5 L BUN 27 H Creatinine 0.8 Est GFR ( Amer) > 60 Est GFR (Non-Af Amer) > 60 POC Glucose (mg/dL) Random Glucose 102 Calcium 8.3 L Phosphorus 1.3 L* Magnesium 2.0 Total Bilirubin 0.8 AST 29 ALT 54 Alkaline Phosphatase 57 Total Protein 5.3 L Albumin 2.8 L Globulin 2.5 Albumin/Globulin Ratio 1.1 05/28/18 05/28/18 05/28/18 07:21 11:08 16:16 WBC RBC Hgb Hct MCV MCH MCHC RDW Plt Count MPV Gran % Lymph % (Auto) [place] % (Auto) Eos % (Auto) Baso % (Auto) Gran # Lymph # (Auto) [place] # (Auto) Eos # (Auto) Baso # (Auto) pCO2 pO2 HCO3 ABG pH ABG Total CO2 ABG O2 Saturation ABG O2 Content ABG Base Excess ABG Hemoglobin ABG Carboxyhemoglobin POC ABG HHb (Measured) ABG Methemoglobin ABG O2 Capacity Hgb O2 Saturation FiO2 Sodium Potassium Chloride Carbon Dioxide Anion Gap BUN Creatinine Est GFR ( Amer) Est GFR (Non-Af Amer) POC Glucose (mg/dL) 107 120 H 199 H Random Glucose Calcium Phosphorus Magnesium Total Bilirubin AST ALT Alkaline Phosphatase Total Protein Albumin Globulin Albumin/Globulin Ratio Critical Care Progress Note - Nutrition Nutrition: Nutrition Category Date Time Status Dysphagia/Modified Consistency Diet [DIET] Diets 05/25/18 Lunch Ordered Addendum Addendum: 05/28/18 17:57 ICU Attending Addendum Patient seen and examined. Case reviewed on round with housestaff. Agree with resident note above with the following additions/exceptions: 77 M hx of COPD on home oxygen and prednisone recently admitted to ICU for HCRF returned with HCFR admitted 05/16 to MICU for HCRF tx with Bipap then transferred out returned 05/23 due to unresponsiveness leading to resp failure from ambien use intubated/extubated 05/24 CXR for 05/26 shows RLL PNA Procal low so this may be aspiration pnemonitis or foreign body for now tx as asp PNA/HCAP on day 3 vanc/cefepime Higher dose steroids since he is on home steroids [id number] solumedrol duonebs repeat CXR in AM d/c zolpidem, he should not be on this medication cont home bp meds if MAP > 65 replace phos can be off Bipap during the day, needs Bipap QHS Rest of care as above Kaylee Rousseau MD Pulmonary, Critical Care and Sleep Medicine Critical Care TIme 31 mins
--- NOTE | 2018-05-28 14:43 | PN ---
DATE: 05/28/2018 SUBJECTIVE: Patient is 77 years old seen and examined last night. noted patient was confused, disoriented, he was pulling his BiPAP, so he was put in soft restraints. PHYSICAL EXAMINATION: GENERAL: He still seems to be somewhat confused. VITAL SIGNS: He is afebrile, pulse 104, respirations 28 and blood pressure 182/98. LUNGS: Bilateral diffusely decreased breath sounds. HEART: S1 and S2 audible. ABDOMEN: Soft. Nontender. Obese. No hepatosplenomegaly. NEUROLOGICAL: The patient is awake, alert, oriented, communicative. LABORATORY DATA: WBC is 12.6, hemoglobin 9.5. hematocrit 31.7 and platelets of 291,000. Chemistry: Sodium 142, potassium 3.8, chloride 95, CO2 of 46, BUN 27, creatinine 1.8 and blood sugar of 102. Phosphorus is 1.3. Blood cultures are negative. DIAGNOSTICS: X-ray of chest done this morning shows right lower lobe pneumonia. ASSESSMENT: 1. Status post respiratory failure, currently on BiPAP. 2. Chronic obstructive pulmonary disease exacerbation. 3. Right lower lobe pneumonia. 4. Demand ischemia, chronic. Catheterization is unremarkable for coronary artery disease. PLAN: Currently, the patient is on aspirin 81 daily. He is on diltiazem, losartan, doxycycline, nebulizer treatment. He is on DVT prophylaxis, he is on Maxipime, he is being given Neutra-Phos t.i.d. Continue ICU care. We will follow up his electrolytes intermittently. Peter Calvillo MD
--- NOTE | 2018-05-28 15:49 | PN ---
DATE: 05/28/2018 CARDIOLOGY FOLLOWUP SUBJECTIVE: The patient's breathing is still compromised off of BiPAP. PHYSICAL EXAMINATION: VITAL SIGNS: Blood pressure is 172/100, heart rate is in 100. NECK: Negative JVD. LUNGS: Without rales. HEART: Reveals S1, S2. EXTREMITIES: Without edema. LABORATORY DATA: Hemoglobin is 9.5. Chemistries: BUN and creatinine are unremarkable. IMPRESSION: 1. Chronic obstructive pulmonary disease. 2. Hypoxemia. 3. [id number] myocardial infarction secondary to his hypoxemia. 4. Altered mental status whenever his oxygen is low. 5. Systemic hypertension. PLAN: Given these findings, the patient will need to be on BiPAP for an extended period of time. We will add Norvasc to his regimen for better blood pressure control. Ryan Schneider MD
[2018-05-28] MEDS: Dexmedetomidine 400mcg/100mL 400 MCG/100 ML BOTTLE IV PRN (18:46)
[2018-05-28] MEDS: MethylPREDNISolone 40 mg Vial IVP SCH (23:00)
[2018-05-29] MEDS: Vancomycin 1gm in NS 250ml 1 GM/250 ML BAG IVPB SCH ×3 (00:20→21:08)
[2018-05-29] MEDS: Albuterol-Ipratrop 3 mg / 0.5 (3 ml) UD IH SCH ×4 (02:33→20:13)
[2018-05-29] MEDS: [UNRECOGNIZED DRUG - OTHER] OU SCH ×2 (03:49→21:05)
[2018-05-29] MEDS: Dexmedetomidine 400mcg/100mL 400 MCG/100 ML BOTTLE IV PRN (04:21)
[2018-05-29] MEDS: MethylPREDNISolone 40 mg Vial IVP SCH ×2 (07:12→21:09)
--- NOTE | 2018-05-29 07:18 | PN ---
DATE: 05/29/2018(620am-710am) PULMONARY NOTE SUBJECTIVE: The patient appears much more comfortable this morning - compared to yesterday. He is not short of breath at rest. PHYSICAL EXAMINATION: VITAL SIGNS: Temperature is 100.2, pulse 52, respirations 15, blood pressure 144/66. Oxygen saturation on BiPAP is 100%. HEENT: Normocephalic, atraumatic. No JVD. CARDIOVASCULAR: Systolic ejection murmur at the lower left sternal border. No S3 gallop. LUNGS: Decreased breath sounds at the bases. Less rhonchi. No wheezing this morning. EXTREMITIES: No clubbing, cyanosis or edema. Calves are nontender to palpation. GI: Abdomen is soft, nontender and nondistended. Bowel sounds are positive. SKIN: No acute rash. NEUROLOGIC: Limited at the present time. PERTINENT LABORATORY DATA: Chest x-ray was done this morning and reviewed. The chest x-ray continues to slowly improve - with less/decreased right lower lobe infiltrate. Arterial blood gas - pending. IMPRESSION: 1. Respiratory failure. 2. Advanced, end-stage chronic obstructive pulmonary disease. 3. Right lower lobe pneumonia. 4. Nonobstructive coronary artery disease. 5. Mild anemia. PLAN: The patient appears much more comfortable this morning - compared to yesterday. He is not short of breath at rest. I did discuss the case with the night nurse at length. The night nurse stated that the patient had a good night. I did review the chest x-ray from today. The chest x-ray continues to slowly improve - with further clearing of the right lower lobe infiltrate. On physical exam, there is certainly less bronchospasm noted. In addition, the alveolar-arterial gradient is also less. I will continue with the current nebulizer treatments and current intravenous steroids for now. I did discuss the case with the respiratory therapist at length. Plan will be to try and transition the patient to nasal cannula this morning and repeat an arterial blood gas. Depending on the arterial blood gas results, we will then determine the BiPAP usage. The patient remains on antibiotic therapy - as per Infectious Disease. Low-grade temperatures are noted. Repeat a.m. labs are pending. Inputs by Internal Medicine and Cardiology are also noted. Clinical status of the patient is significantly improved - compared to a few days ago. However, again, the future status/prognosis for this patient - with very advanced lung disease - remains very guarded. I will discuss the above with the entire ICU team in the next few moments. I will also discuss the above with the attending physician later this morning. Cedric Chau MD [facility]
--- NOTE | 2018-05-29 08:14 | CP.CCUPN ---
<Cherry Faulkner - Last Filed: 05/29/18 08:15> CCU Subjective - Physician Review Subjective (Free Text): CRITICAL CARE PROGRESS NOTE FOR DR. FAROOQ Faulkner PGY-1 Pt seen and examined at bedside this am. Pt is AxO x 2, still slightly confused, however calm. He was on precedex drip overnight for agitation and pulling. He is on 3L NC currently. His 12 point ROS is negative. CCU Objective - Vital Signs / Intake & Output Vital Signs (Last 4 hours): Vital Signs Pulse Resp BP Pulse Ox 05/29/18 07:47 52 L 21 129/69 100 05/29/18 07:00 134/65 05/29/18 06:59 52 L 13 100 05/29/18 06:00 53 L 15 152/78 H 100 05/29/18 05:00 51 L 15 146/76 100 Intake and Output (Last 8hrs): Intake & Output 05/28/18 05/29/18 05/29/18 22:59 06:59 14:59 Intake Total 3 410 Balance 3 410 Intake: IV 3 410 Left Wrist 200 Right Forearm 113 Oral 0 Other: # Bowel Movements 0 - Physical Exam Head: Positive for: Atraumatic, Normocephalic Pupils: Positive for: PERRL Extroacular Muscles: Positive for: EOMI Conjunctiva: Positive for: Normal Mouth: Positive for: Dry Neck: Positive for: Normal Range of Motion Respiratory/Chest: Positive for: Respiratory Distress, Decreased Breath Sounds, Other (12cm x 12cm ecchymoses & hematoma noted over R clavicle extending down to right hip. No tenderness to palpation) Cardiovascular: Positive for: Regular Rate and Rhythm, Normal S1, S2. Negative for: Murmurs Abdomen: Negative for: Tenderness, Distention, Peritoneal Signs Back: Positive for: Normal Inspection Upper Extremity: Positive for: Normal Inspection. Negative for: Cyanosis, Edema Lower Extremity: Positive for: Normal Inspection. Negative for: Edema (Negative lower extremity edema.) Neurological: Positive for: GCS=15, CN II-XII Intact, Speech Normal Skin: Positive for: Warm, Dry, Normal Color. Negative for: Rashes Psychiatric: Positive for: Alert, Oriented x 3, Normal Insight, Normal Concentration - Medications Active Medications: Active Medications Generic Name Dose Route Start Last Admin Trade Name Freq PRN Reason Stop Dose Admin Albuterol/Ipratropium 3 ml 05/23/18 14:00 05/29/18 02:33 Duoneb 3 Mg/0.5 Mg (3 Ml) Ud IH 3 ml [id number] RICH Administration Albuterol/Ipratropium 3 ml 05/26/18 07:29 Duoneb 3 Mg/0.5 Mg (3 Ml) Ud IH Q2H PRN Shortness of Breath Aspirin 81 mg 05/18/18 10:00 05/28/18 10:57 Aspirin Chewable PO 81 mg DAILY RICH Administration Budesonide 0.5 mg 05/26/18 08:00 05/28/18 20:11 Pulmicort Respules IH 0.5 mg [id number] RICH Administration Clonidine HCl 0.1 mg 05/28/18 18:00 05/28/18 18:47 Catapres PO 0.1 mg BID RICH Administration Diltiazem HCl 180 mg 05/24/18 17:03 05/28/18 10:54 Cardizem Cd PO 180 mg DAILY RICH Administration Doxycycline Hyclate 100 mg 05/28/18 22:00 Doryx PO Q12 RICH Protocol Heparin Sodium (Porcine) 5,000 units 05/23/18 22:00 05/28/18 23:00 Heparin SC 5,000 units Q12 RICH Administration Protocol Home Med 1 unit 05/24/18 16:34 05/28/18 18:47 Home Med OU 1 unit BID RICH Administration Home Med 1 unit 05/26/18 22:00 05/29/18 03:49 Home Med OU 1 unit HS RICH Administration Cefepime HCl 2 gm in 100 mls @ 100 mls/hr 05/26/18 08:15 05/29/18 00:00 Maxipime 2gm IVPB 05/31/18 08:16 100 mls/hr Q12 RICH Administration Protocol Vancomycin HCl 1 gm in 250 mls @ 167 mls/hr 05/26/18 08:15 05/29/18 00:20 Vancomycin 1gm IVPB 167 mls/hr Q12H RICH Administration Protocol Dexmedetomidine HCl 400 mcg in 100 mls @ 3.152 mls/hr 05/28/18 18:41 05/29/18 04:21 Precedex 400mcg/100ml IV 0.6 mcg/kg/hr .Q24H PRN 9.457 mls/hr Agitation Administration Protocol 0.2 MCG/KG/HR Doxycycline Hyclate 100 mg/ 100 mls @ 100 mls/hr 05/28/18 23:45 05/29/18 03:53 Sodium Chloride IVPB 100 mls/hr Q12 RICH Administration Protocol Losartan Potassium 100 mg 05/20/18 13:15 05/28/18 10:53 Cozaar PO 100 mg DAILY RICH Administration Methylprednisolone 40 mg 05/28/18 22:00 05/29/18 07:12 Solu-Medrol IVP 40 mg Q8 RICH Administration Pantoprazole Sodium 40 mg 05/27/18 06:00 05/28/18 06:35 Protonix Susp PO 40 mg 0600 RICH Administration Potassium Phos/Sodium Phos 1 pkt 05/28/18 14:00 05/28/18 18:47 Neutra-Phos PO 1 pkt TID RICH Administration Tamsulosin HCl 0.4 mg 05/17/18 11:00 05/28/18 10:54 Flomax PO 0.4 mg DAILY RICH Administration - Patient Studies Lab Studies: Microbiology Studies 05/26/18 18:59 Blood Culture - Preliminary Blood-Venous NO GROWTH AFTER 48 HOURS 05/26/18 18:59 Blood Culture - Preliminary Blood-Venous NO GROWTH AFTER 48 HOURS Lab Studies 05/29/18 05/28/18 05/28/18 Range/Units 07:39 21:17 16:16 POC Glucose (mg/dL) 130 H 121 H 199 H (65-110) mg/dL 05/28/18 05/28/18 Range/Units 11:08 07:21 POC Glucose (mg/dL) 120 H 107 (65-110) mg/dL Laboratory Results - last 24 hr 05/28/18 05/28/18 05/28/18 07:21 11:08 16:16 POC Glucose (mg/dL) 107 120 H 199 H 05/28/18 05/29/18 21:17 07:39 POC Glucose (mg/dL) 121 H 130 H Review of Systems - Review of Systems Review of Systems: per HPI Critical Care Progress Note - Nutrition Nutrition: Nutrition Category Date Time Status Dysphagia/Modified Consistency Diet [DIET] Diets 05/25/18 Lunch Ordered Assessment/Plan - Assessment and Plan (Free Text) Assessment: 77 y/o M with PMHx of COPD, extensive smoking history on home oxygen and prednisone admitted on 05/16 for HCRP, treated with Bipap then transferred out. Pt returned on 05/23, brought down to ICU from floors for hypercapnic respiratory failure 2/2 lethargy and inability to protect his airway from ambien use. Subsequently intubated, now s/p extubation to 3L NC. Has been on BiPAP trials intermittently. Plan: Neuro: AAO x 2 Intermitten confusion, likely secondary to ICU delirium No FND Discontinue zolpidem, should not be on this medication d/t decrease in respiratory drive Precedex drip for agitation Cardiovascular: Normotensive RRR Continue home BP meds, maintain MAP >65 aspirin clonidine diltiazem losartan Pulm: CXR for 05/26 shows RLL PNA Procalcitonin low, possible aspiration pnemonitis or foreign body Treat for aspiration pneumonia/HCAP, on day 4 vancomycin/cefepime repeat Cxray this am COPD Exacerbation Solumedrol [id number]. Increased dose as pt is on home steroids Duoneb Budesonide Bipap during the day, needs Bipap QHS Pulmonary toilet oral hygiene chest pt SaO2> 90% repeat ABG today /Renal: Maintain euvolemia Replete electrolytes prn avoid nephrotoxic agents I/Os Home flomax Heme: Monitor H/H Platelets stable f/u PT for ecchymoses ID: Continue with Maxipime, Vanc for aspiration pneumonia/HCAP GI/DVT: Protonix IVP/Hep SC Dispo: Pt axo x 2 with intermittent confusion, likely secondary to ICU delirum. Hemodynamically stable. Continue to monitor in ICU. Case seen, examined and discussed with attending physician, Dr. Rousseau <Kaylee Rousseau - Last Filed: 05/29/18 17:42> CCU Objective - Vital Signs / Intake & Output Vital Signs (Last 4 hours): Vital Signs Pulse Resp BP Pulse Ox 05/29/18 17:28 99 H 32 H 121/54 L 82 L 05/29/18 17:00 101 H 25 H 127/63 90 L 05/29/18 16:42 98 H 32 H 127/67 88 L 05/29/18 16:00 83 19 96 05/29/18 15:00 110/51 L 05/29/18 14:59 81 26 H 94 L 05/29/18 14:00 80 27 H 117/52 L 93 L Intake and Output (Last 8hrs): Intake & Output 05/29/18 05/29/18 05/29/18 06:59 14:59 22:59 Intake Total 410 30 970 Balance 410 30 970 Intake: IV 410 30 350 IVPB 350 Left Wrist 200 Right Forearm 113 Oral 0 620 Other: # Bowel Movements 0 2 - Medications Active Medications: Active Medications Generic Name Dose Route Start Last Admin Trade Name Freq PRN Reason Stop Dose Admin Albuterol/Ipratropium 3 ml 05/23/18 14:00 05/29/18 13:11 Duoneb 3 Mg/0.5 Mg (3 Ml) Ud IH 3 ml [id number] RICH Administration Albuterol/Ipratropium 3 ml 05/26/18 07:29 Duoneb 3 Mg/0.5 Mg (3 Ml) Ud IH Q2H PRN Shortness of Breath Aspirin 81 mg 05/18/18 10:00 05/29/18 10:06 Aspirin Chewable PO 81 mg DAILY RICH Administration Budesonide 0.5 mg 05/26/18 08:00 05/29/18 08:38 Pulmicort Respules IH 0.5 mg [id number] RICH Administration Clonidine HCl 0.1 mg 05/28/18 18:00 05/29/18 10:04 Catapres PO 0.1 mg BID RICH Administration Diltiazem HCl 180 mg 05/24/18 17:03 05/29/18 10:05 Cardizem Cd PO 180 mg DAILY RICH Administration Doxycycline Hyclate 100 mg 05/28/18 22:00 Doryx PO Q12 RICH Protocol Heparin Sodium (Porcine) 5,000 units 05/23/18 22:00 05/29/18 10:06 Heparin SC 5,000 units Q12 RICH Administration Protocol Home Med 1 unit 05/24/18 16:34 05/29/18 17:23 Home Med OU 1 unit BID RICH Administration Home Med 1 unit 05/26/18 22:00 05/29/18 03:49 Home Med OU 1 unit HS RICH Administration Cefepime HCl 2 gm in 100 mls @ 100 mls/hr 05/26/18 08:15 05/29/18 10:06 Maxipime 2gm IVPB 05/31/18 08:16 100 mls/hr Q12 RICH Administration Protocol Vancomycin HCl 1 gm in 250 mls @ 167 mls/hr 05/26/18 08:15 05/29/18 10:09 Vancomycin 1gm IVPB 167 mls/hr Q12H RICH Administration Protocol Dexmedetomidine HCl 400 mcg in 100 mls @ 3.152 mls/hr 05/28/18 18:41 05/29/18 07:00 Precedex 400mcg/100ml IV 0 mcg/kg/hr .Q24H PRN 0 mls/hr Agitation Titration Protocol 0.2 MCG/KG/HR Doxycycline Hyclate 100 mg/ 100 mls @ 100 mls/hr 05/28/18 23:45 05/29/18 10:06 Sodium Chloride IVPB 100 mls/hr Q12 RICH Administration Protocol Losartan Potassium 100 mg 05/20/18 13:15 05/29/18 10:05 Cozaar PO 100 mg DAILY RICH Administration Methylprednisolone 40 mg 05/29/18 22:00 Solu-Medrol IVP Q12 RICH Pantoprazole Sodium 40 mg 05/27/18 06:00 05/29/18 08:45 Protonix Susp PO 40 mg 0600 RICH Administration Potassium Phos/Sodium Phos 1 pkt 05/28/18 14:00 05/29/18 15:40 Neutra-Phos PO 1 pkt TID RICH Administration Tamsulosin HCl 0.4 mg 05/17/18 11:00 05/29/18 10:05 Flomax PO 0.4 mg DAILY RICH Administration - Patient Studies Lab Studies: Microbiology Studies 05/26/18 18:59 Blood Culture - Preliminary Blood-Venous NO GROWTH AFTER 48 HOURS 05/26/18 18:59 Blood Culture - Preliminary Blood-Venous NO GROWTH AFTER 48 HOURS Lab Studies 05/29/18 05/29/18 05/29/18 Range/Units 15:57 11:22 08:10 WBC (4.5-11.0) 10^3/uL RBC (3.5-6.1) 10^6/uL Hgb (14.0-18.0) g/dL Hct (42.0-52.0) % MCV (80.0-105.0) fl MCH (25.0-35.0) pg MCHC (31.0-37.0) g/dl RDW (11.5-14.5) % Plt Count (120.0-450.0) 10^3/uL MPV (7.0-11.0) fl Gran % (50.0-68.0) % Lymph % (Auto) (22.0-35.0) % [place] % (Auto) (1.0-6.0) % Eos % (Auto) (1.5-5.0) % Baso % (Auto) (0.0-3.0) % Gran # (1.4-6.5) Lymph # (Auto) (1.2-3.4) [place] # (Auto) (0.1-0.6) Eos # (Auto) (0.0-0.7) Baso # (Auto) (0.0-2.0) K/mm3 pCO2 84 H* (35-45) mm/Hg pO2 198.0 H (80-100) mm/Hg HCO3 46.4 H* (21-28) mmol/L ABG pH 7.35 (7.35-7.45) ABG Total CO2 49.0 H (22-28) mmol.L ABG O2 Saturation 100.0 H (95-98) % ABG O2 Content 12.6 L (15-23) ML/dl ABG Base Excess 18.0 H (-2.0-3.0) mmol/L ABG Hemoglobin 8.9 L (11.7-17.4) g/dL ABG Carboxyhemoglobin 2.3 H (0.5-1.5) % POC ABG HHb (Measured) 0 (0-5) % ABG Methemoglobin 1.1 (0.0-3.0) % ABG O2 Capacity 12.6 L (16-24) mL/dl Hgb O2 Saturation 96.5 (95.0-98.0) % FiO2 40.0 % Sodium (132-148) mmol/L Potassium (3.6-5.0) mmol/L Chloride (98-107) mmol/L Carbon Dioxide (21-33) mmol/L Anion Gap (10-20) BUN (7-21) mg/dL Creatinine (0.8-1.5) mg/dl Est GFR ( Amer) Est GFR (Non-Af Amer) POC Glucose (mg/dL) 285 H 185 H (65-110) mg/dL Random Glucose (70-110) mg/dL Calcium (8.4-10.5) mg/dL Phosphorus (2.5-4.5) mg/dL Magnesium (1.7-2.2) mg/dL Total Bilirubin (0.2-1.3) mg/dL AST (17-59) U/L ALT (7-56) U/L Alkaline Phosphatase (38-126) U/L Total Protein (5.8-8.3) g/dL Albumin (3.0-4.8) g/dL Globulin gm/dL Albumin/Globulin Ratio (1.1-1.8) 05/29/18 05/29/18 05/29/18 Range/Units 08:00 08:00 07:39 WBC 8.6 D (4.5-11.0) 10^3/uL RBC 3.12 L (3.5-6.1) 10^6/uL Hgb 9.3 L (14.0-18.0) g/dL Hct 30.3 L (42.0-52.0) % MCV 97.1 (80.0-105.0) fl MCH 29.8 (25.0-35.0) pg MCHC 30.7 L (31.0-37.0) g/dl RDW 13.3 (11.5-14.5) % Plt Count 222 (120.0-450.0) 10^3/uL MPV 10.1 (7.0-11.0) fl Gran % 97.2 H (50.0-68.0) % Lymph % (Auto) 2.1 L (22.0-35.0) % [place] % (Auto) 0.6 L (1.0-6.0) % Eos % (Auto) 0.0 L (1.5-5.0) % Baso % (Auto) 0.1 (0.0-3.0) % Gran # 8.34 H (1.4-6.5) Lymph # (Auto) 0.2 L (1.2-3.4) [place] # (Auto) 0.1 (0.1-0.6) Eos # (Auto) 0.0 (0.0-0.7) Baso # (Auto) 0.01 (0.0-2.0) K/mm3 pCO2 (35-45) mm/Hg pO2 (80-100) mm/Hg HCO3 (21-28) mmol/L ABG pH (7.35-7.45) ABG Total CO2 (22-28) mmol.L ABG O2 Saturation (95-98) % ABG O2 Content (15-23) ML/dl ABG Base Excess (-2.0-3.0) mmol/L ABG Hemoglobin (11.7-17.4) g/dL ABG Carboxyhemoglobin (0.5-1.5) % POC ABG HHb (Measured) (0-5) % ABG Methemoglobin (0.0-3.0) % ABG O2 Capacity (16-24) mL/dl Hgb O2 Saturation (95.0-98.0) % FiO2 % Sodium 138 (132-148) mmol/L Potassium 4.5 (3.6-5.0) mmol/L Chloride 94 L (98-107) mmol/L Carbon Dioxide 45 H (21-33) mmol/L Anion Gap 4 L (10-20) BUN 29 H (7-21) mg/dL Creatinine 0.7 L (0.8-1.5) mg/dl Est GFR ( Amer) > 60 Est GFR (Non-Af Amer) > 60 POC Glucose (mg/dL) 130 H (65-110) mg/dL Random Glucose 129 H (70-110) mg/dL Calcium 8.0 L (8.4-10.5) mg/dL Phosphorus 3.7 (2.5-4.5) mg/dL Magnesium 1.8 (1.7-2.2) mg/dL Total Bilirubin 1.0 (0.2-1.3) mg/dL AST 28 (17-59) U/L ALT 54 (7-56) U/L Alkaline Phosphatase 46 (38-126) U/L Total Protein 5.0 L (5.8-8.3) g/dL Albumin 2.7 L (3.0-4.8) g/dL Globulin 2.3 gm/dL Albumin/Globulin Ratio 1.2 (1.1-1.8) 05/28/18 Range/Units 21:17 WBC (4.5-11.0) 10^3/uL RBC (3.5-6.1) 10^6/uL Hgb (14.0-18.0) g/dL Hct (42.0-52.0) % MCV (80.0-105.0) fl MCH (25.0-35.0) pg MCHC (31.0-37.0) g/dl RDW (11.5-14.5) % Plt Count (120.0-450.0) 10^3/uL MPV (7.0-11.0) fl Gran % (50.0-68.0) % Lymph % (Auto) (22.0-35.0) % [place] % (Auto) (1.0-6.0) % Eos % (Auto) (1.5-5.0) % Baso % (Auto) (0.0-3.0) % Gran # (1.4-6.5) Lymph # (Auto) (1.2-3.4) [place] # (Auto) (0.1-0.6) Eos # (Auto) (0.0-0.7) Baso # (Auto) (0.0-2.0) K/mm3 pCO2 (35-45) mm/Hg pO2 (80-100) mm/Hg HCO3 (21-28) mmol/L ABG pH (7.35-7.45) ABG Total CO2 (22-28) mmol.L ABG O2 Saturation (95-98) % ABG O2 Content (15-23) ML/dl ABG Base Excess (-2.0-3.0) mmol/L ABG Hemoglobin (11.7-17.4) g/dL ABG Carboxyhemoglobin (0.5-1.5) % POC ABG HHb (Measured) (0-5) % ABG Methemoglobin (0.0-3.0) % ABG O2 Capacity (16-24) mL/dl Hgb O2 Saturation (95.0-98.0) % FiO2 % Sodium (132-148) mmol/L Potassium (3.6-5.0) mmol/L Chloride (98-107) mmol/L Carbon Dioxide (21-33) mmol/L Anion Gap (10-20) BUN (7-21) mg/dL Creatinine (0.8-1.5) mg/dl Est GFR ( Amer) Est GFR (Non-Af Amer) POC Glucose (mg/dL) 121 H (65-110) mg/dL Random Glucose (70-110) mg/dL Calcium (8.4-10.5) mg/dL Phosphorus (2.5-4.5) mg/dL Magnesium (1.7-2.2) mg/dL Total Bilirubin (0.2-1.3) mg/dL AST (17-59) U/L ALT (7-56) U/L Alkaline Phosphatase (38-126) U/L Total Protein (5.8-8.3) g/dL Albumin (3.0-4.8) g/dL Globulin gm/dL Albumin/Globulin Ratio (1.1-1.8) Laboratory Results - last 24 hr 05/28/18 05/29/18 05/29/18 21:17 07:39 08:00 WBC 8.6 D RBC 3.12 L Hgb 9.3 L Hct 30.3 L MCV 97.1 MCH 29.8 MCHC 30.7 L RDW 13.3 Plt Count 222 MPV 10.1 Gran % 97.2 H Lymph % (Auto) 2.1 L [place] % (Auto) 0.6 L Eos % (Auto) 0.0 L Baso % (Auto) 0.1 Gran # 8.34 H Lymph # (Auto) 0.2 L [place] # (Auto) 0.1 Eos # (Auto) 0.0 Baso # (Auto) 0.01 pCO2 pO2 HCO3 ABG pH ABG Total CO2 ABG O2 Saturation ABG O2 Content ABG Base Excess ABG Hemoglobin ABG Carboxyhemoglobin POC ABG HHb (Measured) ABG Methemoglobin ABG O2 Capacity Hgb O2 Saturation FiO2 Sodium Potassium Chloride Carbon Dioxide Anion Gap BUN Creatinine Est GFR ( Amer) Est GFR (Non-Af Amer) POC Glucose (mg/dL) 121 H 130 H Random Glucose Calcium Phosphorus Magnesium Total Bilirubin AST ALT Alkaline Phosphatase Total Protein Albumin Globulin Albumin/Globulin Ratio 05/29/18 05/29/18 05/29/18 08:00 08:10 11:22 WBC RBC Hgb Hct MCV MCH MCHC RDW Plt Count MPV Gran % Lymph % (Auto) [place] % (Auto) Eos % (Auto) Baso % (Auto) Gran # Lymph # (Auto) [place] # (Auto) Eos # (Auto) Baso # (Auto) pCO2 84 H* pO2 198.0 H HCO3 46.4 H* ABG pH 7.35 ABG Total CO2 49.0 H ABG O2 Saturation 100.0 H ABG O2 Content 12.6 L ABG Base Excess 18.0 H ABG Hemoglobin 8.9 L ABG Carboxyhemoglobin 2.3 H POC ABG HHb (Measured) 0 ABG Methemoglobin 1.1 ABG O2 Capacity 12.6 L Hgb O2 Saturation 96.5 FiO2 40.0 Sodium 138 Potassium 4.5 Chloride 94 L Carbon Dioxide 45 H Anion Gap 4 L BUN 29 H Creatinine 0.7 L Est GFR ( Amer) > 60 Est GFR (Non-Af Amer) > 60 POC Glucose (mg/dL) 185 H Random Glucose 129 H Calcium 8.0 L Phosphorus 3.7 Magnesium 1.8 Total Bilirubin 1.0 AST 28 ALT 54 Alkaline Phosphatase 46 Total Protein 5.0 L Albumin 2.7 L Globulin 2.3 Albumin/Globulin Ratio 1.2 05/29/18 15:57 WBC RBC Hgb Hct MCV MCH MCHC RDW Plt Count MPV Gran % Lymph % (Auto) [place] % (Auto) Eos % (Auto) Baso % (Auto) Gran # Lymph # (Auto) [place] # (Auto) Eos # (Auto) Baso # (Auto) pCO2 pO2 HCO3 ABG pH ABG Total CO2 ABG O2 Saturation ABG O2 Content ABG Base Excess ABG Hemoglobin ABG Carboxyhemoglobin POC ABG HHb (Measured) ABG Methemoglobin ABG O2 Capacity Hgb O2 Saturation FiO2 Sodium Potassium Chloride Carbon Dioxide Anion Gap BUN Creatinine Est GFR ( Amer) Est GFR (Non-Af Amer) POC Glucose (mg/dL) 285 H Random Glucose Calcium Phosphorus Magnesium Total Bilirubin AST ALT Alkaline Phosphatase Total Protein Albumin Globulin Albumin/Globulin Ratio Critical Care Progress Note - Nutrition Nutrition: Nutrition Category Date Time Status Dysphagia/Modified Consistency Diet [DIET] Diets 05/25/18 Lunch Ordered Addendum Addendum: 05/29/18 17:39 ICU Attending Addendum Patient seen and examined. Case reviewed on round with housestaff. Agree with resident note above with the following additions/exceptions: 77 M hx of COPD on home oxygen and prednisone recently admitted to ICU for HCRF returned with HCFR admitted 05/16 to MICU for HCRF tx with Bipap then transferred out returned 05/23 due to unresponsiveness leading to resp failure from ambien use intubated/extubated 05/24 CXR for 05/26 shows RLL PNA Procal low so this may be aspiration pnemonitis or foreign body for now tx as asp PNA/HCAP on day 4 vanc/cefepime cont [id number] solumedrol duonebs repeat CXR in AM d/c zolpidem, he should not be on this medication He did well with precedex last night and tolerated Bipap no bipap during the day Bipap QHS Keep oxygen support via NC goal 88-92% sat Rest of care as above Kyalee Rousseau MD Pulmonary, Critical Care and Sleep Medicine Critical Care TIme 31 mins
[2018-05-29 08:18] LABS: BASO # 0.01 K/mm3 (0.0-2.0); BASO % 0.1 % (0.0-3.0); GRAN # 8.34 (1.4-6.5); GRAN % 97.2 % (50.0-68.0); HEMOGLOBIN 9.3 g/dL (14.0-18.0); LYMPH # 0.2 (1.2-3.4); LYMPH % 2.1 % (22.0-35.0); MEAN CELL VOLUME 97.1 fl (80.0-105.0); MEAN CORPUSCULAR HEMOGLOBIN 29.8 pg (25.0-35.0); MEAN CORPUSCULAR HGB CONC 30.7 g/dl (31.0-37.0); MEAN PLATELET VOLUME 10.1 fl (7.0-11.0); MONO # 0.1 (0.1-0.6); MONO % 0.6 % (1.0-6.0); RBC 3.12 10^6/uL (3.5-6.1); RED CELL DISTRIBUTION WIDTH 13.3 % (11.5-14.5); WHITE BLOOD COUNT 8.6 10^3/uL (4.5-11.0)
[2018-05-29 08:20] LABS: ARTERIAL BLOOD GAS HEMOGLOBIN 8.9 g/dL (11.7-17.4); ARTERIAL BLOOD GAS O2 CAPACITY 12.6 mL/dl (16-24); ARTERIAL BLOOD GAS O2 CONTENT 12.6 ML/dl (15-23); ARTERIAL BLOOD GAS PH 7.35 (7.35-7.45)
[2018-05-29 08:33] LABS: ARTERIAL BLOOD GAS PCO2 84 mm/Hg (35-45)
[2018-05-29 08:34] LABS: ARTERIAL BLOOD GAS HCO3 46.4 mmol/L (21-28)
[2018-05-29 08:36] LABS: ALB/GLOB RATIO 1.2 (1.1-1.8); ALBUMIN 2.7 g/dL (3.0-4.8); ALT/SGPT 54 U/L (7-56); AST/SGOT 28 U/L (17-59); BLOOD UREA NITROGEN 29 mg/dL (7-21); GFR NON-AFRICAN AMERICAN > 60
[2018-05-29] MEDS: Budesonide 0.5 mg/2 ml Inhal Susp UD IH SCH ×2 (08:38→20:13)
[2018-05-29] MEDS: Pantoprazole 40 mg Susp UD PO SCH (08:45)
--- NOTE | 2018-05-29 09:10 | RAD ---
Date of service: 05/29/2018 HISTORY: f/u COMPARISON: No prior. FINDINGS: LUNGS: The lungs are well inflated. There is persistent airspace disease in the right lower lobe. There is bronchial thickening and chronic changes in the left lower lobe. PLEURA: Question of small right pleural effusion. No pneumothorax. No left pleural effusion. CARDIOVASCULAR: The heart is normal in size. No aortic atherosclerotic calcification present. OSSEOUS STRUCTURES: Within normal limits for the patient's age. VISUALIZED UPPER ABDOMEN: Normal. OTHER FINDINGS: There is elevation of the right hemidiaphragm. IMPRESSION: Little interval change in right lower lobe atelectasis/pneumonia.
[2018-05-29] MEDS: diltiaZEM 180 mg/24 Hours CD Cap PO SCH (10:05)
[2018-05-29] MEDS: Cefepime IV 2 gm in NS 2 GM/100 ML BAG IVPB SCH ×3 (10:06→21:07)
[2018-05-29] MEDS: Potassium & Sodium Phosphate PO SCH ×3 (10:06→19:52)
[2018-05-29] MEDS: COMBIGAN OPTH OU SCH ×2 (10:10→17:23)
--- NOTE | 2018-05-29 10:35 | CP.PCM.PN ---
Subjective - Date & Time of Evaluation Date of Evaluation: 05/29/18 Time of Evaluation: 08:50 - Subjective Subjective: Patient is still in the ICU, still has some shortness of breath at rest, but is having 99% O2 sats on nasal cannula which is an improvement, no fevers overnight. Objective - Vital Signs/Intake and Output Vital Signs (last 24 hours): Temp Pulse Resp BP Pulse Ox 98.6 F 111 H 28 H 182/98 H 99 05/28/18 04:00 05/28/18 09:40 05/28/18 07:04 05/28/18 07:04 05/28/18 07:04 Intake and Output: 05/28/18 05/28/18 06:59 18:59 Intake Total 410 Output Total 150 Balance 260 - Medications Medications: Current Medications Albuterol/Ipratropium (Duoneb 3 Mg/0.5 Mg (3 Ml) Ud) 3 ml IH [id number] [facility] Last Admin: 05/28/18 08:05 Dose: 3 ml Albuterol/Ipratropium (Duoneb 3 Mg/0.5 Mg (3 Ml) Ud) 3 ml IH Q2H PRN PRN Reason: Shortness of Breath Aspirin (Aspirin Chewable) 81 mg PO DAILY [facility] Last Admin: 05/27/18 09:38 Dose: 81 mg Budesonide (Pulmicort Respules) 0.5 mg IH [id number] [facility] Last Admin: 05/28/18 08:05 Dose: 0.5 mg Diltiazem HCl (Cardizem Cd) 180 mg PO DAILY [facility] Last Admin: 05/27/18 09:38 Dose: 180 mg Heparin Sodium (Porcine) (Heparin) 5,000 units SC Q12 [facility]; Protocol Last Admin: 05/27/18 21:36 Dose: 5,000 units Home Med (Home Med) 1 unit OU BID [facility] Last Admin: 05/26/18 18:28 Dose: 1 unit Home Med (Home Med) 1 unit OU HS [facility] Last Admin: 05/27/18 21:37 Dose: 1 unit Cefepime HCl (Maxipime 2gm) 2 gm in 100 mls @ 100 mls/hr IVPB Q12 [facility]; Protocol Stop: 05/31/18 08:16 Last Admin: 05/27/18 21:41 Dose: 100 mls/hr Vancomycin HCl (Vancomycin 1gm) 1 gm in 250 mls @ 167 mls/hr IVPB Q12H [facility]; Protocol Last Admin: 05/27/18 20:10 Dose: 167 mls/hr Losartan Potassium (Cozaar) 100 mg PO DAILY [facility] Last Admin: 05/27/18 09:44 Dose: 100 mg Pantoprazole Sodium (Protonix Susp) 40 mg PO 0600 [facility] Last Admin: 05/28/18 06:35 Dose: 40 mg Potassium Phos/Sodium Phos (Neutra-Phos) 1 pkt PO BID [facility] Last Admin: 05/27/18 19:25 Dose: 1 pkt Prednisone (Prednisone Tab) 40 mg PO Q8H [facility] Tamsulosin HCl (Flomax) 0.4 mg PO DAILY [facility] Last Admin: 05/27/18 09:44 Dose: 0.4 mg - Labs Labs: 05/28/18 05:30 05/28/18 05:30 PT 10.4 SECONDS (9.4-12.5) 05/19/18 11:35 INR 0.91 05/19/18 11:35 APTT 26.0 Seconds (25.1-36.5) 05/23/18 19:02 - Constitutional Appears: Chronically Ill, Other (mild SOB at rest) - Head Exam Head Exam: NORMAL INSPECTION - Respiratory Exam Respiratory Exam: Decreased Breath Sounds - Cardiovascular Exam Cardiovascular Exam: +S1, +S2 - GI/Abdominal Exam GI & Abdominal Exam: Soft. absent: Tenderness Assessment and Plan - Assessment and Plan (Free Text) Plan: Assessment consider sepsis due to right lower lobe healthcare-associated pneumonia hypercapneic respiratory failure due to COPD exacerbation, slowly improving history of right lower lobe atypical community-acquired pneumonia HTN COPD Plan continue Vancoymcin and Cefepime day 4 and Doxycycline day 2 - aim for up to 7 days of antibiotics; cultures have been negative, yeast in sputum cx is probably colonization, PCT is <0.05; reviewed CXR and Pulmonary evaluation will continue to monitor clinically
--- NOTE | 2018-05-29 11:52 | PN ---
CARDIOLOGY FOLLOWUP DATE: 05/29/2018 SUBJECTIVE: The patient remains hypoxemic without BiPAP. This is associated with an altered mental status. Currently the patient is on BiPAP and is awake. PHYSICAL EXAMINATION: VITAL SIGNS: Blood pressure 120/52 and heart rates in the 50s. NECK: Negative JVD. LUNGS: Without rales. HEART: S1 and S2. EXTREMITIES: Without edema. LABORATORY DATA: Hemoglobin is 9.3. Chemistries; BUN and creatinine unremarkable. IMPRESSION: 1. Severe chronic obstructive pulmonary disease. 2. Altered mental status, when the patient is hypoxemic. 3. Diabetes mellitus. 4. Status post non-ST elevation myocardial infarction due to his marked hypoxemia. Given these findings, the patient's cardiac status is stable. The patient may need long-term BiPAP to help his respiratory status. Ryan Schneider MD
--- NOTE | 2018-05-29 12:38 | PN ---
DATE: 05/29/2018 SUBJECTIVE: The patient is 77 years old, seen and examined. He looks much better today. He was very confused, disoriented. He was hallucinating, probably secondary to steroid. Today, his mental status seems to be back to baseline. He is comprehending. He is answering appropriately. PHYSICAL EXAMINATION: VITAL SIGNS: He is afebrile, pulse 73, respirations 16, blood pressure 134/66. LUNGS: Bilateral fair airflow, although he has diffusely decreased breath sounds. HEART: S1 and S2 audible with diastolic murmur. ABDOMEN: Soft, obese, nontender. No rebound. No guarding. No hepatosplenomegaly. NEUROLOGICAL: He is awake and alert, able to communicate. EXTREMITIES: Bilateral leg, +1 edema. LABORATORY EXAM: WBC 8.6, hemoglobin 9.3, hematocrit 30.3, platelet . Chemistry: Sodium 138, potassium 4.5, chloride 94, CO2 of 45, BUN 29, creatinine 0.7, blood sugar of 129. ASSESSMENT: 1. Chronic obstructive pulmonary disease exacerbation. 2. Right lower lobe pneumonia. 3. Nonocclusive coronaries. 4. Hypertension. 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 PLAN: Currently, the patient is on aspirin. He is on diltiazem. We will continue him on clonidine and losartan. He is on doxycycline. Continue nebulizer treatment. He is on cefepime. He is Neutra-Phos is being supplemented. The patient is currently on methylprednisolone 40 mg every 8, we will cut down to 12. Out of bed to chair. We will follow up the patient in the a.m. Peter Calvillo MD
[2018-05-30] MEDS: Albuterol-Ipratrop 3 mg / 0.5 (3 ml) UD IH SCH ×4 (02:52→20:22)
[2018-05-30 06:26] LABS: ARTERIAL BLOOD GAS HCO3 45.9 mmol/L (21-28); ARTERIAL BLOOD GAS HEMOGLOBIN 9.2 g/dL (11.7-17.4); ARTERIAL BLOOD GAS O2 CAPACITY 12.5 mL/dl (16-24); ARTERIAL BLOOD GAS O2 CONTENT 12.2 ML/dl (15-23); ARTERIAL BLOOD GAS O2 SAT 97.4 % (95-98); ARTERIAL BLOOD GAS PCO2 63 mm/Hg (35-45); ARTERIAL BLOOD GAS PH 7.47 (7.35-7.45); ARTERIAL BLOOD GAS TCO2 47.8 mmol.L (22-28)
[2018-05-30 07:12] LABS: GRAN # 15.65 (1.4-6.5); GRAN % 97.5 % (50.0-68.0); HEMOGLOBIN 9.4 g/dL (14.0-18.0); LYMPH # 0.3 (1.2-3.4); LYMPH % 1.8 % (22.0-35.0); MEAN CELL VOLUME 95.6 fl (80.0-105.0); MEAN CORPUSCULAR HEMOGLOBIN 29.7 pg (25.0-35.0); MEAN CORPUSCULAR HGB CONC 31.1 g/dl (31.0-37.0); MEAN PLATELET VOLUME 10.2 fl (7.0-11.0); MONO # 0.1 (0.1-0.6); MONO % 0.7 % (1.0-6.0); RBC 3.16 10^6/uL (3.5-6.1); RED CELL DISTRIBUTION WIDTH 13.6 % (11.5-14.5); WHITE BLOOD COUNT 16.1 10^3/uL (4.5-11.0)
[2018-05-30] MEDS: Budesonide 0.5 mg/2 ml Inhal Susp UD IH SCH ×2 (07:16→20:22)
[2018-05-30 07:35] LABS: ALB/GLOB RATIO 1.2 (1.1-1.8); ALBUMIN 2.8 g/dL (3.0-4.8); ALT/SGPT 49 U/L (7-56); AST/SGOT 21 U/L (17-59); BLOOD UREA NITROGEN 31 mg/dL (7-21); CALCIUM 8.2 mg/dL (8.4-10.5); GFR NON-AFRICAN AMERICAN > 60
--- NOTE | 2018-05-30 07:57 | PN ---
DATE: 05/30/2018(650am-740am) PULMONARY NOTE SUBJECTIVE: The patient appears comfortable this morning. He is mildly short of breath, but in no acute distress. He is awake and alert. PHYSICAL EXAMINATION: VITAL SIGNS: Temperature is 99, pulse is 90, respiratory rate 20-22, blood pressure 147/81. Oxygen saturation on nasal cannula is 97%. HEENT: Normocephalic, atraumatic. No JVD. CARDIOVASCULAR: Systolic ejection murmur at the lower left sternal border. No S3 gallop. LUNGS: Decreased breath sounds at the bases. Less rhonchi. No wheezing. EXTREMITIES: No clubbing, cyanosis, or edema. Calves are nontender to palpation. GASTROINTESTINAL: Abdomen is soft, nontender, and nondistended. Bowel sounds are positive. SKIN: No acute rash. NEUROLOGIC: Limited at the present time. PERTINENT LABORATORY DATA: Chest x-ray was done this morning and reviewed. There remains an infiltrate noted at the right base. Arterial blood gas was also done on nasal cannula this morning. Results are: PH 7.47, pCO2 of 63, pO2 of 63. IMPRESSION: 1. Respiratory failure. 2. Advanced, end-stage chronic obstructive pulmonary disease. 3. Right lower lobe pneumonia. 4. Nonobstructive coronary artery disease. 5. Mild anemia. PLAN: The patient appears comfortable this morning. He is mildly short of breath, but in no acute distress. He is awake and alert. I did discuss the case with the night nurse at length. The night nurse stated that the patient had a good night. I did review the chest x-ray from this morning. The chest x-ray continues to show a right basilar infiltrate. Official results are pending. I have also reviewed the arterial blood gas. There is CO2 retention noted, but with normalization of the pH - indicating a severe chronic abnormal pulmonary state. On physical exam, there is less bronchospasm noted. I would continue with the current nebulizer treatments and current intravenous steroids (decreased by Dr. Calvillo yesterday) for now. I would advise a slow steroid taper in this patient - who is on home prednisone. The patient remains on antibiotic therapy - as per Infectious Disease. Temperatures are resolving. There is an increased leukocytosis this morning. Input by Cardiology is also noted. Clinical status of the patient is certainly improved - compared to earlier in the week. However, the patient remains with an extremely guarded overall prognosis. I will discuss the above with the entire ICU team in the next few moments. I will also discuss the above with the attending physician. Cedric Chau MD MTDLeidy
[2018-05-30] MEDS: Vancomycin 1gm in NS 250ml 1 GM/250 ML BAG IVPB SCH ×2 (08:56→21:41)
[2018-05-30] MEDS: Cefepime IV 2 gm in NS 2 GM/100 ML BAG IVPB SCH ×2 (10:33→21:40)
[2018-05-30] MEDS: diltiaZEM 180 mg/24 Hours CD Cap PO SCH (10:41)
[2018-05-30] MEDS: Pantoprazole 40 mg Susp UD PO SCH (10:42)
[2018-05-30] MEDS: Potassium & Sodium Phosphate PO SCH ×3 (10:42→18:39)
[2018-05-30] MEDS: MethylPREDNISolone 40 mg Vial IVP SCH ×2 (10:43→21:41)
--- NOTE | 2018-05-30 10:47 | CP.PCM.PN ---
Subjective - Date & Time of Evaluation Date of Evaluation: 05/30/18 Time of Evaluation: 08:50 - Subjective Subjective: Patient is still having hypoxia, but no fevers, not in distress at rest, no nausea or diarrhea. Objective - Vital Signs/Intake and Output Vital Signs (last 24 hours): Temp Pulse Resp BP Pulse Ox 97.2 F L 73 16 134/66 100 05/29/18 08:00 05/29/18 10:05 05/29/18 08:38 05/29/18 10:05 05/29/18 08:38 Intake and Output: 05/29/18 05/29/18 06:59 18:59 Intake Total 413 Balance 413 - Medications Medications: Current Medications Albuterol/Ipratropium (Duoneb 3 Mg/0.5 Mg (3 Ml) Ud) 3 ml IH [id number] [facility] Last Admin: 05/29/18 08:37 Dose: 3 ml Albuterol/Ipratropium (Duoneb 3 Mg/0.5 Mg (3 Ml) Ud) 3 ml IH Q2H PRN PRN Reason: Shortness of Breath Aspirin (Aspirin Chewable) 81 mg PO DAILY [facility] Last Admin: 05/29/18 10:06 Dose: 81 mg Budesonide (Pulmicort Respules) 0.5 mg IH [id number] [facility] Last Admin: 05/29/18 08:38 Dose: 0.5 mg Clonidine HCl (Catapres) 0.1 mg PO BID [facility] Last Admin: 05/29/18 10:04 Dose: 0.1 mg Diltiazem HCl (Cardizem Cd) 180 mg PO DAILY [facility] Last Admin: 05/29/18 10:05 Dose: 180 mg Doxycycline Hyclate (Doryx) 100 mg PO Q12 [facility]; Protocol Heparin Sodium (Porcine) (Heparin) 5,000 units SC Q12 [facility]; Protocol Last Admin: 05/29/18 10:06 Dose: 5,000 units Home Med (Home Med) 1 unit OU BID [facility] Last Admin: 05/29/18 10:10 Dose: 1 unit Home Med (Home Med) 1 unit OU HS [facility] Last Admin: 05/29/18 03:49 Dose: 1 unit Cefepime HCl (Maxipime 2gm) 2 gm in 100 mls @ 100 mls/hr IVPB Q12 [facility]; Protocol Stop: 05/31/18 08:16 Last Admin: 05/29/18 10:06 Dose: 100 mls/hr Vancomycin HCl (Vancomycin 1gm) 1 gm in 250 mls @ 167 mls/hr IVPB Q12H [facility]; Protocol Last Admin: 05/29/18 10:09 Dose: 167 mls/hr Dexmedetomidine HCl (Precedex 400mcg/100ml) 400 mcg in 100 mls @ 3.152 mls/hr IV .Q24H PRN; Protocol PRN Reason: Agitation Last Admin: 05/29/18 04:21 Dose: 0.6 mcg/kg/hr, 9.457 mls/hr Doxycycline Hyclate 100 mg/ (Sodium Chloride) 100 mls @ 100 mls/hr IVPB Q12 [facility]; Protocol Last Admin: 05/29/18 10:06 Dose: 100 mls/hr Losartan Potassium (Cozaar) 100 mg PO DAILY [facility] Last Admin: 05/29/18 10:05 Dose: 100 mg Methylprednisolone (Solu-Medrol) 40 mg IVP Q8 [facility] Last Admin: 05/29/18 07:12 Dose: 40 mg Pantoprazole Sodium (Protonix Susp) 40 mg PO 0600 [facility] Last Admin: 05/29/18 08:45 Dose: 40 mg Potassium Phos/Sodium Phos (Neutra-Phos) 1 pkt PO TID [facility] Last Admin: 05/29/18 10:06 Dose: 1 pkt Tamsulosin HCl (Flomax) 0.4 mg PO DAILY [facility] Last Admin: 05/29/18 10:05 Dose: 0.4 mg - Labs Labs: 05/29/18 08:00 05/29/18 08:00 PT 10.4 SECONDS (9.4-12.5) 05/19/18 11:35 INR 0.91 05/19/18 11:35 APTT 26.0 Seconds (25.1-36.5) 05/23/18 19:02 - Constitutional Appears: No Acute Distress, Chronically Ill - Head Exam Head Exam: NORMAL INSPECTION - Neck Exam Neck Exam: absent: Meningismus - Respiratory Exam Respiratory Exam: Decreased Breath Sounds - Cardiovascular Exam Cardiovascular Exam: +S1, +S2 - GI/Abdominal Exam GI & Abdominal Exam: Soft. absent: Tenderness Assessment and Plan - Assessment and Plan (Free Text) Plan: Assessment consider sepsis due to right lower lobe healthcare-associated pneumonia hypercapneic respiratory failure due to COPD exacerbation, slowly improving history of right lower lobe atypical community-acquired pneumonia HTN COPD Plan continue Vancoymcin and Cefepime day 5 and Doxycycline day 3 - aim for up at least 7 days of antibiotics; cultures have been negative, yeast in sputum cx is probably colonization, PCT is <0.05; reviewed CXR and Pulmonary evaluation will continue to monitor clinically discussed with Dr. Chau elevated WBC's probably due to steroids
--- NOTE | 2018-05-30 10:50 | CP.CCUPN ---
<Dieudonne Beckman - Last Filed: 05/30/18 11:00> CCU Subjective - Physician Review Subjective (Free Text): 05/30/18 10:45 Patient seen and examined at bedside in no acute distress. Patient is doing much better today than previous days. Today's ABG off BiPAP shows improvement. Patient currently on NC and able to talk without becoming short of breath with o2 sat at 96%. Denies shortness of breath, chest pain, abdominal pain, nausea, vomiting, diarrhea, fevers, chills. CCU Objective - Vital Signs / Intake & Output Vital Signs (Last 4 hours): Vital Signs Pulse Resp BP Pulse Ox 05/30/18 10:41 93 H 156/83 H 05/30/18 08:36 86 29 H 147/81 98 05/30/18 08:00 86 19 155/81 H 97 Intake and Output (Last 8hrs): Intake & Output 05/29/18 05/30/18 05/30/18 22:59 06:59 14:59 Intake Total 970 550 Output Total 0 Balance 970 550 Weight 63.231 kg Intake: IV 350 550 IVPB 350 Right Forearm 550 Oral 620 0 Output: Emesis 0 Other: # Bowel Movements 2 2 - Physical Exam Head: Positive for: Atraumatic, Normocephalic Pupils: Positive for: PERRL Extroacular Muscles: Positive for: EOMI Conjunctiva: Positive for: Normal Mouth: Positive for: Dry Neck: Positive for: Normal Range of Motion Respiratory/Chest: Positive for: Respiratory Distress, Decreased Breath Sounds, Other (12cm x 12cm ecchymoses & hematoma noted over R clavicle extending down to right hip. No tenderness to palpation) Cardiovascular: Positive for: Regular Rate and Rhythm, Normal S1, S2. Negative for: Murmurs Abdomen: Negative for: Tenderness, Distention, Peritoneal Signs Back: Positive for: Normal Inspection Upper Extremity: Positive for: Normal Inspection. Negative for: Cyanosis, Edema Lower Extremity: Positive for: Normal Inspection. Negative for: Edema (Negative lower extremity edema.) Neurological: Positive for: GCS=15, CN II-XII Intact, Speech Normal Skin: Positive for: Warm, Dry, Normal Color. Negative for: Rashes Psychiatric: Positive for: Alert, Oriented x 3, Normal Insight, Normal Concentration - Medications Active Medications: Active Medications Generic Name Dose Route Start Last Admin Trade Name Freq PRN Reason Stop Dose Admin Albuterol/Ipratropium 3 ml 05/23/18 14:00 05/30/18 07:16 Duoneb 3 Mg/0.5 Mg (3 Ml) Ud IH 3 ml [id number] RICH Administration Albuterol/Ipratropium 3 ml 05/26/18 07:29 Duoneb 3 Mg/0.5 Mg (3 Ml) Ud IH Q2H PRN Shortness of Breath Aspirin 81 mg 05/18/18 10:00 05/30/18 10:41 Aspirin Chewable PO 81 mg DAILY RICH Administration Budesonide 0.5 mg 05/26/18 08:00 05/30/18 07:16 Pulmicort Respules IH 0.5 mg [id number] RICH Administration Clonidine HCl 0.1 mg 05/28/18 18:00 05/30/18 10:41 Catapres PO 0.1 mg BID RICH Administration Diltiazem HCl 180 mg 05/24/18 17:03 05/30/18 10:41 Cardizem Cd PO 180 mg DAILY RICH Administration Doxycycline Hyclate 100 mg 05/28/18 22:00 Doryx PO Q12 RICH Protocol Heparin Sodium (Porcine) 5,000 units 05/23/18 22:00 05/30/18 10:42 Heparin SC 5,000 units Q12 RICH Administration Protocol Home Med 1 unit 05/24/18 16:34 05/29/18 17:23 Home Med OU 1 unit BID RICH Administration Home Med 1 unit 05/26/18 22:00 05/29/18 21:05 Home Med OU 1 unit HS RICH Administration Cefepime HCl 2 gm in 100 mls @ 100 mls/hr 05/26/18 08:15 05/30/18 10:33 Maxipime 2gm IVPB 05/31/18 08:16 100 mls/hr Q12 RICH Administration Protocol Vancomycin HCl 1 gm in 250 mls @ 167 mls/hr 05/26/18 08:15 05/30/18 08:56 Vancomycin 1gm IVPB 167 mls/hr Q12H RICH Administration Protocol Dexmedetomidine HCl 400 mcg in 100 mls @ 3.152 mls/hr 05/28/18 18:41 05/29/18 07:00 Precedex 400mcg/100ml IV 0 mcg/kg/hr .Q24H PRN 0 mls/hr Agitation Titration Protocol 0.2 MCG/KG/HR Doxycycline Hyclate 100 mg/ 100 mls @ 100 mls/hr 05/28/18 23:45 05/30/18 10:33 Sodium Chloride IVPB 100 mls/hr Q12 RICH Administration Protocol Losartan Potassium 100 mg 05/20/18 13:15 05/30/18 10:41 Cozaar PO 100 mg DAILY RICH Administration Methylprednisolone 40 mg 05/29/18 22:00 05/30/18 10:43 Solu-Medrol IVP 40 mg Q12 RICH Administration Pantoprazole Sodium 40 mg 05/27/18 06:00 05/30/18 10:42 Protonix Susp PO 40 mg 0600 RICH Administration Potassium Phos/Sodium Phos 1 pkt 05/28/18 14:00 05/30/18 10:42 Neutra-Phos PO 1 pkt TID RICH Administration Tamsulosin HCl 0.4 mg 05/17/18 11:00 05/30/18 10:42 Flomax PO 0.4 mg DAILY RICH Administration - Patient Studies Lab Studies: Microbiology Studies 05/26/18 18:59 Blood Culture - Preliminary Blood-Venous NO GROWTH AFTER 3 DAYS 05/26/18 18:59 Blood Culture - Preliminary Blood-Venous NO GROWTH AFTER 3 DAYS Lab Studies 05/30/18 05/30/18 05/30/18 Range/Units 06:20 05:30 05:30 WBC 16.1 H D (4.5-11.0) 10^3/uL RBC 3.16 L (3.5-6.1) 10^6/uL Hgb 9.4 L (14.0-18.0) g/dL Hct 30.2 L (42.0-52.0) % MCV 95.6 (80.0-105.0) fl MCH 29.7 (25.0-35.0) pg MCHC 31.1 (31.0-37.0) g/dl RDW 13.6 (11.5-14.5) % Plt Count 309 (120.0-450.0) 10^3/uL MPV 10.2 (7.0-11.0) fl Gran % 97.5 H (50.0-68.0) % Lymph % (Auto) 1.8 L (22.0-35.0) % Snyder % (Auto) 0.7 L (1.0-6.0) % Eos % (Auto) 0.0 L (1.5-5.0) % Baso % (Auto) 0.0 (0.0-3.0) % Gran # 15.65 H (1.4-6.5) Lymph # (Auto) 0.3 L (1.2-3.4) Snyder # (Auto) 0.1 (0.1-0.6) Eos # (Auto) 0.0 (0.0-0.7) Baso # (Auto) 0.00 (0.0-2.0) K/mm3 pCO2 63 H (35-45) mm/Hg pO2 63.0 L (80-100) mm/Hg HCO3 45.9 H* (21-28) mmol/L ABG pH 7.47 H (7.35-7.45) ABG Total CO2 47.8 H (22-28) mmol.L ABG O2 Saturation 97.4 (95-98) % ABG O2 Content 12.2 L (15-23) ML/dl ABG Base Excess 19.7 H (-2.0-3.0) mmol/L ABG Hemoglobin 9.2 L (11.7-17.4) g/dL ABG Carboxyhemoglobin 2.8 H (0.5-1.5) % POC ABG HHb (Measured) 2.5 (0-5) % ABG Methemoglobin 0.9 (0.0-3.0) % ABG O2 Capacity 12.5 L (16-24) mL/dl Hgb O2 Saturation 93.7 L (95.0-98.0) % FiO2 24.0 % Sodium 139 (132-148) mmol/L Potassium 4.1 (3.6-5.0) mmol/L Chloride 96 L (98-107) mmol/L Carbon Dioxide 42 H (21-33) mmol/L Anion Gap 5 L (10-20) BUN 31 H (7-21) mg/dL Creatinine 0.8 (0.8-1.5) mg/dl Est GFR ( Amer) > 60 Est GFR (Non-Af Amer) > 60 POC Glucose (mg/dL) (65-110) mg/dL Random Glucose 152 H (70-110) mg/dL Calcium 8.2 L (8.4-10.5) mg/dL Phosphorus 3.1 (2.5-4.5) mg/dL Magnesium 1.9 (1.7-2.2) mg/dL Total Bilirubin 0.9 (0.2-1.3) mg/dL AST 21 (17-59) U/L ALT 49 (7-56) U/L Alkaline Phosphatase 53 (38-126) U/L Total Protein 5.1 L (5.8-8.3) g/dL Albumin 2.8 L (3.0-4.8) g/dL Globulin 2.3 gm/dL Albumin/Globulin Ratio 1.2 (1.1-1.8) 05/29/18 05/29/18 05/29/18 Range/Units 21:59 15:57 11:22 WBC (4.5-11.0) 10^3/uL RBC (3.5-6.1) 10^6/uL Hgb (14.0-18.0) g/dL Hct (42.0-52.0) % MCV (80.0-105.0) fl MCH (25.0-35.0) pg MCHC (31.0-37.0) g/dl RDW (11.5-14.5) % Plt Count (120.0-450.0) 10^3/uL MPV (7.0-11.0) fl Gran % (50.0-68.0) % Lymph % (Auto) (22.0-35.0) % Snyder % (Auto) (1.0-6.0) % Eos % (Auto) (1.5-5.0) % Baso % (Auto) (0.0-3.0) % Gran # (1.4-6.5) Lymph # (Auto) (1.2-3.4) Snyder # (Auto) (0.1-0.6) Eos # (Auto) (0.0-0.7) Baso # (Auto) (0.0-2.0) K/mm3 pCO2 (35-45) mm/Hg pO2 (80-100) mm/Hg HCO3 (21-28) mmol/L ABG pH (7.35-7.45) ABG Total CO2 (22-28) mmol.L ABG O2 Saturation (95-98) % ABG O2 Content (15-23) ML/dl ABG Base Excess (-2.0-3.0) mmol/L ABG Hemoglobin (11.7-17.4) g/dL ABG Carboxyhemoglobin (0.5-1.5) % POC ABG HHb (Measured) (0-5) % ABG Methemoglobin (0.0-3.0) % ABG O2 Capacity (16-24) mL/dl Hgb O2 Saturation (95.0-98.0) % FiO2 % Sodium (132-148) mmol/L Potassium (3.6-5.0) mmol/L Chloride (98-107) mmol/L Carbon Dioxide (21-33) mmol/L Anion Gap (10-20) BUN (7-21) mg/dL Creatinine (0.8-1.5) mg/dl Est GFR ( Amer) Est GFR (Non-Af Amer) POC Glucose (mg/dL) 220 H 285 H 185 H (65-110) mg/dL Random Glucose (70-110) mg/dL Calcium (8.4-10.5) mg/dL Phosphorus (2.5-4.5) mg/dL Magnesium (1.7-2.2) mg/dL Total Bilirubin (0.2-1.3) mg/dL AST (17-59) U/L ALT (7-56) U/L Alkaline Phosphatase (38-126) U/L Total Protein (5.8-8.3) g/dL Albumin (3.0-4.8) g/dL Globulin gm/dL Albumin/Globulin Ratio (1.1-1.8) Laboratory Results - last 24 hr 05/29/18 05/29/18 05/29/18 11:22 15:57 21:59 WBC RBC Hgb Hct MCV MCH MCHC RDW Plt Count MPV Gran % Lymph % (Auto) Snyder % (Auto) Eos % (Auto) Baso % (Auto) Gran # Lymph # (Auto) Snyder # (Auto) Eos # (Auto) Baso # (Auto) pCO2 pO2 HCO3 ABG pH ABG Total CO2 ABG O2 Saturation ABG O2 Content ABG Base Excess ABG Hemoglobin ABG Carboxyhemoglobin POC ABG HHb (Measured) ABG Methemoglobin ABG O2 Capacity Hgb O2 Saturation FiO2 Sodium Potassium Chloride Carbon Dioxide Anion Gap BUN Creatinine Est GFR ( Amer) Est GFR (Non-Af Amer) POC Glucose (mg/dL) 185 H 285 H 220 H Random Glucose Calcium Phosphorus Magnesium Total Bilirubin AST ALT Alkaline Phosphatase Total Protein Albumin Globulin Albumin/Globulin Ratio 05/30/18 05/30/18 05/30/18 05:30 05:30 06:20 WBC 16.1 H D RBC 3.16 L Hgb 9.4 L Hct 30.2 L MCV 95.6 MCH 29.7 MCHC 31.1 RDW 13.6 Plt Count 309 MPV 10.2 Gran % 97.5 H Lymph % (Auto) 1.8 L Snyder % (Auto) 0.7 L Eos % (Auto) 0.0 L Baso % (Auto) 0.0 Gran # 15.65 H Lymph # (Auto) 0.3 L Snyder # (Auto) 0.1 Eos # (Auto) 0.0 Baso # (Auto) 0.00 pCO2 63 H pO2 63.0 L HCO3 45.9 H* ABG pH 7.47 H ABG Total CO2 47.8 H ABG O2 Saturation 97.4 ABG O2 Content 12.2 L ABG Base Excess 19.7 H ABG Hemoglobin 9.2 L ABG Carboxyhemoglobin 2.8 H POC ABG HHb (Measured) 2.5 ABG Methemoglobin 0.9 ABG O2 Capacity 12.5 L Hgb O2 Saturation 93.7 L FiO2 24.0 Sodium 139 Potassium 4.1 Chloride 96 L Carbon Dioxide 42 H Anion Gap 5 L BUN 31 H Creatinine 0.8 Est GFR ( Amer) > 60 Est GFR (Non-Af Amer) > 60 POC Glucose (mg/dL) Random Glucose 152 H Calcium 8.2 L Phosphorus 3.1 Magnesium 1.9 Total Bilirubin 0.9 AST 21 ALT 49 Alkaline Phosphatase 53 Total Protein 5.1 L Albumin 2.8 L Globulin 2.3 Albumin/Globulin Ratio 1.2 Review of Systems - Constitutional Constitutional: absent: Fever, Chills - EENT Eyes: absent: Change in Vision - Cardiovascular Cardiovascular: absent: Chest Pain, Dyspnea, Edema - Respiratory Respiratory: absent: Dyspnea - Gastrointestinal Gastrointestinal: absent: Abdominal Pain, Diarrhea, Vomiting - Neurological Neurological: absent: Dizziness - Psychiatric Psychiatric: absent: Anxiety - Endocrine Endocrine: absent: Fatigue Critical Care Progress Note - Nutrition Nutrition: Nutrition Category Date Time Status Dysphagia/Modified Consistency Diet [DIET] Diets 05/25/18 Lunch Ordered Assessment/Plan - Assessment and Plan (Free Text) Assessment: 77 y/o M with PMHx of COPD, extensive smoking history on home oxygen and prednisone admitted on 05/16 for HCRP, treated with BiPAP then transferred out. Pt returned on 05/23, brought down to ICU from floors for hypercapnic respiratory failure 2/2 lethargy and inability to protect his airway from ambien use. Subsequently intubated, now s/p extubation to 3L NC. Has been on BiPAP trials intermittently now no longer requiring BiPAP use during the day. Neuro: AAOX3 Cardiovascular: Continue diltiazem, aspirin, Cozaar Pulm: BiPAP qHS Last ABG improved, supp oxygen to keep o2 st >90% Solumedrol tapered down to 40 q 12 Continue with duonebs, budesonide ID: [facility] Vanc/Cefepime day # 5, Doxycyclien day # 3 Cultures negative Procalcitonin is <0.05 : Replete electrolytes as needed Heme: Heparin for DVT ppx Disposition: Patient is able to tolerate being off BiPAP, currently on 1L NC with O2 sat 96% not short of breath, labs are stable. ABG improved. Discussed transferring patient out of ICU with PMD as patient does not need ICU care currently and would benefit more on the floors as far as ambulation. PMD is in agreement. Patient is transferred to med/surg with request of bed being in front of nursing station. <Kaylee Rousseau - Last Filed: 05/30/18 16:00> CCU Objective - Vital Signs / Intake & Output Intake and Output (Last 8hrs): Intake & Output 05/30/18 05/30/18 05/30/18 06:59 14:59 22:59 Intake Total 550 Output Total 0 Balance 550 Weight 63.231 kg Intake: IV 550 Right Forearm 550 Oral 0 Output: Emesis 0 Other: # Bowel Movements 2 - Medications Active Medications: Active Medications Generic Name Dose Route Start Last Admin Trade Name Freq PRN Reason Stop Dose Admin Albuterol/Ipratropium 3 ml 05/23/18 14:00 05/30/18 13:04 Duoneb 3 Mg/0.5 Mg (3 Ml) Ud IH 3 ml [id number] RICH Administration Albuterol/Ipratropium 3 ml 05/26/18 07:29 Duoneb 3 Mg/0.5 Mg (3 Ml) Ud IH Q2H PRN Shortness of Breath Aspirin 81 mg 05/18/18 10:00 05/30/18 10:41 Aspirin Chewable PO 81 mg DAILY RICH Administration Budesonide 0.5 mg 05/26/18 08:00 05/30/18 07:16 Pulmicort Respules IH 0.5 mg [id number] RICH Administration Clonidine HCl 0.1 mg 05/28/18 18:00 05/30/18 10:41 Catapres PO 0.1 mg BID RICH Administration Diltiazem HCl 180 mg 05/24/18 17:03 05/30/18 10:41 Cardizem Cd PO 180 mg DAILY RICH Administration Doxycycline Hyclate 100 mg 05/28/18 22:00 Doryx PO Q12 RICH Protocol Heparin Sodium (Porcine) 5,000 units 05/23/18 22:00 05/30/18 10:42 Heparin SC 5,000 units Q12 RICH Administration Protocol Home Med 1 unit 05/24/18 16:34 05/30/18 10:53 Home Med OU 1 unit BID RICH Administration Home Med 1 unit 05/26/18 22:00 05/29/18 21:05 Home Med OU 1 unit HS RICH Administration Cefepime HCl 2 gm in 100 mls @ 100 mls/hr 05/26/18 08:15 05/30/18 10:33 Maxipime 2gm IVPB 05/31/18 08:16 100 mls/hr Q12 RICH Administration Protocol Vancomycin HCl 1 gm in 250 mls @ 167 mls/hr 05/26/18 08:15 05/30/18 08:56 Vancomycin 1gm IVPB 167 mls/hr Q12H RICH Administration Protocol Dexmedetomidine HCl 400 mcg in 100 mls @ 3.152 mls/hr 05/28/18 18:41 05/29/18 07:00 Precedex 400mcg/100ml IV 0 mcg/kg/hr .Q24H PRN 0 mls/hr Agitation Titration Protocol 0.2 MCG/KG/HR Doxycycline Hyclate 100 mg/ 100 mls @ 100 mls/hr 05/28/18 23:45 05/30/18 10:33 Sodium Chloride IVPB 100 mls/hr Q12 RICH Administration Protocol Losartan Potassium 100 mg 05/20/18 13:15 05/30/18 10:41 Cozaar PO 100 mg DAILY RICH Administration Methylprednisolone 40 mg 05/29/18 22:00 05/30/18 10:43 Solu-Medrol IVP 40 mg Q12 RICH Administration Pantoprazole Sodium 40 mg 05/27/18 06:00 05/30/18 10:42 Protonix Susp PO 40 mg 0600 RICH Administration Potassium Phos/Sodium Phos 1 pkt 05/28/18 14:00 05/30/18 10:42 Neutra-Phos PO 1 pkt TID RICH Administration Quetiapine Fumarate 25 mg 05/30/18 10:50 Seroquel PO HS PRN Agitation Protocol Tamsulosin HCl 0.4 mg 05/17/18 11:00 05/30/18 10:42 Flomax PO 0.4 mg DAILY RICH Administration - Patient Studies Lab Studies: Microbiology Studies 05/26/18 18:59 Blood Culture - Preliminary Blood-Venous NO GROWTH AFTER 3 DAYS 05/26/18 18:59 Blood Culture - Preliminary Blood-Venous NO GROWTH AFTER 3 DAYS Lab Studies 05/30/18 05/30/18 05/30/18 Range/Units 12:09 06:20 05:30 WBC (4.5-11.0) 10^3/uL RBC (3.5-6.1) 10^6/uL Hgb (14.0-18.0) g/dL Hct (42.0-52.0) % MCV (80.0-105.0) fl MCH (25.0-35.0) pg MCHC (31.0-37.0) g/dl RDW (11.5-14.5) % Plt Count (120.0-450.0) 10^3/uL MPV (7.0-11.0) fl Gran % (50.0-68.0) % Lymph % (Auto) (22.0-35.0) % Snyder % (Auto) (1.0-6.0) % Eos % (Auto) (1.5-5.0) % Baso % (Auto) (0.0-3.0) % Gran # (1.4-6.5) Lymph # (Auto) (1.2-3.4) Snyder # (Auto) (0.1-0.6) Eos # (Auto) (0.0-0.7) Baso # (Auto) (0.0-2.0) K/mm3 pCO2 63 H (35-45) mm/Hg pO2 63.0 L (80-100) mm/Hg HCO3 45.9 H* (21-28) mmol/L ABG pH 7.47 H (7.35-7.45) ABG Total CO2 47.8 H (22-28) mmol.L ABG O2 Saturation 97.4 (95-98) % ABG O2 Content 12.2 L (15-23) ML/dl ABG Base Excess 19.7 H (-2.0-3.0) mmol/L ABG Hemoglobin 9.2 L (11.7-17.4) g/dL ABG Carboxyhemoglobin 2.8 H (0.5-1.5) % POC ABG HHb (Measured) 2.5 (0-5) % ABG Methemoglobin 0.9 (0.0-3.0) % ABG O2 Capacity 12.5 L (16-24) mL/dl Hgb O2 Saturation 93.7 L (95.0-98.0) % FiO2 24.0 % Sodium 139 (132-148) mmol/L Potassium 4.1 (3.6-5.0) mmol/L Chloride 96 L (98-107) mmol/L Carbon Dioxide 42 H (21-33) mmol/L Anion Gap 5 L (10-20) BUN 31 H (7-21) mg/dL Creatinine 0.8 (0.8-1.5) mg/dl Est GFR ( Amer) > 60 Est GFR (Non-Af Amer) > 60 POC Glucose (mg/dL) 194 H (65-110) mg/dL Random Glucose 152 H (70-110) mg/dL Calcium 8.2 L (8.4-10.5) mg/dL Phosphorus 3.1 (2.5-4.5) mg/dL Magnesium 1.9 (1.7-2.2) mg/dL Total Bilirubin 0.9 (0.2-1.3) mg/dL AST 21 (17-59) U/L ALT 49 (7-56) U/L Alkaline Phosphatase 53 (38-126) U/L Total Protein 5.1 L (5.8-8.3) g/dL Albumin 2.8 L (3.0-4.8) g/dL Globulin 2.3 gm/dL Albumin/Globulin Ratio 1.2 (1.1-1.8) 05/30/18 05/29/18 05/29/18 Range/Units 05:30 21:59 15:57 WBC 16.1 H D (4.5-11.0) 10^3/uL RBC 3.16 L (3.5-6.1) 10^6/uL Hgb 9.4 L (14.0-18.0) g/dL Hct 30.2 L (42.0-52.0) % MCV 95.6 (80.0-105.0) fl MCH 29.7 (25.0-35.0) pg MCHC 31.1 (31.0-37.0) g/dl RDW 13.6 (11.5-14.5) % Plt Count 309 (120.0-450.0) 10^3/uL MPV 10.2 (7.0-11.0) fl Gran % 97.5 H (50.0-68.0) % Lymph % (Auto) 1.8 L (22.0-35.0) % Snyder % (Auto) 0.7 L (1.0-6.0) % Eos % (Auto) 0.0 L (1.5-5.0) % Baso % (Auto) 0.0 (0.0-3.0) % Gran # 15.65 H (1.4-6.5) Lymph # (Auto) 0.3 L (1.2-3.4) Snyder # (Auto) 0.1 (0.1-0.6) Eos # (Auto) 0.0 (0.0-0.7) Baso # (Auto) 0.00 (0.0-2.0) K/mm3 pCO2 (35-45) mm/Hg pO2 (80-100) mm/Hg HCO3 (21-28) mmol/L ABG pH (7.35-7.45) ABG Total CO2 (22-28) mmol.L ABG O2 Saturation (95-98) % ABG O2 Content (15-23) ML/dl ABG Base Excess (-2.0-3.0) mmol/L ABG Hemoglobin (11.7-17.4) g/dL ABG Carboxyhemoglobin (0.5-1.5) % POC ABG HHb (Measured) (0-5) % ABG Methemoglobin (0.0-3.0) % ABG O2 Capacity (16-24) mL/dl Hgb O2 Saturation (95.0-98.0) % FiO2 % Sodium (132-148) mmol/L Potassium (3.6-5.0) mmol/L Chloride (98-107) mmol/L Carbon Dioxide (21-33) mmol/L Anion Gap (10-20) BUN (7-21) mg/dL Creatinine (0.8-1.5) mg/dl Est GFR ( Amer) Est GFR (Non-Af Amer) POC Glucose (mg/dL) 220 H 285 H (65-110) mg/dL Random Glucose (70-110) mg/dL Calcium (8.4-10.5) mg/dL Phosphorus (2.5-4.5) mg/dL Magnesium (1.7-2.2) mg/dL Total Bilirubin (0.2-1.3) mg/dL AST (17-59) U/L ALT (7-56) U/L Alkaline Phosphatase (38-126) U/L Total Protein (5.8-8.3) g/dL Albumin (3.0-4.8) g/dL Globulin gm/dL Albumin/Globulin Ratio (1.1-1.8) Laboratory Results - last 24 hr 05/29/18 05/29/18 05/30/18 15:57 21:59 05:30 WBC 16.1 H D RBC 3.16 L Hgb 9.4 L Hct 30.2 L MCV 95.6 MCH 29.7 MCHC 31.1 RDW 13.6 Plt Count 309 MPV 10.2 Gran % 97.5 H Lymph % (Auto) 1.8 L Snyder % (Auto) 0.7 L Eos % (Auto) 0.0 L Baso % (Auto) 0.0 Gran # 15.65 H Lymph # (Auto) 0.3 L Snyder # (Auto) 0.1 Eos # (Auto) 0.0 Baso # (Auto) 0.00 pCO2 pO2 HCO3 ABG pH ABG Total CO2 ABG O2 Saturation ABG O2 Content ABG Base Excess ABG Hemoglobin ABG Carboxyhemoglobin POC ABG HHb (Measured) ABG Methemoglobin ABG O2 Capacity Hgb O2 Saturation FiO2 Sodium Potassium Chloride Carbon Dioxide Anion Gap BUN Creatinine Est GFR ( Amer) Est GFR (Non-Af Amer) POC Glucose (mg/dL) 285 H 220 H Random Glucose Calcium Phosphorus Magnesium Total Bilirubin AST ALT Alkaline Phosphatase Total Protein Albumin Globulin Albumin/Globulin Ratio 05/30/18 05/30/18 05/30/18 05:30 06:20 12:09 WBC RBC Hgb Hct MCV MCH MCHC RDW Plt Count MPV Gran % Lymph % (Auto) Snyder % (Auto) Eos % (Auto) Baso % (Auto) Gran # Lymph # (Auto) Snyder # (Auto) Eos # (Auto) Baso # (Auto) pCO2 63 H pO2 63.0 L HCO3 45.9 H* ABG pH 7.47 H ABG Total CO2 47.8 H ABG O2 Saturation 97.4 ABG O2 Content 12.2 L ABG Base Excess 19.7 H ABG Hemoglobin 9.2 L ABG Carboxyhemoglobin 2.8 H POC ABG HHb (Measured) 2.5 ABG Methemoglobin 0.9 ABG O2 Capacity 12.5 L Hgb O2 Saturation 93.7 L FiO2 24.0 Sodium 139 Potassium 4.1 Chloride 96 L Carbon Dioxide 42 H Anion Gap 5 L BUN 31 H Creatinine 0.8 Est GFR ( Amer) > 60 Est GFR (Non-Af Amer) > 60 POC Glucose (mg/dL) 194 H Random Glucose 152 H Calcium 8.2 L Phosphorus 3.1 Magnesium 1.9 Total Bilirubin 0.9 AST 21 ALT 49 Alkaline Phosphatase 53 Total Protein 5.1 L Albumin 2.8 L Globulin 2.3 Albumin/Globulin Ratio 1.2 Critical Care Progress Note - Nutrition Nutrition: Nutrition Category Date Time Status Dysphagia/Modified Consistency Diet [DIET] Diets 05/25/18 Lunch Ordered Addendum Addendum: 05/30/18 16:00 ICU Attending Addendum Patient seen and examined. Case reviewed on round with housestaff. Agree with resident note above with the following additions/exceptions: 77 M hx of COPD on home oxygen and prednisone recently admitted to ICU for HCRF returned with HCFR admitted 05/16 to MICU for HCRF tx with Bipap then transferred out returned 05/23 due to unresponsiveness leading to resp failure from ambien use intubated/extubated 05/24 CXR for 05/26 shows RLL PNA Procal low so this may be aspiration pnemonitis or foreign body for now tx as asp PNA/HCAP on day 4 vanc/cefepime cont steroids and duonebs repeat CXR in AM d/c zolpidem, he should not be on this medication no bipap during the day Bipap QHS Keep oxygen support via NC goal 88-92% sat Rest of care as above Kaylee Rousseau MD Pulmonary, Critical Care and Sleep Medicine
[2018-05-30] MEDS: COMBIGAN OPTH OU SCH ×2 (10:53→18:38)
--- NOTE | 2018-05-30 11:57 | RAD ---
Date of service: 05/30/2018 HISTORY: Follow-up. COMPARISON: May 29, 2018. Multiple serial examinations preceding the most recent study: FINDINGS: LUNGS: Persistent right lower lobe infiltrate. PLEURA: Blunting of the right costophrenic sulcus consistent with small right pleural effusion. CARDIOVASCULAR: No atherosclerotic calcification present No radiographic findings to suggest acute or significant cardiovascular disease. OSSEOUS STRUCTURES: No significant abnormalities. VISUALIZED UPPER ABDOMEN: Normal. OTHER FINDINGS: None. IMPRESSION: Stable right lower lobe infiltrate/right pleural effusion.
--- NOTE | 2018-05-30 13:45 | PN ---
DATE: 05/30/[address] Ryan Schneider. SUBJECTIVE: The patient is mildly short of breath. He denies any chest pain. PHYSICAL EXAMINATION: VITAL SIGNS: Blood pressure 156/83, heart rate 93, temperature 98.3, respirations 15. HEENT: Pale conjunctive. CHEST: Bilateral rhonchi. HEART: S1 and S2 regular. EXTREMITIES: No edema. LABORATORY DATA: Hemoglobin and hematocrit 9.4 and 30.2, white count 16.1, platelet count 309,000. Today's SMA-7: Sodium 139, potassium 4.1, chloride 96, CO2 of 42, glucose 152, BUN 31, creatinine 0.8. Today's chest x-ray, stable right lower lobe infiltrate/right pleural effusion. ASSESSMENT: 1. Status post respiratory failure. 2. Severe chronic obstructive lung disease. 3. Altered mental status. 4. Uncontrolled diabetes mellitus. 5. Status post [id number] myocardial infarction. RECOMMENDATIONS: Continue aspirin 81 mg once a day, Cardizem CD at 180 mg once a day, clonidine 0.1 mg twice a day, Cozaar 100 mg once a day, doxycycline was changed to 100 mg intravenously every 12 hours. Continue subcutaneous heparin 5000 units every 12 hours, IV Maxipime at 2 g intravenously every 12 hours, Solu-Medrol 40 mg intravenously every 12 hours, vancomycin 1 g intravenously every 12 hours. Jossue Hurd MD
--- NOTE | 2018-05-30 17:57 | PN ---
DATE: 05/30/2018 SUBJECTIVE: The patient is a 77-year-old, seen and examined, seems to be doing better today. He is stable on nasal cannula without shortness of breath. PHYSICAL EXAMINATION: VITAL SIGNS: He is afebrile, pulse 93, respirations 19, blood pressure 156/83. LUNGS: Bilateral diffusely decreased breath sounds. HEART: S1 and S2 audible. ABDOMEN: Soft, nontender. No rebound, no guarding. NEUROLOGICAL: He is awake, alert, oriented and communicative. EXTREMITIES: Bilateral legs, no edema. LABORATORY DATA: WBC 16.1, hemoglobin 9.4, hematocrit 30.2, platelets 309. Chemistry: Sodium 139, potassium 4.1, chloride 96, CO2 of 42, BUN 31, creatinine 0.8, blood sugar 194. IMPRESSION: 1. Chronic obstructive pulmonary disease exacerbation. 2. Status post respiratory failure and intubation, successfully extubated. 3. Right lower lobe pneumonia with effusion, seems to be improving. 4. Hypertension. 5. Hyperlipidemia. PLAN: The patient is clinically stable. Continue on aspirin and diltiazem. He is on p.o. doxycycline, he is on heparin, he has been started on Neutra-Phos. He cut down his methylprednisolone to every 12 hours . He can be transferred to remote tele with the and then he will be transferred to CCU. Peter Calvillo MD
[2018-05-30] MEDS: [UNRECOGNIZED DRUG - OTHER] OU SCH (21:40)
[2018-05-31] MEDS: Albuterol-Ipratrop 3 mg / 0.5 (3 ml) UD IH SCH ×4 (03:18→20:55)
[2018-05-31 05:41] LABS: ARTERIAL BLOOD GAS HCO3 42.7 mmol/L (21-28); ARTERIAL BLOOD GAS HEMOGLOBIN 8.8 g/dL (11.7-17.4); ARTERIAL BLOOD GAS O2 CONTENT 11.9 ML/dl (15-23); ARTERIAL BLOOD GAS PCO2 60 mm/Hg (35-45); ARTERIAL BLOOD GAS PH 7.46 (7.35-7.45); ARTERIAL BLOOD GAS TCO2 44.5 mmol.L (22-28)
[2018-05-31 06:11] LABS: GRAN # 11.19 (1.4-6.5); GRAN % 96.3 % (50.0-68.0); LYMPH # 0.4 (1.2-3.4); LYMPH % 3.4 % (22.0-35.0); MEAN CORPUSCULAR HEMOGLOBIN 29.7 pg (25.0-35.0); MEAN CORPUSCULAR HGB CONC 30.9 g/dl (31.0-37.0); MEAN PLATELET VOLUME 9.9 fl (7.0-11.0); MONO % 0.3 % (1.0-6.0); PLATELET COUNT 273 10^3/uL (120.0-450.0); RBC 3.03 10^6/uL (3.5-6.1); RED CELL DISTRIBUTION WIDTH 13.7 % (11.5-14.5); WHITE BLOOD COUNT 11.6 10^3/uL (4.5-11.0)
[2018-05-31] MEDS: Pantoprazole 40 mg Susp UD PO SCH (06:27)
[2018-05-31 06:46] LABS: ALB/GLOB RATIO 1.2 (1.1-1.8); ALBUMIN 2.7 g/dL (3.0-4.8); ALT/SGPT 45 U/L (7-56); AST/SGOT 23 U/L (17-59); BLOOD UREA NITROGEN 29 mg/dL (7-21); CALCIUM 8.1 mg/dL (8.4-10.5); GFR NON-AFRICAN AMERICAN > 60
[2018-05-31] MEDS: Budesonide 0.5 mg/2 ml Inhal Susp UD IH SCH ×2 (08:22→20:55)
[2018-05-31] MEDS: Vancomycin 1gm in NS 250ml 1 GM/250 ML BAG IVPB SCH ×2 (09:09→23:56)
[2018-05-31] MEDS: MethylPREDNISolone 40 mg Vial IVP SCH ×2 (09:10→21:15)
[2018-05-31] MEDS: Potassium & Sodium Phosphate PO SCH ×3 (09:10→18:57)
[2018-05-31] MEDS: diltiaZEM 180 mg/24 Hours CD Cap PO SCH (09:11)
[2018-05-31] MEDS: COMBIGAN OPTH OU SCH ×2 (09:13→18:57)
[2018-05-31 09:28] LABS: BAND 2 % (0-2); LYMPHOCYTE 3 % (22.0-35.0); MONOCYTE 2 % (1.0-6.0); NEUTROPHIL 93 % (50.0-70.0); PLATELET ESTIMATE NORMAL (NORMAL)
--- NOTE | 2018-05-31 10:37 | RAD ---
Date of service: 05/31/2018 HISTORY: f/u COMPARISON: 05/30/2018 FINDINGS: LUNGS: The lungs are well inflated. There consolidation in the right lower lobe without significant interval change. The left lung is clear. PLEURA: There is blunting of the right costophrenic angle. No left pleural effusion or pneumothorax. CARDIOVASCULAR: The heart is normal in size. No aortic atherosclerotic calcification present. OSSEOUS STRUCTURES: There is diffuse bone demineralization. There are old fracture deformities in the left lower posterior ribs. VISUALIZED UPPER ABDOMEN: Normal. OTHER FINDINGS: None. IMPRESSION: Little interval change in right lower lobe consolidation and small right pleural effusion.
--- NOTE | 2018-05-31 11:22 | CP.PCM.PN ---
Subjective - Date & Time of Evaluation Date of Evaluation: 05/31/18 Time of Evaluation: 09:15 - Subjective Subjective: No fevers, not in distress, breathing a little better, currently no cough. Objective - Vital Signs/Intake and Output Vital Signs (last 24 hours): Temp Pulse Resp BP Pulse Ox 99.0 F 93 H 29 H 156/83 H 98 05/30/18 04:00 05/30/18 10:41 05/30/18 08:36 05/30/18 10:41 05/30/18 08:36 Intake and Output: 05/30/18 05/30/18 06:59 18:59 Intake Total 550 Output Total 0 Balance 550 - Medications Medications: Current Medications Albuterol/Ipratropium (Duoneb 3 Mg/0.5 Mg (3 Ml) Ud) 3 ml IH [id number] [facility] Last Admin: 05/30/18 07:16 Dose: 3 ml Albuterol/Ipratropium (Duoneb 3 Mg/0.5 Mg (3 Ml) Ud) 3 ml IH Q2H PRN PRN Reason: Shortness of Breath Aspirin (Aspirin Chewable) 81 mg PO DAILY [facility] Last Admin: 05/30/18 10:41 Dose: 81 mg Budesonide (Pulmicort Respules) 0.5 mg IH [id number] [facility] Last Admin: 05/30/18 07:16 Dose: 0.5 mg Clonidine HCl (Catapres) 0.1 mg PO BID [facility] Last Admin: 05/30/18 10:41 Dose: 0.1 mg Diltiazem HCl (Cardizem Cd) 180 mg PO DAILY [facility] Last Admin: 05/30/18 10:41 Dose: 180 mg Doxycycline Hyclate (Doryx) 100 mg PO Q12 [facility]; Protocol Heparin Sodium (Porcine) (Heparin) 5,000 units SC Q12 [facility]; Protocol Last Admin: 05/30/18 10:42 Dose: 5,000 units Home Med (Home Med) 1 unit OU BID [facility] Last Admin: 05/29/18 17:23 Dose: 1 unit Home Med (Home Med) 1 unit OU HS [facility] Last Admin: 05/29/18 21:05 Dose: 1 unit Cefepime HCl (Maxipime 2gm) 2 gm in 100 mls @ 100 mls/hr IVPB Q12 [facility]; Protocol Stop: 05/31/18 08:16 Last Admin: 05/30/18 10:33 Dose: 100 mls/hr Vancomycin HCl (Vancomycin 1gm) 1 gm in 250 mls @ 167 mls/hr IVPB Q12H [facility]; Protocol Last Admin: 05/30/18 08:56 Dose: 167 mls/hr Dexmedetomidine HCl (Precedex 400mcg/100ml) 400 mcg in 100 mls @ 3.152 mls/hr IV .Q24H PRN; Protocol PRN Reason: Agitation Last Titration: 05/29/18 07:00 Dose: 0 mcg/kg/hr, 0 mls/hr Doxycycline Hyclate 100 mg/ (Sodium Chloride) 100 mls @ 100 mls/hr IVPB Q12 [facility]; Protocol Last Admin: 05/30/18 10:33 Dose: 100 mls/hr Losartan Potassium (Cozaar) 100 mg PO DAILY [facility] Last Admin: 05/30/18 10:41 Dose: 100 mg Methylprednisolone (Solu-Medrol) 40 mg IVP Q12 [facility] Last Admin: 05/30/18 10:43 Dose: 40 mg Pantoprazole Sodium (Protonix Susp) 40 mg PO 0600 [facility] Last Admin: 05/30/18 10:42 Dose: 40 mg Potassium Phos/Sodium Phos (Neutra-Phos) 1 pkt PO TID [facility] Last Admin: 05/30/18 10:42 Dose: 1 pkt Tamsulosin HCl (Flomax) 0.4 mg PO DAILY [facility] Last Admin: 05/30/18 10:42 Dose: 0.4 mg - Labs Labs: 05/30/18 05:30 05/30/18 05:30 PT 10.4 SECONDS (9.4-12.5) 05/19/18 11:35 INR 0.91 05/19/18 11:35 APTT 26.0 Seconds (25.1-36.5) 05/23/18 19:02 - Constitutional Appears: Non-toxic, Chronically Ill - Head Exam Head Exam: NORMAL INSPECTION - Neck Exam Neck Exam: absent: Meningismus - Respiratory Exam Respiratory Exam: Decreased Breath Sounds - Cardiovascular Exam Cardiovascular Exam: +S1, +S2 - GI/Abdominal Exam GI & Abdominal Exam: Soft. absent: Tenderness Assessment and Plan - Assessment and Plan (Free Text) Plan: Assessment consider sepsis due to right lower lobe healthcare-associated pneumonia hypercapneic respiratory failure due to COPD exacerbation, slowly improving history of right lower lobe atypical community-acquired pneumonia HTN COPD Plan continue Vancoymcin and Cefepime day 6 and Doxycycline day 4 - aim for up at least 7 days of antibiotics; cultures have been negative, yeast in sputum cx is probably colonization, PCT is <0.05; reviewed CXR and Pulmonary evaluation will continue to monitor clinically discussed with Dr. Chau previously elevated WBC's probably due to steroids but it is slowly improving
--- NOTE | 2018-05-31 12:02 | PN ---
DATE: 05/31/2018 PULMONARY PROGRESS NOTE SUBJECTIVE: Dante Shepherd is in the Intensive Care Unit. He is sitting in bed and appears comfortable. He states that he no longer has any shortness of breath. He is aware that he has had multiple episodes of shortness of breath and admits to poor compliance to medical therapy. He is markedly improved today though and his status appears great. He is able to talk with the full voice and is anxious to joke. he is being prepared to be downgraded to a regular bed, having improved while in the Intensive Care Unit. PHYSICAL EXAMINATION: VITAL SIGNS: Remain stable. The patient has a temperature of 98.6, pulse 80, respiratory rate 18, blood pressure 140/78, O2 sats 96% on supplemental oxygen. HEENT: Normocephalic, atraumatic. NECK: Supple. No JVD. No lymphadenopathy. No bruit. CARDIOVASCULAR: Regular rhythm. S1, S2. Soft systolic ejection murmur at the lower left sternal border. CHEST: Global decrease in breath sound. Minimal rhonchi. Minimal rales. No wheezing appreciated. ABDOMEN: Soft. Bowel sounds normoactive without mass, guarding, rebound. No organomegaly. EXTREMITIES: Reveal no clubbing, cyanosis or edema. There is no Homans' sign. SKIN: Shows no rash or excoriation. NEUROLOGIC: The patient is awake, alert, oriented, in a good mood without any focal findings. LABORATORY DATA: Chest x-ray shows small infiltrate at the right base. IMPRESSION: 1. Status post respiratory failure. 2. Bronchopneumonia. 3. Advanced chronic obstructive pulmonary disease - end stage. 4. Hypoxemia. 5. Coronary artery disease. 6. Pulmonary vascular congestion. 7. Anemia. PLAN: The patient is markedly more comfortable today as his pulmonary vascular congestion and COPD are being treated appropriately. He is on antibiotics for his bronchopneumonia. I have discussed the case at length with the nurse and film color tester in-charge. Dante Shepherd continues to improve. He will be downgraded to Telemetry once his hemodynamics and pulmonary status can be confirmed normal. Followup blood gas is pending. The patient does continue to need noninvasive respiratory care while sleeping. His severe chronic obstructive pulmonary disease dictates that CO2 retention needs to be prevented by noninvasive nocturnal ventilation. This needs to be continued. We will discuss at length with the film color tester in-charge. The patient should remain in the Intensive Care Unit until his hemodynamics and pulmonary status are confirmed stable. After that, he can go to Telemetry where noninvasive nocturnal ventilation continues. Attempts will need to be made to ascertain whether the patient requires this upon discharge. If so, a trilogy ventilator will be required. The patient does have documented CO2 retention and further intervention is stable. We spent quite some time discussing his status with the patient. He needs to be very careful and adhered to his medical regimen. We understand his need to get out the house, carry out of his normal activities of daily living but this cannot be done with disregard to his need for scheduled inhalation treatments and use of supplemental oxygen. We will follow closely with him here in the hospital and when at home and continue to be a support and friend to this joselo patient. Benjamin Brown MD [facility]
--- NOTE | 2018-05-31 12:08 | CP.CCUPN ---
CCU Subjective - Physician Review Events Since Last Encounter (Free Text): 05/31/18 12:05 Patient seen and examined at bedside in no acute distress. Patient is doing well. Slept well. Not agitated. No in destress. Patient currently on NC Denies shortness of breath, chest pain, abdominal pain, nausea, vomiting, diarrhea, fevers, chills. CCU Objective - Vital Signs / Intake & Output Vital Signs (Last 4 hours): Vital Signs Pulse Resp BP Pulse Ox 05/31/18 09:11 89 158/78 H 05/31/18 08:53 81 20 148/76 100 Intake and Output (Last 8hrs): Intake & Output 05/30/18 05/31/18 05/31/18 22:59 06:59 14:59 Intake Total 1150 790 Output Total 600 450 Balance 550 340 Intake: IV 450 550 Left Wrist 0 Right Antecubital 550 Right Forearm 450 Oral 700 240 Output: Urine 600 450 Urine, Voided 600 450 Other: # Bowel Movements 3 0 - Physical Exam Head: Positive for: Atraumatic, Normocephalic Pupils: Positive for: PERRL Extroacular Muscles: Positive for: EOMI Conjunctiva: Positive for: Normal Mouth: Positive for: Dry Neck: Positive for: Normal Range of Motion Respiratory/Chest: Positive for: Respiratory Distress, Decreased Breath Sounds, Other (12cm x 12cm ecchymoses & hematoma noted over R clavicle extending down to right hip. No tenderness to palpation) Cardiovascular: Positive for: Regular Rate and Rhythm, Normal S1, S2. Negative for: Murmurs Abdomen: Negative for: Tenderness, Distention, Peritoneal Signs Back: Positive for: Normal Inspection Upper Extremity: Positive for: Normal Inspection. Negative for: Cyanosis, Edema Lower Extremity: Positive for: Normal Inspection. Negative for: Edema (Negative lower extremity edema.) Neurological: Positive for: GCS=15, CN II-XII Intact, Speech Normal Skin: Positive for: Warm, Dry, Normal Color. Negative for: Rashes Psychiatric: Positive for: Alert, Oriented x 3, Normal Insight, Normal Concentration - Medications Active Medications: Active Medications Generic Name Dose Route Start Last Admin Trade Name Freq PRN Reason Stop Dose Admin Albuterol/Ipratropium 3 ml 05/23/18 14:00 05/31/18 08:22 Duoneb 3 Mg/0.5 Mg (3 Ml) Ud IH 3 ml [id number] [facility] Administration Albuterol/Ipratropium 3 ml 05/26/18 07:29 Duoneb 3 Mg/0.5 Mg (3 Ml) Ud IH Q2H PRN Shortness of Breath Aspirin 81 mg 05/18/18 10:00 05/31/18 09:10 Aspirin Chewable PO 81 mg DAILY [facility] Administration Budesonide 0.5 mg 05/26/18 08:00 05/31/18 08:22 Pulmicort Respules IH 0.5 mg [id number] [facility] Administration Clonidine HCl 0.1 mg 05/28/18 18:00 05/31/18 09:11 Catapres PO 0.1 mg BID [facility] Administration Diltiazem HCl 180 mg 05/24/18 17:03 05/31/18 09:11 Cardizem Cd PO 180 mg DAILY [facility] Administration Doxycycline Hyclate 100 mg 05/28/18 22:00 Doryx PO Q12 [facility] Protocol Heparin Sodium (Porcine) 5,000 units 05/23/18 22:00 05/31/18 09:10 Heparin SC 5,000 units Q12 [facility] Administration Protocol Home Med 1 unit 05/24/18 16:34 05/31/18 09:13 Home Med OU 1 unit BID [facility] Administration Home Med 1 unit 05/26/18 22:00 05/30/18 21:40 Home Med OU 1 unit HS [facility] Administration Vancomycin HCl 1 gm in 250 mls @ 167 mls/hr 05/26/18 08:15 05/31/18 09:09 Vancomycin 1gm IVPB 167 mls/hr Q12H [facility] Administration Protocol Dexmedetomidine HCl 400 mcg in 100 mls @ 3.152 mls/hr 05/28/18 18:41 05/29/18 07:00 Precedex 400mcg/100ml IV 0 mcg/kg/hr .Q24H PRN 0 mls/hr Agitation Titration Protocol 0.2 MCG/KG/HR Doxycycline Hyclate 100 mg/ 100 mls @ 100 mls/hr 05/28/18 23:45 05/31/18 09:16 Sodium Chloride IVPB 100 mls/hr Q12 [facility] Administration Protocol Cefepime HCl 2 gm in 100 mls @ 100 mls/hr 05/31/18 11:30 Maxipime 2gm IVPB 06/05/18 11:31 Q12 [facility] Protocol Losartan Potassium 100 mg 05/20/18 13:15 05/31/18 09:12 Cozaar PO 100 mg DAILY [facility] Administration Methylprednisolone 30 mg 05/31/18 11:46 Solu-Medrol IVP Q12 [facility] Pantoprazole Sodium 40 mg 05/27/18 06:00 05/31/18 06:27 Protonix Susp PO 40 mg 0600 [facility] Administration Potassium Phos/Sodium Phos 1 pkt 05/28/18 14:00 05/31/18 09:10 Neutra-Phos PO 1 pkt TID [facility] Administration Quetiapine Fumarate 25 mg 05/30/18 10:50 Seroquel PO HS PRN Agitation Protocol Tamsulosin HCl 0.4 mg 05/17/18 11:00 05/31/18 09:10 Flomax PO 0.4 mg DAILY [facility] Administration - Patient Studies Lab Studies: Microbiology Studies 05/26/18 18:59 Blood Culture - Preliminary Blood-Venous NO GROWTH AFTER 4 DAYS 05/26/18 18:59 Blood Culture - Preliminary Blood-Venous NO GROWTH AFTER 4 DAYS Lab Studies 05/31/18 05/31/18 05/31/18 Range/Units 05:32 05:30 05:30 WBC 11.6 H D (4.5-11.0) 10^3/uL RBC 3.03 L (3.5-6.1) 10^6/uL Hgb 9.0 L (14.0-18.0) g/dL Hct 29.1 L (42.0-52.0) % MCV 96.0 (80.0-105.0) fl MCH 29.7 (25.0-35.0) pg MCHC 30.9 L (31.0-37.0) g/dl RDW 13.7 (11.5-14.5) % Plt Count 273 (120.0-450.0) 10^3/uL MPV 9.9 (7.0-11.0) fl Gran % 96.3 H (50.0-68.0) % Lymph % (Auto) 3.4 L (22.0-35.0) % [place] % (Auto) 0.3 L (1.0-6.0) % Eos % (Auto) 0.0 L (1.5-5.0) % Baso % (Auto) 0.0 (0.0-3.0) % Gran # 11.19 H (1.4-6.5) Lymph # (Auto) 0.4 L (1.2-3.4) [place] # (Auto) 0.0 L (0.1-0.6) Eos # (Auto) 0.0 (0.0-0.7) Baso # (Auto) 0.00 (0.0-2.0) K/mm3 Neutrophils % (Manual) 93 H (50.0-70.0) % Band Neutrophils % 2 (0-2) % Lymphocytes % (Manual) 3 L (22.0-35.0) % Monocytes % (Manual) 2 (1.0-6.0) % Platelet Evaluation Normal (NORMAL) pCO2 60 H (35-45) mm/Hg pO2 82.0 (80-100) mm/Hg HCO3 42.7 H* (21-28) mmol/L ABG pH 7.46 H (7.35-7.45) ABG Total CO2 44.5 H (22-28) mmol.L ABG O2 Saturation 99.0 H (95-98) % ABG O2 Content 11.9 L (15-23) ML/dl ABG Base Excess 16.8 H (-2.0-3.0) mmol/L ABG Hemoglobin 8.8 L (11.7-17.4) g/dL ABG Carboxyhemoglobin 2.8 H (0.5-1.5) % POC ABG HHb (Measured) 1.0 (0-5) % ABG Methemoglobin 1.1 (0.0-3.0) % ABG O2 Capacity 12.0 L (16-24) mL/dl Hgb O2 Saturation 95.1 (95.0-98.0) % FiO2 28.0 % Sodium 138 (132-148) mmol/L Potassium 4.3 (3.6-5.0) mmol/L Chloride 97 L (98-107) mmol/L Carbon Dioxide 42 H (21-33) mmol/L Anion Gap 3 L (10-20) BUN 29 H (7-21) mg/dL Creatinine 0.8 (0.8-1.5) mg/dl Est GFR ( Amer) > 60 Est GFR (Non-Af Amer) > 60 POC Glucose (mg/dL) (65-110) mg/dL Random Glucose 136 H (70-110) mg/dL Calcium 8.1 L (8.4-10.5) mg/dL Phosphorus 3.2 (2.5-4.5) mg/dL Magnesium 1.7 (1.7-2.2) mg/dL Total Bilirubin 0.9 (0.2-1.3) mg/dL AST 23 (17-59) U/L ALT 45 (7-56) U/L Alkaline Phosphatase 49 (38-126) U/L Total Protein 4.9 L (5.8-8.3) g/dL Albumin 2.7 L (3.0-4.8) g/dL Globulin 2.2 gm/dL Albumin/Globulin Ratio 1.2 (1.1-1.8) 05/30/18 05/30/18 Range/Units 21:25 12:09 WBC (4.5-11.0) 10^3/uL RBC (3.5-6.1) 10^6/uL Hgb (14.0-18.0) g/dL Hct (42.0-52.0) % MCV (80.0-105.0) fl MCH (25.0-35.0) pg MCHC (31.0-37.0) g/dl RDW (11.5-14.5) % Plt Count (120.0-450.0) 10^3/uL MPV (7.0-11.0) fl Gran % (50.0-68.0) % Lymph % (Auto) (22.0-35.0) % [place] % (Auto) (1.0-6.0) % Eos % (Auto) (1.5-5.0) % Baso % (Auto) (0.0-3.0) % Gran # (1.4-6.5) Lymph # (Auto) (1.2-3.4) [place] # (Auto) (0.1-0.6) Eos # (Auto) (0.0-0.7) Baso # (Auto) (0.0-2.0) K/mm3 Neutrophils % (Manual) (50.0-70.0) % Band Neutrophils % (0-2) % Lymphocytes % (Manual) (22.0-35.0) % Monocytes % (Manual) (1.0-6.0) % Platelet Evaluation (NORMAL) pCO2 (35-45) mm/Hg pO2 (80-100) mm/Hg HCO3 (21-28) mmol/L ABG pH (7.35-7.45) ABG Total CO2 (22-28) mmol.L ABG O2 Saturation (95-98) % ABG O2 Content (15-23) ML/dl ABG Base Excess (-2.0-3.0) mmol/L ABG Hemoglobin (11.7-17.4) g/dL ABG Carboxyhemoglobin (0.5-1.5) % POC ABG HHb (Measured) (0-5) % ABG Methemoglobin (0.0-3.0) % ABG O2 Capacity (16-24) mL/dl Hgb O2 Saturation (95.0-98.0) % FiO2 % Sodium (132-148) mmol/L Potassium (3.6-5.0) mmol/L Chloride (98-107) mmol/L Carbon Dioxide (21-33) mmol/L Anion Gap (10-20) BUN (7-21) mg/dL Creatinine (0.8-1.5) mg/dl Est GFR ( Amer) Est GFR (Non-Af Amer) POC Glucose (mg/dL) 186 H 194 H (65-110) mg/dL Random Glucose (70-110) mg/dL Calcium (8.4-10.5) mg/dL Phosphorus (2.5-4.5) mg/dL Magnesium (1.7-2.2) mg/dL Total Bilirubin (0.2-1.3) mg/dL AST (17-59) U/L ALT (7-56) U/L Alkaline Phosphatase (38-126) U/L Total Protein (5.8-8.3) g/dL Albumin (3.0-4.8) g/dL Globulin gm/dL Albumin/Globulin Ratio (1.1-1.8) Laboratory Results - last 24 hr 05/30/18 05/30/18 05/31/18 12:09 21:25 05:30 WBC 11.6 H D RBC 3.03 L Hgb 9.0 L Hct 29.1 L MCV 96.0 MCH 29.7 MCHC 30.9 L RDW 13.7 Plt Count 273 MPV 9.9 Gran % 96.3 H Lymph % (Auto) 3.4 L [place] % (Auto) 0.3 L Eos % (Auto) 0.0 L Baso % (Auto) 0.0 Gran # 11.19 H Lymph # (Auto) 0.4 L [place] # (Auto) 0.0 L Eos # (Auto) 0.0 Baso # (Auto) 0.00 Neutrophils % (Manual) 93 H Band Neutrophils % 2 Lymphocytes % (Manual) 3 L Monocytes % (Manual) 2 Platelet Evaluation Normal pCO2 pO2 HCO3 ABG pH ABG Total CO2 ABG O2 Saturation ABG O2 Content ABG Base Excess ABG Hemoglobin ABG Carboxyhemoglobin POC ABG HHb (Measured) ABG Methemoglobin ABG O2 Capacity Hgb O2 Saturation FiO2 Sodium Potassium Chloride Carbon Dioxide Anion Gap BUN Creatinine Est GFR ( Amer) Est GFR (Non-Af Amer) POC Glucose (mg/dL) 194 H 186 H Random Glucose Calcium Phosphorus Magnesium Total Bilirubin AST ALT Alkaline Phosphatase Total Protein Albumin Globulin Albumin/Globulin Ratio 05/31/18 05/31/18 05:30 05:32 WBC RBC Hgb Hct MCV MCH MCHC RDW Plt Count MPV Gran % Lymph % (Auto) [place] % (Auto) Eos % (Auto) Baso % (Auto) Gran # Lymph # (Auto) [place] # (Auto) Eos # (Auto) Baso # (Auto) Neutrophils % (Manual) Band Neutrophils % Lymphocytes % (Manual) Monocytes % (Manual) Platelet Evaluation pCO2 60 H pO2 82.0 HCO3 42.7 H* ABG pH 7.46 H ABG Total CO2 44.5 H ABG O2 Saturation 99.0 H ABG O2 Content 11.9 L ABG Base Excess 16.8 H ABG Hemoglobin 8.8 L ABG Carboxyhemoglobin 2.8 H POC ABG HHb (Measured) 1.0 ABG Methemoglobin 1.1 ABG O2 Capacity 12.0 L Hgb O2 Saturation 95.1 FiO2 28.0 Sodium 138 Potassium 4.3 Chloride 97 L Carbon Dioxide 42 H Anion Gap 3 L BUN 29 H Creatinine 0.8 Est GFR ( Amer) > 60 Est GFR (Non-Af Amer) > 60 POC Glucose (mg/dL) Random Glucose 136 H Calcium 8.1 L Phosphorus 3.2 Magnesium 1.7 Total Bilirubin 0.9 AST 23 ALT 45 Alkaline Phosphatase 49 Total Protein 4.9 L Albumin 2.7 L Globulin 2.2 Albumin/Globulin Ratio 1.2 Critical Care Progress Note - Nutrition Nutrition: Nutrition Category Date Time Status Dysphagia/Modified Consistency Diet [DIET] Diets 05/25/18 Lunch Ordered Assessment/Plan - Assessment and Plan (Free Text) Assessment: 77 M hx of COPD on home oxygen and prednisone recently admitted to ICU for HCRF returned with HCFR admitted 05/16 to MICU for HCRF tx with Bipap then transferred out returned 05/23 due to unresponsiveness leading to resp failure from ambien use intubated/extubated 05/24 CXR for 05/26 shows RLL PNA Procal low so this may be aspiration pnemonitis or foreign body for now tx as asp PNA/HCAP on vanc/cefepime cont steroids and duonebs d/c zolpidem, he should not be on this medication no bipap during the day Bipap QHS Keep oxygen support via NC goal 88-92% sat Patient need active physical therapy OOB to chair ambulate as tolerated pulm rehab as outpatient Kaylee Rousseau MD Pulmonary, Critical Care and Sleep Medicine
--- NOTE | 2018-05-31 13:55 | PN ---
DATE: 05/31/2018 SUBJECTIVE: The patient is 77 years old. Seen and examined, sitting in chair. Seems to be comfortable. Has shortness of breath even at rest. PHYSICAL EXAMINATION: VITAL SIGNS: He is afebrile, pulse 89, respirations 20, blood pressure 158/78. LUNGS: Bilateral diffusely decreased breath sound. HEART: S1 and S2 audible. ABDOMEN: Soft. Nontender. No rebound. No guarding. NEUROLOGICAL: The patient is awake, alert, oriented, able to communicate. LABORATORY EXAM: WBC 11.6, hemoglobin 9, hematocrit 29.1, platelet 273. Chemistry: Sodium 138, potassium 4.3, chloride 97, CO2 of 42, BUN 29, creatinine 0.8, blood sugar of 136. Blood culture, urine cultures are negative. ASSESSMENT: 1. Advanced chronic obstructive pulmonary disease. 2. Right lower lobe pneumonia, resolving. 3. Status post respiratory failure. 4. Hypertension. 5. Right pleural effusion. 6. Deconditioning and difficulty walking. PLAN: The patient is going to be transferred to [facility]. He need to be closely monitored. He is currently on IV steroid. I will cut down to 30 every 12. Encourage ambulation and will be evaluated by therapist if he is a candidate of TCU or subacute rehab. Peter Calvillo MD
--- NOTE | 2018-05-31 15:11 | PN ---
DATE: 05/31/2018 SUBJECTIVE: The patient's shortness of breath has improved. He denies any chest pain. PHYSICAL EXAMINATION: VITAL SIGNS: Blood pressure 158/78, heart rate 89, temperature 98.1, respirations 20. HEENT: Normocephalic. CHEST: Bilateral rhonchi. HEART: S1, S2 regular. EXTREMITIES: No edema. LABORATORY DATA: Hemoglobin and hematocrit 9 and 29.1, white count 11.6, platelet count 273,000. Today's SMA-7: Sodium 138, potassium 4.3, chloride 97, CO2 of 42, glucose 136, BUN 29, creatinine 0.8. Today's chest x-ray report: Little interval change in the right lower lobe consolidation and small right pleural effusion. ASSESSMENT: 1. Status post respiratory failure. 2. Status post non-ST elevation myocardial infarction. 3. Severe chronic obstructive lung disease. 4. Right lower lobe pneumonia with parapneumonic effusion. RECOMMENDATIONS: Continue aspirin 81 mg once a day, Cardizem CD 180 mg daily, clonidine 0.1 mg twice a day, Cozaar 100 mg once a day, doxycycline 100 mg intravenously every 12 hours, albuterol inhaler every 6 hours, heparin 5000 units subcutaneously every 12 hours, IV Maxipime 2 g every 12 hours, Neutra-Phos 1 packet t.i.d. Continue vancomycin 1 g intravenously every 12 hours. The patient can be transferred to med surgical floor. Jossue Hurd MD
[2018-05-31] MEDS: Cefepime IV 2 gm in NS 2 GM/100 ML BAG IVPB SCH ×2 (15:21→21:15)
[2018-05-31] MEDS: [UNRECOGNIZED DRUG - OTHER] OU SCH (21:15)
[2018-06-01] MEDS: Albuterol-Ipratrop 3 mg / 0.5 (3 ml) UD IH SCH ×4 (01:54→20:33)
[2018-06-01 05:35] LABS: ARTERIAL BLOOD GAS HEMOGLOBIN 7.5 g/dL (11.7-17.4); ARTERIAL BLOOD GAS O2 CAPACITY 10.4 mL/dl (16-24); ARTERIAL BLOOD GAS O2 CONTENT 10.3 ML/dl (15-23); ARTERIAL BLOOD GAS O2 SAT 99.1 % (95-98); ARTERIAL BLOOD GAS PCO2 68 mm/Hg (35-45); ARTERIAL BLOOD GAS TCO2 44.2 mmol.L (22-28)
[2018-06-01 05:41] LABS: ARTERIAL BLOOD GAS HCO3 42.1 mmol/L (21-28)
[2018-06-01] MEDS: Pantoprazole 40 mg Susp UD PO SCH (06:44)
[2018-06-01] MEDS: Budesonide 0.5 mg/2 ml Inhal Susp UD IH SCH ×2 (07:33→20:33)
[2018-06-01 08:11] LABS: GRAN # 9.22 (1.4-6.5); GRAN % 94.6 % (50.0-68.0); HEMOGLOBIN 8.6 g/dL (14.0-18.0); LYMPH # 0.3 (1.2-3.4); LYMPH % 2.8 % (22.0-35.0); MEAN CELL VOLUME 96.2 fl (80.0-105.0); MEAN CORPUSCULAR HEMOGLOBIN 29.8 pg (25.0-35.0); MEAN CORPUSCULAR HGB CONC 30.9 g/dl (31.0-37.0); MEAN PLATELET VOLUME 10.4 fl (7.0-11.0); MONO # 0.3 (0.1-0.6); MONO % 2.6 % (1.0-6.0); RBC 2.89 10^6/uL (3.5-6.1); RED CELL DISTRIBUTION WIDTH 13.8 % (11.5-14.5); WHITE BLOOD COUNT 9.7 10^3/uL (4.5-11.0)
[2018-06-01 09:03] LABS: ALB/GLOB RATIO 1.2 (1.1-1.8); ALBUMIN 2.5 g/dL (3.0-4.8); ALT/SGPT 47 U/L (7-56); AST/SGOT 22 U/L (17-59); BLOOD UREA NITROGEN 32 mg/dL (7-21); CALCIUM 7.9 mg/dL (8.4-10.5); GFR NON-AFRICAN AMERICAN > 60
[2018-06-01] MEDS: diltiaZEM 180 mg/24 Hours CD Cap PO SCH (09:28)
[2018-06-01] MEDS: MethylPREDNISolone 40 mg Vial IVP SCH ×2 (09:29→23:10)
[2018-06-01] MEDS: COMBIGAN OPTH OU SCH ×2 (09:30→18:21)
[2018-06-01] MEDS: Potassium & Sodium Phosphate PO SCH ×3 (09:31→18:17)
[2018-06-01] MEDS: Vancomycin 1gm in NS 250ml 1 GM/250 ML BAG IVPB SCH ×2 (09:32→21:28)
[2018-06-01] MEDS: Cefepime IV 2 gm in NS 2 GM/100 ML BAG IVPB SCH ×2 (10:00→23:33)
[2018-06-01] MEDS ORDERED: Loperamide Hydrochloride 1 mg/5 ml Cup PO ONE (11:14)
--- NOTE | 2018-06-01 12:07 | RAD ---
Date of service: 06/01/2018 HISTORY: f/u COMPARISON: 05/31/2018 FINDINGS: LUNGS: There is pulmonary hyperinflation. There is redemonstration of airspace disease in the right lower lobe. The left lung is clear. PLEURA: There blunting of the right costophrenic angle. No left pleural effusion or pneumothorax. CARDIOVASCULAR: The heart is normal in size. No aortic atherosclerotic calcification present. OSSEOUS STRUCTURES: Stable. VISUALIZED UPPER ABDOMEN: Normal. OTHER FINDINGS: None. IMPRESSION: No interval change in right lower lobe airspace disease which may represent atelectasis or pneumonia. Question of small right pleural effusion.
--- NOTE | 2018-06-01 12:51 | PN ---
DATE: 06/01/2018 SUBJECTIVE: The patient has no complaints of any chest pain. No shortness of breath. No headaches. He says his breathing is better. PHYSICAL EXAMINATION: VITAL SIGNS: Temperature is 97.9, pulse is 64, blood pressure 138/78 and respirations 18. GENERAL: The patient is lying in bed, flat and comfortable. HEENT: No oral lesion. Anicteric sclerae. Moist mucosa. NECK: No JVD, adenopathy, or thyromegaly. CARDIOVASCULAR: S1 and S2, regular. No murmurs, rubs, or gallops. LUNGS: Clear to auscultation bilaterally. No wheeze, rales, or rhonchi. ABDOMEN: Bowel sounds are positive, soft, nontender and nondistended. EXTREMITIES: No cyanosis, clubbing or edema. LABORATORY DATA: White count of 9.7 and hemoglobin 8.6. Creatinine 0.7. ASSESSMENT: 1. Acute, chronic obstructive pulmonary disease. 2. Pneumonia, community-acquired, improving. 3. Hypertension. 4. Right pleural effusion. 5. Respiratory failure, now it is improved. 6. Gait dysfunction. PLAN: The patient is currently receiving Cardizem. He is going to continue with losartan for his hypertension. He is on albuterol for his nebulizer. He is on Flomax for BPH. The patient is on cefepime for antibiotics. He is receiving phosphorus because his phosphorus was low and that has improved. He is on vancomycin for antibiotics. He is on Solu-Medrol. The patient is complaining of diarrhea. He is asking for doses of Imodium, which we will give some. Cj Muñoz MD
--- NOTE | 2018-06-01 13:15 | CP.PCM.PN ---
Subjective - Date & Time of Evaluation Date of Evaluation: 06/01/18 Time of Evaluation: 11:35 - Subjective Subjective: No fevers, not in distress, breathing better. Objective - Vital Signs/Intake and Output Vital Signs (last 24 hours): Temp Pulse Resp BP Pulse Ox 98.1 F 89 20 158/78 H 100 05/31/18 08:00 05/31/18 09:11 05/31/18 08:53 05/31/18 09:11 05/31/18 08:53 Intake and Output: 05/31/18 05/31/18 06:59 18:59 Intake Total 790 Output Total 450 Balance 340 - Medications Medications: Current Medications Albuterol/Ipratropium (Duoneb 3 Mg/0.5 Mg (3 Ml) Ud) 3 ml IH [id number] [facility] Last Admin: 05/31/18 08:22 Dose: 3 ml Albuterol/Ipratropium (Duoneb 3 Mg/0.5 Mg (3 Ml) Ud) 3 ml IH Q2H PRN PRN Reason: Shortness of Breath Aspirin (Aspirin Chewable) 81 mg PO DAILY [facility] Last Admin: 05/31/18 09:10 Dose: 81 mg Budesonide (Pulmicort Respules) 0.5 mg IH [id number] [facility] Last Admin: 05/31/18 08:22 Dose: 0.5 mg Clonidine HCl (Catapres) 0.1 mg PO BID [facility] Last Admin: 05/31/18 09:11 Dose: 0.1 mg Diltiazem HCl (Cardizem Cd) 180 mg PO DAILY [facility] Last Admin: 05/31/18 09:11 Dose: 180 mg Doxycycline Hyclate (Doryx) 100 mg PO Q12 [facility]; Protocol Heparin Sodium (Porcine) (Heparin) 5,000 units SC Q12 [facility]; Protocol Last Admin: 05/31/18 09:10 Dose: 5,000 units Home Med (Home Med) 1 unit OU BID [facility] Last Admin: 05/31/18 09:13 Dose: 1 unit Home Med (Home Med) 1 unit OU HS [facility] Last Admin: 05/30/18 21:40 Dose: 1 unit Vancomycin HCl (Vancomycin 1gm) 1 gm in 250 mls @ 167 mls/hr IVPB Q12H [facility]; Protocol Last Admin: 05/31/18 09:09 Dose: 167 mls/hr Dexmedetomidine HCl (Precedex 400mcg/100ml) 400 mcg in 100 mls @ 3.152 mls/hr IV .Q24H PRN; Protocol PRN Reason: Agitation Last Titration: 05/29/18 07:00 Dose: 0 mcg/kg/hr, 0 mls/hr Doxycycline Hyclate 100 mg/ (Sodium Chloride) 100 mls @ 100 mls/hr IVPB Q12 [facility]; Protocol Last Admin: 05/31/18 09:16 Dose: 100 mls/hr Cefepime HCl (Maxipime 2gm) 2 gm in 100 mls @ 100 mls/hr IVPB Q12 [facility]; Protocol Stop: 06/05/18 11:31 Losartan Potassium (Cozaar) 100 mg PO DAILY [facility] Last Admin: 05/31/18 09:12 Dose: 100 mg Methylprednisolone (Solu-Medrol) 40 mg IVP Q12 [facility] Last Admin: 05/31/18 09:10 Dose: 40 mg Pantoprazole Sodium (Protonix Susp) 40 mg PO 0600 [facility] Last Admin: 05/31/18 06:27 Dose: 40 mg Potassium Phos/Sodium Phos (Neutra-Phos) 1 pkt PO TID [facility] Last Admin: 05/31/18 09:10 Dose: 1 pkt Quetiapine Fumarate (Seroquel) 25 mg PO HS PRN; Protocol PRN Reason: Agitation Tamsulosin HCl (Flomax) 0.4 mg PO DAILY [facility] Last Admin: 05/31/18 09:10 Dose: 0.4 mg - Labs Labs: 05/31/18 05:30 05/31/18 05:30 PT 10.4 SECONDS (9.4-12.5) 05/19/18 11:35 INR 0.91 05/19/18 11:35 APTT 26.0 Seconds (25.1-36.5) 05/23/18 19:02 - Constitutional Appears: Chronically Ill - Head Exam Head Exam: NORMAL INSPECTION - Neck Exam Neck Exam: absent: Meningismus - Respiratory Exam Respiratory Exam: Decreased Breath Sounds - Cardiovascular Exam Cardiovascular Exam: +S1, +S2 - GI/Abdominal Exam GI & Abdominal Exam: Soft. absent: Tenderness Assessment and Plan - Assessment and Plan (Free Text) Plan: Assessment consider sepsis due to right lower lobe healthcare-associated pneumonia hypercapneic respiratory failure due to COPD exacerbation, slowly improving history of right lower lobe atypical community-acquired pneumonia HTN COPD Plan continue Vancoymcin and Cefepime day 7 and Doxycycline day 5 - aim for up at least 7 days and up to 10 days of antibiotics; cultures have been negative, yeast in sputum cx is probably colonization, PCT is <0.05; reviewed CXR and Pulmonary evaluation will continue to monitor clinically discussed with Dr. Chau previously elevated WBC's were probably due to steroids but it has now normalized
--- NOTE | 2018-06-01 16:37 | PN ---
DATE: 06/01/2018 PULMONARY PROGRESS NOTE SUBJECTIVE: Dante has been moved from intensive care unit to . He is sitting in bed comfortable. He offers no respiratory complaints without any movement whatsoever. Nasal oxygen remains in place. A very close personal friend is at his bedside and has contributed his thoughts during our conversation. It is clear to both myself and the patient's friend that Dante is unable to care for himself in an appropriate manner. Long discussion ensued with the RN as well and the patient will be transferred to transitional care within the next day or so where he will remain for approximately a week. During that period of time, it is strongly suggested that Lumber Piler Operator get involved in making sure that Dante has either help at home or has followup in the care facility. The exact nature of his needs are not known to me at this time, but Social Work will need to intervene. Dante is markedly improved, taking his medications by the nurse, using his nasal oxygen. PHYSICAL EXAMINATION: GENERAL: He is resting comfortably, in no acute distress. VITAL SIGNS: Remain stable. His blood pressure was 138/76, oxygen sat 97% on supplemental oxygen, respiratory rate 18, pulse rate of 78, afebrile. HEENT: Normocephalic, atraumatic. NECK: Supple. There is no jugular venous distention or lymphadenopathy. No bruits heard. CARDIOVASCULAR: Regular rhythm. S1, S2. There is a persistent soft systolic ejection murmur at the lower left sternal border. CHEST: The breath sounds are still quieted. There are minimal rhonchi and rales noted. There is no wheezing appreciated. No additional changes are noted. ABDOMEN: Soft. Bowel sounds normoactive without mass, guarding, rebound, or organomegaly. EXTREMITIES: Reveal no edema. There is no clubbing or cyanosis. SKIN: Shows no rash or excoriation. NEUROLOGIC: Appears to be normal at rest. LABORATORY DATA: A new chest x-ray was done this morning. The right infiltrate appears more dense. This is more likely technique than a worsening of his condition. He will need to be reviewed clinically. IMPRESSION: 1. Status post respiratory failure. 2. Right-sided bronchopneumonia. 3. Severe chronic obstructive pulmonary disease. 4. Hypoxemia. 5. Coronary artery disease. 6. Pulmonary vascular congestion. PLAN: Continue vigorous care for this acute problem. Antibiotic therapy. Must follow chest x-ray to complete resolution. Dante will need further outpatient medical care. If he is ambulatory, I will be happy to see him in the office. Dante does require additional assistance in his medical care, either a visiting nurse at home, perishable fruit inspector, or other source of aide and assistance. If this is impossible, one must consider short-term inpatient nursing services such as subacute rehab. The patient needs to be followed very closely in this post-pneumonic period where he is more susceptible. It needs to be determined that he uses his medications religiously and that he continues to care for himself appropriately. We are available to help Dante in any way possible. He has our phone number and agrees to call us if there is any change in his status. I will discuss the findings with Dr. Chau to continue to see Dante as an inpatient, pending final discussions regarding outpatient care. Thank you for the opportunity to care for this joselo gentleman. Benjamin Brown MD
--- NOTE | 2018-06-01 17:34 | PN ---
DATE: 06/01/2018 SUBJECTIVE: The patient complains of frequent bowel movements. He denies any chest pain. Shortness of breath has improved. PHYSICAL EXAMINATION: VITAL SIGNS: Blood pressure 130/78, heart rate 64, temperature 97.9, respirations 18. HEENT: Pale conjunctivae. CHEST: Minimal rhonchi. HEART: S1, S2 regular. EXTREMITIES: No edema. LABORATORY DATA: Today's hemoglobin and hematocrit 8.6 and 27.8. White count and platelet count are within normal limits. Today's SMA-7: Sodium 138, potassium 4.2, chloride 98, CO2 of 41, glucose 149, BUN 32, creatinine 0.7. ASSESSMENT: 1. Status post non-ST elevation myocardial infarction. 2. Chronic obstructive lung disease. 3. Diarrhea. 4. Right lower lobe pneumonia with para-pneumonic effusion. RECOMMENDATIONS: Continue aspirin 81 mg once a day, Cardizem CD 180 mg daily, clonidine 0.1 mg b.i.d., Cozaar 100 mg once a day, doxycycline 100 mg p.o. twice a day, subcutaneous heparin 5000 units every 12 hours, IV Maxipime at 2 g every 12 hours, IV vancomycin 1 g intravenously every 12 hours. Obtain stool for C. difficile. Jossue Hurd MD
[2018-06-01] MEDS: [UNRECOGNIZED DRUG - OTHER] OU SCH (22:33)
[2018-06-02] MEDS: Albuterol-Ipratrop 3 mg / 0.5 (3 ml) UD IH SCH ×4 (02:23→19:48)
[2018-06-02 05:49] LABS: ARTERIAL BLOOD GAS HCO3 42.8 mmol/L (21-28); ARTERIAL BLOOD GAS HEMOGLOBIN 8.6 g/dL (11.7-17.4); ARTERIAL BLOOD GAS O2 CAPACITY 11.8 mL/dl (16-24); ARTERIAL BLOOD GAS O2 CONTENT 11.7 ML/dl (15-23); ARTERIAL BLOOD GAS O2 SAT 98.8 % (95-98); ARTERIAL BLOOD GAS PCO2 74 mm/Hg (35-45); ARTERIAL BLOOD GAS PH 7.37 (7.35-7.45); ARTERIAL BLOOD GAS TCO2 45.1 mmol.L (22-28)
[2018-06-02] MEDS: Pantoprazole 40 mg Susp UD PO SCH (06:04)
[2018-06-02 07:11] LABS: GRAN # 11.38 (1.4-6.5); GRAN % 96.7 % (50.0-68.0); LYMPH # 0.3 (1.2-3.4); LYMPH % 2.5 % (22.0-35.0); MEAN CORPUSCULAR HEMOGLOBIN 30.4 pg (25.0-35.0); MEAN CORPUSCULAR HGB CONC 31.4 g/dl (31.0-37.0); MEAN PLATELET VOLUME 10.3 fl (7.0-11.0); MONO # 0.1 (0.1-0.6); MONO % 0.8 % (1.0-6.0); RBC 2.96 10^6/uL (3.5-6.1); RED CELL DISTRIBUTION WIDTH 13.9 % (11.5-14.5); WHITE BLOOD COUNT 11.8 10^3/uL (4.5-11.0)
[2018-06-02] MEDS: Budesonide 0.5 mg/2 ml Inhal Susp UD IH SCH ×2 (07:34→19:48)
--- NOTE | 2018-06-02 08:12 | PN ---
DATE: 06/02/2018 SUBJECTIVE: The patient appears comfortable this morning. He is not short of breath at rest. PHYSICAL EXAMINATION: VITAL SIGNS: Temperature is 98.4, pulse is 69, respirations 18, blood pressure 121/66. Oxygen saturation on nasal cannula is 98%. HEENT: Normocephalic, atraumatic. NECK: No JVD. CARDIOVASCULAR: Systolic ejection murmur at the lower left sternal border. No S3 gallop. LUNGS: Decreased breath sounds at the bases. Less rhonchi. No wheezing. EXTREMITIES: No clubbing, cyanosis or edema. Calves are nontender to palpation. GASTROINTESTINAL: Abdomen is soft, nontender and nondistended. Bowel sounds are positive. SKIN: No acute rash. NEUROLOGIC: Exam limited at the present time. PERTINENT LABORATORY DATA: Chest x-ray was done this morning and reviewed. The chest x-ray appears slightly improved - with a decrease in the right lower lobe infiltrate. IMPRESSION: 1. Respiratory failure. 2. Advanced, end-stage chronic obstructive pulmonary disease. 3. Right lower lobe pneumonia. 4. Nonobstructive coronary artery disease. 5. Mild anemia. PLAN: The patient appears comfortable this morning. He is not short of breath at rest. He is much more comfortable. He does state to feeling much better overall. I did discuss the case with the night nurse at length. The night nurse stated that the patient had a good night. I did review the chest x-ray from this morning. The chest x-ray is slightly improved - with a decrease in the right lower lobe infiltrate. I would continue with the antibiotic coverage as per Infectious Disease. Temperatures have now fully resolved. The leukocytosis has also fully resolved. On physical exam, there is certainly less bronchospasm noted. In addition, the alveolar-arterial gradient is also less. I will continue the current nebulizer treatments and low-dose intravenous steroids for now. Clinical status of the patient is significantly improved overall. Again, however, the future status/prognosis for this patient does remain very guarded - as he continues to have end-stage lung disease. I will discuss the above with Dr. Calvillo. Cedric Chau MD [facility] # [id number] MTDD
[2018-06-02 08:32] LABS: BLOOD UREA NITROGEN 29 mg/dL (7-21); GFR NON-AFRICAN AMERICAN > 60
[2018-06-02 08:33] LABS: ALB/GLOB RATIO 1.2 (1.1-1.8); ALBUMIN 2.6 g/dL (3.0-4.8); ALT/SGPT 43 U/L (7-56); AST/SGOT 18 U/L (17-59); CALCIUM 8.1 mg/dL (8.4-10.5)
[2018-06-02] MEDS: Cefepime IV 2 gm in NS 2 GM/100 ML BAG IVPB SCH ×2 (09:18→21:26)
[2018-06-02] MEDS: MethylPREDNISolone 40 mg Vial IVP SCH ×2 (09:18→21:26)
[2018-06-02] MEDS: Vancomycin 1gm in NS 250ml 1 GM/250 ML BAG IVPB SCH ×2 (09:18→22:40)
[2018-06-02] MEDS: diltiaZEM 180 mg/24 Hours CD Cap PO SCH (09:19)
[2018-06-02] MEDS: Potassium & Sodium Phosphate PO SCH ×3 (09:20→18:11)
[2018-06-02] MEDS: COMBIGAN OPTH OU SCH ×2 (09:20→18:12)
--- NOTE | 2018-06-02 09:33 | RAD ---
Date of service: 06/02/2018 HISTORY: f/u COMPARISON: 06/01/2018 FINDINGS: LUNGS: There is an infiltrate in the right lower lobe unchanged. PLEURA: Small pleural effusion on the right CARDIOVASCULAR: No aortic atherosclerotic calcification present. Normal cardiac size. No pulmonary vascular congestion. OSSEOUS STRUCTURES: No significant abnormalities. VISUALIZED UPPER ABDOMEN: Normal. OTHER FINDINGS: None. IMPRESSION: Right lower lobe infiltrate and small effusion unchanged
--- NOTE | 2018-06-02 16:42 | CP.PCM.PN ---
Subjective - Date & Time of Evaluation Date of Evaluation: 06/02/18 Time of Evaluation: 10:30 - Subjective Subjective: Afebrile, not in distress. Breathing a little better, no nausea. Objective - Vital Signs/Intake and Output Vital Signs (last 24 hours): Temp Pulse Resp BP Pulse Ox 97.9 F 64 18 138/78 98 06/01/18 06:00 06/01/18 09:28 06/01/18 06:00 06/01/18 09:28 06/01/18 06:00 Intake and Output: 06/01/18 06/01/18 06:59 18:59 Intake Total 1260 Output Total 300 Balance 960 - Medications Medications: Current Medications Albuterol/Ipratropium (Duoneb 3 Mg/0.5 Mg (3 Ml) Ud) 3 ml IH [id number] [facility] Last Admin: 06/01/18 07:34 Dose: 3 ml Albuterol/Ipratropium (Duoneb 3 Mg/0.5 Mg (3 Ml) Ud) 3 ml IH Q2H PRN PRN Reason: Shortness of Breath Aspirin (Aspirin Chewable) 81 mg PO DAILY [facility] Last Admin: 06/01/18 09:28 Dose: 81 mg Budesonide (Pulmicort Respules) 0.5 mg IH [id number] [facility] Last Admin: 06/01/18 07:33 Dose: 0.5 mg Clonidine HCl (Catapres) 0.1 mg PO BID [facility] Last Admin: 06/01/18 09:27 Dose: 0.1 mg Diltiazem HCl (Cardizem Cd) 180 mg PO DAILY [facility] Last Admin: 06/01/18 09:28 Dose: 180 mg Doxycycline Hyclate (Doryx) 100 mg PO Q12 [facility]; Protocol Heparin Sodium (Porcine) (Heparin) 5,000 units SC Q12 [facility]; Protocol Last Admin: 06/01/18 09:29 Dose: 5,000 units Home Med (Home Med) 1 unit OU BID [facility] Last Admin: 06/01/18 09:30 Dose: 1 unit Home Med (Home Med) 1 unit OU HS [facility] Last Admin: 05/31/18 21:15 Dose: 1 unit Vancomycin HCl (Vancomycin 1gm) 1 gm in 250 mls @ 167 mls/hr IVPB Q12H [facility]; Protocol Last Admin: 06/01/18 09:32 Dose: 167 mls/hr Dexmedetomidine HCl (Precedex 400mcg/100ml) 400 mcg in 100 mls @ 3.152 mls/hr IV .Q24H [facility]; Protocol PRN Reason: Agitation Last Titration: 05/29/18 07:00 Dose: 0 mcg/kg/hr, 0 mls/hr Cefepime HCl (Maxipime 2gm) 2 gm in 100 mls @ 100 mls/hr IVPB Q12 [facility]; Protocol Stop: 06/05/18 11:31 Last Admin: 05/31/18 21:15 Dose: 100 mls/hr Losartan Potassium (Cozaar) 100 mg PO DAILY [facility] Last Admin: 06/01/18 09:29 Dose: 100 mg Methylprednisolone (Solu-Medrol) 30 mg IVP Q12 [facility] Last Admin: 06/01/18 09:29 Dose: 30 mg Pantoprazole Sodium (Protonix Susp) 40 mg PO 0600 [facility] Last Admin: 06/01/18 06:44 Dose: 40 mg Potassium Phos/Sodium Phos (Neutra-Phos) 1 pkt PO TID [facility] Last Admin: 06/01/18 09:31 Dose: 1 pkt Quetiapine Fumarate (Seroquel) 25 mg PO HS [facility]; Protocol PRN Reason: Agitation Tamsulosin HCl (Flomax) 0.4 mg PO DAILY [facility] Last Admin: 06/01/18 09:33 Dose: 0.4 mg - Labs Labs: 06/01/18 07:00 06/01/18 07:00 PT 10.4 SECONDS (9.4-12.5) 05/19/18 11:35 INR 0.91 05/19/18 11:35 APTT 26.0 Seconds (25.1-36.5) 05/23/18 19:02 - Constitutional Appears: Chronically Ill - Head Exam Head Exam: NORMAL INSPECTION - Respiratory Exam Respiratory Exam: Decreased Breath Sounds - Cardiovascular Exam Cardiovascular Exam: +S1, +S2 - GI/Abdominal Exam GI & Abdominal Exam: Soft. absent: Tenderness Assessment and Plan - Assessment and Plan (Free Text) Plan: Assessment consider sepsis due to right lower lobe healthcare-associated pneumonia hypercapneic respiratory failure due to COPD exacerbation, slowly improving history of right lower lobe atypical community-acquired pneumonia HTN COPD Plan continue Vancoymcin and Cefepime day 8 and Doxycycline day 6 - aim for up at least 7 days and up to 10 days of antibiotics; cultures have been negative, yeast in sputum cx is probably colonization, PCT is <0.05; reviewed CXR and Pulmonary evaluation will continue to monitor clinically discussed with Dr. Chau previously elevated WBC's were probably due to steroids
[2018-06-02] MEDS: [UNRECOGNIZED DRUG - OTHER] OU SCH (21:26)
--- NOTE | 2018-06-02 22:15 | PN ---
DATE: 06/02/2018 SUBJECTIVE: The patient is 77 years old, seen and examined, sitting in chair. Seems to be comfortable except mild shortness of breath . PHYSICAL EXAMINATION: VITAL SIGNS: He is afebrile, pulse 69, respirations 20, blood pressure 131/64. LUNGS: Bilateral diffusely decreased breath sound. HEART: S1 and S2 audible. ABDOMEN: Soft. Nontender. Obese. No hepatosplenomegaly. NEUROLOGICAL: The patient is awake, alert, oriented, communicative. LABORATORY EXAM: WBC is 11.8, hemoglobin 9, hematocrit 28.7, platelet 229. Chemistry: Sodium 139, potassium 4.6, chloride 100, CO2 of 40, BUN 29, creatinine 0.8, blood sugar of 142. X-ray chest shows right lower lobe infiltrate and small effusion. ASSESSMENT: 1. Chronic obstructive pulmonary disease exacerbation. 2. Status post respiratory failure. 3. Status post extubation. 4. Deconditioning and difficulty walking. PLAN: Currently, the patient is on diltiazem. He is in Catapres. Continue losartan. The patient is deconditioned. Needs to be in rehab. Close monitoring. Family wants him to go to TCU. Once the bed is available, he will be transferred to TCU. Peter Calvillo MD
[2018-06-03] MEDS: Albuterol-Ipratrop 3 mg / 0.5 (3 ml) UD IH SCH ×3 (01:32→13:28)
[2018-06-03] MEDS: Pantoprazole 40 mg Susp UD PO SCH (06:24)
[2018-06-03] MEDS: Budesonide 0.5 mg/2 ml Inhal Susp UD IH SCH (07:18)
--- NOTE | 2018-06-03 07:36 | PN ---
DATE: 06/03/2018 PULMONARY NOTE SUBJECTIVE: The patient appears comfortable this morning. He is not short of breath at rest. PHYSICAL EXAMINATION: VITAL SIGNS: (Last noted in the computer): Temperature is 98.3, pulse 88, respirations 18-20, blood pressure 128/69. Oxygen saturation on nasal cannula is 98%-100%. HEENT: Normocephalic, atraumatic. No JVD. CARDIOVASCULAR: Systolic ejection murmur at the lower left sternal border. No S3 gallop. LUNGS: Decreased breath sounds at the bases. Minimal/less rhonchi. No wheezing. EXTREMITIES: No clubbing, cyanosis, or edema. Calves are nontender to palpation. GASTROINTESTINAL: Abdomen is soft, nontender, and nondistended. Bowel sounds are positive. SKIN: No acute rash. NEUROLOGIC: Limited at the present time. IMPRESSION: 1. Respiratory failure. 2. Advanced, end-stage chronic obstructive pulmonary disease. 3. Right lower lobe pneumonia. 4. Nonobstructive coronary artery disease. 5. Mild anemia. PLAN: The patient appears comfortable this morning. He is not short of breath at rest. He does state to feeling much better overall. I did discuss the case with the night nurse at length. The night nurse stated that the patient had a very good night. He does wear his BiPAP at night. On physical exam, his bronchospasm continues to resolve. In addition, the alveolar-arterial gradient also continues to resolve. Oxygen saturation on nasal cannula is now 99%-100%. I will continue with the current nebulizer treatments and low-dose intravenous steroids for now. The patient remains on antibiotic therapy - as per Infectious Disease. Temperatures have fully resolved. There is no significant leukocytosis. Clinical status of the patient is significantly improved - compared to last week. He does remain very guarded overall - as he continues to have advanced lung disease. I will discuss the above with the attending physician. Cedric Chau MD MTDLeidy
[2018-06-03 08:03] VITALS: TEMP 98
--- NOTE | 2018-06-03 09:47 | PN ---
DATE: 06/02/2018 CARDIOLOGY FOLLOWUP HISTORY OF PRESENT ILLNESS: The patient is in a chair, on nasal O2. He is awake, alert. PHYSICAL EXAMINATION: VITAL SIGNS: Stable. NECK: Negative JVD. LUNGS: Without rales. HEART: S1 and S2. EXTREMITIES: Without edema. LABORATORIES: Revealed hemoglobin of 9. Chemistries; BUN and creatinine unremarkable. IMPRESSION: 1. Severe chronic obstructive pulmonary disease. 2. Xhi-NP-jmddbtxey myocardial infarction due to hypoxemia. 3. Altered mental status secondary to hypoxemia. 4. Diabetes mellitus. 5. Weakness. 6. Anemia. 7. Dyspnea. PLAN: Given these findings, the patient has improved. It is likely the patient will need long-term rehabilitation. Ryan Schneider MD
[2018-06-03] MEDS: Cefepime IV 2 gm in NS 2 GM/100 ML BAG IVPB SCH (10:06)
[2018-06-03] MEDS: Vancomycin 1gm in NS 250ml 1 GM/250 ML BAG IVPB SCH (10:06)
[2018-06-03] MEDS: Potassium & Sodium Phosphate PO SCH ×3 (10:08→17:02)
[2018-06-03] MEDS: MethylPREDNISolone 40 mg Vial IVP SCH (10:08)
[2018-06-03] MEDS: diltiaZEM 180 mg/24 Hours CD Cap PO SCH (10:08)
--- NOTE | 2018-06-03 10:53 | CP.PCM.PN ---
Subjective - Date & Time of Evaluation Date of Evaluation: 06/03/18 Time of Evaluation: 07:55 - Subjective Subjective: Afebrile, breathing better, no cough, no nausea diarrhea. Objective - Vital Signs/Intake and Output Vital Signs (last 24 hours): Temp Pulse Resp BP Pulse Ox 98 F 69 20 131/64 100 06/02/18 14:00 06/02/18 14:00 06/02/18 14:00 06/02/18 14:00 06/02/18 14:00 Intake and Output: 06/02/18 06/02/18 06:59 18:59 Intake Total 480 Output Total 400 Balance 80 - Medications Medications: Current Medications Albuterol/Ipratropium (Duoneb 3 Mg/0.5 Mg (3 Ml) Ud) 3 ml IH [id number] [facility] Last Admin: 06/02/18 13:56 Dose: 3 ml Albuterol/Ipratropium (Duoneb 3 Mg/0.5 Mg (3 Ml) Ud) 3 ml IH Q2H PRN PRN Reason: Shortness of Breath Budesonide (Pulmicort Respules) 0.5 mg IH [id number] [facility] Last Admin: 06/02/18 07:34 Dose: 0.5 mg Clonidine HCl (Catapres) 0.1 mg PO BID [facility] Last Admin: 06/02/18 09:19 Dose: 0.1 mg Diltiazem HCl (Cardizem Cd) 180 mg PO DAILY [facility] Last Admin: 06/02/18 09:19 Dose: 180 mg Doxycycline Hyclate (Doryx) 100 mg PO Q12 [facility]; Protocol Heparin Sodium (Porcine) (Heparin) 5,000 units SC Q12 [facility]; Protocol Last Admin: 06/02/18 09:19 Dose: 5,000 units Home Med (Home Med) 1 unit OU BID [facility] Last Admin: 06/02/18 09:20 Dose: 1 unit Home Med (Home Med) 1 unit OU HS [facility] Last Admin: 06/01/18 22:33 Dose: 1 unit Vancomycin HCl (Vancomycin 1gm) 1 gm in 250 mls @ 167 mls/hr IVPB Q12H [facility]; Protocol Last Admin: 06/02/18 09:18 Dose: 167 mls/hr Dexmedetomidine HCl (Precedex 400mcg/100ml) 400 mcg in 100 mls @ 3.152 mls/hr IV .Q24H [facility]; Protocol PRN Reason: Agitation Last Titration: 05/29/18 07:00 Dose: 0 mcg/kg/hr, 0 mls/hr Cefepime HCl (Maxipime 2gm) 2 gm in 100 mls @ 100 mls/hr IVPB Q12 [facility]; Protocol Stop: 06/05/18 11:31 Last Admin: 06/02/18 09:18 Dose: 100 mls/hr Losartan Potassium (Cozaar) 100 mg PO DAILY [facility] Last Admin: 06/02/18 09:19 Dose: 100 mg Methylprednisolone (Solu-Medrol) 30 mg IVP Q12 [facility] Last Admin: 06/02/18 09:18 Dose: 30 mg Pantoprazole Sodium (Protonix Susp) 40 mg PO 0600 [facility] Last Admin: 06/02/18 06:04 Dose: 40 mg Potassium Phos/Sodium Phos (Neutra-Phos) 1 pkt PO TID [facility] Last Admin: 06/02/18 14:07 Dose: 1 pkt Quetiapine Fumarate (Seroquel) 25 mg PO HS [facility]; Protocol PRN Reason: Agitation Tamsulosin HCl (Flomax) 0.4 mg PO DAILY [facility] Last Admin: 06/02/18 09:20 Dose: 0.4 mg - Labs Labs: 06/02/18 06:20 06/02/18 06:20 PT 10.4 SECONDS (9.4-12.5) 05/19/18 11:35 INR 0.91 05/19/18 11:35 APTT 26.0 Seconds (25.1-36.5) 05/23/18 19:02 - Constitutional Appears: Chronically Ill - Head Exam Head Exam: NORMAL INSPECTION - Respiratory Exam Respiratory Exam: Decreased Breath Sounds - Cardiovascular Exam Cardiovascular Exam: +S1, +S2 - GI/Abdominal Exam GI & Abdominal Exam: Soft. absent: Tenderness Assessment and Plan - Assessment and Plan (Free Text) Plan: Assessment consider sepsis due to right lower lobe healthcare-associated pneumonia hypercapneic respiratory failure due to COPD exacerbation, slowly improving history of right lower lobe atypical community-acquired pneumonia HTN COPD Plan we can d/c Vancoymcin and continue Cefepime day 9 and Doxycycline day 7 - aim for up at least 7 days and up to 10 days of antibiotics; cultures have been negative, yeast in sputum cx is probably colonization, PCT is <0.05; reviewed CXR and Pulmonary evaluation will continue to monitor clinically discussed with Dr. Chau previously elevated WBC's were probably due to steroids
[2018-06-03] MEDS: COMBIGAN OPTH OU SCH ×2 (13:39→17:02)
--- NOTE | 2018-06-03 15:17 | PN ---
CARDIOLOGY FOLLOWUP DATE: 06/03/2018 SUBJECTIVE: The patient is in a chair without shortness of breath. PHYSICAL EXAMINATION: VITAL SIGNS: Blood pressure 128/64 and heart rate is in the 70s. NECK: Negative JVD. LUNGS: Without rales. HEART: S1 and S2. EXTREMITIES: Without edema. LABORATORY DATA: Hemoglobin is 9.0. BUN and creatinine unremarkable. Glucose 142. IMPRESSION: 1. Chronic obstructive pulmonary disease which is now stable. 2. Change in mental status due to have hypoxemia. 3. Dyspnea, which is now resolved. 4. Anemia. Given these findings, the patient is doing much better. Continue physical therapy. Ryan Schneider MD
[2018-06-03 15:21] VITALS: PULSE 78; RESP 18; O2SAT 97
[2018-06-03 17:04] VITALS: BP 154/78
--- NOTE | 2018-06-03 23:07 | DS ---
HISTORY OF PRESENT ILLNESS: The patient is 77 years old who was admitted with increasing shortness of breath. He was found cyanotic. He was hypercapnic. He was intubated, but after 3 days, he was successfully extubated. The patient had right lower lobe pneumonia, has been on IV antibiotic, nebulizer treatment. The patient came out positive for troponin, was probably demand ischemia. He underwent catheterization. It was negative for any significant obstruction; however, he remained tachycardic. He was started on verapamil, that controlled his blood. He was started on diltiazem, that controlled his heart rate. On examination today, he is doing okay, although he is short of breath at rest. He needs subacute rehab as he is very deconditioned. Arrangement is being made to transfer him to [place] to get subacute rehab. PHYSICAL EXAMINATION: GENERAL: Today, he is awake, alert, oriented, communicative. VITAL SIGNS: He is afebrile, pulse 78, respirations 18, blood pressure 154/78. LUNGS: Bilateral fair airflow. No rhonchi or crackles. He has diffusely decreased breath sounds. HEART: S1 and S2 audible. ABDOMEN: Soft, obese, nontender. No rebound. No guarding. NEUROLOGIC: The patient is awake, alert, oriented, able to communicate. EXTREMITIES: Bilateral legs no edema. LABORATORY EXAM: WBC is 11.8, hemoglobin 9, hematocrit 28.7, platelets 229. Chemistry: Sodium 139, potassium 4.6, chloride 100, CO2 of 40, BUN 29, creatinine 0.8, blood sugar of 142. LFTs are within normal limits. ASSESSMENT: 1. Terminal chronic obstructive pulmonary disease. 2. Demand ischemia, causing positive troponin. 3. Hypertension. 4. Hyperlipidemia. 5. Chronic anemia. PLAN: The patient is being transferred to [place] and I will follow up the patient in [place] and will resume his medications. He will be on doxycycline for 3 more days and he is on Maxipime 2 g every 12 for 2 more days. He will resume all his medications. I will follow up the patient in the next few days. Peter Calvillo MD [facility] # [id number]
== END 2018-06-03 17:47 | DRG 208 ==
LOC: ED 14:52 → ERH 16:20 → ICU 18:51 → 5RSO 05-22 13:21 → ICU 05-23 02:31 → 5RNO 05-31 12:14
PROVIDERS: ADMIT Internal Medicine; ATTEND Internal Medicine
PROC: 5A09457 Assistance with Respiratory Ventilation, 24-96 Consecutive Hours, Continuous Positive Airway Pressure (ICD-10-PCS; principal; 2018-05-16)
PROC: 0BH17EZ Insertion of Endotracheal Airway into Trachea, Via Natural or Artificial Opening (ICD-10-PCS; 2018-05-16)
PROC: 4A023N7 Measurement of Cardiac Sampling and Pressure, Left Heart, Percutaneous Approach (ICD-10-PCS; 2018-05-19)
PROC: B2111ZZ Fluoroscopy of Multiple Coronary Arteries using Low Osmolar Contrast (ICD-10-PCS; 2018-05-19)
PROC: 5A1935Z Respiratory Ventilation, Less than 24 Consecutive Hours (ICD-10-PCS; 2018-05-23)
PROC: 0BH17EZ Insertion of Endotracheal Airway into Trachea, Via Natural or Artificial Opening (ICD-10-PCS; 2018-05-23)
DX: J44.1 Chronic obstructive pulmonary disease with (acute) exacerbation (principal); J96.02 Acute respiratory failure with hypercapnia; J96.01 Acute respiratory failure with hypoxia; I21.4 Non-ST elevation (NSTEMI) myocardial infarction; J18.1 Lobar pneumonia, unspecified organism; A41.9 Sepsis, unspecified organism; I24.8 Other forms of acute ischemic heart disease; J90 Pleural effusion, not elsewhere classified; E87.4 Mixed disorder of acid-base balance; I10 Essential (primary) hypertension; I27.20 Pulmonary hypertension, unspecified; Z99.81 Dependence on supplemental oxygen; I25.10 Atherosclerotic heart disease of native coronary artery without angina pectoris; Z87.891 Personal history of nicotine dependence; R00.1 Bradycardia, unspecified; E87.5 Hyperkalemia; J44.0 Chronic obstructive pulmonary disease with (acute) lower respiratory infection; D64.9 Anemia, unspecified; E11.65 Type 2 diabetes mellitus with hyperglycemia; E78.00 Pure hypercholesterolemia, unspecified; E78.5 Hyperlipidemia, unspecified; F09 Unspecified mental disorder due to known physiological condition; T38.0X5A Adverse effect of glucocorticoids and synthetic analogues, initial encounter; I25.2 Old myocardial infarction; Y95 Nosocomial condition; Z78.1 Physical restraint status; Z79.82 Long term (current) use of aspirin; Z87.01 Personal history of pneumonia (recurrent); Z91.19 Patient's noncompliance with other medical treatment and regimen; Z82.49 Family history of ischemic heart disease and other diseases of the circulatory system; Z98.42 Cataract extraction status, left eye; Z98.41 Cataract extraction status, right eye; Z87.81 Personal history of (healed) traumatic fracture; N40.0 Benign prostatic hyperplasia without lower urinary tract symptoms; R40.2412 Glasgow coma scale score 13-15, at arrival to emergency department

== ENCOUNTER 2018-06-04 17:53 | Emergency (ER) | payer MEDICARE ==
[2018-06-04 18:02] VITALS: BMI 25.0
[2018-06-04 18:09] VITALS: PULSE 82; TEMP 98.1
[2018-06-04 18:21] VITALS: O2SAT 97
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
[2018-06-04 18:26] VITALS: BP 145/85; RESP 16
== END 2018-06-04 20:03 | disposition home or self-care (01) ==
LOC: ED 17:53
DX: R41.82 Altered mental status, unspecified (principal); I10 Essential (primary) hypertension; Z87.891 Personal history of nicotine dependence

== ENCOUNTER 2018-06-09 16:29 | Inpatient (IN) | payer OTHER ==
[2018-06-09] MEDS ORDERED: Morphine 2 mg/ml ISec IVP STA (16:41)
[2018-06-09] MEDS ORDERED: Morphine PCA 1 mg/ml (30ml) 30 ML IV PRN ×2 (16:41→22:15)
[2018-06-09] MEDS ORDERED: Influenza Vaccine 60 mcg/0.5 mL SYR (4YR UP) IM ONE (22:11)
[2018-06-09] MEDS ORDERED: Pneumococcal 23-Valent Vaccine IM ONE (22:11)
[2018-06-10 01:01] VITALS: BP 127/66; PULSE 99; BMI 26.6
[2018-06-10] MEDS: Morphine PCA 1 mg/ml (30ml) 30 ML IV PRN ×2 (09:59→19:49)
--- NOTE | 2018-06-10 19:39 | HP ---
DATE OF EXAM: 06/10/2018 HISTORY OF PRESENT ILLNESS: The patient is 77 years old who was admitted with respiratory distress, acute respiratory failure, and he was hypoxic with CO2 retention. The patient was placed on BiPAP. He was admitted in ICU. Family wanted him to be comfortable since yesterday he expressed his wishes and he states he cannot live like this anymore, he wants to live with dignity, so he was discharged from acute care floor and started on hospice care. PAST MEDICAL HISTORY: He has significant past medical history of: 1. Hypertension. 2. Hyperlipidemia. 3. COPD. 4. History of appendectomy. 5. Partial small bowel resection. ALLERGIES: HE IS NOT ALLERGIC TO ANY MEDICATIONS. MEDICATIONS AT HOME: He was on Vytorin, valsartan, nebulizer treatments, and aspirin. SOCIAL HISTORY: He is a and he was heavy smoker in the past. PHYSICAL EXAMINATION: GENERAL: He seems to be comfortable, not in any distress. VITAL SIGNS: He is afebrile, pulse 99, respirations 20, and blood pressure 127/66. LUNGS: Bilateral fair airflow. HEART: S1 and S2 audible. Regular rate and rhythm. ABDOMEN: Soft, obese, and nontender. No rebound. NEUROLOGICAL: He is sleepy, but not arousable. ASSESSMENT: 1. Respiratory failure. 2. Hypertension. 3. Hyperlipidemia. PLAN: Currently, the patient is on G[employer]PL[employer] pump and morphine. We will increase his Ativan to 1 mg every 8 hours. His family wants him to be sedated and be comfortable. Family by the bedside. The patient feels comfortable, continue like that. Peter Calvillo MD
[2018-06-11 02:26] VITALS: RESP 14
[2018-06-11] MEDS: Morphine PCA 1 mg/ml (30ml) 30 ML IV PRN ×2 (06:29→16:14)
--- NOTE | 2018-06-11 11:21 | CP.PCM.PN ---
Subjective - Date & Time of Evaluation Date of Evaluation: 06/11/18 Time of Evaluation: 11:00 - Subjective Subjective: Somnolent. 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 Last Admin: 06/11/18 06:29 Dose: 3 mg/hr, 3 mls/hr Lorazepam (Ativan) 1 mg IVP Q12H RICH; Protocol Last Admin: 06/11/18 09:17 Dose: Not Given Lorazepam (Ativan) 1 mg IVP Q4H PRN; Protocol PRN Reason: Agitation Scopolamine (Transderm-Scop) 1 patch TD Q3D RICH Last Admin: 06/09/18 17:11 Dose: 1 patch - Constitutional Appears: Chronically Ill - Head Exam Head Exam: NORMOCEPHALIC - Eye Exam Eye Exam: Normal appearance Additional comments: sluggish - ENT Exam ENT Exam: Mucous Membranes Dry - Respiratory Exam Respiratory Exam: Decreased Breath Sounds, Rhonchi - Cardiovascular Exam Cardiovascular Exam: Tachycardia, +S1, +S2 - GI/Abdominal Exam GI & Abdominal Exam: Soft, Hypoactive Bowel Sounds - Extremities Exam Additional comments: 2 + edema of both lower extremities - Skin Skin Exam: Dry, Pallor Assessment and Plan - Assessment and Plan (Free Text) Assessment: 77 year old male with history of COPD/emphysema, HTN , pneumonia who is admitted under [facility] hosp[facility] services for pain and symptom management. Family at beside. Signs of impending explained. Questions answered. End of life counseling provided. Time spent in counseling 20 minutes Plan: End of life counseling Morphine 2 mg continuous infusion Ativan 1 mg IVP scheduled dosing twice daily and Ativan 1 mg IVP PRN Scopolamine transdermal patch Gentle suctioning as needed Tylenol 650 mg RC as needed for fever over 100 F
--- NOTE | 2018-06-11 14:53 | PN ---
DATE: 06/11/2018 SUBJECTIVE: The patient is a 77-year-old, seen and examined, seems to be comfortable, not in any distress. No shortness of breath. He is on high flow oxygen and seem to be sedated. PHYSICAL EXAMINATION: VITAL SIGNS: Respirations 14, FiO2 of 50% , blood pressure 152/83. HEART: S1 and S2 audible. ABDOMEN: Soft, nontender. No rebound. No guarding. NEUROLOGICAL: He is sedated and minimally responsive. ASSESSMENT AND PLAN: 1. Respiratory failure. 2. Chronic obstructive pulmonary disease. 3. History of hypertension. 4. Anxiety disorder. PLAN: We will keep the patient comfortable. Currently, he is on morphine. He is getting Ativan 1 mg every 12 hours and every 4 hours p.r.n. Peter Calvillo MD
--- NOTE | 2018-06-12 06:48 | CP.PCM.PRO ---
Pronouncement of Note - Clinical Findings Physical Exam: No Response Verbal/Painful Stimuli, Absent Peripheral Puls es{Carotid & Femoral}, Absent Heart & Breath Sounds, No Pupillary Light Reflex, No Corneal Reflex, Pupils Fixed & Dilated, Absence of Vital Signs - Pronouncement Time Time of Pronouncement of : 07:16 Additional Comments: Patient seems at peace with family at bedside - Notifications Pronouncement Notifications: Family Notified, Atending Notified Plumbing Designer Notified: No - Autopsy Autopsy Requested: No
== END 2018-06-11 18:30 | DRG 189 ==
LOC: ICU 16:29 → 3RSO 22:48
PROVIDERS: ADMIT Internal Medicine; ATTEND Internal Medicine
DX: J96.01 Acute respiratory failure with hypoxia (principal); E87.2 Acidosis; J44.9 Chronic obstructive pulmonary disease, unspecified; I10 Essential (primary) hypertension; E78.5 Hyperlipidemia, unspecified; F41.9 Anxiety disorder, unspecified; Z51.5 Encounter for palliative care; Z87.891 Personal history of nicotine dependence; Z90.49 Acquired absence of other specified parts of digestive tract